=== PATIENT | male | born 1960 | race Caucasian/White ===

== ENCOUNTER 2021-07-25 11:19 | Inpatient (IN) ==
[2021-07-25] MEDS ORDERED: ONDANSETRON 4 MG OD TAB PO STA (11:32)
[2021-07-25] MEDS ORDERED: ONDANSETRON INJ 2 MG/ML 2 ML VIAL IV STA (11:36)
[2021-07-25] MEDS ORDERED: SODIUM CHLORIDE 0.9% 1000ML 1,000 ML IV ONE ×2 (11:36→12:32)
[2021-07-25] MEDS ORDERED: DEXAMETHASONE SOD INJ 4 MG/ML VIAL IV STA (11:49)
--- NOTE | 2021-07-25 12:41 | XRay Report ---
XR chest 1V portable CLINICAL HISTORY: SEPSIS COMPARISON STUDY: No previous studies for comparison. FINDINGS: Lung volumes are normal. No pneumothorax or pleural effusion is noted. There are multifocal bilateral airspace opacities, greater within the left lung. Interstitial thickening is noted. Cardia c silhouette appears mildly enlarged. IMPRESSION: Multifocal bilateral airspace opacities, greater within the left lung. The findings favo r multifocal pneumonia. Radiographic follow-up to ensure resolution is recommended. ACT 112: Negative or not required by law. Electronically signed by: Benjamin Gamez M.D. 07/25/2021 12:40 PM
[2021-07-25 12:47] LABS: Hematocrit (blood only) 33.7 % (42-52); Hemoglobin 11.6 g/dL (14.0-18.0); Mean Corpuscular Hemoglobin 30.7 pg (25-34); Mean Corpuscular Hgb Conc 34.4 g/dL (32-36); Mean Corpuscular Volume 89.2 fL (80-100); Mean Platelet Volume 9.7 fL (7.4-10.4); Platelet Count 158 K/uL (130-400); RDW Coefficient of Variation 14.6 % (11.5-14.5); RDW Standard Deviation 47.7 fL (36.4-46.3); Red Blood Count 3.78 M/uL (4.7-6.1); White Blood Count 3.72 K/uL (4.8-10.8)
--- NOTE | 2021-07-25 12:49 | Emergency Department Note ---
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 Patient states his symptoms have been present for last week. Patient states he tested positive for COVID-19 yesterday. He states he was referred here by his PCP for IV fluids. Patient was unvaccinated. Home Medications Medication Instructions Recorded Confirmed Type allopurinol 300 mg tablet 300 mg PO DAILY 07/25/21 07/25/21 History glyburide 5 mg tablet 5 mg PO BID 07/25/21 07/25/21 History lisinopril 40 mg tablet 40 mg PO DAILY 07/25/21 07/25/21 History metformin 1,000 mg tablet 1,000 mg PO BID 07/25/21 07/25/21 History metoprolol succinate 25 mg 25 mg PO DAILY 07/25/21 07/25/21 History tablet,extended release 24 hr ondansetron 4 mg disintegrating 4 mg TRANSLINGUAL UD PRN 07/25/21 07/25/21 History tablet pioglitazone 45 mg tablet 45 mg PO DAILY 07/25/21 07/25/21 History Allergies Allergy/AdvReac Type Severity Reaction Status Date / Time No Known Allergies Allergy Unverified 07/25/21 14:34 Past Med/Surg History Medical History (Updated 07/25/21 @ 14:41 by Louis [facility]) Diabetes mellitus Gout HTN (hypertension) No pertinent family history Surgical History (Updated 07/25/21 @ 12:46 by Louis [facility]) No pertinent past surgical history Social History Smoking Status: Never smoker Feels Safe at Home: Yes Review of Systems A total of 10 systems reviewed and were otherwise negative Physical Exam Vital Signs Vital Signs - 24 hr 07/25/21 11:32 07/25/21 12:23 07/25/21 12:24 Temperature 36.7 C Temperature Source Temporal Artery Scan Pulse Rate 115 H Pulse Rate [Apical] 106 H Pulse Rhythm [Apical] Regular Respiratory Rate 18 20 20 Respiratory Effort / Characteristics Non-Labored Respiratory Depth Normal Blood Pressure 87/53 L Blood Pressure Mean 64 Pulse Oximetry 90 97 97 Oxygen Delivery Method Room Air Nasal Cannula Nasal Cannula Oxygen Flow Rate 4 4 Sepsis Recent Fever Within 48 Hours No Sepsis New/Unexplained Change in Mental Status No Sepsis Action Taken by Nursing No Action Required 07/25/21 12:28 07/25/21 13:14 Temperature Temperature Source Pulse Rate Pulse Rate [Apical] Pulse Rhythm [Apical] Respiratory Rate 15 Respiratory Effort / Characteristics Short of Breath Respiratory Depth Blood Pressure Blood Pressure Mean Pulse Oximetry 87 L 97 Oxygen Delivery Method Nasal Cannula Nasal Cannula Oxygen Flow Rate 2 4 Sepsis Recent Fever Within 48 Hours Sepsis New/Unexplained Change in Mental Status Sepsis Action Taken by Nursing Physical Exam HENT: Exam performed. - Head: Normocephalic and atraumatic. - Right Ear: External ear normal. No mastoid tenderness. - Left Ear: External ear normal. No mastoid tenderness. - Mouth/Throat: The oropharynx is clear and moist. No trismus in the jaw. No dental abscesses or uvula swelling. No oropharyngeal exudate or tonsillar abscesses. EYES: Conjunctivae and EOM are normal. Pupils are equal, round, and reactive to light. Right eye exhibits no discharge. Left eye exhibits no discharge. No scleral icterus. NECK: Normal range of motion. Neck supple. No JVD present. No spinous process tenderness present. No carotid bruit present. No rigidity. No tracheal deviation and normal range of motion present. No Brudzinski's sign and no Kernig's sign noted. CV: Tachycardic rate, regular rhythm, normal heart sounds and intact distal pulses. There is no peripheral edema. Palpable radial pulses bue. PULM/CHEST: Rhonchi bilaterally. - Chest Wall: He exhibits no tenderness. ABD: The abdomen is soft. Bowel sounds are normal. He has no distension. No mass is present. There is no tenderness. There is no rebound, no guarding, no Reina's sign and no tenderness at McBurney's point. Rovsig negative. MUSC/SKEL: Normal range of motion. There is no peripheral edema, tenderness or deformity. LYMPH: No cervical adenopathy. NEURO: He is alert and oriented to person, place, and time. He has normal strength. No cranial nerve deficit or sensory deficit. Coordination and gait normal. GCS eye subscore is 4. GCS verbal subscore is 5. GCS motor subscore is 6. Cerebellar tests wnl. SKIN: Skin is warm and dry. He is not diaphoretic. PSYCH: He has a normal mood and affect. Behavior is normal. Judgment and thought content normal. Course Course 1136: The patient was evaluated in room B9. A complete history and physical exam was performed Cardiac monitoring: An order was placed for continuous cardiac monitoring. The monitor shows a rate of 110 with sinus tachycardia rhythm On arrival in the emergency department the patient is tachycardic hypotensive and hypoxic. Supplemental oxygen was applied to the patient which improved his oxygen saturation. 2 L IV fluid ordered for the patient. Decadron 6 mg ordered for the patient. 1438: Vital signs improved with supplemental oxygen via nasal cannula and 2 L normal saline bolus. Labs show an elevated creatinine of 2.38. Potassium 5. Calcium gluconate 1 g ordered for the patient. It is thought that the patient's elevated creatinine is most likely due to his dehydration from his Covid infection. Patient reports he does not have any kidney problems at baseline. Magnesium 1.2. Magnesium replacement started in the emergency department. Imaging shows bilateral Covid pneumonia. Patient will be admitted to the [facility] hospitalist team Dr. Costa notified. Administered Medications Magnesium Sulfate/Dextrose (Magnesium Sulfate / D5w) 1 gm in 100 mls @ 100 mls /hr IV Q1H ANSELMO Stop: 07/25/21 15:30 Last Admin: 07/25/21 14:16 Dose: 100 mls/hr Documented by: [id number] Discontinued Medications Calcium Gluconate (Calcium Gluconate 1000 Mg/60 Ml Nss) Confirm Administered Dose 1,000 mg IV .STK-MED ONE Stop: 07/25/21 13:02 Last Admin: 07/25/21 13:12 Dose: Not Given Documented by: [id number] Dexamethasone (Dexamethasone Sod Inj 4 Mg/Ml Vial) 6 mg IV NOW STA Stop: 07/25/21 11:50 Last Admin: 07/25/21 12:20 Dose: 6 mg Documented by: [id number] Sodium Chloride (Nss 1000ml) 1,000 mls @ 999 mls/hr IV .Q1H1M ONE Stop: 07/25/21 12:36 Last Infusion: 07/25/21 12:47 Dose: 0 mls/hr Documented by: [id number] Admin: 07/25/21 12:20 Dose: 999 mls/hr Documented by: [id number] Sodium Chloride (Nss 1000ml) 1,000 mls @ 999 mls/hr IV .Q1H1M ONE Stop: 07/25/21 13:32 Last Infusion: 07/25/21 13:11 Dose: 0 mls/hr Documented by: [id number] Admin: 07/25/21 12:47 Dose: 999 mls/hr Documented by: [id number] Calcium Gluconate 1,000 mg/ (Dextrose) 60 mls @ 240 mls/hr IV ONCE STA Stop: 07/25/21 13:07 Last Infusion: 07/25/21 13:41 Dose: 0 mls/hr Documented by: [id number] Admin: 07/25/21 13:11 Dose: 240 mls/hr Documented by: [id number] Miscellaneous (Stat Iv) 1 ea N/A NOW STA Stop: 07/25/21 12:54 Last Admin: 07/25/21 13:12 Dose: Not Given Documented by: [id number] Ondansetron HCl (Ondansetron 4 Mg Od Tab) 4 mg PO NOW STA Stop: 07/25/21 11:33 Last Admin: 07/25/21 12:20 Dose: Not Given Documented by: [id number] Ondansetron HCl (Ondansetron Inj 2 Mg/Ml 2 Ml Vial) 4 mg IV NOW STA Stop: 07/25/21 11:37 Last Admin: 07/25/21 12:21 Dose: 4 mg Documented by: [id number] Critical Care Time Critical Care Time: Yes Total Critical Care Time: 58 I have personally spent greater than 58 minutes of critical care time in the direct management of this patient. This includes bedside care, interpretation of diagnostic studies, and testing, discussion with consultants, patient, and f amily members, and other required patient management activities. This 58 minutes is in excess of all separately billable procedures. Medical Decision Making Laboratory Data Result diagrams: 07/25/21 12:18 07/25/21 12:18 Lab Results 07/25/21 07/25/21 07/25/21 Range/Units 12:15 12:18 12:18 WBC 3.72 L (4.8-10.8) K/uL RBC 3.78 L (4.7-6.1) M/uL Hgb 11.6 L (14.0-18.0) g/dL POC Hgb (14.0-18.0) g/dl Hct 33.7 L (42-52) % POC Hct (42-52) % MCV 89.2 (80-100) fL MCH 30.7 (25-34) pg MCHC 34.4 (32-36) g/dL RDW Std Deviation 47.7 H (36.4-46.3) fL RDW Coeff of Huan 14.6 H (11.5-14.5) % Plt Count 158 (130-400) K/uL MPV 9.7 (7.4-10.4) fL Immature Gran % (Auto) 0.3 % Neut % (Auto) 85.4 % Lymph % (Auto) 10.8 % Jones % (Auto) 3.5 % Eos % (Auto) 0.0 % Baso % (Auto) 0.0 % Neut # (Auto) 3.18 (1.4-6.5) K/uL Lymph # (Auto) 0.40 L (1.2-3.4) K/uL Jones # (Auto) 0.13 (0.11-0.59) K/uL Eos # (Auto) 0.00 (0-0.5) K/uL Baso # (Auto) 0.00 (0-0.2) K/uL Immature Gran # (Auto) 0.01 (0.00-0.02) K/uL PT (9.0-12.0) Seconds INR (0.9-1.1) APTT (21.0-31.0) Seconds PTT Ratio POC Sodium (135-144) mmol/L Sodium 130 L (136-145) mmol/L POC Potassium (3.3-5.0) mmol/L Potassium 5.0 (3.5-5.1) mmol/L POC Chloride (101-112) mmol/L Chloride 103 (98-107) mmol/L Carbon Dioxide 15 L (21-32) mmol/L POC Total CO2 (24-31) mmol/L Anion Gap 12 H (3-11) POC Anion Gap (16-25) mmol/L POC BUN (7-18) mg/dl BUN 57 H (6-23) mg/dl Creatinine 2.68 H (0.6-1.4) mg/dl POC Creatinine (0.6-1.3) mg/dl Est Cr Clr Drug Dosing 33.8 ml/min Est GFR ( Amer) 29.1 ml/min Est GFR (Non-Af Amer) 25.1 ml/min BUN/Creatinine Ratio 21.3 H (10-20) Glucose 142 H (70-99(Fasting)) mg/dl POC Glucose (other) (70-99) mg/dl Lactate 0.8 (0.4-2.0) mmol/L Calcium 8.0 L (8.5-10.1) mg/dl POC Ioniz Calcium January (1.12-1.32) mmol/l Magnesium 1.2 L (1.7-2.4) mg/dl Total Bilirubin 0.5 (0.2-1.0) mg/dl AST 30 (13-39) U/L ALT 18 (7-52) U/L Alkaline Phosphatase 41 (34-104) U/L Troponin I 0.03 (0-0.04) ng/ml Total Protein 6.6 (6.0-8.3) gm/dl Albumin 3.6 (3.4-5.0) gm/dl Globulin 3.0 (2.5-4.0) gm/dl Albumin/Globulin Ratio 1.2 (0.9-2) Lipase 570 H (11-82) U/L Procalcitonin (0-0.5) ng/ml SARS-CoV-2 (PCR) (Negative) Influenza Type A (PCR) (Neg) Influenza Type B (PCR) (Neg) RSV (RT-PCR) (Neg) 07/25/21 07/25/21 07/25/21 Range/Units 12:18 12:18 12:51 WBC (4.8-10.8) K/uL RBC (4.7-6.1) M/uL Hgb (14.0-18.0) g/dL POC Hgb 10.2 L (14.0-18.0) g/dl Hct (42-52) % POC Hct 30 L (42-52) % MCV (80-100) fL MCH (25-34) pg MCHC (32-36) g/dL RDW Std Deviation (36.4-46.3) fL RDW Coeff of Huan (11.5-14.5) % Plt Count (130-400) K/uL MPV (7.4-10.4) fL Immature Gran % (Auto) % Neut % (Auto) % Lymph % (Auto) % Jones % (Auto) % Eos % (Auto) % Baso % (Auto) % Neut # (Auto) (1.4-6.5) K/uL Lymph # (Auto) (1.2-3.4) K/uL Jones # (Auto) (0.11-0.59) K/uL Eos # (Auto) (0-0.5) K/uL Baso # (Auto) (0-0.2) K/uL Immature Gran # (Auto) (0.00-0.02) K/uL PT 10.7 (9.0-12.0) Seconds INR 1.1 (0.9-1.1) APTT 30.5 (21.0-31.0) Seconds PTT Ratio 1.2 POC Sodium 133 L (135-144) mmol/L Sodium (136-145) mmol/L POC Potassium 5.6 H (3.3-5.0) mmol/L Potassium (3.5-5.1) mmol/L POC Chloride 105 (101-112) mmol/L Chloride (98-107) mmol/L Carbon Dioxide (21-32) mmol/L POC Total CO2 16 L (24-31) mmol/L Anion Gap (3-11) POC Anion Gap 18.0 (16-25) mmol/L POC BUN 74 H (7-18) mg/dl BUN (6-23) mg/dl Creatinine (0.6-1.4) mg/dl POC Creatinine 2.8 H (0.6-1.3) mg/dl Est Cr Clr Drug Dosing ml/min Est GFR ( Amer) ml/min Est GFR (Non-Af Amer) ml/min BUN/Creatinine Ratio (10-20) Glucose (70-99(Fasting)) mg/dl POC Glucose (other) 140 H (70-99) mg/dl Lactate (0.4-2.0) mmol/L Calcium (8.5-10.1) mg/dl POC Ioniz Calcium January 1.07 L (1.12-1.32) mmol/l Magnesium (1.7-2.4) mg/dl Total Bilirubin (0.2-1.0) mg/dl AST (13-39) U/L ALT (7-52) U/L Alkaline Phosphatase (34-104) U/L Troponin I (0-0.04) ng/ml Total Protein (6.0-8.3) gm/dl Albumin (3.4-5.0) gm/dl Globulin (2.5-4.0) gm/dl Albumin/Globulin Ratio (0.9-2) Lipase (11-82) U/L Procalcitonin 0.31 (0-0.5) ng/ml SARS-CoV-2 (PCR) (Negative) Influenza Type A (PCR) (Neg) Influenza Type B (PCR) (Neg) RSV (RT-PCR) (Neg) 07/25/21 Range/Units Unknown WBC (4.8-10.8) K/uL RBC (4.7-6.1) M/uL Hgb (14.0-18.0) g/dL POC Hgb (14.0-18.0) g/dl Hct (42-52) % POC Hct (42-52) % MCV (80-100) fL MCH (25-34) pg MCHC (32-36) g/dL RDW Std Deviation (36.4-46.3) fL RDW Coeff of Huan (11.5-14.5) % Plt Count (130-400) K/uL MPV (7.4-10.4) fL Immature Gran % (Auto) % Neut % (Auto) % Lymph % (Auto) % Jones % (Auto) % Eos % (Auto) % Baso % (Auto) % Neut # (Auto) (1.4-6.5) K/uL Lymph # (Auto) (1.2-3.4) K/uL Jones # (Auto) (0.11-0.59) K/uL Eos # (Auto) (0-0.5) K/uL Baso # (Auto) (0-0.2) K/uL Immature Gran # (Auto) (0.00-0.02) K/uL PT (9.0-12.0) Seconds INR (0.9-1.1) APTT (21.0-31.0) Seconds PTT Ratio POC Sodium (135-144) mmol/L Sodium (136-145) mmol/L POC Potassium (3.3-5.0) mmol/L Potassium (3.5-5.1) mmol/L POC Chloride (101-112) mmol/L Chloride (98-107) mmol/L Carbon Dioxide (21-32) mmol/L POC Total CO2 (24-31) mmol/L Anion Gap (3-11) POC Anion Gap (16-25) mmol/L POC BUN (7-18) mg/dl BUN (6-23) mg/dl Creatinine (0.6-1.4) mg/dl POC Creatinine (0.6-1.3) mg/dl Est Cr Clr Drug Dosing ml/min Est GFR ( Amer) ml/min Est GFR (Non-Af Amer) ml/min BUN/Creatinine Ratio (10-20) Glucose (70-99(Fasting)) mg/dl POC Glucose (other) (70-99) mg/dl Lactate (0.4-2.0) mmol/L Calcium (8.5-10.1) mg/dl POC Ioniz Calcium January (1.12-1.32) mmol/l Magnesium (1.7-2.4) mg/dl Total Bilirubin (0.2-1.0) mg/dl AST (13-39) U/L ALT (7-52) U/L Alkaline Phosphatase (34-104) U/L Troponin I (0-0.04) ng/ml Total Protein (6.0-8.3) gm/dl Albumin (3.4-5.0) gm/dl Globulin (2.5-4.0) gm/dl Albumin/Globulin Ratio (0.9-2) Lipase (11-82) U/L Procalcitonin (0-0.5) ng/ml SARS-CoV-2 (PCR) POSITIVE A* (Negative) Influenza Type A (PCR) Negative (Neg) Influenza Type B (PCR) Negative (Neg) RSV (RT-PCR) Negative (Neg) Imaging Data Radiologist's Impression: Chest X-Ray 07/25/21 11:49 XR chest 1V portable CLINICAL HISTORY: SEPSIS COMPARISON STUDY: No previous studies for comparison. FINDINGS: Lung volumes are normal. No pneumothorax or pleural effusion is noted. There are multifocal bilateral airspace opacities, greater within the left lung. Interstitial thickening is noted. Cardiac silhouette appears mildly enlarged. IMPRESSION: Multifocal bilateral airspace opacities, greater within the left lung. The findings favor multifocal pneumonia. Radiographic follow-up to ensure resolution is recommended. ACT 112: Negative or not required by law. Electronically signed by: Benjamin Gamez M.D. 07/25/2021 12:40 PM Abdomen/Pelvis CT 07/25/21 13:28 CT CHEST WITHOUT CONTRAST; ABDOMEN AND PELVIS CT WITHOUT CONTRAST HISTORY: Acute shortness of breath. COVID Positive. Acute nausea and vomiting with diarrhea covid pna hypoxic hypostensive TECHNIQUE: Multiaxial CT images of the chest, abdomen and pelvis were performed without contrast. A dose lowering technique was utilized adhering to the p rinciples of ALARA. COMPARISON STUDY: Chest CT of same day FINDINGS: CT CHEST: Unremarkable thyroid. Prominent mediastinal and hilar lymph nodes measuring up to 9 mm are likely reactive. Mild cardiomegaly with moderate coronary artery calcifications. Atherosclerosis of the thoracic aorta without aneurysm. There is no pneumothorax, pneumomediastinum or pleural effusion. Mild emphysema. Moderate multifocal and multi segmental bilateral patchy groundglass with mild intermixed airspace opacities. 4 mm nodule of the right lung apex. Additional 4 mm scattered pulmonary nodules are noted throughout the right lung. A few tiny nodules measuring up to 2 mm are noted within the left lung. Central airways are patent. Unremarkable soft tissues. There is no acute fracture identified. Degenerative changes of the shoulders and spine. CT ABDOMEN/PELVIS: No pneumatosis or pneumoperitoneum. Splenomegaly with hepatic steatosis. The spleen measures up to 14 cm in length. There are a few scattered parenchymal calcifications noted within the pancreas. Unremarkable adrenal glands and gallbladder. Mild nonspecific bilateral perinephric stranding. There are a few renal vascular calcifications. No urolith or hydronephrosis. Mild urinary bladder wall thickening with partial distention. Atherosclerosis of the aorta and branch vessels. No aneurysm. No adenopathy. Mild nonspecific distal esophageal wall thickening. There is no bowel obstruct ion or bowel wall thickening. No ascites or mesenteric inflammation. Mild colonic diverticulosis. Normal appendix. Unremarkable soft tissues. There is no acute fracture identified. Grade 1 anterolisthesis L5 on S1 with chronic bilateral L5 pars defects. IMPRESSION: 1. Moderate multifocal patchy bilateral groundglass and consolidative opacities are suggestive of viral pneumonia. 2. Scattered low suspicion bilateral solid pulmonary nodules measure up to 4 mm. 3. Mild emphysema. 4. No bowel obstruction or bowel wall thickening. Normal appendix. 5. Colonic diverticulosis. 6. Hepatosplenomegaly with hepatic steatosis. 7. Mild distal esophageal wall thickening. Correlate clinically to exclude esophagitis. Please refer to below summary of Fleischner criteria recommendations for follow- up of incidental CT nodules (Natalie Garibay, Guidelines for management of small pulmonary nodules detected on CT scans: A statement from the Fleischner Society, Radiology 237: [id number].) SOLID NODULES Multiple nodules size: <6 mm * Low risk patients: no routine follow-up * high risk patients: optional CT at 12 months Note: newly detected indeterminate nodule in persons 35 years of age or older. * Low risk patients: minimal or absent history of smoking and/or other known risk factors * high risk patients: history of smoking or of other known risk factors (e.g. first degree relative with lung cancer, or exposure to asbestos, radon, uranium) * if a nodule up to 8 mm is partly solid or is ground glass further follow-up is required after 24 months to exclude possible slow growing adenocarcinoma (DAILY) ACT 112: Negative or not required by law. The above report was generated using voice recognition software. It may contain grammatical, syntax or spelling errors. Electronically signed by: Jewel Rbiera M.D. 07/25/2021 2:[address] 07/25/21 13:28 CT CHEST WITHOUT CONTRAST; ABDOMEN AND PELVIS CT WITHOUT CONTRAST HISTORY: Acute shortness of breath. COVID Positive. Acute nausea and vomiting with diarrhea covid pna hypoxic hypostensive TECHNIQUE: Multiaxial CT images of the chest, abdomen and pelvis were performed without contrast. A dose lowering technique was utilized adhering to the principles of ALARA. COMPARISON STUDY: Chest CT of same day FINDINGS: CT CHEST: Unremarkable thyroid. Prominent mediastinal and hilar lymph nodes measuring up to 9 mm are likely reactive. Mild cardiomegaly with moderate coronary artery calcifications. Atherosclerosis of the thoracic aorta without aneurysm. There is no pneumothorax, pneumomediastinum or pleural effusion. Mild emphysema. Moderate multifocal and multi segmental bilateral patchy groundglass with mild intermixed airspace opacities. 4 mm nodule of the right lung apex. Additional 4 mm scattered pulmonary nodules are noted throughout the right lung. A few tiny nodules measuring up to 2 mm are noted within the left lung. Central airways are patent. Unremarkable soft tissues. There is no acute fracture identified. Degenerative changes of the shoulders and spine. CT ABDOMEN/PELVIS: No pneumatosis or pneumoperitoneum. Splenomegaly with hepatic steatosis. The spleen measures up to 14 cm in length. There are a few scattered parenchymal calcifications noted within the pancreas. Unremarkable adrenal glands and gallbladder. Mild nonspecific bilateral perinephric stranding. There are a few renal vascular calcifications. No urolith or hydronephrosis. Mild urinary bladder wall thickening with partial distention. Atherosclerosis of the aorta and branch vessels. No aneurysm. No adenopathy. Mild nonspecific distal esophageal wall thickening. There is no bowel obst ruction or bowel wall thickening. No ascites or mesenteric inflammation. Mild colonic diverticulosis. Normal appendix. Unremarkable soft tissues. There is no acute fracture identified. Grade 1 anterolisthesis L5 on S1 with chronic bilateral L5 pars defects. IMPRESSION: 1. Moderate multifocal patchy bilateral groundglass and consolidative opacities are suggestive of viral pneumonia. 2. Scattered low suspicion bilateral solid pulmonary nodules measure up to 4 mm. 3. Mild emphysema. 4. No bowel obstruction or bowel wall thickening. Normal appendix. 5. Colonic diverticulosis. 6. Hepatosplenomegaly with hepatic steatosis. 7. Mild distal esophageal wall thickening. Correlate clinically to exclude esoph agitis. Please refer to below summary of Fleischner criteria recommendations for follow- up of incidental CT nodules (Natalie Garibay, Guidelines for management of small pulmonary nodules detected on CT scans: A statement from the Fleischner Society, Radiology 237: [id number].) SOLID NODULES Multiple nodules size: <6 mm * Low risk patients: no routine follow-up * high risk patients: optional CT at 12 months Note: newly detected indeterminate nodule in persons 35 years of age or older. * Low risk patients: minimal or absent history of smoking and/or other known risk factors * high risk patients: history of smoking or of other known risk factors (e.g. first degree relative with lung cancer, or exposure to asbestos, radon, uranium) * if a nodule up to 8 mm is partly solid or is ground glass further follow-up is required after 24 months to exclude possible slow growing adenocarcinoma (DAILY) ACT 112: Negative or not required by law. The above report was generated using voice recognition software. It may contain grammatical, syntax or spelling errors. Electronically signed by: Jewel Ribera M.D. 07/25/2021 2:21 PM ECG Data Indication: + SOB/dyspnea Rate (beats per minute): 105 Rhythm: + sinus tachycardia ECG Intervals/blocks: + Normal OR and + Normal QT-c ECG ST segments: + Normal ST segments Additional Comments: QRS 74 MDM Narrative 1136: The patient was evaluated in room B9. A complete history and physical exam was performed Cardiac monitoring: An order was placed for continuous cardiac monitoring. The monitor shows a rate of 110 with sinus tachycardia rhythm On arrival in the emergency department the patient is tachycardic hypotensive and hypoxic. Supplemental oxygen was applied to the patient which improved his oxygen saturation. 2 L IV fluid ordered for the patient. Decadron 6 mg ordered for the patient. 1438: Vital signs improved with supplemental oxygen via nasal cannula and 2 L normal saline bolus. Labs show an elevated creatinine of 2.38. Potassium 5. Calcium gluconate 1 g ordered for the patient. It is thought that the patient's elevated creatinine is most likely due to his dehydration from his Covid infection. Patient reports he does not have any kidney problems at baseline. Magnesium 1.2. Magnesium replacement started in the emergency department. Imaging shows bilateral Covid pneumonia. Patient will be admitted to the [facility] hospitalist team Dr. Costa notified. Impression & Plan 2019 novel coronavirus-infected pneumonia (NCIP), Hypoxia, NATHANIEL (acute kidney injury), Hyperkalemia, Hypomagnesemia Discharge Plan Visit Data Chief Complaint: Dehydration Stated Complaint: COVID+ 07/25, DEHYDRATION, DIARRHEA ED Provider: Louis Humphrey Discharge Problem: 2019 novel coronavirus-infected pneumonia (NCIP), Hypoxia, NATHANIEL (acute kidney injury), Hyperkalemia, Hypomagnesemia Patient Disposition: Admitted As Inpatient Forms Stand Alone Forms: [facility] Prescriptions Prescriptions: No Action glyburide 5 mg tablet 5 mg PO BID RF: 0 pioglitazone 45 mg tablet 45 mg PO DAILY RF: 0 metformin 1,000 mg tablet 1,000 mg PO BID RF: 0 allopurinol 300 mg tablet 300 mg PO DAILY RF: 0 metoprolol succinate 25 mg tablet extended release 24 hr 25 mg PO DAILY RF: 0 lisinopril 40 mg tablet 40 mg PO DAILY RF: 0 ondansetron 4 mg tablet,disintegrating 4 mg translingual UD PRN (Reason: Nausea) RF: 0 Referrals Referrals: PCP,NO [Primary Care Provider] -
[2021-07-25] MEDS ORDERED: CALCIUM GLUCONATE 10% 1,000 MG in DEXTROSE 5% 50 ML IV STA (12:53)
[2021-07-25] MEDS ORDERED: STAT IV STA (12:53)
[2021-07-25 12:56] LABS: INR 1.1 (0.9-1.1); Partial Thromboplastin Ratio 1.2; Partial Thromboplastin Time 30.5 Seconds (21.0-31.0); Prothrombin Time 10.7 Seconds (9.0-12.0)
--- NOTE | 2021-07-25 12:58 | Electrocardiogram Report ---
Test Reason : Blood Pressure : / mmHG Vent. Rate : 105 BPM Atrial Rate : 105 BPM P-R Int : 126 ms QRS Dur : 074 ms QT Int : 302 ms P-R-T Axes : 037 039 038 degrees QTc Int : 399 ms Sinus tachycardia Otherwise normal ECG No previous ECGs available Confirmed by Earl Alvarado ([id number]) on 07/25/2021 12:58:00 PM Referred By: Confirmed By:Luigi Alvarado
[2021-07-25] MEDS ORDERED: CALCIUM GLUCONATE 1000 MG/60 ML NSS IV ONE (13:01)
[2021-07-25 13:04] LABS: iSTAT Creatinine 2.8 mg/dl (0.6-1.3); iSTAT Hemoglobin 10.2 g/dl (14.0-18.0); iSTAT Ionized Calcium 1.07 mmol/l (1.12-1.32); iSTAT Potassium 5.6 mmol/L (3.3-5.0)
[2021-07-25 13:05] LABS: Immature Granulocytes # (auto) 0.01 K/uL (0.00-0.02); Immature Granulocytes % (auto) 0.3 %; Lymphocytes % (auto) 10.8 %; Monocytes # (auto) 0.13 K/uL (0.11-0.59); Monocytes % (auto) 3.5 %; Neutrophils # (auto) 3.18 K/uL (1.4-6.5); Neutrophils % (auto) 85.4 %
[2021-07-25 13:12] LABS: Troponin I 0.03 ng/ml (0-0.04)
[2021-07-25 13:22] LABS: Albumin Globulin Ratio 1.2 (0.9-2); Albumin Level 3.6 gm/dl (3.4-5.0); BUN Creatinine Ratio 21.3 (10-20); Bilirubin,Total 0.5 mg/dl (0.2-1.0); Creatinine Clr Calc Pharmacy 33.8 ml/min; Est GFR (African American) 29.1 ml/min; Est GFR (Non-African American) 25.1 ml/min; Magnesium 1.2 mg/dl (1.7-2.4); Total Protein 6.6 gm/dl (6.0-8.3)
[2021-07-25 14:02] LABS: Influenza A virus by PCR Negative (Neg); Influenza B virus by PCR Negative (Neg); RSV by PCR Negative (Neg)
[2021-07-25 14:06] LABS: SARS CoV2 RNA(COVID-19) InHosp POSITIVE (Negative)
[2021-07-25] MEDS: MAGNESIUM SULFATE / D5W 1 GM/100 ML BAG IV SCH ×4 (14:16→18:03)
--- NOTE | 2021-07-25 14:23 | CT Scan Report ---
CT CHEST WITHOUT CONTRAST; ABDOMEN AND PELVIS CT WITHOUT CONTRAST HISTORY: Acute shortness of breath. COVID Positive. Acute nausea and vomiting with diarrhea covid pn a hypoxic hypostensive TECHNIQUE: Multiaxial CT images of the chest, abdomen and pelvis were performed without contrast. A dose lowering technique was utilized adhering to the principles of ALARA. COMPARISON STUDY: Chest CT of same day FINDINGS: CT CHEST: Unremarkable thyroid. Prominent mediastinal and hilar lymph nodes measuring up to 9 mm are likely anastasia ctive. Mild cardiomegaly with moderate coronary artery calcifications. Atherosclerosis of the thoraci c aorta without aneurysm. There is no pneumothorax, pneumomediastinum or pleural effusion. Mild emphy sema. Moderate multifocal and multi segmental bilateral patchy groundglass with mild intermixed airsp harvey opacities. 4 mm nodule of the right lung apex. Additional 4 mm scattered pulmonary nodules are no janet throughout the right lung. A few tiny nodules measuring up to 2 mm are noted within the left lung . Central airways are patent. Unremarkable soft tissues. There is no acute fracture identified. Degenerative changes of the shoulde rs and spine. CT ABDOMEN/PELVIS: No pneumatosis or pneumoperitoneum. Splenomegaly with hepatic steatosis. The spleen measures up to 14 cm in length. There are a few scattered parenchymal calcifications noted within the pancreas. Unrema rkable adrenal glands and gallbladder. Mild nonspecific bilateral perinephric stranding. There are a few renal vascular calcifications. No urolith or hydronephrosis. Mild urinary bladder wall thickening with partial distention. Atherosclerosis of the aorta and branch vessels. No aneurysm. No adenopathy . Mild nonspecific distal esophageal wall thickening. There is no bowel obstruction or bowel wall thick ening. No ascites or mesenteric inflammation. Mild colonic diverticulosis. Normal appendix. Unremarka ble soft tissues. There is no acute fracture identified. Grade 1 anterolisthesis L5 on S1 with chroni c bilateral L5 pars defects. IMPRESSION: 1. Moderate multifocal patchy bilateral groundglass and consolidative opacities are suggestive of vir al pneumonia. 2. Scattered low suspicion bilateral solid pulmonary nodules measure up to 4 mm. 3. Mild emphysema. 4. No bowel obstruction or bowel wall thickening. Normal appendix. 5. Colonic diverticulosis. 6. Hepatosplenomegaly with hepatic steatosis. 7. Mild distal esophageal wall thickening. Correlate clinically to exclude esophagitis. Please refer to below summary of Fleischner criteria recommendations for follow-up of incidental CT n odules (H MacMahon, Guidelines for management of small pulmonary nodules detected on CT scans: A sta tement from the Fleischner Society, Radiology 237: [phone].) SOLID NODULES Multiple nodules size: <6 mm * Low risk patients: no routine follow-up * high risk patients: optional CT at 12 months Note: newly detected indeterminate nodule in persons 35 years of age or older. * Low risk patients: minimal or absent history of smoking and/or other known risk factors * high risk patients: history of smoking or of other known risk factors (e.g. first degree relative with lung cancer, or exposure to asbestos, radon, uranium) * if a nodule up to 8 mm is partly solid or is ground glass further follow-up is required after 24 m onths to exclude possible slow growing adenocarcinoma (DAILY) ACT 112: Negative or not required by law. The above report was generated using voice recognition software. It may contain grammatical, syntax o r spelling errors. Electronically signed by: Jewel Ribera M.D. 07/25/2021 2:21 PM
[2021-07-25] MEDS ORDERED: SODIUM CHLORIDE 0.9% 1000ML 1,000 ML IV SCH (14:45)
[2021-07-25 15:45] LABS: Appearance Urine Clear (Clear); Bacteria Urine Automated Negative (Negative); Bilirubin Urine Negative (Negative); Blood Urine Negative (Negative); Color Urine Yellow; Glucose Urine UA Negative (Negative); Ketones Urine Trace (Negative); Leukocyte Esterase Urine Negative (Negative); Nitrite Urine Negative (Negative); Protein Urine Trace (Negative); RBC Urine Automated 0-4 /hpf (0-4); Urobilinogen Urine Negative (Negative)
--- NOTE | 2021-07-25 16:07 | History & Physical Report ---
Date of Service July 25, 2021 Assessment & Plan (1) Acute respiratory failure with hypoxia: (2) 2019 novel coronavirus-infected pneumonia (NCIP): (3) Hypomagnesemia: (4) Acute worsening of stage 3 chronic kidney disease: (5) Diabetes mellitus: (6) CAD (coronary artery disease): (7) HTN (hypertension): (8) DVT prophylaxis: Plan: This is a 60-year-old male who has significant past medical history of CAD with hx of stents, HTN, HLD, T2DM, gout presents to ED secondary to n/v/d x 3 days. Acute hypoxic respiratory failure COVID-19 pneumonia Emphysema documented on CAT scan Admit to PCU IV dexamethasone 6 mg daily Does not meet criteria for remdesivir secondary to renal function Supportive care with as needed nebs, antitussives, antiemetics Received 2 L IV fluid while in ED, blood pressure has normalized -hold further IV resuscitation and monitor Incentive spirometry CRP, echocardiogram Patient is not vaccinated A/C CKD -3 baseline cr 1.5-2.0 likely in setting of hypovolemia due to n/v/d received IVF In ED hold nephrotoxic agents Hypomagnesemia replete with 1g mag sulfate x 4 repeat mag roberta 2100 CAD On aspirin, lisinopril, metoprolol as outpatient Lisinopril setting of NATHANIEL T2DM Last A1c 6.2 on 05/29/2021 Hold Metformin, Actos and glyburide Consider discontinuing Actos at d/c HTN bp now normotensive hold lisinopril due to NATHANIEL continue metoprolol Gout continue allopurinol, renally dose Decrease from 300mg to 100mg Pulmonary nodules Scattered low suspicion bilateral solid pulmonary nodules measure up to [address] Recommend repeat CT in 12 months with PCP DVT ppx: SQ Heparin 7,500units q8h Dispo: PCU FULL CODE PCP: Amina Pt was seen by Dr. Bermeo and collaborated with myself. Please see his addendum. History of Present Illness Chief Complaint: N/V/D x 3 days. Primary Care Provider: Daniel Huynh MD This is a 60-year-old male who has significant past medical history of CAD, HTN, HLD, T2DM, gout presents to ED secondary to n/v/d x 3 days. He further complains of nausea, vomiting, diarrhea, x 1 week. He did test positive for CO VID-19 yesterday. Patient is unvaccinated. He states he feels unwell and has had n/v/d x 3 days. Denies melena, hematochezia or hemoptysis. Further denies cough, sob, wheezing, f/c/s, dizzines, lightheaded, abd pain. In ED patient was found to be hypoxic requiring 4 L of O2 via NC. Initially he was hypotensive requiring IV fluid resuscitation x2 L. Further he was found to have lab abnormalities including hypomagnesemia at 1.2, acute on chronic CKD stage III with BUN/creatinine of 57 and 2.6, lipase 570, procalcitonin 0.31, sodium 130. He underwent a CT of chest abdomen pelvis which revealed moderate multifocal patchy bilateral groundglass opacities consistent with viral pneumonia. Also scattered low suspicion pulmonary nodules noted bilaterally measuring up to 4 mm. Mild emphysema was noted. Further incidental findings was hepatomegaly, splenomegaly and hepatosteatosis and mild distal esophageal wall thickening. In ED he received IV dexamethasone 6 mg, IV magnesium sulfate x2, 2 L of IV fluid, 1000 mg of calcium gluconate and Zofran. Allergies Allergy/AdvReac Type Severity Reaction Status Date / Time No Known Allergies Allergy Unverified 07/25/21 14:34 Home Medications Medication Instructions Recorded Confirmed Type allopurinol 300 mg tablet 300 mg PO DAILY 07/25/21 07/25/21 History aspirin 81 mg tablet,delayed 81 mg PO DAILY 07/25/21 07/25/21 History release glyburide 5 mg tablet 5 mg PO BID 07/25/21 07/25/21 History lisinopril 40 mg tablet 40 mg PO DAILY 07/25/21 07/25/21 History metformin 1,000 mg tablet 1,000 mg PO BID 07/25/21 07/25/21 History metoprolol succinate 25 mg 25 mg PO DAILY 07/25/21 07/25/21 History tablet,extended release 24 hr ondansetron 4 mg disintegrating 4 mg TRANSLINGUAL UD PRN 07/25/21 07/25/21 History tablet pioglitazone 45 mg tablet 45 mg PO DAILY 07/25/21 07/25/21 History Past Med/Surg History Medical History (Updated 07/25/21 @ 16:05 by Linda L. Zapsky, PA-C) CAD (coronary artery disease) CKD (chronic kidney disease) stage 3, GFR 30-59 ml/min Diabetes mellitus Gout HLD (hyperlipidemia) HTN (hypertension) Surgical History (Updated 07/25/21 @ 15:57 by Linda Block PA-C) History of arthroscopy of left knee History of heart artery stent x3 Family History (Updated 07/25/21 @ 15:58 by Linda Block PA-C) Mother Cancer pancreatitc Other Coronary heart disease Diabetes Social History (Updated 07/25/21 @ 15:58 by Linda Block PA-C) Smoking Status: Former smoker packs per day: 1; Years Smoked: 27; Smoking End Date: 2001; Second Hand Exposure: No; Hx Alcohol Use: No Hx Substance Use: No Preferred Language: Occitan Communication Ability: Effective marital status: Feels Safe at Home: Yes Review of Systems Review of Systems: All systems reviewed & are unremarkable except as noted in HPI & below Physical Exam Physical Exam: Please refer to attending addendum for physical exam findings. Results & Data Results & Data ([facility]) Vital Signs (Past 12 Hours) Vital Signs Temp Pulse Pulse Resp BP BP Pulse Ox 07/25/21 15:26 79 20 110/64 95 07/25/21 15:11 99 H 22 96 07/25/21 15:10 22 07/25/21 15:09 98 H 23 101/64 96 07/25/21 13:14 15 97 07/25/21 12:28 87 L 07/25/21 12:24 106 H 20 97 07/25/21 12:23 20 97 07/25/21 11:32 36.7 C 115 H 18 87/53 L 90 Diagnostic Findings Chest X-Ray 07/25/21 11:49 XR chest 1V portable CLINICAL HISTORY: SEPSIS COMPARISON STUDY: No previous studies for comparison. FINDINGS: Lung volumes are normal. No pneumothorax or pleural effusion is noted. There are multifocal bilateral airspace opacities, greater within the left lung. Interstitial thickening is noted. Cardiac silhouette appears mildly enlarged. IMPRESSION: Multifocal bilateral airspace opacities, greater within the left lung. The findings favor multifocal pneumonia. Radiographic follow-up to ensure resolution is recommended. ACT 112: Negative or not required by law. Electronically signed by: Benjamin Gamez M.D. 07/25/2021 12:40 PM Abdomen/Pelvis CT 07/25/21 13:28 CT CHEST WITHOUT CONTRAST; ABDOMEN AND PELVIS CT WITHOUT CONTRAST HISTORY: Acute shortness of breath. COVID Positive. Acute nausea and vomiting with diarrhea covid pna hypoxic hypostensive TECHNIQUE: Multiaxial CT images of the chest, abdomen and pelvis were performed without contrast. A dose lowering technique was utilized adhering to the principles of ALARA. COMPARISON STUDY: Chest CT of same day FINDINGS: CT CHEST: Unremarkable thyroid. Prominent mediastinal and hilar lymph nodes measuring up to 9 mm are likely reactive. Mild cardiomegaly with moderate coronary artery calcifications. Atherosclerosis of the thoracic aorta without aneurysm. There is no pneumothorax, pneumomediastinum or pleural effusion. Mild emphysema. Moderate multifocal and multi segmental bilateral patchy groundglass with mild intermixed airspace opacities. 4 mm nodule of the right lung apex. Additional 4 mm scattered pulmonary nodules are noted throughout the right lung. A few tiny nodules measuring up to 2 mm are noted within the left lung. Central airways are patent. Unremarkable soft tissues. There is no acute fracture identified. Degenerative changes of the shoulders and spine. CT ABDOMEN/PELVIS: No pneumatosis or pneumoperitoneum. Splenomegaly with hepatic steatosis. The spleen measures up to 14 cm in length. There are a few scattered parenchymal calcifications noted within the pancreas. Unremarkable adrenal glands and gallbladder. Mild nonspecific bilateral perinephric stranding. There are a few renal vascular calcifications. No urolith or hydronephrosis. Mild urinary bladder wall thickening with partial distention. Atherosclerosis of the aorta and branch vessels. No aneurysm. No adenopathy. Mild nonspecific distal esophageal wall thickening. There is no bowel obstruction or bowel wall thickening. No ascites or mesenteric inflammation. Mild colonic diverticulosis. Normal appendix. Unremarkable soft tissues. There is no acute fracture identified. Grade 1 anterolisthesis L5 on S1 with chronic bilateral L5 pars defects. IMPRESSION: 1. Moderate multifocal patchy bilateral groundglass and consolidative opacities are suggestive of viral pneumonia. 2. Scattered low suspicion bilateral solid pulmonary nodules measure up to 4 mm. 3. Mild emphysema. 4. No bowel obstruction or bowel wall thickening. Normal appendix. 5. Colonic diverticulosis. 6. Hepatosplenomegaly with hepatic steatosis. 7. Mild distal esophageal wall thickening. Correlate clinically to exclude esophagitis. Please refer to below summary of Fleischner criteria recommendations for follow- up of incidental CT nodules (H MacMahon, Guidelines for management of small pulmonary nodules detected on CT scans: A statement from the Fleischner Society, Radiology 237: [phone].) SOLID NODULES Multiple nodules size: <6 mm * Low risk patients: no routine follow-up * high risk patients: optional CT at 12 months Note: newly detected indeterminate nodule in persons 35 years of age or older. * Low risk patients: minimal or absent history of smoking and/or other known risk factors * high risk patients: history of smoking or of other known risk factors (e.g. first degree relative with lung cancer, or exposure to asbestos, radon, uranium) * if a nodule up to 8 mm is partly solid or is ground glass further follow-up is required after 24 months to exclude possible slow growing adenocarcinoma (DAILY) ACT 112: Negative or not required by law. The above report was generated using voice recognition software. It may contain grammatical, syntax or spelling errors. Electronically signed by: Jewel Ribera M.D. 07/25/2021 2:[address] 07/25/21 13:28 CT CHEST WITHOUT CONTRAST; ABDOMEN AND PELVIS CT WITHOUT CONTRAST HISTORY: Acute shortness of breath. COVID Positive. Acute nausea and vomiting with diarrhea covid pna hypoxic hypostensive TECHNIQUE: Multiaxial CT images of the chest, abdomen and pelvis were performed without contrast. A dose lowering technique was utilized adhering to the principles of ALARA. COMPARISON STUDY: Chest CT of same day FINDINGS: CT CHEST: Unremarkable thyroid. Prominent mediastinal and hilar lymph nodes measuring up to 9 mm are likely reactive. Mild cardiomegaly with moderate coronary artery calcifications. Atherosclerosis of the thoracic aorta without aneurysm. There is no pneumothorax, pneumomediastinum or pleural effusion. Mild emphysema. Moderate multifocal and multi segmental bilateral patchy groundglass with mild intermixed airspace opacities. 4 mm nodule of the right lung apex. Additional 4 mm scattered pulmonary nodules are noted throughout the right lung. A few tiny nodules measuring up to 2 mm are noted within the left lung. Central airways are patent. Unremarkable soft tissues. There is no acute fracture identified. Degenerative changes of the shoulders and spine. CT ABDOMEN/PELVIS: No pneumatosis or pneumoperitoneum. Splenomegaly with hepatic steatosis. The spleen measures up to 14 cm in length. There are a few scattered parenchymal calcifications noted within the pancreas. Unremarkable adrenal glands and gallbladder. Mild nonspecific bilateral perinephric stranding. There are a few renal vascular calcifications. No urolith or hydronephrosis. Mild urinary bladder wall thickening with partial distention. Atherosclerosis of the aorta and branch vessels. No aneurysm. No adenopathy. Mild nonspecific distal esophageal wall thickening. There is no bowel obstruction or bowel wall thickening. No ascites or mesenteric inflammation. Mild colonic diverticulosis. Normal appendix. Unremarkable soft tissues. There is no acute fracture identified. Grade 1 anterolisthesis L5 on S1 with chronic bilateral L5 pars defects. IMPRESSION: 1. Moderate multifocal patchy bilateral groundglass and consolidative opacities are suggestive of viral pneumonia. 2. Scattered low suspicion bilateral solid pulmonary nodules measure up to 4 mm. 3. Mild emphysema. 4. No bowel obstruction or bowel wall thickening. Normal appendix. 5. Colonic diverticulosis. 6. Hepatosplenomegaly with hepatic steatosis. 7. Mild distal esophageal wall thickening. Correlate clinically to exclude esophagitis. Please refer to below summary of Fleischner criteria recommendations for follow- up of incidental CT nodules (Natalie Garibay, Guidelines for management of small pulmonary nodules detected on CT scans: A statement from the Fleischner Society, Radiology 237: [phone].) SOLID NODULES Multiple nodules size: <6 mm * Low risk patients: no routine follow-up * high risk patients: optional CT at 12 months Note: newly detected indeterminate nodule in persons 35 years of age or older. * Low risk patients: minimal or absent history of smoking and/or other known risk factors * high risk patients: history of smoking or of other known risk factors (e.g. first degree relative with lung cancer, or exposure to asbestos, radon, uranium) * if a nodule up to 8 mm is partly solid or is ground glass further follow-up is required after 24 months to exclude possible slow growing adenocarcinoma (DAILY) ACT 112: Negative or not required by law. The above report was generated using voice recognition software. It may contain grammatical, syntax or spelling errors. Electronically signed by: Jewel Ribera M.D. 07/25/2021 2:21 PM Medications Administered Medication List Sodium Chloride (Nss 1000ml) 1,000 mls @ 80 mls/hr IV .[id number] ANSELMO Stop: 08/24/21 14:44 Last Admin: 07/25/21 15:09 Dose: 80 mls/hr Documented by: [id number] Discontinued Medications Calcium Gluconate (Calcium Gluconate 1000 Mg/60 Ml Nss) Confirm Administered Dose 1,000 mg IV .STK-MED ONE Stop: 07/25/21 13:02 Last Admin: 07/25/21 13:12 Dose: Not Given Documented by: [id number] Dexamethasone (Dexamethasone Sod Inj 4 Mg/Ml Vial) 6 mg IV NOW STA Stop: 07/25/21 11:50 Last Admin: 07/25/21 12:20 Dose: 6 mg Documented by: [id number] Sodium Chloride (Nss 1000ml) 1,000 mls @ 999 mls/hr IV .Q1H1M ONE Stop: 07/25/21 12:36 Last Infusion: 07/25/21 12:47 Dose: 0 mls/hr Documented by: [id number] Admin: 07/25/21 12:20 Dose: 999 mls/hr Documented by: [id number] Sodium Chloride (Nss 1000ml) 1,000 mls @ 999 mls/hr IV .Q1H1M ONE Stop: 07/25/21 13:32 Last Infusion: 07/25/21 13:11 Dose: 0 mls/hr Documented by: [id number] Admin: 07/25/21 12:47 Dose: 999 mls/hr Documented by: [id number] Calcium Gluconate 1,000 mg/ (Dextrose) 60 mls @ 240 mls/hr IV ONCE STA Stop: 07/25/21 13:07 Last Infusion: 07/25/21 13:41 Dose: 0 mls/hr Documented by: [id number] Admin: 07/25/21 13:11 Dose: 240 mls/hr Documented by: [id number] Magnesium Sulfate/Dextrose (Magnesium Sulfate / D5w) 1 gm in 100 mls @ 100 mls/hr IV Q1H ANSELMO Stop: 07/25/21 15:30 Last Admin: 07/25/21 15:25 Dose: 100 mls/hr Documented by: [id number] Infusion: 07/25/21 15:09 Dose: 0 mls/hr Documented by: [id number] Admin: 07/25/21 14:16 Dose: 100 mls/hr Documented by: [id number] Miscellaneous (Stat Iv) 1 ea N/A NOW STA Stop: 07/25/21 12:54 Last Admin: 07/25/21 13:12 Dose: Not Given Documented by: [id number] Ondansetron HCl (Ondansetron 4 Mg Od Tab) 4 mg PO NOW STA Stop: 07/25/21 11:33 Last Admin: 07/25/21 12:20 Dose: Not Given Documented by: [id number] Ondansetron HCl (Ondansetron Inj 2 Mg/Ml 2 Ml Vial) 4 mg IV NOW STA Stop: 07/25/21 11:37 Last Admin: 07/25/21 12:21 Dose: 4 mg Documented by: [id number] ECG Rate (beats per minute): 105 Rhythm: sinus tachycardia COVID-19 Results Results COVID-19 Adm Lab Results: RBC 3.78 M/uL (4.7-6.1) L 07/25/21 WBC 3.72 K/uL (4.8-10.8) L 07/25/21 Hgb 11.6 g/dL (14.0-18.0) L 07/25/21 Hct 33.7 % (42-52) L 07/25/21 Plt Count 158 K/uL (130-400) 07/25/21 Neutrophils (%) (Auto) 85.4 % 07/25/21 Lymphocytes (%) (Auto) 10.8 % 07/25/21 Monocytes # (Auto) 0.13 K/uL (0.11-0.59) 07/25/21 Eosinophils # (Auto) 0.00 K/uL (0-0.5) 07/25/21 Immature Granulocyte % (Auto) 0.3 % 07/25/21 Neutrophils # (Auto) 3.18 K/uL (1.4-6.5) 07/25/21 Lymphocytes # (Auto) 0.40 K/uL (1.2-3.4) L 07/25/21 Monocytes # (Auto) 0.13 K/uL (0.11-0.59) 07/25/21 Eosinophils # (Auto) 0.00 K/uL (0-0.5) 07/25/21 Basophils # (Auto) 0.00 K/uL (0-0.2) 07/25/21 Immature Granulocyte # (Auto) 0.01 K/uL (0.00-0.02) 07/25/21 Na 130 mmol/L (136-145) L 07/25/21 K 5.0 mmol/L (3.5-5.1) 07/25/21 Cl 103 mmol/L (98-107) 07/25/21 CO2 15 mmol/L (21-32) L 07/25/21 Anion Gap 12 (3-11) H 07/25/21 BUN 57 mg/dl (6-23) H 07/25/21 Creatinine 2.68 mg/dl (0.6-1.4) H 07/25/21 BUN/Creatinine Ratio 21.3 (10-20) H 07/25/21 Glucose Level 142 mg/dl (70-99(Fasting)) H 07/25/21 Ca 8.0 mg/dl (8.5-10.1) L 07/25/21 Total Bilirubin 0.5 mg/dl (0.2-1.0) 07/25/21 AST/SGOT 30 U/L (13-39) 07/25/21 ALT/SGPT 18 U/L (7-52) 07/25/21 Alkaline Phosphatase 41 U/L (34-104) 07/25/21 Total Protein 6.6 gm/dl (6.0-8.3) 07/25/21 Albumin 3.6 gm/dl (3.4-5.0) 07/25/21 Globulin 3.0 gm/dl (2.5-4.0) 07/25/21 Albumin/Globulin Ratio 1.2 (0.9-2) 07/25/21 Troponin I 0.03 ng/ml (0-0.04) 07/25/21 CRP Pending 07/25/21 Procalcitonin 0.31 ng/ml (0-0.5) 07/25/21 PTT 30.5 Seconds (21.0-31.0) 07/25/21 INR 1.1 (0.9-1.1) 07/25/21 COVID-19 PCR POSITIVE (Negative) A* 07/25/21 Influenza Virus Type A (PCR) Negative (Neg) 07/25/21 Influenza Virus Type B (PCR) Negative (Neg) 07/25/[address] 07/25/21 Chest X-Ray 07/25/21 Code Status & VTE Plan Code Status FULL CODE VTE Prophylaxis Plan VTE Prophylaxis will be ordered: Yes Supervising Physician Co-Signing Physician Notes pt is a 60 y/o M with hx of CAD s/p stents, DMII, CKD III, HLD, HTN, Gout ad mitted for NATHANIEL and COVID pneumonia. Pt stated that he has been having Nausea, Vomiting (NBNB), and Diarrhea (NB) for 3 days. Denied any abd pain, Fever, cough, SOB or CP. He was seen in the clinic yesterday and his COVID test was positive. PE: NAD, NC in place (4L) Lungs: fair air entry b/l with b/l rales Cardiac: normal S1/S2, no murmur Abd: obese abd, soft, NT MSK: no LE edema Psych: AAOx3, normal affect A/P: COVID pneumonia with hypoxia: -Tested positive for COVID on: 07/24/21 - symptoms onset on: 3 days ago -Procal ordered: neg -LFTs are normal but GFR < 30 -will start the pt on Dexamethasone - will get echo to evaluate his cardiac function -continue on oxygen supplement right now -encourage frequent change of position (including proning) -daily CMP and CRP -DVT ppx ordered: Heparin NATHANIEL: -pt is s/p 2L NS bolus -will encourage PO intake and trend BMP N/V and diarrhea: -CT abd/pelvis: no acute infection -zofran prn -encourage PO intake - VSS Agree with A/P by Linda Block PA-C
[2021-07-25] MEDS ORDERED: MAGNESIUM HYDROXIDE SUSP 30 ML UDC PO PRN (18:02)
[2021-07-25] MEDS ORDERED: POLYETHYLENE (MIRALAX) 17 GM PACK PO PRN (18:02)
[2021-07-25] MEDS ORDERED: GLUCOSE 10 TABS/TUBE PO PRN (18:02)
[2021-07-25] MEDS ORDERED: CARBOHYDRATES FOR HYPOGLYCEMIA PO PRN (18:02)
[2021-07-25] MEDS ORDERED: ONDANSETRON INJ 2 MG/ML 2 ML VIAL IV PRN (18:02)
[2021-07-25] MEDS ORDERED: PHARMACY GLYCEMIC MGMT CONSULT PRN (18:02)
[2021-07-25] MEDS ORDERED: ALUMINUM/MAGNESIUM SUSP 30 ML UDC PO PRN (18:02)
[2021-07-25] MEDS ORDERED: ALBUTEROL HFA 8 GM INHALER INH PRN (18:02)
[2021-07-25] MEDS ORDERED: GLUCAGON FOR INJ 1 MG VIAL SQ PRN (18:02)
[2021-07-25] MEDS ORDERED: ALBUT/IPRATROP 3MG/0.5MG NEB 3 ML VIAL NEB PRN (18:02)
[2021-07-25] MEDS ORDERED: GLUCOSE 40% GEL 15 GM TUBE PO PRN (18:02)
[2021-07-25] MEDS ORDERED: BENZONATATE 100 MG CAPSULE PO PRN (18:02)
[2021-07-25] MEDS: INSULIN ASPART PER UNIT SC SCH ×2 (21:00→21:37)
[2021-07-25] MEDS: HEPARIN SOD 5,000 UNIT/0.5 ML VIAL SQ SCH (21:26)
[2021-07-25] MEDS: INSULIN GLARGINE SOLOSTAR 100 UNITS/ML 3 ML PEN SC SCH (21:36)
[2021-07-25] MEDS ORDERED: INSULIN HUMAN REGULAR PER UNIT 10 UNITS in SYRINGE 9.9 ML IV ONE (22:00)
[2021-07-26] MEDS: INSULIN ASPART PER UNIT SC SCH ×6 (02:05→20:33)
[2021-07-26] MEDS: HEPARIN SOD 5,000 UNIT/0.5 ML VIAL SQ SCH (05:09)
[2021-07-26 05:49] LABS: Hemoglobin 10.9 g/dL (14.0-18.0); Mean Corpuscular Hemoglobin 30.4 pg (25-34); Mean Corpuscular Hgb Conc 34.1 g/dL (32-36); Mean Corpuscular Volume 89.1 fL (80-100); Mean Platelet Volume 9.5 fL (7.4-10.4); Platelet Count 149 K/uL (130-400); RDW Coefficient of Variation 14.4 % (11.5-14.5); RDW Standard Deviation 47.2 fL (36.4-46.3); Red Blood Count 3.59 M/uL (4.7-6.1); White Blood Count 2.49 K/uL (4.8-10.8)
[2021-07-26 06:13] LABS: Albumin Globulin Ratio 1.3 (0.9-2); Albumin Level 3.3 gm/dl (3.4-5.0); BUN Creatinine Ratio 30.6 (10-20); Bilirubin,Total 0.3 mg/dl (0.2-1.0); Calcium 7.9 mg/dl (8.5-10.1); Creatinine Clr Calc Pharmacy 57.4 ml/min; Est GFR (African American) 55.5 ml/min; Est GFR (Non-African American) 47.9 ml/min; Globulin 2.5 gm/dl (2.5-4.0); Potassium 5.3 mmol/L (3.5-5.1); Total Protein 5.8 gm/dl (6.0-8.3)
[2021-07-26 06:24] LABS: Immature Granulocytes # (auto) 0.01 K/uL (0.00-0.02); Immature Granulocytes % (auto) 0.4 %; Lymphocytes # (auto) 0.36 K/uL (1.2-3.4); Lymphocytes % (auto) 14.5 %; Monocytes # (auto) 0.13 K/uL (0.11-0.59); Monocytes % (auto) 5.2 %; Neutrophils # (auto) 1.99 K/uL (1.4-6.5); Neutrophils % (auto) 79.9 %
[2021-07-26 07:47] LABS: Estimated Average Glucose 134 mg/dl; Hemoglobin A1C 6.3 % (4.5-5.6)
[2021-07-26] MEDS: METOPROLOL SUCC 25MG EXT REL TAB PO SCH (08:32)
[2021-07-26] MEDS: ASPIRIN 81 MG ECTAB PO SCH (08:32)
[2021-07-26] MEDS: allopurinoL 100 MG TAB PO SCH (08:32)
[2021-07-26] MEDS: dexAMETHasone 6 MG in SYRINGE 0 ML IV SCH (08:33)
[2021-07-26] MEDS ORDERED: INSULIN HUMAN NPH SC SCH (09:00)
[2021-07-26] MEDS ORDERED: REMDESIVIR 200 MG in SODIUM CHLORIDE 0.9% 210 ML IV ONE (10:00)
--- NOTE | 2021-07-26 13:02 | Hospitalist Progress Note ---
Date of Service July 26, 2021 Assessment & Plan (1) Acute respiratory failure with hypoxia: Plan: Acute hypoxic respiratory failure COVID-19 pneumonia Emphysema documented on CAT scan Cont daily IV dexamethasone 6 mg daily, added remdesivir daily with improvement in kidney function after hydration efforts. Supportive care with as needed nebs, antitussives, antiemetics Incentive spirometry Trend CRP which is elevated. Currently 94% on 2LPM via [place] (2) 2019 novel coronavirus-infected pneumonia (NCIP): Plan: Plan as above. (3) Hypomagnesemia: Plan: 1.2 on admission and was repleted. Likely related to GI losses. Trend in am. (4) Acute worsening of stage 3 chronic kidney disease: Plan: 2/2 prerenal azotemia in setting of recent GI symptoms. Creatinine back to his baseline after IVF resuscitation. (5) Diabetes mellitus: Plan: Glyburide and Actos held and he continues at goal now on insulin therapy. A1C is at goal. Cont current therapy in setting of steroids. (6) CAD (coronary artery disease): Plan: h/o stents per records, stable. Denies chest pain. Cont medical management with ASA, Toprol. Not on statin. Will review records to see if there is a reason or otherwise contraindication to this. (7) HTN (hypertension): Plan: chronic, stable. Cont current medical therapy. (8) DVT prophylaxis: Plan: Change UFH to Lovenox to reduce shot burden Full Code Dispo-to med/surg. Would continue continuous pulse oximetry while he is still requiring oxygen. Yola Mcdonough DO [facility] Hospitalist Plan: This is a 60-year-old male who has significant past medical history of CAD with hx of stents, HTN, HLD, T2DM, gout presents to ED secondary to n/v/d x 3 days. A/C CKD -3 baseline cr 1.5-2.0 likely in setting of hypovolemia due to n/v/d received IVF In ED hold nephrotoxic agents Hypomagnesemia replete with 1g mag sulfate x 4 repeat mag roberta 2100 CAD On aspirin, lisinopril, metoprolol as outpatient Lisinopril setting of NATHANIEL T2DM Last A1c 6.2 on 05/29/2021 Hold Metformin, Actos and glyburide Consider discontinuing Actos at d/c HTN bp now normotensive hold lisinopril due to NATHANIEL continue metoprolol Gout continue allopurinol, renally dose Decrease from 300mg to 100mg Pulmonary nodules Scattered low suspicion bilateral solid pulmonary nodules measure up to [address] Recommend repeat CT in 12 months with PCP DVT ppx: SQ Heparin 7,500units q8h Dispo: PCU FULL CODE PCP: Amina Pt was seen by Dr. Bermeo and collaborated with myself. Please see his addendum. Admission and Anticipated Discharge Date Admission Date: July 25, 2021 Subjective 60 yo M with covid symptomat including nausea, vomiting and diarrhea for the past few days, total symptoms starting one week ago. He is improved and reports that his diarrhea has resolved and he is feeling much better today He denies any abdominal pain and is tolerating PO and staying hydrating orally He denies fevers or chills Reports a mild productive cough We discussed how proning may help him denies chest pain Reports gross hematuria this morning with some lower back pain--reports this happens when he has kidney stones UA reviewed from yesterday with no evidence of hematuria or infection Review of Systems Review of Systems: All systems were reviewed and negative except as indicated in subjective above. Physical Exam Physical Exam: CONSTITUTIONAL: WNWD, vitals as above, generally well- appearing, NAD EYES: normal conjunctivae, no scleral icterus, ENT: external ear and nose normal, NECK: trachea midline, RESPIRATORY: clear to auscultation bilaterally, diminished breath sounds throughout, no crackles, rales or wheezes, normal respiratory effort CARDIOVASCULAR: regular rate and rhythm, S1 and 2 heard without murmurs, gallops or rubs, no JVD, no peripheral edema CHEST: inspection of chest was normal GASTROINTESTINAL: soft, nontender, ND, no guarding MUSCULOSKELETAL: strength 5/5 throughout, head is normocephalic and atraumatic, SKIN: warm and dry, no rashes NEUROLOGIC: patellar DTRs 2+ bilat. PERRL, EOMI, no facial palsy, no dysarthria. Touch, pain and proprioception normal. CN 2-12 grossly intact, no sensory deficit, normal cognition, normal speech, no tremor PSYCHIATRIC: alert cooperative and oriented to person, place and time. Euthymic mood, makes good eye contact, language grossly intact, recent and remote memory grossly intact. Results & Data Results & Data ([facility]) Vital Signs (Past 12 Hours) Vital Signs Temp Pulse Pulse Resp BP BP Pulse Ox 07/26/21 11:49 36.9 C 90 20 132/70 94 07/26/21 08:42 36.7 C 101 H 16 108/65 89 L 07/26/21 08:00 36.8 C 77 89 18 116/71 95 07/26/21 04:33 36.3 C L 84 18 98/54 L 94 Laboratory Results Short CBC 07/26/21 Range/Units 05:30 WBC 2.49 L (4.8-10.8) K/uL Hgb 10.9 L (14.0-18.0) g/dL Hct 32.0 L (42-52) % Plt Count 149 (130-400) K/uL BMP 07/25/21 07/26/21 12:18 05:30 Sodium 130 L 135 L Potassium 5.0 5.3 H Chloride 103 111 H Carbon Dioxide 15 L 18 L BUN 57 H 48 H Creatinine 2.68 H 1.57 H D Glucose 142 H 190 H Calcium 8.0 L 7.9 L Cardiac Enzymes 07/25/21 Range/Units 12:18 Troponin I 0.03 (0-0.04) ng/ml Liver Function 07/25/21 07/26/21 Range/Units 12:18 05:30 Total Bilirubin 0.5 0.3 (0.2-1.0) mg/dl AST 30 22 (13-39) U/L ALT 18 14 (7-52) U/L Alkaline Phosphatase 41 38 (34-104) U/L Albumin 3.6 3.3 L (3.4-5.0) gm/dl Urine 07/25/21 Range/Units Unknown Urine Color Yellow Urine Appearance Clear (Clear) Urine pH 5.0 (4.5-7.5) Ur Specific [place] 1.010 (1.000-1.030) Urine Protein Trace H (Negative) Urine Glucose (UA) Negative (Negative) Medications Administered Current Inpatient Medications Acetaminophen (Acetaminophen 325 Mg Tab) 650 mg PO Q4H PRN PRN Reason: Pain or Fever Stop: 08/24/21 18:01 Al Hydrox/Mg Hydrox/Simethicone (Aluminum/Magnesium Susp 30 Ml Udc) 15 ml PO Q4H PRN PRN Reason: Dyspepsia Stop: 08/24/21 18:01 Albuterol (Albut/Ipratrop 3mg/0.5mg Neb 3 Ml Vial) 3 ml NEB QIDR PRN; Protocol PRN Reason: sob/wheezing Stop: 08/24/21 18:01 Albuterol (Albuterol Hfa 8 Gm Inhaler) 2 puffs INH Q4H PRN PRN Reason: sob/wheezing Stop: 08/24/21 18:01 Allopurinol (Allopurinol 100 Mg Tab) 100 mg PO DAILY ANSELMO Stop: 08/25/21 08:59 Last Admin: 07/26/21 08:32 Dose: 100 mg Documented by: Aspirin (Aspirin 81 Mg Ectab) 81 mg PO DAILY ANSELMO Stop: 08/25/21 08:59 Last Admin: 07/26/21 08:32 Dose: 81 mg Documented by: Benzonatate (Benzonatate 100 Mg Capsule) 100 mg PO TID PRN PRN Reason: cough Stop: 08/24/21 18:01 Dextrose (Dextrose 50% 50 Ml Syringe) 25 - 50 ml IV UD PRN; Protocol PRN Reason: Hypoglycemia Protocol Stop: 08/24/21 18:01 Glucagon (Glucagon For Inj 1 Mg Vial) 1 mg SQ UD PRN; Protocol PRN Reason: Hypoglycemia Protocol Stop: 08/24/21 18:01 Glucose (Glucose 10 Tabs/Tube) 4 - 8 tabs PO UD PRN; Protocol PRN Reason: Hypoglycemia Protocol Stop: 08/24/21 18:01 Glucose (Glucose 40% Gel 15 Gm Tube) 15 - 30 gm PO UD PRN; Protocol PRN Reason: Hypoglycemia Protocol Stop: 08/24/21 18:01 Heparin Sodium (Porcine) (Heparin Sod 5,000 Unit/0.5 Ml Vial) 7,500 units SQ Q8 ANSELMO Stop: 08/24/21 21:59 Last Admin: 07/26/21 05:09 Dose: 7,500 units Documented by: Dexamethasone 6 mg/ Syringe 1.5 mls @ 1 mls/min IV DAILY ANSELMO Stop: 08/05/21 08:59 Last Admin: 07/26/21 08:33 Dose: 1 mls/min Documented by: Remdesivir 100 mg/ Sodium (Chloride) 250 mls @ 250 mls/hr IV Q24H [facility] Stop: 07/30/21 12:59 Insulin Aspart (Insulin Aspart Per Unit) 0 units SC ACHS [facility] Stop: 08/24/21 18:01 Last Admin: 07/26/21 12:52 Dose: 23 units Documented by: Insulin Glargine (Insulin Glargine Solostar 100 Units/Ml 3 Ml Pen) 0 units SC HS [facility]; Protocol Stop: 08/24/21 20:59 Last Admin: 07/25/21 21:36 Dose: 16 units Documented by: Insulin Human NPH (Insulin Human Nph) 35 units SC DAILY [facility] Stop: 08/25/21 08:59 Last Admin: 07/26/21 08:55 Dose: 35 units Documented by: Magnesium Hydroxide (Magnesium Hydroxide Susp 30 Ml Udc) 30 ml PO Q12H PRN PRN Reason: Constipation Stop: 08/24/21 18:01 Metoprolol Succinate (Metoprolol Succ 25mg Ext Rel Tab) 25 mg PO DAILY [facility] Stop: 08/25/21 08:59 Last Admin: 07/26/21 08:32 Dose: 25 mg Documented by: Miscellaneous (Carbohydrates For Hypoglycemia ) 15 - 30 gm PO UD PRN PRN Reason: Hypoglycemia Protocol Stop: 08/24/21 18:01 Miscellaneous Information (Pharmacy Glycemic Mgmt Consult) 1 ea N/A UD PRN; Protocol PRN Reason: Consult Stop: 08/24/21 18:01 Ondansetron HCl (Ondansetron Inj 2 Mg/Ml 2 Ml Vial) 4 mg IV Q6H PRN PRN Reason: Nausea Stop: 08/24/21 18:01 Polyethylene Glycol (Polyethylene (Miralax) 17 Gm Pack) 17 gm PO DAILY PRN PRN Reason: Constipation Stop: 08/24/21 18:01
[2021-07-26] MEDS: ENOXAPARIN INJ 40 MG/0.4 ML SYR SQ SCH (13:30)
--- NOTE | 2021-07-26 13:43 | Pharmacy Report ---
Pharmacy Glycemic Short Note 2 - Date of Service July 26, 2021 - Glycemic Short BSG Results (Last 24 hours): 07/25/21 07/25/21 07/25/21 20:48 20:49 20:52 Glucose POC Glucose 392 H* 408 H* 414 H* 07/25/21 07/26/21 07/26/21 22:44 02:02 04:23 Glucose POC Glucose 374 H* 263 H 234 H 07/26/21 07/26/21 07/26/21 05:30 07:25 10:57 Glucose 190 H POC Glucose 175 H 259 H OUTPATIENT ANTIDIABETIC REGIMEN: * Glyburide 5mg PO BID * Metformin 1000mg BID * Actos 45mg PO Daily * A1c 6.3% 07/26/21 ASSESSMENT: * 60 yo male, PMH CAD, HTN, HLD, T2DM, gout, presenting w/ N/V/D x 3 days, positive for COVID19, on IV steroids, causing steroid induced hyperglycemia. * Pt received Lantus last night, changed to NPH today to give w/ IV steroids * Tightened CF/CR, continue BSG checks overnight tonight while blood sugars still not to goal * Continue to adjust insulin parameters to goal blood sugar PLAN FOR INPATIENT GLYCEMIC CONTROL: * Hold outpatient oral diabetes medications * Basal insulin * Lantus 16 units last night x1 * NPH 35 units SQ daily, increase to 40 units tomorrow * Bolus insulin * NovoLog per scale ACHS or Q6hrs while NPO and overnight tonight at 0000 and 0400 * Goal Range: Low 110 mg/dL - High 140 mg/dL * Correction Factor: 12 mg/dL/unit * Nutritional / Prandial insulin per carb ratio of 1 unit per 3 grams CHO consumed PLAN FOR DISCHARGE: * A1c 6.3%, no change in outpatient medications unless patient experiencing hypoglycemia, and no contraindications exist (SCr elevated on admission, likely d/t dehydration).
[2021-07-26 13:58] LABS: Appearance Urine Clear (Clear); Bacteria Urine Automated Negative (Negative); Bilirubin Urine Negative (Negative); Blood Urine 2+ (Negative); Color Urine Yellow; Glucose Urine UA 2+ (Negative); Ketones Urine Negative (Negative); Leukocyte Esterase Urine Negative (Negative); Nitrite Urine Negative (Negative); Protein Urine 1+ (Negative); RBC Urine Automated >30 /hpf (0-4); Specific Gravity Urine 1.022 (1.000-1.030); Urobilinogen Urine Negative (Negative)
[2021-07-26] MEDS: ACETAMINOPHEN 325 MG TAB PO PRN (20:14)
[2021-07-26] MEDS: INSULIN GLARGINE SOLOSTAR 100 UNITS/ML 3 ML PEN SC SCH (20:33)
[2021-07-27] MEDS: INSULIN ASPART PER UNIT SC SCH ×6 (00:20→20:34)
[2021-07-27 07:18] LABS: Hematocrit (blood only) 33.4 % (42-52); Hemoglobin 11.5 g/dL (14.0-18.0); Mean Corpuscular Hemoglobin 30.9 pg (25-34); Mean Corpuscular Hgb Conc 34.4 g/dL (32-36); Mean Corpuscular Volume 89.8 fL (80-100); Mean Platelet Volume 9.6 fL (7.4-10.4); Platelet Count 180 K/uL (130-400); RDW Coefficient of Variation 14.4 % (11.5-14.5); RDW Standard Deviation 47.6 fL (36.4-46.3); Red Blood Count 3.72 M/uL (4.7-6.1); White Blood Count 5.85 K/uL (4.8-10.8)
[2021-07-27 07:44] LABS: BUN Creatinine Ratio 35.9 (10-20); C Reactive Protein 6.33 mg/dl (0-0.5); Calcium 8.4 mg/dl (8.5-10.1); Creatinine Clr Calc Pharmacy 69.5 ml/min; Est GFR (African American) 69.1 ml/min; Est GFR (Non-African American) 59.6 ml/min; Magnesium 1.6 mg/dl (1.7-2.4); Potassium 5.3 mmol/L (3.5-5.1)
[2021-07-27] MEDS ORDERED: lisinopril 40 MG TAB PO SCH (09:00)
--- NOTE | 2021-07-27 09:51 | Pharmacy Report ---
Pharmacy Glycemic Short Note 2 - Date of Service July 27, 2021 - Glycemic Short BSG Results (Last 24 hours): 07/26/21 07/26/21 07/26/21 10:57 16:33 19:59 Glucose POC Glucose 259 H 194 H 201 H 07/26/21 07/27/21 07/27/21 23:59 04:04 06:42 Glucose 121 H POC Glucose 116 H 125 H 07/27/21 07:30 Glucose POC Glucose 118 H OUTPATIENT ANTIDIABETIC REGIMEN: * Glyburide 5mg PO BID * Metformin 1000mg BID * Actos 45mg PO Daily * A1c 6.3% 07/26/21 ASSESSMENT: 07/27 * Blood sugars above goal all day, fasting blood sugar at goal, will move all basal to NPH in the AM * Patient continues on Dexamethasone 6mg IV daily * Continue CF/CR at this time 07/26 * 60 yo male, PMH CAD, HTN, HLD, T2DM, gout, presenting w/ N/V/D x 3 days, positive for COVID19, on IV steroids, causing steroid induced hyperglycemia. * Pt received Lantus last night, changed to NPH today to give w/ IV steroids * Tightened CF/CR, continue BSG checks overnight tonight while blood sugars still not to goal * Continue to adjust insulin parameters to goal blood sugar PLAN FOR INPATIENT GLYCEMIC CONTROL: * Hold outpatient oral diabetes medications * Basal insulin * DC Lantus 16 units HS * NPH 50 units SQ daily * Bolus insulin * NovoLog per scale ACHS or Q6hrs while NPO * Goal Range: Low 110 mg/dL - High 140 mg/dL * Correction Factor: 12 mg/dL/unit * Nutritional / Prandial insulin per carb ratio of 1 unit per 3 grams CHO consumed PLAN FOR DISCHARGE: * A1c 6.3%, no change in outpatient medications unless patient experiencing hy poglycemia, and no contraindications exist (SCr elevated on admission, likely d/t dehydration).
[2021-07-27] MEDS: ASPIRIN 81 MG ECTAB PO SCH (09:53)
[2021-07-27] MEDS: allopurinoL 100 MG TAB PO SCH (09:53)
[2021-07-27] MEDS: METOPROLOL SUCC 25MG EXT REL TAB PO SCH (09:54)
[2021-07-27] MEDS: dexAMETHasone 6 MG in SYRINGE 0 ML IV SCH (09:54)
[2021-07-27] MEDS: MAGNESIUM SULFATE / D5W 1 GM/100 ML BAG IV SCH ×2 (09:54→12:18)
[2021-07-27] MEDS: INSULIN HUMAN NPH SC SCH (10:09)
[2021-07-27] MEDS: REMDESIVIR 100 MG in SODIUM CHLORIDE 0.9% 230 ML IV SCH (13:14)
[2021-07-27] MEDS: ENOXAPARIN INJ 40 MG/0.4 ML SYR SQ SCH (13:14)
--- NOTE | 2021-07-27 18:07 | Hospitalist Progress Note ---
Date of Service July 27, 2021 Assessment & Plan (1) Acute respiratory failure with hypoxia: Plan: Acute hypoxic respiratory failure COVID-19 pneumonia Emphysema documented on CAT scan Cont daily IV dexamethasone 6 mg daily, added remdesivir daily with improvement in kidney function after hydration efforts. Supportive care with as needed nebs, antitussives, antiemetics Incentive spirometry CRP coming down Currently 92% on 3LPM (2) 2019 novel coronavirus-infected pneumonia (NCIP): Plan: Plan as above. (3) Hypomagnesemia: Plan: Low at 1.6 today, replacement given. (4) Acute worsening of stage 3 chronic kidney disease: Plan: 2/2 prerenal azotemia in setting of recent GI symptoms. Creatinine back to his baseline after IVF resuscitation. resolved (5) Diabetes mellitus: Plan: Glyburide and Actos held and he continues at goal now on insulin therapy. A1C is at goal. Cont current therapy in setting of steroids. (6) CAD (coronary artery disease): Plan: h/o stents per records, stable. Denies chest pain. Cont medical management with ASA, Toprol. Not on statin. Will review records to see if there is a reason or otherwise contraindication to this. (7) HTN (hypertension): Plan: chronic, stable. Cont current medical therapy. (8) DVT prophylaxis: Plan: Lovenox Full Code Dispo-to med/surg. Would continue continuous pulse oximetry while he is still requiring oxygen. Yola Mcdonough DO [facility] Hospitalist Admission and Anticipated Discharge Date Admission Date: July 25, 2021 Subjective 60 yo M with covid symptoms including nausea, vomiting and diarrhea for the past few days, total symptoms starting one week ago. no BM, no diarrhea no abdominal pain, tolerating PO He denies fevers or chills Reports a mild productive cough denies chest pain Review of Systems Review of Systems: All systems were reviewed and negative except as indicated in subjective above. Physical Exam Physical Exam: CONSTITUTIONAL: WNWD, vitals as above, generally well- appearing, NAD EYES: normal conjunctivae, no scleral icterus, ENT: external ear and nose normal, NECK: trachea midline, RESPIRATORY: clear to auscultation bilaterally, diminished breath sounds throughout, no crackles, rales or wheezes, normal respiratory effort CARDIOVASCULAR: regular rate and rhythm, S1 and 2 heard without murmurs, gallops or rubs, no JVD, no peripheral edema CHEST: inspection of chest was normal GASTROINTESTINAL: soft, nontender, ND, no guarding MUSCULOSKELETAL: strength 5/5 throughout, head is normocephalic and atraumatic, SKIN: warm and dry, no rashes NEUROLOGIC: CN 2-12 grossly intact, no sensory deficit, normal cognition, normal speech, no tremor PSYCHIATRIC: alert cooperative and oriented to person, place and time. Results & Data Results & Data ([facility]) Vital Signs (Past 12 Hours) Vital Signs Temp Pulse Resp BP Pulse Ox 07/27/21 17:07 36.9 C 92 H 16 123/61 92 07/27/21 07:44 36.9 C 97 H 20 128/74 90 Laboratory Results Short CBC 07/27/21 Range/Units 06:42 WBC 5.85 (4.8-10.8) K/uL Hgb 11.5 L (14.0-18.0) g/dL Hct 33.4 L (42-52) % Plt Count 180 (130-400) K/uL BMP 07/27/21 06:42 Sodium 137 Potassium 5.3 H Chloride 109 H Carbon Dioxide 20 L BUN 47 H Creatinine 1.31 Glucose 121 H Calcium 8.4 L Medications Administered Current Inpatient Medications Acetaminophen (Acetaminophen 325 Mg Tab) 650 mg PO Q4H PRN PRN Reason: Pain or Fever Stop: 08/24/21 18:01 Last Admin: 07/26/21 20:14 Dose: 650 mg Documented by: Al Hydrox/Mg Hydrox/Simethicone (Aluminum/Magnesium Susp 30 Ml Udc) 15 ml PO Q4H PRN PRN Reason: Dyspepsia Stop: 08/24/21 18:01 Albuterol (Albut/Ipratrop 3mg/0.5mg Neb 3 Ml Vial) 3 ml NEB QIDR PRN; Protocol PRN Reason: sob/wheezing Stop: 08/24/21 18:01 Albuterol (Albuterol Hfa 8 Gm Inhaler) 2 puffs INH Q4H PRN PRN Reason: sob/wheezing Stop: 08/24/21 18:01 Allopurinol (Allopurinol 100 Mg Tab) 100 mg PO DAILY ANSELMO Stop: 08/25/21 08:59 Last Admin: 07/27/21 09:53 Dose: 100 mg Documented by: Aspirin (Aspirin 81 Mg Ectab) 81 mg PO DAILY ANSELMO Stop: 08/25/21 08:59 Last Admin: 07/27/21 09:53 Dose: 81 mg Documented by: Benzonatate (Benzonatate 100 Mg Capsule) 100 mg PO TID PRN PRN Reason: cough Stop: 08/24/21 18:01 Dextrose (Dextrose 50% 50 Ml Syringe) 25 - 50 ml IV UD PRN; Protocol PRN Reason: Hypoglycemia Protocol Stop: 08/24/21 18:01 Enoxaparin Sodium (Enoxaparin Inj 40 Mg/0.4 Ml Syr) 40 mg SQ Q24H AN[facility] Stop: 08/25/21 13:14 Last Admin: 07/27/21 13:14 Dose: 40 mg Documented by: Glucagon (Glucagon For Inj 1 Mg Vial) 1 mg SQ UD PRN; Protocol PRN Reason: Hypoglycemia Protocol Stop: 08/24/21 18:01 Glucose (Glucose 10 Tabs/Tube) 4 - 8 tabs PO UD PRN; Protocol PRN Reason: Hypoglycemia Protocol Stop: 08/24/21 18:01 Glucose (Glucose 40% Gel 15 Gm Tube) 15 - 30 gm PO UD PRN; Protocol PRN Reason: Hypoglycemia Protocol Stop: 08/24/21 18:01 Dexamethasone 6 mg/ Syringe 1.5 mls @ 1 mls/min IV DAILY ANSELMO Stop: 08/05/21 08:59 Last Admin: 07/27/21 09:54 Dose: 1 mls/min Documented by: Remdesivir 100 mg/ Sodium (Chloride) 250 mls @ 250 mls/hr IV Q24H AN[facility] Stop: 07/30/21 12:59 Last Infusion: 07/27/21 14:45 Dose: Infused Documented by: Insulin Aspart (Insulin Aspart Per Unit) 0 units SC ACHS ANSELMO Stop: 08/24/21 18:01 Last Admin: 07/27/21 17:48 Dose: 16 units Documented by: Insulin Human NPH (Insulin Human Nph) 50 units SC DAILY ANSELMO Stop: 08/26/21 08:59 Last Admin: 07/27/21 10:09 Dose: 50 units Documented by: Magnesium Hydroxide (Magnesium Hydroxide Susp 30 Ml Udc) 30 ml PO Q12H PRN PRN Reason: Constipation Stop: 08/24/21 18:01 Metoprolol Succinate (Metoprolol Succ 25mg Ext Rel Tab) 25 mg PO DAILY ANSELMO Stop: 08/25/21 08:59 Last Admin: 07/27/21 09:54 Dose: 25 mg Documented by: Miscellaneous (Carbohydrates For Hypoglycemia ) 15 - 30 gm PO UD PRN PRN Reason: Hypoglycemia Protocol Stop: 08/24/21 18:01 Miscellaneous Information (Pharmacy Glycemic Mgmt Consult) 1 ea N/A UD PRN; Protocol PRN Reason: Consult Stop: 08/24/21 18:01 Ondansetron HCl (Ondansetron Inj 2 Mg/Ml 2 Ml Vial) 4 mg IV Q6H PRN PRN Reason: Nausea Stop: 08/24/21 18:01 Polyethylene Glycol (Polyethylene (Miralax) 17 Gm Pack) 17 gm PO DAILY PRN PRN Reason: Constipation Stop: 08/24/21 18:01
[2021-07-28] MEDS ORDERED: XOPENEX/ATROVENT 1.25mg/0.5MG NEB COMBO NEB STA ×2 (03:56→20:14)
[2021-07-28] MEDS ORDERED: dexAMETHasone 6 MG in SYRINGE 0 ML IV ONE (03:56)
[2021-07-28] MEDS ORDERED: MAGNESIUM SULFATE / D5W 1 GM/100 ML BAG IV ONE ×2 (03:59→06:15)
[2021-07-28] MEDS ORDERED: LEVALBUTEROL 1.25MG/0.5ML NEB INH STA (04:06)
[2021-07-28] MEDS ORDERED: IPRATROPIUM BROMIDE NEB SOLN 0.02% 2.5 ML VIAL INH STA (04:06)
[2021-07-28 04:27] LABS: Hematocrit (blood only) 32.7 % (42-52); Hemoglobin 11.2 g/dL (14.0-18.0); Mean Corpuscular Hemoglobin 30.8 pg (25-34); Mean Corpuscular Hgb Conc 34.3 g/dL (32-36); Mean Corpuscular Volume 89.8 fL (80-100); Mean Platelet Volume 9.5 fL (7.4-10.4); Platelet Count 174 K/uL (130-400); RDW Coefficient of Variation 14.1 % (11.5-14.5); RDW Standard Deviation 46.5 fL (36.4-46.3); Red Blood Count 3.64 M/uL (4.7-6.1); White Blood Count 5.22 K/uL (4.8-10.8)
[2021-07-28 04:29] LABS: Base Excess ABG -1.6 mEq/L (-9-1.8); HCO3 ABG 21 mmol/L (19-24); Oxygen Saturation ABG 90.3 % (90-95); PCO2 ABG 28 mmHg (35-46); PO2 ABG 58 mmHg (80-95); pH ABG 7.48 (7.35-7.45)
[2021-07-28 04:30] LABS: Allen Test Pos (Pos)
[2021-07-28 04:37] LABS: Partial Thromboplastin Ratio 1.1; Partial Thromboplastin Time 29.5 Seconds (21.0-31.0)
[2021-07-28 04:45] LABS: Albumin Globulin Ratio 1.1 (0.9-2); Albumin Level 3.2 gm/dl (3.4-5.0); BUN Creatinine Ratio 36.9 (10-20); Bilirubin,Total 0.4 mg/dl (0.2-1.0); C Reactive Protein 6.71 mg/dl (0-0.5); Calcium 8.3 mg/dl (8.5-10.1); Est GFR (African American) 84.4 ml/min; Est GFR (Non-African American) 72.8 ml/min; Magnesium 1.6 mg/dl (1.7-2.4); Potassium 4.6 mmol/L (3.5-5.1); Total Protein 6.2 gm/dl (6.0-8.3)
[2021-07-28 04:57] LABS: Basophils # (auto) 0.01 K/uL (0-0.2); Basophils % (auto) 0.2 %; Immature Granulocytes # (auto) 0.04 K/uL (0.00-0.02); Immature Granulocytes % (auto) 0.8 %; Lymphocytes # (auto) 0.45 K/uL (1.2-3.4); Lymphocytes % (auto) 8.6 %; Monocytes # (auto) 0.32 K/uL (0.11-0.59); Monocytes % (auto) 6.1 %; Neutrophils % (auto) 84.3 %; RBC Morphology Unremarkable
[2021-07-28] MEDS ORDERED: FUROSEMIDE INJ 20 MG/2 ML VIAL IV ONE (05:03)
[2021-07-28] MEDS: INSULIN HUMAN NPH SC SCH (05:07)
--- NOTE | 2021-07-28 05:23 | Communication Note ---
Date of Service: July 28, 2021 Patient noted to have worsening hypoxemia in a.m. as per RN. Med telemetry transfer for closer monitoring.
--- NOTE | 2021-07-28 07:32 | XRay Report ---
XR chest 1V portable HISTORY: 60 years-old Male low o2 acute hypoxia COMPARISON: Chest radiograph and chest CT 07/25/2021 TECHNIQUE: Portable AP view of the chest FINDINGS: Cardiac silhouette is enlarged. Progressively worsened multifocal extensive bilateral airspace opacit ies. No pneumothorax or large pleural effusion. Bones appear grossly intact. IMPRESSION: Extensive multifocal airspace opacities have progressed from prior compatible with worsen ing pneumonia. ACT 112: Negative or not required by law. The above report was generated using voice recognition software. It may contain grammatical, syntax o r spelling errors. Electronically signed by: Jewel Ribera M.D. 07/28/2021 7:31 AM
[2021-07-28] MEDS: ASPIRIN 81 MG ECTAB PO SCH (07:52)
[2021-07-28] MEDS: allopurinoL 100 MG TAB PO SCH (07:52)
[2021-07-28] MEDS: METOPROLOL SUCC 25MG EXT REL TAB PO SCH (07:53)
[2021-07-28] MEDS: INSULIN ASPART PER UNIT SC SCH ×4 (08:51→20:23)
--- NOTE | 2021-07-28 09:46 | Hospitalist Progress Note ---
Date of Service July 28, 2021 Assessment & Plan (1) Acute respiratory failure with hypoxia: Plan: Acute hypoxic respiratory failure COVID-19 pneumonia Emphysema documented on CAT scan Cont daily IV dexamethasone 6 mg daily, added remdesivir daily with improvement in kidney function after hydration efforts. Supportive care with as needed nebs, antitussives, antiemetics Incentive spirometry OVernight required increased oxygen supplementation with worsening pneumonia on the CXR Transferred to PCU Instructed to prone Add BNP to labs and if >100, will give Lasix Updated daughter with status change, who was in hospital. (2) 2019 novel coronavirus-infected pneumonia (NCIP): Plan: Plan as above. (3) Hypomagnesemia: Plan: more replacement given overnight. Will put him on continuous oral replacement. (4) Acute worsening of stage 3 chronic kidney disease: Plan: 2/2 prerenal azotemia in setting of recent GI symptoms. Creatinine back to his baseline after IVF resuscitation. resolved (5) Diabetes mellitus: Plan: Glyburide and Actos held and he continues at goal now on insulin therapy. A1C is at goal. Cont current therapy in setting of steroids. (6) CAD (coronary artery disease): Plan: h/o stents per records, stable. Denies chest pain. Cont medical management with ASA, Toprol. Not on statin. Will review records to see if there is a reason or otherwise contraindication to this. (7) HTN (hypertension): Plan: chronic, stable. Cont current medical therapy. (8) DVT prophylaxis: Plan: Lovenox Full Code Dispo-to PCU. Family updated as above. DO [facility] Hospitalist Admission and Anticipated Discharge Date Admission Date: July 25, 2021 Subjective 60 yo M with covid symptoms including nausea, vomiting and diarrhea for the past few days, total symptoms starting one week ago. 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 Now requiring 15L via [place] to maintain an oxygen saturation of 92% will transfer to PCU for closer monitoring. Denies SOB, not having any worsening of cough, no pain low appetite Review of Systems Review of Systems: All systems were reviewed and negative except as indicated in subjective above. Physical Exam Physical Exam: CONSTITUTIONAL: WNWD, vitals as above, generally well- appearing, NAD EYES: normal conjunctivae, no scleral icterus, ENT: external ear and nose normal, NECK: trachea midline, RESPIRATORY: mild crackles at bases, rales or wheezes, normal respiratory effort CARDIOVASCULAR: regular rate and rhythm, S1 and 2 heard without murmurs, gallops or rubs, no JVD, no peripheral edema CHEST: inspection of chest was normal GASTROINTESTINAL: soft, nontender, ND, no guarding MUSCULOSKELETAL: strength 5/5 throughout, head is normocephalic and atraumatic, SKIN: warm and dry, no rashes NEUROLOGIC: CN 2-12 grossly intact, no sensory deficit, normal cognition, normal speech, no tremor PSYCHIATRIC: alert cooperative and oriented to person, place and time. Results & Data Results & Data ([facility]) Vital Signs (Past 12 Hours) Vital Signs Temp Pulse Pulse Resp BP Pulse Ox 07/28/21 07:46 126/80 92 07/28/21 07:03 88 L 07/28/21 04:35 82 16 90 07/28/21 03:49 87 L 07/28/21 03:37 88 L 07/28/21 03:35 36.7 C 80 20 125/71 88 L 07/28/21 03:00 82 07/28/21 00:47 37.7 C H 82 20 136/67 90 Laboratory Results Short CBC 07/28/21 Range/Units 04:15 WBC 5.22 (4.8-10.8) K/uL Hgb 11.2 L (14.0-18.0) g/dL Hct 32.7 L (42-52) % Plt Count 174 (130-400) K/uL BMP 07/28/21 04:15 Sodium 135 L Potassium 4.6 Chloride 108 H Carbon Dioxide 19 L BUN 41 H Creatinine 1.11 Glucose 95 Calcium 8.3 L Liver Function 07/28/21 Range/Units 04:15 Total Bilirubin 0.4 (0.2-1.0) mg/dl AST 30 (13-39) U/L ALT 20 (7-52) U/L Alkaline Phosphatase 40 (34-104) U/L Albumin 3.2 L (3.4-5.0) gm/dl Diagnostic Findings Chest X-Ray 07/28/21 03:59 XR chest 1V portable HISTORY: 60 years-old Male low o2 acute hypoxia COMPARISON: Chest radiograph and chest CT 07/25/2021 TECHNIQUE: Portable AP view of the chest FINDINGS: Cardiac silhouette is enlarged. Progressively worsened multifocal extensive bilateral airspace opacities. No pneumothorax or large pleural effusion. Bones appear grossly intact. IMPRESSION: Extensive multifocal airspace opacities have progressed from prior compatible with worsening pneumonia. ACT 112: Negative or not required by law. The above report was generated using voice recognition software. It may contain grammatical, syntax or spelling errors. Electronically signed by: Jewel Ribera M.D. 07/28/2021 7:31 AM Medications Administered Current Inpatient Medications Acetaminophen (Acetaminophen 325 Mg Tab) 650 mg PO Q4H PRN PRN Reason: Pain or Fever Stop: 08/24/21 18:01 Last Admin: 07/26/21 20:14 Dose: 650 mg Documented by: Al Hydrox/Mg Hydrox/Simethicone (Aluminum/Magnesium Susp 30 Ml Udc) 15 ml PO Q4H PRN PRN Reason: Dyspepsia Stop: 08/24/21 18:01 Albuterol (Albut/Ipratrop 3mg/0.5mg Neb 3 Ml Vial) 3 ml NEB QIDR PRN; Protocol PRN Reason: sob/wheezing Stop: 08/24/21 18:01 Albuterol (Albuterol Hfa 8 Gm Inhaler) 2 puffs INH Q4H PRN PRN Reason: sob/wheezing Stop: 08/24/21 18:01 Allopurinol (Allopurinol 100 Mg Tab) 100 mg PO DAILY ANSELMO Stop: 08/25/21 08:59 Last Admin: 07/28/21 07:52 Dose: 100 mg Documented by: Aspirin (Aspirin 81 Mg Ectab) 81 mg PO DAILY ANSELMO Stop: 08/25/21 08:59 Last Admin: 07/28/21 07:52 Dose: 81 mg Documented by: Benzonatate (Benzonatate 100 Mg Capsule) 100 mg PO TID PRN PRN Reason: cough Stop: 08/24/21 18:01 Dextrose (Dextrose 50% 50 Ml Syringe) 25 - 50 ml IV UD PRN; Protocol PRN Reason: Hypoglycemia Protocol Stop: 08/24/21 18:01 Enoxaparin Sodium (Enoxaparin Inj 40 Mg/0.4 Ml Syr) 40 mg SQ Q24H ANSELMO Stop: 08/25/21 13:14 Last Admin: 07/27/21 13:14 Dose: 40 mg Documented by: Glucagon (Glucagon For Inj 1 Mg Vial) 1 mg SQ UD PRN; Protocol PRN Reason: Hypoglycemia Protocol Stop: 08/24/21 18:01 Glucose (Glucose 10 Tabs/Tube) 4 - 8 tabs PO UD PRN; Protocol PRN Reason: Hypoglycemia Protocol Stop: 08/24/21 18:01 Glucose (Glucose 40% Gel 15 Gm Tube) 15 - 30 gm PO UD PRN; Protocol PRN Reason: Hypoglycemia Protocol Stop: 08/24/21 18:01 Remdesivir 100 mg/ Sodium (Chloride) 250 mls @ 250 mls/hr IV Q24H AN[facility] Stop: 07/30/21 12:59 Last Infusion: 07/27/21 14:45 Dose: Infused Documented by: Dexamethasone 6 mg/ Syringe 1.5 mls @ 1 mls/min IV DAILY ANSELMO Stop: 08/05/21 09:02 Insulin Aspart (Insulin Aspart Per Unit) 0 units SC AC ANSELMO Stop: 08/27/21 07:29 Last Admin: 07/28/21 08:51 Dose: 19 units Documented by: Insulin Aspart (Insulin Aspart Per Unit) 0 units SC HS ANSELMO Stop: 08/27/21 20:59 Insulin Human NPH (Insulin Human Nph) 50 units SC DAILY ANSELMO Stop: 08/26/21 08:59 Last Admin: 07/28/21 05:07 Dose: 50 units Documented by: Magnesium Hydroxide (Magnesium Hydroxide Susp 30 Ml Udc) 30 ml PO Q12H PRN PRN Reason: Constipation Stop: 08/24/21 18:01 Metoprolol Succinate (Metoprolol Succ 25mg Ext Rel Tab) 25 mg PO DAILY ANSELMO Stop: 08/25/21 08:59 Last Admin: 07/28/21 07:53 Dose: 25 mg Documented by: Miscellaneous (Carbohydrates For Hypoglycemia ) 15 - 30 gm PO UD PRN PRN Reason: Hypoglycemia Protocol Stop: 08/24/21 18:01 Miscellaneous Information (Pharmacy Glycemic Mgmt Consult) 1 ea N/A UD PRN; Protocol PRN Reason: Consult Stop: 08/24/21 18:01 Ondansetron HCl (Ondansetron Inj 2 Mg/Ml 2 Ml Vial) 4 mg IV Q6H PRN PRN Reason: Nausea Stop: 08/24/21 18:01 Polyethylene Glycol (Polyethylene (Miralax) 17 Gm Pack) 17 gm PO DAILY PRN PRN Reason: Constipation Stop: 08/24/21 18:01
[2021-07-28] MEDS: REMDESIVIR 100 MG in SODIUM CHLORIDE 0.9% 230 ML IV SCH (11:32)
--- NOTE | 2021-07-28 13:20 | Pharmacy Report ---
Pharmacy Glycemic Short Note 2 - Date of Service July 28, 2021 - Glycemic Short BSG Results (Last 24 hours): 07/27/21 07/27/21 07/28/21 17:06 19:54 04:15 Glucose 95 POC Glucose 211 H 245 H 07/28/21 07/28/21 07:42 11:51 Glucose POC Glucose 182 H 260 H OUTPATIENT ANTIDIABETIC REGIMEN: * Glyburide 5mg PO BID * Metformin 1000mg BID * Actos 45mg PO Daily * A1c 6.3% 07/26/21 ASSESSMENT: 07/28 * Patient's BSGs yesterday were [phone] mg/dL. * Patient received 87 units of insulin yesterday (50 units of NPH plus 37 units of bolus). * Patient received dexamethasone 6 mg @ 0400 today. * Fasting BSG is a mixed picture. On PRP fasting was 95 mg/dL but at 0700 on POC BSG was 182 mg/dL. * Will continue to hold Lantus as believe PRP more accurately reflects fasting. POC influenced by earlier dexamethasone administration. * Continue NPH as increased significantly yesterday. * Tighten CR as BSGs trending upwards. 07/27 * Blood sugars above goal all day, fasting blood sugar at goal, will move all basal to NPH in the AM * Patient continues on Dexamethasone 6mg IV daily * Continue CF/CR at this time 07/26 * 60 yo male, PMH CAD, HTN, HLD, T2DM, gout, presenting w/ N/V/D x 3 days, positive for COVID19, on IV steroids, causing steroid induced hyperglycemia. * Pt received Lantus last night, changed to NPH today to give w/ IV steroids * Tightened CF/CR, continue BSG checks overnight tonight while blood sugars still not to goal * Continue to adjust insulin parameters to goal blood sugar PLAN FOR INPATIENT GLYCEMIC CONTROL: * Hold outpatient oral diabetes medications * Basal insulin * NPH 50 units SQ daily * Bolus insulin * NovoLog per scale ACHS or Q6hrs while NPO * Goal Range: Low 110 mg/dL - High 140 mg/dL * Correction Factor: 12 mg/dL/unit * Nutritional / Prandial insulin per carb ratio of 1 unit per 2.5 grams CHO consumed PLAN FOR DISCHARGE: * A1c 6.3%, no change in outpatient medications unless patient experiencing hypoglycemia, and no contraindications exist (SCr elevated on admission, likely d/t dehydration).
[2021-07-28] MEDS: ENOXAPARIN INJ 40 MG/0.4 ML SYR SQ SCH (13:25)
[2021-07-28] MEDS ORDERED: LEVALBUTEROL 1.25MG/0.5ML NEB INH ONE (20:15)
[2021-07-28] MEDS ORDERED: IPRATROPIUM BROMIDE NEB SOLN 0.02% 2.5 ML VIAL INH ONE (20:15)
[2021-07-28] MEDS ORDERED: methylPREDNISolone 40 MG in SYRINGE 0 ML IV ONE (20:30)
[2021-07-28] MEDS: MAGNESIUM OXIDE 400 MG TAB PO SCH (20:50)
[2021-07-28 23:14] LABS: iSTAT Allen Test Pass; iSTAT Art Bld Gas pCO2 Correct 28 mmHg (35-46); iSTAT Art Bld Gas pH Corrected 7.473 (7.35-7.45); iSTAT Arterial Blood Gas HCO3 21 meg/L (19-24); iSTAT Arterial Blood Gas pCO2 28 mmHg (35-46); iSTAT Arterial Blood Gas pH 7.48 (7.35-7.45); iSTAT Arterial Blood Gas pO2 72 mmHg (80-95); iSTAT Arterial Blood Gas pO2 C 74; iSTAT Carbon Dioxide 21 mmol/L (24-31); iSTAT Hematocrit 30 % (42-52); iSTAT Hemoglobin 10.2 g/dl (14.0-18.0); iSTAT Potassium 4.5 mmol/L (3.3-5.0); iSTAT Site R Radial; iSTAT Sodium 135 mmol/L (135-144)
[2021-07-29] MEDS: INSULIN ASPART PER UNIT SC SCH ×4 (08:01→20:39)
[2021-07-29] MEDS: INSULIN HUMAN NPH SC SCH (08:02)
[2021-07-29] MEDS: ENOXAPARIN INJ 40 MG/0.4 ML SYR SQ SCH (08:09)
[2021-07-29] MEDS: allopurinoL 300 MG TAB PO SCH (08:10)
[2021-07-29] MEDS: MAGNESIUM OXIDE 400 MG TAB PO SCH ×2 (08:10→20:49)
[2021-07-29] MEDS: ASPIRIN 81 MG ECTAB PO SCH (08:10)
[2021-07-29 09:14] LABS: Mean Corpuscular Hemoglobin 30.9 pg (25-34); Mean Corpuscular Hgb Conc 35.3 g/dL (32-36); Mean Corpuscular Volume 87.6 fL (80-100); Mean Platelet Volume 9.9 fL (7.4-10.4); Platelet Count 202 K/uL (130-400); RDW Coefficient of Variation 13.8 % (11.5-14.5); RDW Standard Deviation 44.7 fL (36.4-46.3); Red Blood Count 3.88 M/uL (4.7-6.1); White Blood Count 6.69 K/uL (4.8-10.8)
[2021-07-29] MEDS: dexAMETHasone 6 MG in SYRINGE 0 ML IV SCH (09:17)
[2021-07-29] MEDS: METOPROLOL SUCC 25MG EXT REL TAB PO SCH (09:18)
[2021-07-29 09:35] LABS: C Reactive Protein 6.14 mg/dl (0-0.5); Calcium 8.2 mg/dl (8.5-10.1); Creatinine Clr Calc Pharmacy 90.2 ml/min; Est GFR (African American) 95.7 ml/min; Est GFR (Non-African American) 82.6 ml/min; Magnesium 1.5 mg/dl (1.7-2.4); Potassium 4.7 mmol/L (3.5-5.1)
[2021-07-29] MEDS ORDERED: FUROSEMIDE INJ 20 MG/2 ML VIAL IV ONE (10:06)
[2021-07-29] MEDS: REMDESIVIR 100 MG in SODIUM CHLORIDE 0.9% 230 ML IV SCH (11:39)
--- NOTE | 2021-07-29 13:38 | Hospitalist Progress Note ---
Date of Service July 29, 2021 Assessment & Plan (1) Acute respiratory failure with hypoxia: Plan: Acute hypoxic respiratory failure COVID-19 pneumonia Emphysema documented on CAT scan Cont daily IV dexamethasone 6 mg daily, added remdesivir daily with improvement in kidney function after hydration efforts. Supportive care with as needed nebs, antitussives, antiemetics Incentive spirometry Overnight required increased oxygen supplementation with worsening pneumonia on the CXR Transferred to PCU Instructed to prone BNP <75 and Na 133, however, escalating oxygen needs so will try one additional small dose of lasix now will not give further lasix consistently unless he becomes fluid overload which is not the case. (2) 2019 novel coronavirus-infected pneumonia (NCIP): Plan: Plan as above. (3) Hypomagnesemia: Plan: more replacement given overnight. Will put him on continuous oral replacement. (4) Acute worsening of stage 3 chronic kidney disease: Plan: 2/2 prerenal azotemia in setting of recent GI symptoms. Creatinine back to his baseline after IVF resuscitation. resolved (5) Diabetes mellitus: Plan: Glyburide and Actos held and he continues at goal now on insulin therapy. A1C is at goal. Cont current therapy in setting of steroids. (6) CAD (coronary artery disease): Plan: h/o stents per records, stable. Denies chest pain. Cont medical management with ASA, Toprol. Not on statin. Will review records to see if there is a reason or otherwise contraindication to this. (7) HTN (hypertension): Plan: chronic, stable. Cont current medical therapy. (8) DVT prophylaxis: Plan: Lovenox Full Code Dispo-cont PCU care. I was able to reach his by phone and updated her on the care plan. She was very kind and thanked me for explaining the plan. All questions were answered to her satisfaction. Yola Mcdonough DO [facility] Hospitalist Admission and Anticipated Discharge Date Admission Date: July 25, 2021 Subjective 60 yo M with acute respiratory failure secondary to Covid pneumonia Overnight patient escalated to high flow oxygen Declined prone as it made him anxious when he tried yesterday Overall feels well and not short of breath although requiring 40 L/min of high flow nasal cannula. I attempted to contact his to update her however she did not answer and her mailbox was full I was unable to leave a voicemail. I indicated this to the nurse will page me when she calls back. Appetite is improved and he is eating lunch at this time. No diarrhea or other symptoms at this time. Review of Systems Review of Systems: All systems were reviewed and negative except as indicated in subjective above. Physical Exam Physical Exam: CONSTITUTIONAL: WNWD, vitals as above, generally well- appearing, NAD EYES: normal conjunctivae, no scleral icterus, ENT: external ear and nose normal, NECK: trachea midline, RESPIRATORY: Clear to auscultation throughout, no crackles wheezes or rales, normal respiratory effort CARDIOVASCULAR: regular rate and rhythm, S1 and 2 heard without murmurs, gallops or rubs, no JVD, no peripheral edema CHEST: inspection of chest was normal GASTROINTESTINAL: soft, nontender, ND, no guarding MUSCULOSKELETAL: strength 5/5 throughout, head is normocephalic and atraumatic, SKIN: warm and dry, no rashes NEUROLOGIC: CN 2-12 grossly intact, no sensory deficit, normal cognition, normal speech, no tremor PSYCHIATRIC: alert cooperative and oriented to person, place and time. Results & Data Results & Data ([facility]) Vital Signs (Past 12 Hours) Vital Signs Temp Pulse Pulse Resp BP Pulse Ox Pulse Ox 07/29/21 12:00 37.2 C 88 22 135/79 96 07/29/21 11:30 59 L 22 93 07/29/21 08:00 90 94 07/29/21 07:53 36.8 C 68 133/79 94 07/29/21 07:07 57 L 22 91 07/29/21 04:06 37.1 C 66 22 126/71 93 07/29/21 02:17 76 20 97 Laboratory Results Short CBC 07/29/21 Range/Units 08:44 WBC 6.69 (4.8-10.8) K/uL Hgb 12.0 L (14.0-18.0) g/dL Hct 34.0 L (42-52) % Plt Count 202 (130-400) K/uL BMP 07/29/21 08:44 Sodium 133 L Potassium 4.7 Chloride 104 Carbon Dioxide 19 L BUN 44 H Creatinine 1.00 Glucose 266 H Calcium 8.2 L Medications Administered Current Inpatient Medications Acetaminophen (Acetaminophen 325 Mg Tab) 650 mg PO Q4H PRN PRN Reason: Pain or Fever Stop: 08/24/21 18:01 Last Admin: 07/26/21 20:14 Dose: 650 mg Documented by: Al Hydrox/Mg Hydrox/Simethicone (Aluminum/Magnesium Susp 30 Ml Udc) 15 ml PO Q4H PRN PRN Reason: Dyspepsia Stop: 08/24/21 18:01 Albuterol (Albut/Ipratrop 3mg/0.5mg Neb 3 Ml Vial) 3 ml NEB QIDR PRN; Protocol PRN Reason: sob/wheezing Stop: 08/24/21 18:01 Last Admin: 07/28/21 20:29 Dose: 3 ml Documented by: Albuterol (Albuterol Hfa 8 Gm Inhaler) 2 puffs INH Q4H PRN PRN Reason: sob/wheezing Stop: 08/24/21 18:01 Allopurinol (Allopurinol 300 Mg Tab) 300 mg PO QAM ANSELMO Stop: 08/28/21 08:59 Last Admin: 07/29/21 08:10 Dose: 300 mg Documented by: Aspirin (Aspirin 81 Mg Ectab) 81 mg PO DAILY ANSELMO Stop: 08/25/21 08:59 Last Admin: 07/29/21 08:10 Dose: 81 mg Documented by: Benzonatate (Benzonatate 100 Mg Capsule) 100 mg PO TID PRN PRN Reason: cough Stop: 08/24/21 18:01 Dextrose (Dextrose 50% 50 Ml Syringe) 25 - 50 ml IV UD PRN; Protocol PRN Reason: Hypoglycemia Protocol Stop: 08/24/21 18:01 Enoxaparin Sodium (Enoxaparin Inj 40 Mg/0.4 Ml Syr) 40 mg SQ Q24H [facility] Stop: 08/25/21 13:14 Last Admin: 07/29/21 08:09 Dose: 40 mg Documented by: Glucagon (Glucagon For Inj 1 Mg Vial) 1 mg SQ UD PRN; Protocol PRN Reason: Hypoglycemia Protocol Stop: 08/24/21 18:01 Glucose (Glucose 10 Tabs/Tube) 4 - 8 tabs PO UD PRN; Protocol PRN Reason: Hypoglycemia Protocol Stop: 08/24/21 18:01 Glucose (Glucose 40% Gel 15 Gm Tube) 15 - 30 gm PO UD PRN; Protocol PRN Reason: Hypoglycemia Protocol Stop: 08/24/21 18:01 Remdesivir 100 mg/ Sodium (Chloride) 250 mls @ 250 mls/hr IV Q24H ANSELMO Stop: 07/30/21 12:59 Last Infusion: 07/29/21 12:36 Dose: Infused Documented by: Dexamethasone 6 mg/ Syringe 1.5 mls @ 1 mls/min IV DAILY ANSELMO Stop: 08/05/21 09:02 Last Admin: 07/29/21 09:17 Dose: 1 mls/min Documented by: Insulin Aspart (Insulin Aspart Per Unit) 0 units SC AC [facility] Stop: 08/27/21 07:29 Last Admin: 07/29/21 12:35 Dose: 26 units Documented by: Insulin Aspart (Insulin Aspart Per Unit) 0 units SC HS [facility] Stop: 08/27/21 20:59 Last Admin: 07/28/21 20:23 Dose: Not Given Documented by: Insulin Human NPH (Insulin Human Nph) 50 units SC DAILY [facility] Stop: 08/26/21 08:59 Last Admin: 07/29/21 08:02 Dose: 50 units Documented by: Magnesium Hydroxide (Magnesium Hydroxide Susp 30 Ml Udc) 30 ml PO Q12H PRN PRN Reason: Constipation Stop: 08/24/21 18:01 Magnesium Oxide (Magnesium Oxide 400 Mg Tab) 400 mg PO BID [facility] Stop: 08/27/21 20:59 Last Admin: 07/29/21 08:10 Dose: 400 mg Documented by: Metoprolol Succinate (Metoprolol Succ 25mg Ext Rel Tab) 25 mg PO DAILY [facility] Stop: 08/25/21 08:59 Last Admin: 07/29/21 09:18 Dose: 25 mg Documented by: Miscellaneous (Carbohydrates For Hypoglycemia ) 15 - 30 gm PO UD PRN PRN Reason: Hypoglycemia Protocol Stop: 08/24/21 18:01 Miscellaneous Information (Pharmacy Glycemic Mgmt Consult) 1 ea N/A UD PRN; Protocol PRN Reason: Consult Stop: 08/24/21 18:01 Ondansetron HCl (Ondansetron Inj 2 Mg/Ml 2 Ml Vial) 4 mg IV Q6H PRN PRN Reason: Nausea Stop: 08/24/21 18:01 Polyethylene Glycol (Polyethylene (Miralax) 17 Gm Pack) 17 gm PO DAILY PRN PRN Reason: Constipation Stop: 08/24/21 18:01
--- NOTE | 2021-07-29 14:49 | Pharmacy Report ---
Pharmacy Glycemic Short Note 2 - Date of Service July 29, 2021 - Glycemic Short BSG Results (Last 24 hours): 07/28/21 07/28/21 07/28/21 16:26 20:10 23:02 Glucose POC Glucose 137 H 84 87 07/29/21 07/29/21 07/29/21 07:49 08:44 11:44 Glucose 266 H POC Glucose 195 H 254 H OUTPATIENT ANTIDIABETIC REGIMEN: * Glyburide 5mg PO BID * Metformin 1000mg BID * Actos 45mg PO Daily * A1c 6.3% 07/26/21 ASSESSMENT: 07/29: * Patient's BSGs yesterday were [phone]. He received total 125 units of insulin yesterday; 50 units basal + 75 units bolus. * Fasting BSG today = 195 mg/dl. Pre-lunch BSG was elevated yesterday and again today but HS BSG trended down last night. To prevent hypoglycemia at HS, Novolog CR is loosened. 07/28 * Patient's BSGs yesterday were [phone] mg/dL. * Patient received 87 units of insulin yesterday (50 units of NPH plus 37 units of bolus). * Patient received dexamethasone 6 mg @ 0400 today. * Fasting BSG is a mixed picture. On PRP fasting was 95 mg/dL but at 0700 on POC BSG was 182 mg/dL. * Will continue to hold Lantus as believe PRP more accurately reflects fasting. POC influenced by earlier dexamethasone administration. * Continue NPH as increased significantly yesterday. * Tighten CR as BSGs trending upwards. 07/27 * Blood sugars above goal all day, fasting blood sugar at goal, will move all basal to NPH in the AM * Patient continues on Dexamethasone 6mg IV daily * Continue CF/CR at this time 07/26 * 60 yo male, PMH CAD, HTN, HLD, T2DM, gout, presenting w/ N/V/D x 3 days, positive for COVID19, on IV steroids, causing steroid induced hyperglycemia. * Pt received Lantus last night, changed to NPH today to give w/ IV steroids * Tightened CF/CR, continue BSG checks overnight tonight while blood sugars still not to goal * Continue to adjust insulin parameters to goal blood sugar PLAN FOR INPATIENT GLYCEMIC CONTROL: * Hold outpatient oral diabetes medications * Basal insulin * NPH 50 units SQ daily * Bolus insulin * NovoLog per scale ACHS or Q6hrs while NPO * Goal Range: Low 110 mg/dL - High 140 mg/dL * Correction Factor: 12 mg/dL/unit * Nutritional / Prandial insulin per carb ratio of 1 unit per 2.5 grams CHO consumed today AM then loosened to 4 gm CHO consumed with lunch. PLAN FOR DISCHARGE: * A1c 6.3%, no change in outpatient medications unless patient experiencing hypoglycemia, and no contraindications exist (SCr elevated on admission, likely d/t dehydration).
[2021-07-30] MEDS: allopurinoL 300 MG TAB PO SCH (08:05)
[2021-07-30] MEDS: MAGNESIUM OXIDE 400 MG TAB PO SCH ×2 (08:05→21:37)
[2021-07-30] MEDS: dexAMETHasone 6 MG in SYRINGE 0 ML IV SCH (08:05)
[2021-07-30] MEDS: ASPIRIN 81 MG ECTAB PO SCH (08:05)
[2021-07-30] MEDS: METOPROLOL SUCC 25MG EXT REL TAB PO SCH (08:06)
[2021-07-30] MEDS: INSULIN ASPART PER UNIT SC SCH ×4 (08:34→21:26)
[2021-07-30] MEDS: INSULIN HUMAN NPH SC SCH (08:34)
--- NOTE | 2021-07-30 10:30 | Hospitalist Progress Note ---
Date of Service July 30, 2021 Assessment & Plan (1) Acute respiratory failure with hypoxia: Plan: Acute hypoxic respiratory failure COVID-19 pneumonia Emphysema documented on CAT scan Cont daily IV dexamethasone 6 mg daily, remdesivir daily with improvement in kidney function after hydration efforts. Supportive care with as needed nebs, antitussives, antiemetics Incentive spirometry continues on hi flow oxygen supplementation. Declines to prone. (2) 2019 novel coronavirus-infected pneumonia (NCIP): Plan: Plan as above. (3) Hypomagnesemia: Plan: cont oral replacement. (4) Acute worsening of stage 3 chronic kidney disease: Plan: 2/2 prerenal azotemia in setting of recent GI symptoms. Creatinine back to his baseline after IVF resuscitation. resolved (5) Diabetes mellitus: Plan: Glyburide and Actos held and he continues at goal now on insulin therapy. A1C is at goal. Cont current therapy in setting of steroids. BSG at goal--management per glycemic pharmacist. (6) CAD (coronary artery disease): Plan: h/o stents per records, stable. Denies chest pain. Cont medical management with ASA, Toprol. Not on statin. Will request Cardiology records from [place] after the weekend. (7) HTN (hypertension): Plan: chronic, stable. Cont current medical therapy. (8) DVT prophylaxis: Plan: Lovenox Full Code Dispo-cont PCU care. I did speak with his by phone and updated her on the care plan. I updated her on his concerns over intubation and explained the same options for care to her that I had done with him earlier. She verbalized understanding. Yola Mcdonough DO [facility] Hospitalist Admission and Anticipated Discharge Date Admission Date: July 25, 2021 Subjective 60 yo M with acute respiratory failure secondary to Covid pneumonia Continues on the hi flow oxygen supplementation Some nausea reported after cereal with milk and Ensure Advised to avoid cream or milk Otherwise doing well. Review of Systems Review of Systems: All systems were reviewed and negative except as indicated in subjective above. Physical Exam Physical Exam: CONSTITUTIONAL: WNWD, vitals as above, generally well- appearing, NAD EYES: normal conjunctivae, no scleral icterus, ENT: external ear and nose normal, NECK: trachea midline, RESPIRATORY: Clear to auscultation throughout, no crackles wheezes or rales, normal respiratory effort CARDIOVASCULAR: regular rate and rhythm, S1 and 2 heard without murmurs, gallops or rubs, no JVD, no peripheral edema CHEST: inspection of chest was normal GASTROINTESTINAL: soft, nontender, ND, no guarding MUSCULOSKELETAL: strength 5/5 throughout, head is normocephalic and atraumatic, SKIN: warm and dry, no rashes NEUROLOGIC: CN 2-12 grossly intact, no sensory deficit, normal cognition, normal speech, no tremor PSYCHIATRIC: alert cooperative and oriented to person, place and time. Results & Data Results & Data ([facility]) Vital Signs (Past 12 Hours) Vital Signs Temp Pulse Pulse Resp BP Pulse Ox Pulse Ox 07/30/21 08:00 99 07/30/21 07:46 36.9 C 109 H 20 169/90 H 83 L 07/30/21 07:40 77 07/30/21 04:44 83 20 93 07/30/21 04:40 36.6 C 88 24 124/72 07/29/21 23:20 77 20 97 07/29/21 22:54 86 07/29/21 22:41 36.5 C 81 22 143/71 H 92 Medications Administered Current Inpatient Medications Acetaminophen (Acetaminophen 325 Mg Tab) 650 mg PO Q4H PRN PRN Reason: Pain or Fever Stop: 08/24/21 18:01 Last Admin: 07/26/21 20:14 Dose: 650 mg Documented by: Al Hydrox/Mg Hydrox/Simethicone (Aluminum/Magnesium Susp 30 Ml Udc) 15 ml PO Q4H PRN PRN Reason: Dyspepsia Stop: 08/24/21 18:01 Albuterol (Albut/Ipratrop 3mg/0.5mg Neb 3 Ml Vial) 3 ml NEB QIDR PRN; Protocol PRN Reason: sob/wheezing Stop: 08/24/21 18:01 Last Admin: 07/28/21 20:29 Dose: 3 ml Documented by: Albuterol (Albuterol Hfa 8 Gm Inhaler) 2 puffs INH Q4H PRN PRN Reason: sob/wheezing Stop: 08/24/21 18:01 Allopurinol (Allopurinol 300 Mg Tab) 300 mg PO QAM [facility] Stop: 08/28/21 08:59 Last Admin: 07/30/21 08:05 Dose: 300 mg Documented by: Aspirin (Aspirin 81 Mg Ectab) 81 mg PO DAILY [facility] Stop: 08/25/21 08:59 Last Admin: 07/30/21 08:05 Dose: 81 mg Documented by: Benzonatate (Benzonatate 100 Mg Capsule) 100 mg PO TID PRN PRN Reason: cough Stop: 08/24/21 18:01 Dextrose (Dextrose 50% 50 Ml Syringe) 25 - 50 ml IV UD PRN; Protocol PRN Reason: Hypoglycemia Protocol Stop: 08/24/21 18:01 Enoxaparin Sodium (Enoxaparin Inj 40 Mg/0.4 Ml Syr) 40 mg SQ Q24H [facility] Stop: 08/25/21 13:14 Last Admin: 07/29/21 08:09 Dose: 40 mg Documented by: Glucagon (Glucagon For Inj 1 Mg Vial) 1 mg SQ UD PRN; Protocol PRN Reason: Hypoglycemia Protocol Stop: 08/24/21 18:01 Glucose (Glucose 10 Tabs/Tube) 4 - 8 tabs PO UD PRN; Protocol PRN Reason: Hypoglycemia Protocol Stop: 08/24/21 18:01 Glucose (Glucose 40% Gel 15 Gm Tube) 15 - 30 gm PO UD PRN; Protocol PRN Reason: Hypoglycemia Protocol Stop: 08/24/21 18:01 Remdesivir 100 mg/ Sodium (Chloride) 250 mls @ 250 mls/hr IV Q24H [facility] Stop: 07/30/21 12:59 Last Infusion: 07/29/21 12:36 Dose: Infused Documented by: Dexamethasone 6 mg/ Syringe 1.5 mls @ 1 mls/min IV DAILY [facility] Stop: 08/05/21 09:02 Last Admin: 07/30/21 08:05 Dose: 1 mls/min Documented by: Insulin Aspart (Insulin Aspart Per Unit) 0 units SC AC [facility] Stop: 08/27/21 07:29 Last Admin: 07/30/21 08:34 Dose: 24 units Documented by: Insulin Aspart (Insulin Aspart Per Unit) 0 units SC HS [facility] Stop: 08/27/21 20:59 Last Admin: 07/29/21 20:39 Dose: 5 units Documented by: Insulin Human NPH (Insulin Human Nph) 50 units SC DAILY [facility] Stop: 08/26/21 08:59 Last Admin: 07/30/21 08:34 Dose: 50 units Documented by: Magnesium Hydroxide (Magnesium Hydroxide Susp 30 Ml Udc) 30 ml PO Q12H PRN PRN Reason: Constipation Stop: 08/24/21 18:01 Magnesium Oxide (Magnesium Oxide 400 Mg Tab) 400 mg PO BID [facility] Stop: 08/27/21 20:59 Last Admin: 07/30/21 08:05 Dose: 400 mg Documented by: Metoprolol Succinate (Metoprolol Succ 25mg Ext Rel Tab) 25 mg PO DAILY [facility] Stop: 08/25/21 08:59 Last Admin: 07/30/21 08:06 Dose: 25 mg Documented by: Miscellaneous (Carbohydrates For Hypoglycemia ) 15 - 30 gm PO UD PRN PRN Reason: Hypoglycemia Protocol Stop: 08/24/21 18:01 Miscellaneous Information (Pharmacy Glycemic Mgmt Consult) 1 ea N/A UD PRN; Protocol PRN Reason: Consult Stop: 08/24/21 18:01 Ondansetron HCl (Ondansetron Inj 2 Mg/Ml 2 Ml Vial) 4 mg IV Q6H PRN PRN Reason: Nausea Stop: 08/24/21 18:01 Polyethylene Glycol (Polyethylene (Miralax) 17 Gm Pack) 17 gm PO DAILY PRN PRN Reason: Constipation Stop: 08/24/21 18:01
[2021-07-30] MEDS: REMDESIVIR 100 MG in SODIUM CHLORIDE 0.9% 230 ML IV SCH (12:00)
[2021-07-30] MEDS: ENOXAPARIN INJ 40 MG/0.4 ML SYR SQ SCH (13:00)
--- NOTE | 2021-07-30 14:37 | Pharmacy Report ---
Pharmacy Glycemic Short Note 2 - Date of Service July 30, 2021 - Glycemic Short BSG Results (Last 24 hours): 07/29/21 07/29/21 07/30/21 16:33 20:34 07:38 POC Glucose 138 H 237 H 96 07/30/21 11:24 POC Glucose 220 H OUTPATIENT ANTIDIABETIC REGIMEN: * Glyburide 5mg PO BID * Metformin 1000mg BID * Actos 45mg PO Daily * A1c 6.3% 07/26/21 ASSESSMENT: 07/30: * Pt received total 133 units of insulin yesterday; 50 units basal + 83 units bolus. * BSGs trended down to 138 mg/dl at dinner then went above 200 mg/dl at HS since CR was loosened at dinner yesterday. * Fasting BSG today = 96 mg/dl. Basal NPH dose continued at 50 units this AM. Patient is still on IV Dex 6 mg. * Novolog CR tightened back to 2.5 with breakfast. 07/29: * Patient's BSGs yesterday were [phone]. He received total 125 units of insulin yesterday; 50 units basal + 75 units bolus. * Fasting BSG today = 195 mg/dl. Pre-lunch BSG was elevated yesterday and again today but HS BSG trended down last night. To prevent hypoglycemia at HS, Novolog CR is loosened. 07/28 * Patient's BSGs yesterday were [phone] mg/dL. * Patient received 87 units of insulin yesterday (50 units of NPH plus 37 units of bolus). * Patient received dexamethasone 6 mg @ 0400 today. * Fasting BSG is a mixed picture. On PRP fasting was 95 mg/dL but at 0700 on POC BSG was 182 mg/dL. * Will continue to hold Lantus as believe PRP more accurately reflects fasting. POC influenced by earlier dexamethasone administration. * Continue NPH as increased significantly yesterday. * Tighten CR as BSGs trending upwards. 07/27 * Blood sugars above goal all day, fasting blood sugar at goal, will move all basal to NPH in the AM * Patient continues on Dexamethasone 6mg IV daily * Continue CF/CR at this time 07/26 * 60 yo male, PMH CAD, HTN, HLD, T2DM, gout, presenting w/ N/V/D x 3 days, positive for COVID19, on IV steroids, causing steroid induced hyperglycemia. * Pt received Lantus last night, changed to NPH today to give w/ IV steroids * Tightened CF/CR, continue BSG checks overnight tonight while blood sugars still not to goal * Continue to adjust insulin parameters to goal blood sugar PLAN FOR INPATIENT GLYCEMIC CONTROL: * Hold outpatient oral diabetes medications * Basal insulin * NPH 50 units SQ daily * Bolus insulin * NovoLog per scale ACHS or Q6hrs while NPO * Goal Range: Low 110 mg/dL - High 140 mg/dL * Correction Factor: 12 mg/dL/unit * Nutritional / Prandial insulin per carb ratio of 1 unit per 2.5 grams CHO consumed PLAN FOR DISCHARGE: * A1c 6.3%, no change in outpatient medications unless patient experiencing hypoglycemia, and no contraindications exist (SCr elevated on admission, likely d/t dehydration).
[2021-07-31 06:20] LABS: Hematocrit (blood only) 35.3 % (42-52); Hemoglobin 13.2 g/dL (14.0-18.0); Mean Corpuscular Hgb Conc 37.4 g/dL (32-36); Mean Corpuscular Volume 85.7 fL (80-100); Mean Platelet Volume 9.9 fL (7.4-10.4); Platelet Count 299 K/uL (130-400); RDW Coefficient of Variation 13.7 % (11.5-14.5); RDW Standard Deviation 43.2 fL (36.4-46.3); Red Blood Count 4.12 M/uL (4.7-6.1)
[2021-07-31 06:39] LABS: BUN Creatinine Ratio 40.4 (10-20); C Reactive Protein 12.16 mg/dl (0-0.5); Calcium 8.8 mg/dl (8.5-10.1); Creatinine Clr Calc Pharmacy 96.1 ml/min; Est GFR (African American) 103.2 ml/min; Magnesium 1.4 mg/dl (1.7-2.4); Potassium 4.4 mmol/L (3.5-5.1)
[2021-07-31] MEDS: INSULIN ASPART PER UNIT SC SCH ×4 (08:23→20:33)
[2021-07-31] MEDS: INSULIN HUMAN NPH SC SCH (08:24)
[2021-07-31] MEDS: MAGNESIUM OXIDE 400 MG TAB PO SCH ×2 (08:31→23:15)
[2021-07-31] MEDS: dexAMETHasone 6 MG in SYRINGE 0 ML IV SCH (08:32)
[2021-07-31] MEDS: METOPROLOL SUCC 25MG EXT REL TAB PO SCH (09:14)
[2021-07-31] MEDS: allopurinoL 300 MG TAB PO SCH (09:14)
[2021-07-31] MEDS: ASPIRIN 81 MG ECTAB PO SCH (09:14)
[2021-07-31] MEDS: ENOXAPARIN INJ 40 MG/0.4 ML SYR SQ SCH (12:18)
--- NOTE | 2021-07-31 12:26 | Hospitalist Progress Note ---
Date of Service July 31, 2021 Assessment & Plan (1) Acute respiratory failure with hypoxia: Plan: Acute hypoxic respiratory failure COVID-19 pneumonia Emphysema documented on CAT scan Cont daily IV dexamethasone 6 mg daily, remdesivir daily with improvement in kidney function after hydration efforts. Supportive care with as needed nebs, antitussives, antiemetics Incentive spirometry continues on hi flow oxygen supplementation. Declines to prone. (2) Sinus tachycardia: Plan: Concerned for volume depletion in setting of recent diarrheal illness and a couple of days of Lasix therapy. Will give him 1 L NSS now to see if heart rate improves as he appears dry. Another consideration is a new PE, however, for now we have evidence of worsening pneumonia with an elevated CRP indicating a possible new wave of inflammation to explain the hypoxia. He also does not have chest pain. Would start with IVF and cont to monitor for now. (3) 2019 novel coronavirus-infected pneumonia (NCIP): Plan: Plan as above. (4) Hypomagnesemia: Plan: cont oral replacement. (5) Acute worsening of stage 3 chronic kidney disease: Plan: 2/2 prerenal azotemia in setting of recent GI symptoms. Creatinine back to his baseline after IVF resuscitation. resolved (6) Diabetes mellitus: Plan: Glyburide and Actos held and he continues at goal now on insulin therapy. A1C is at goal. Cont current therapy in setting of steroids. BSG at goal--management per glycemic pharmacist. (7) CAD (coronary artery disease): Plan: h/o stents per records, stable. Denies chest pain. Cont medical management with ASA, Toprol. Not on statin. Will request Cardiology records from [place] after the weekend. (8) HTN (hypertension): Plan: chronic, stable. Cont current medical therapy. (9) DVT prophylaxis: Plan: Lovenox Full Code Dispo-cont PCU care. I contacted his by phone today and let her know how things were going. I discussed the care plan above with her. She verbalized understanding, and thanked me for the call. DO [facility] Hospitalist Admission and Anticipated Discharge Date Admission Date: July 25, 2021 Subjective 60 yo M with acute respiratory failure secondary to Covid pneumonia Continues on the hi flow oxygen supplementation decreased appetite, but no nausea today didn't get much sleep last night telemetry review revealed HR in low 100s with peak of 130 overnight denies any other issues at this time some cough denies diarrhea Review of Systems Review of Systems: All systems were reviewed and negative except as indicated in subjective above. Physical Exam Physical Exam: CONSTITUTIONAL: WNWD, vitals as above, generally well- appearing, NAD EYES: normal conjunctivae, no scleral icterus, ENT: external ear and nose normal, NECK: trachea midline, RESPIRATORY: Clear to auscultation throughout, no crackles wheezes or rales, normal respiratory effort CARDIOVASCULAR: regular rate and rhythm, S1 and 2 heard without murmurs, gallops or rubs, no JVD, no peripheral edema CHEST: inspection of chest was normal GASTROINTESTINAL: soft, nontender, ND, no guarding MUSCULOSKELETAL: strength 5/5 throughout, head is normocephalic and atraumatic, SKIN: warm and dry, no rashes NEUROLOGIC: CN 2-12 grossly intact, no sensory deficit, normal cognition, normal speech, no tremor PSYCHIATRIC: alert cooperative and oriented to person, place and time. Results & Data Results & Data ([facility]) Vital Signs (Past 12 Hours) Vital Signs Temp Pulse Pulse Pulse Resp BP BP 07/31/21 11:24 37.5 C 107 H 20 117/75 07/31/21 08:00 07/31/21 07:36 37.5 C 109 H 20 152/82 H 07/31/21 07:29 103 H 22 07/31/21 07:22 100 H 07/31/21 03:15 25 H 07/31/21 02:55 99 H 24 07/31/21 00:43 20 Pulse Ox Pulse Ox 07/31/21 11:24 96 07/31/21 08:00 90 07/31/21 07:36 90 07/31/21 07:29 91 07/31/21 07:22 07/31/21 03:15 92 07/31/21 02:55 92 07/31/21 00:43 90 Laboratory Results Short CBC 07/31/21 Range/Units 05:41 WBC 10.80 (4.8-10.8) K/uL Hgb 13.2 L (14.0-18.0) g/dL Hct 35.3 L (42-52) % Plt Count 299 (130-400) K/uL BMP 07/31/21 05:41 Sodium 135 L Potassium 4.4 Chloride 103 Carbon Dioxide 22 BUN 38 H Creatinine 0.94 Glucose 86 Calcium 8.8 Medications Administered Current Inpatient Medications Acetaminophen (Acetaminophen 325 Mg Tab) 650 mg PO Q4H PRN PRN Reason: Pain or Fever Stop: 08/24/21 18:01 Last Admin: 07/26/21 20:14 Dose: 650 mg Documented by: Al Hydrox/Mg Hydrox/Simethicone (Aluminum/Magnesium Susp 30 Ml Udc) 15 ml PO Q4H PRN PRN Reason: Dyspepsia Stop: 08/24/21 18:01 Albuterol (Albut/Ipratrop 3mg/0.5mg Neb 3 Ml Vial) 3 ml NEB QIDR PRN; Protocol PRN Reason: sob/wheezing Stop: 08/24/21 18:01 Last Admin: 07/28/21 20:29 Dose: 3 ml Documented by: Albuterol (Albuterol Hfa 8 Gm Inhaler) 2 puffs INH Q4H PRN PRN Reason: sob/wheezing Stop: 08/24/21 18:01 Allopurinol (Allopurinol 300 Mg Tab) 300 mg PO QAM [facility] Stop: 08/28/21 08:59 Last Admin: 07/31/21 09:14 Dose: 300 mg Documented by: Aspirin (Aspirin 81 Mg Ectab) 81 mg PO DAILY [facility] Stop: 08/25/21 08:59 Last Admin: 07/31/21 09:14 Dose: 81 mg Documented by: Benzonatate (Benzonatate 100 Mg Capsule) 100 mg PO TID PRN PRN Reason: cough Stop: 08/24/21 18:01 Dextrose (Dextrose 50% 50 Ml Syringe) 25 - 50 ml IV UD PRN; Protocol PRN Reason: Hypoglycemia Protocol Stop: 08/24/21 18:01 Enoxaparin Sodium (Enoxaparin Inj 40 Mg/0.4 Ml Syr) 40 mg SQ Q24H [facility] Stop: 08/25/21 13:14 Last Admin: 07/31/21 12:18 Dose: 40 mg Documented by: Glucagon (Glucagon For Inj 1 Mg Vial) 1 mg SQ UD PRN; Protocol PRN Reason: Hypoglycemia Protocol Stop: 08/24/21 18:01 Glucose (Glucose 10 Tabs/Tube) 4 - 8 tabs PO UD PRN; Protocol PRN Reason: Hypoglycemia Protocol Stop: 08/24/21 18:01 Glucose (Glucose 40% Gel 15 Gm Tube) 15 - 30 gm PO UD PRN; Protocol PRN Reason: Hypoglycemia Protocol Stop: 08/24/21 18:01 Dexamethasone 6 mg/ Syringe 1.5 mls @ 1 mls/min IV DAILY [facility] Stop: 08/05/21 09:02 Last Admin: 07/31/21 08:32 Dose: 1 mls/min Documented by: Sodium Chloride (Nss 1000ml) 1,000 mls @ 200 mls/hr IV .Q5H [facility] Stop: 07/31/21 17:29 Insulin Aspart (Insulin Aspart Per Unit) 0 units SC AC [facility] Stop: 08/27/21 07:29 Last Admin: 07/31/21 12:13 Dose: 33 units Documented by: Insulin Aspart (Insulin Aspart Per Unit) 0 units SC HS [facility] Stop: 08/27/21 20:59 Last Admin: 07/30/21 21:26 Dose: 5 units Documented by: Insulin Human NPH (Insulin Human Nph) 50 units SC DAILY [facility] Stop: 08/26/21 08:59 Last Admin: 07/31/21 08:24 Dose: 50 units Documented by: Magnesium Hydroxide (Magnesium Hydroxide Susp 30 Ml Udc) 30 ml PO Q12H PRN PRN Reason: Constipation Stop: 08/24/21 18:01 Magnesium Oxide (Magnesium Oxide 400 Mg Tab) 400 mg PO BID [facility] Stop: 08/27/21 20:59 Last Admin: 07/31/21 08:31 Dose: 400 mg Documented by: Metoprolol Succinate (Metoprolol Succ 25mg Ext Rel Tab) 25 mg PO DAILY [facility] Stop: 08/25/21 08:59 Last Admin: 07/31/21 09:14 Dose: 25 mg Documented by: Miscellaneous (Carbohydrates For Hypoglycemia ) 15 - 30 gm PO UD PRN PRN Reason: Hypoglycemia Protocol Stop: 08/24/21 18:01 Miscellaneous Information (Pharmacy Glycemic Mgmt Consult) 1 ea N/A UD PRN; Protocol PRN Reason: Consult Stop: 08/24/21 18:01 Ondansetron HCl (Ondansetron Inj 2 Mg/Ml 2 Ml Vial) 4 mg IV Q6H PRN PRN Reason: Nausea Stop: 08/24/21 18:01 Polyethylene Glycol (Polyethylene (Miralax) 17 Gm Pack) 17 gm PO DAILY PRN PRN Reason: Constipation Stop: 08/24/21 18:01
[2021-07-31] MEDS ORDERED: SODIUM CHLORIDE 0.9% 1000ML 1,000 ML IV SCH (12:30)
[2021-08-01] MEDS ORDERED: ALBUT/IPRATROP 3MG/0.5MG NEB 3 ML VIAL NEB STA (02:58)
[2021-08-01] MEDS ORDERED: dexAMETHasone 6 MG in SYRINGE 0 ML IV ONE (03:00)
[2021-08-01] MEDS: MAGNESIUM SULFATE / D5W 1 GM/100 ML BAG IV SCH ×4 (03:27→13:47)
[2021-08-01 04:00] LABS: Basophils # (auto) 0.01 K/uL (0-0.2); Basophils % (auto) 0.1 %; Hematocrit (blood only) 35.9 % (42-52); Hemoglobin 12.9 g/dL (14.0-18.0); Immature Granulocytes # (auto) 0.25 K/uL (0.00-0.02); Immature Granulocytes % (auto) 1.9 %; Lymphocytes # (auto) 0.27 K/uL (1.2-3.4); Mean Corpuscular Hemoglobin 30.8 pg (25-34); Mean Corpuscular Hgb Conc 35.9 g/dL (32-36); Mean Corpuscular Volume 85.7 fL (80-100); Mean Platelet Volume 9.4 fL (7.4-10.4); Monocytes # (auto) 0.55 K/uL (0.11-0.59); Monocytes % (auto) 4.1 %; Neutrophils # (auto) 12.35 K/uL (1.4-6.5); Neutrophils % (auto) 91.9 %; Platelet Count 315 K/uL (130-400); RDW Coefficient of Variation 13.6 % (11.5-14.5); RDW Standard Deviation 42.7 fL (36.4-46.3); Red Blood Count 4.19 M/uL (4.7-6.1); White Blood Count 13.43 K/uL (4.8-10.8)
[2021-08-01 04:11] LABS: Partial Thromboplastin Time 26.5 Seconds (21.0-31.0)
[2021-08-01 04:47] LABS: Albumin Level 3.1 gm/dl (3.4-5.0); BUN Creatinine Ratio 31.9 (10-20); Bilirubin,Total 0.5 mg/dl (0.2-1.0); C Reactive Protein 17.7 mg/dl (0-0.5); Calcium 9.2 mg/dl (8.5-10.1); Creatinine Clr Calc Pharmacy 96.1 ml/min; Est GFR (African American) 103.2 ml/min; Magnesium 1.5 mg/dl (1.7-2.4); Potassium 3.8 mmol/L (3.5-5.1); Total Protein 6.1 gm/dl (6.0-8.3)
[2021-08-01] MEDS: DEXTROSE 50% 50 ML SYRINGE IV PRN (04:51)
[2021-08-01] MEDS: POTASSIUM CHLORIDE / WTR 10 MEQ/100 ML PLCT IV SCH ×2 (05:07→06:10)
[2021-08-01] MEDS ORDERED: Nursing to Pharmacy Communication SCH ×2 (05:15→11:00)
[2021-08-01 05:30] LABS: iSTAT Allen Test Pass; iSTAT Art Bld Gas pCO2 Correct 31 mmHg (35-46); iSTAT Arterial Blood Gas HCO3 23 meg/L (19-24); iSTAT Arterial Blood Gas pCO2 31 mmHg (35-46); iSTAT Arterial Blood Gas pH 7.48 (7.35-7.45); iSTAT Arterial Blood Gas pO2 75 mmHg (80-95); iSTAT Arterial Blood Gas pO2 C 75; iSTAT Carbon Dioxide 24 mmol/L (24-31); iSTAT FiO2 90 %; iSTAT Hematocrit 31 % (42-52); iSTAT Hemoglobin 10.5 g/dl (14.0-18.0); iSTAT Potassium 3.8 mmol/L (3.3-5.0); iSTAT Site L Radial; iSTAT Sodium 133 mmol/L (135-144)
[2021-08-01] MEDS ORDERED: INSULIN ASPART PER UNIT SC SCH (06:00)
--- NOTE | 2021-08-01 07:45 | XRay Report ---
XR chest 1V portable HISTORY: Hypoxia. Covid pneumonia. COMPARISON: Chest 07/28/2021. FINDINGS: No pneumothorax. No pleural effusions. The cardiac silhouette remains normal in size. There are extensive bilateral airspace opacities which have slightly improved. IMPRESSION: Slight improvement in the bilateral airspace opacities consistent with a viral pneumonia. ACT 112: Negative or not required by law. Electronically signed by: David Vick M.D. 08/01/2021 7:44 AM
[2021-08-01] MEDS: MAGNESIUM OXIDE 400 MG TAB PO SCH ×2 (08:46→21:33)
[2021-08-01] MEDS: allopurinoL 300 MG TAB PO SCH (08:47)
[2021-08-01] MEDS: ASPIRIN 81 MG ECTAB PO SCH (08:47)
[2021-08-01] MEDS: METOPROLOL SUCC 25MG EXT REL TAB PO SCH (08:47)
[2021-08-01] MEDS: INSULIN ASPART PER UNIT SC SCH ×3 (12:08→21:18)
--- NOTE | 2021-08-01 13:46 | Pharmacy Report ---
Pharmacy Glycemic Short Note 2 - Date of Service August 01, 2021 - Glycemic Short BSG Results (Last 24 hours): 07/31/21 07/31/21 08/01/21 15:44 20:30 03:31 Glucose 52 L* POC Glucose 158 H 123 H 08/01/21 08/01/21 05:30 11:25 Glucose POC Glucose 107 H 141 H OUTPATIENT ANTIDIABETIC REGIMEN: * Glyburide 5mg PO BID * Metformin 1000mg BID * Actos 45mg PO Daily * A1c 6.3% 07/26/21 ASSESSMENT: 08/01/21 * Patient's BSGs yesterday were [phone] mg/dL. Fasting today was 52 mg/dL. * Patient received 140 units of insulin (50 units of basal and 90 units of bolus). * Hypoglycemic event most likely due to prolonged half-life of NPH. * Initially patient was NPO this morning; dexamethasone given at 0300. Held NPH due to this change. * Diet reordered at lunch. * Tightened Novolog since basal held. 07/30: * Pt received total 133 units of insulin yesterday; 50 units basal + 83 units bolus. * BSGs trended down to 138 mg/dl at dinner then went above 200 mg/dl at HS since CR was loosened at dinner yesterday. * Fasting BSG today = 96 mg/dl. Basal NPH dose continued at 50 units this AM. Patient is still on IV Dex 6 mg. * Novolog CR tightened back to 2.5 with breakfast. 07/29: * Patient's BSGs yesterday were [phone]. He received total 125 units of insulin yesterday; 50 units basal + 75 units bolus. * Fasting BSG today = 195 mg/dl. Pre-lunch BSG was elevated yesterday and again today but HS BSG trended down last night. To prevent hypoglycemia at HS, Novolog CR is loosened. 07/28 * Patient's BSGs yesterday were [phone] mg/dL. * Patient received 87 units of insulin yesterday (50 units of NPH plus 37 units of bolus). * Patient received dexamethasone 6 mg @ 0400 today. * Fasting BSG is a mixed picture. On PRP fasting was 95 mg/dL but at 0700 on POC BSG was 182 mg/dL. * Will continue to hold Lantus as believe PRP more accurately reflects fasting. POC influenced by earlier dexamethasone administration. * Continue NPH as increased significantly yesterday. * Tighten CR as BSGs trending upwards. 07/27 * Blood sugars above goal all day, fasting blood sugar at goal, will move all basal to NPH in the AM * Patient continues on Dexamethasone 6mg IV daily * Continue CF/CR at this time 07/26 * 60 yo male, PMH CAD, HTN, HLD, T2DM, gout, presenting w/ N/V/D x 3 days, positive for COVID19, on IV steroids, causing steroid induced hyperglycemia. * Pt received Lantus last night, changed to NPH today to give w/ IV steroids * Tightened CF/CR, continue BSG checks overnight tonight while blood sugars still not to goal * Continue to adjust insulin parameters to goal blood sugar PLAN FOR INPATIENT GLYCEMIC CONTROL: * Hold outpatient oral diabetes medications * Basal insulin * NPH 50 units SQ daily -HOLD * Bolus insulin * NovoLog per scale ACHS or Q6hrs while NPO * Goal Range: Low 110 mg/dL - High 140 mg/dL * Correction Factor: 10 mg/dL/unit * Nutritional / Prandial insulin per carb ratio of 1 unit per 2 grams CHO consumed PLAN FOR DISCHARGE: * A1c 6.3%, no change in outpatient medications unless patient experiencing hypoglycemia, and no contraindications exist (SCr elevated on admission, likely d/t dehydration).
[2021-08-01] MEDS: ENOXAPARIN INJ 40 MG/0.4 ML SYR SQ SCH (13:47)
--- NOTE | 2021-08-01 17:15 | Hospitalist Progress Note ---
Date of Service August 01, 2021 Assessment & Plan (1) Acute respiratory failure with hypoxia: Plan: Acute hypoxic respiratory failure COVID-19 pneumonia Emphysema documented on CAT scan Cont daily IV dexamethasone 6 mg daily, completed 5 days of remdesivir. Supportive care with as needed nebs, antitussives, antiemetics Incentive spirometry continues on hi flow oxygen supplementation. (2) Sinus tachycardia: Plan: resolved (3) 2019 novel coronavirus-infected pneumonia (NCIP): Plan: Plan as above. (4) Hypomagnesemia: Plan: cont oral replacement. IV also given this am. recent diarrhea prior to arrival. Repeat lab in am. (5) Acute worsening of stage 3 chronic kidney disease: Plan: 2/2 prerenal azotemia in setting of recent GI symptoms. Creatinine back to his baseline after IVF resuscitation. resolved (6) Diabetes mellitus: Plan: Glyburide and Actos held and he continues at goal now on insulin therapy. A1C is at goal. Cont current therapy in setting of steroids. BSG at goal--management per glycemic pharmacist. (7) CAD (coronary artery disease): Plan: h/o stents per records, stable. Denies chest pain. Cont medical management with ASA, Toprol. Not on statin. Will request Cardiology records from [place] after the weekend. (8) HTN (hypertension): Plan: chronic, stable. Cont current medical therapy. (9) DVT prophylaxis: Plan: Lovenox Full Code Dispo-cont PCU care. I contacted his his daughter by phone and discussed the case with her. She is a nurse and verbalized understanding of the situation. All questions answered to her satisfaction. Yola Mcdonough DO [facility] Hospitalist Admission and Anticipated Discharge Date Admission Date: July 25, 2021 Subjective 60 yo M with acute respiratory failure secondary to Covid pneumonia Continues on the hi flow oxygen supplementation required BIPAP overnight and feels much better with this. was more compliant with proning today denies nausea and he is eating. no diarrhea Review of Systems Review of Systems: All systems were reviewed and negative except as indicated in subjective above. Physical Exam Physical Exam: CONSTITUTIONAL: WNWD, vitals as above, generally well- appearing, NAD EYES: normal conjunctivae, no scleral icterus, ENT: external ear and nose normal, NECK: trachea midline, RESPIRATORY: Clear to auscultation throughout, no crackles wheezes or rales, normal respiratory effort CARDIOVASCULAR: regular rate and rhythm, S1 and 2 heard without murmurs, gallops or rubs, no JVD, no peripheral edema CHEST: inspection of chest was normal GASTROINTESTINAL: soft, nontender, ND, no guarding MUSCULOSKELETAL: strength 5/5 throughout, head is normocephalic and atraumatic, SKIN: warm and dry, no rashes NEUROLOGIC: CN 2-12 grossly intact, no sensory deficit, normal cognition, normal speech, no tremor PSYCHIATRIC: alert cooperative and oriented to person, place and time. Results & Data Results & Data ([facility]) Vital Signs (Past 12 Hours) Vital Signs Temp Pulse Pulse Pulse Resp BP Pulse Ox 08/01/21 15:48 36.9 C 88 20 144/83 H 95 08/01/21 15:23 20 94 08/01/21 14:17 78 08/01/21 11:27 37 C 78 78 16 149/84 H 97 08/01/21 08:00 08/01/21 07:53 85 20 93 08/01/21 07:10 78 08/01/21 06:17 96 Pulse Ox 08/01/21 15:48 08/01/21 15:23 08/01/21 14:17 08/01/21 11:27 08/01/21 08:00 99 08/01/21 07:53 08/01/21 07:10 08/01/21 06:17 Laboratory Results Short CBC 08/01/21 Range/Units 03:31 WBC 13.43 H (4.8-10.8) K/uL Hgb 12.9 L (14.0-18.0) g/dL Hct 35.9 L (42-52) % Plt Count 315 (130-400) K/uL BMP 08/01/21 03:31 Sodium 135 L Potassium 3.8 Chloride 102 Carbon Dioxide 23 BUN 30 H Creatinine 0.94 Glucose 52 L* Calcium 9.2 Liver Function 08/01/21 Range/Units 03:31 Total Bilirubin 0.5 (0.2-1.0) mg/dl AST 22 (13-39) U/L ALT 22 (7-52) U/L Alkaline Phosphatase 52 (34-104) U/L Albumin 3.1 L (3.4-5.0) gm/dl Diagnostic Findings Chest X-Ray 08/01/21 03:01 XR chest 1V portable HISTORY: Hypoxia. Covid pneumonia. COMPARISON: Chest 07/28/2021. FINDINGS: No pneumothorax. No pleural effusions. The cardiac silhouette remains normal in size. There are extensive bilateral airspace opacities which have slightly improved. IMPRESSION: Slight improvement in the bilateral airspace opacities consistent with a viral pneumonia. ACT 112: Negative or not required by law. Electronically signed by: David Vick M.D. 08/01/2021 7:44 AM Medications Administered Current Inpatient Medications Acetaminophen (Acetaminophen 325 Mg Tab) 650 mg PO Q4H PRN PRN Reason: Pain or Fever Stop: 08/24/21 18:01 Last Admin: 07/26/21 20:14 Dose: 650 mg Documented by: Al Hydrox/Mg Hydrox/Simethicone (Aluminum/Magnesium Susp 30 Ml Udc) 15 ml PO Q4H PRN PRN Reason: Dyspepsia Stop: 08/24/21 18:01 Albuterol (Albut/Ipratrop 3mg/0.5mg Neb 3 Ml Vial) 3 ml NEB QIDR PRN; Protocol PRN Reason: sob/wheezing Stop: 08/24/21 18:01 Last Admin: 07/28/21 20:29 Dose: 3 ml Documented by: Albuterol (Albuterol Hfa 8 Gm Inhaler) 2 puffs INH Q4H PRN PRN Reason: sob/wheezing Stop: 08/24/21 18:01 Allopurinol (Allopurinol 300 Mg Tab) 300 mg PO QAM ANSELMO Stop: 08/28/21 08:59 Last Admin: 08/01/21 08:47 Dose: 300 mg Documented by: Aspirin (Aspirin 81 Mg Ectab) 81 mg PO DAILY ANSELMO Stop: 08/25/21 08:59 Last Admin: 08/01/21 08:47 Dose: 81 mg Documented by: Benzonatate (Benzonatate 100 Mg Capsule) 100 mg PO TID PRN PRN Reason: cough Stop: 08/24/21 18:01 Dextrose (Dextrose 50% 50 Ml Syringe) 25 - 50 ml IV UD PRN; Protocol PRN Reason: Hypoglycemia Protocol Stop: 08/24/21 18:01 Last Admin: 08/01/21 04:51 Dose: 25 ml Documented by: Enoxaparin Sodium (Enoxaparin Inj 40 Mg/0.4 Ml Syr) 40 mg SQ Q24H ANSELMO Stop: 08/25/21 13:14 Last Admin: 08/01/21 13:47 Dose: 40 mg Documented by: Glucagon (Glucagon For Inj 1 Mg Vial) 1 mg SQ UD PRN; Protocol PRN Reason: Hypoglycemia Protocol Stop: 08/24/21 18:01 Glucose (Glucose 10 Tabs/Tube) 4 - 8 tabs PO UD PRN; Protocol PRN Reason: Hypoglycemia Protocol Stop: 08/24/21 18:01 Glucose (Glucose 40% Gel 15 Gm Tube) 15 - 30 gm PO UD PRN; Protocol PRN Reason: Hypoglycemia Protocol Stop: 08/24/21 18:01 Dexamethasone 6 mg/ Syringe 1.5 mls @ 1 mls/min IV DAILY ANSELMO Stop: 08/06/21 09:02 Insulin Aspart (Insulin Aspart Per Unit) 0 units SC ACHS ANSELMO Stop: 08/31/21 05:59 Last Admin: 08/01/21 17:07 Dose: 50 units Documented by: Insulin Human NPH (Insulin Human Nph) 50 units SC DAILY ANSELMO Stop: 08/26/21 08:59 Last Admin: 07/31/21 08:24 Dose: 50 units Documented by: Magnesium Hydroxide (Magnesium Hydroxide Susp 30 Ml Udc) 30 ml PO Q12H PRN PRN Reason: Constipation Stop: 08/24/21 18:01 Magnesium Oxide (Magnesium Oxide 400 Mg Tab) 400 mg PO BID ANSELMO Stop: 08/27/21 20:59 Last Admin: 08/01/21 08:46 Dose: 400 mg Documented by: Metoprolol Succinate (Metoprolol Succ 25mg Ext Rel Tab) 25 mg PO DAILY ANSELMO Stop: 08/25/21 08:59 Last Admin: 08/01/21 08:47 Dose: 25 mg Documented by: Miscellaneous (Carbohydrates For Hypoglycemia ) 15 - 30 gm PO UD PRN PRN Reason: Hypoglycemia Protocol Stop: 08/24/21 18:01 Miscellaneous Information (Pharmacy Glycemic Mgmt Consult) 1 ea N/A UD PRN; Protocol PRN Reason: Consult Stop: 08/24/21 18:01 Ondansetron HCl (Ondansetron Inj 2 Mg/Ml 2 Ml Vial) 4 mg IV Q6H PRN PRN Reason: Nausea Stop: 08/24/21 18:01 Polyethylene Glycol (Polyethylene (Miralax) 17 Gm Pack) 17 gm PO DAILY PRN PRN Reason: Constipation Stop: 08/24/21 18:01
[2021-08-01] MEDS ORDERED: XOPENEX/ATROVENT 1.25mg/0.5MG NEB COMBO NEB STA (20:30)
[2021-08-01] MEDS ORDERED: methylPREDNISolone 40 MG in SYRINGE 0 ML IV ONE (20:45)
[2021-08-01] MEDS ORDERED: LEVALBUTEROL 1.25MG/0.5ML NEB INH ONE (20:45)
[2021-08-01] MEDS ORDERED: IPRATROPIUM BROMIDE NEB SOLN 0.02% 2.5 ML VIAL INH ONE (20:45)
[2021-08-01] MEDS ORDERED: ACETAMINOPHEN 1,000 MG/100 ML VIAL IV STA (23:09)
[2021-08-01] MEDS ORDERED: MELATONIN 3 MG TAB PO PRN (23:10)
[2021-08-01] MEDS ORDERED: XOPENEX/ATROVENT 1.25mg/0.5MG NEB COMBO NEB PRN (23:11)
[2021-08-01] MEDS ORDERED: ALBUMIN 25% 12.5 GM/50 ML VIAL IV ONE (23:28)
[2021-08-02] MEDS: ACETAMINOPHEN 325 MG TAB PO PRN (00:07)
[2021-08-02 07:37] LABS: Hematocrit (blood only) 34.5 % (42-52); Hemoglobin 12.1 g/dL (14.0-18.0); Mean Corpuscular Hemoglobin 30.3 pg (25-34); Mean Corpuscular Hgb Conc 35.1 g/dL (32-36); Mean Corpuscular Volume 86.3 fL (80-100); Mean Platelet Volume 9.6 fL (7.4-10.4); Platelet Count 275 K/uL (130-400); RDW Coefficient of Variation 13.7 % (11.5-14.5); RDW Standard Deviation 43.4 fL (36.4-46.3); White Blood Count 11.74 K/uL (4.8-10.8)
[2021-08-02] MEDS: dexAMETHasone 6 MG in SYRINGE 0 ML IV SCH (07:39)
[2021-08-02] MEDS: MAGNESIUM OXIDE 400 MG TAB PO SCH ×2 (07:49→20:31)
[2021-08-02] MEDS: METOPROLOL SUCC 25MG EXT REL TAB PO SCH (07:50)
[2021-08-02] MEDS: allopurinoL 300 MG TAB PO SCH (07:51)
[2021-08-02] MEDS: ASPIRIN 81 MG ECTAB PO SCH (07:51)
[2021-08-02 08:24] LABS: BUN Creatinine Ratio 32.4 (10-20); Calcium 9.1 mg/dl (8.5-10.1); Creatinine Clr Calc Pharmacy 81.2 ml/min; Est GFR (African American) 84.4 ml/min; Est GFR (Non-African American) 72.8 ml/min; Potassium 4.6 mmol/L (3.5-5.1)
[2021-08-02] MEDS: INSULIN ASPART PER UNIT SC SCH ×4 (08:30→20:36)
--- NOTE | 2021-08-02 08:59 | Hospitalist Progress Note ---
Date of Service August 02, 2021 Assessment & Plan (1) Acute respiratory failure with hypoxia: Plan: Acute hypoxic respiratory failure COVID-19 pneumonia Emphysema documented on CAT scan Cont daily IV dexamethasone 6 mg daily, completed 5 days of remdesivir. Supportive care with as needed nebs, antitussives, antiemetics Incentive spirometry continues on hi flow oxygen supplementation, now alternating with BIPAP at night while sleeping (2) 2019 novel coronavirus-infected pneumonia (NCIP): Plan: Plan as above. (3) Hypomagnesemia: Plan: repleted, cont PO supplementation. (4) Acute worsening of stage 3 chronic kidney disease: Plan: 2/2 prerenal azotemia in setting of recent GI symptoms. Creatinine back to his baseline after IVF resuscitation. resolved (5) Diabetes mellitus: Plan: Glyburide and Actos held and he continues at goal now on insulin therapy. A1C is at goal. Cont current therapy in setting of steroids. BSG at goal--management per glycemic pharmacist. (6) CAD (coronary artery disease): Plan: h/o stents per records, stable. Denies chest pain. Cont medical management with ASA, Toprol. Not on statin. (7) HTN (hypertension): Plan: chronic, stable. Cont current medical therapy. (8) DVT prophylaxis: Plan: Lovenox Full Code Dispo-cont PCU care. Yola Mcdonough DO [facility] Hospitalist Admission and Anticipated Discharge Date Admission Date: July 25, 2021 Subjective 60 yo M with acute respiratory failure secondary to Covid pneumonia Continues on the hi flow oxygen supplementation required BIPAP overnight and feels comfortable on this Overnight Pt attempted to prone, dropped into 70s on HFNC 40L at 100%. BIPAP applied. Saturating well at 70% FIO2. Pt requested brewster which was placed. He is feeling well today, tolerating PO and no fevers or chills. Review of Systems Review of Systems: All systems were reviewed and negative except as indicated in subjective above. Physical Exam Physical Exam: CONSTITUTIONAL: WNWD, vitals as above, generally well- appearing, NAD EYES: normal conjunctivae, no scleral icterus, ENT: external ear and nose normal, NECK: trachea midline, RESPIRATORY: Clear to auscultation throughout, no crackles wheezes or rales, normal respiratory effort CARDIOVASCULAR: regular rate and rhythm, S1 and 2 heard without murmurs, gallops or rubs, no JVD, no peripheral edema CHEST: inspection of chest was normal GASTROINTESTINAL: soft, nontender, ND, no guarding MUSCULOSKELETAL: strength 5/5 throughout, head is normocephalic and atraumatic, SKIN: warm and dry, no rashes NEUROLOGIC: CN 2-12 grossly intact, no sensory deficit, normal cognition, normal speech, no tremor PSYCHIATRIC: alert cooperative and oriented to person, place and time. Results & Data Results & Data ([facility]) Vital Signs (Past 12 Hours) Vital Signs Temp Pulse Pulse Pulse Resp BP Pulse Ox 08/02/21 07:45 81 96 08/02/21 07:31 36.7 C 86 22 156/91 H 87 L 08/02/21 03:52 75 22 92 08/02/21 03:29 37.2 C 88 20 137/84 96 08/02/21 02:18 85 08/02/21 01:20 36.7 C 96 08/01/21 23:38 110 H 08/01/21 23:28 37.7 C H 08/01/21 23:07 38.1 C H 112 H 22 131/72 95 08/01/21 22:44 25 H 92 Pulse Ox 08/02/21 07:45 08/02/21 07:31 87 L 08/02/21 03:52 08/02/21 03:29 08/02/21 02:18 08/02/21 01:20 08/01/21 23:38 08/01/21 23:28 08/01/21 23:07 08/01/21 22:44 Laboratory Results Short CBC 08/02/21 Range/Units 06:48 WBC 11.74 H (4.8-10.8) K/uL Hgb 12.1 L (14.0-18.0) g/dL Hct 34.5 L (42-52) % Plt Count 275 (130-400) K/uL BMP 08/02/21 06:48 Sodium 132 L Potassium 4.6 D Chloride 100 Carbon Dioxide 23 BUN 36 H Creatinine 1.11 Glucose 91 Calcium 9.1 Medications Administered Current Inpatient Medications Acetaminophen (Acetaminophen 325 Mg Tab) 650 mg PO Q4H PRN PRN Reason: Pain or Fever Stop: 08/24/21 18:01 Last Admin: 08/02/21 00:07 Dose: 650 mg Documented by: Al Hydrox/Mg Hydrox/Simethicone (Aluminum/Magnesium Susp 30 Ml Udc) 15 ml PO Q4H PRN PRN Reason: Dyspepsia Stop: 08/24/21 18:01 Allopurinol (Allopurinol 300 Mg Tab) 300 mg PO QAM ANSELMO Stop: 08/28/21 08:59 Last Admin: 08/02/21 07:51 Dose: 300 mg Documented by: Aspirin (Aspirin 81 Mg Ectab) 81 mg PO DAILY ANSELMO Stop: 08/25/21 08:59 Last Admin: 08/02/21 07:51 Dose: 81 mg Documented by: Benzonatate (Benzonatate 100 Mg Capsule) 100 mg PO TID PRN PRN Reason: cough Stop: 08/24/21 18:01 Dextrose (Dextrose 50% 50 Ml Syringe) 25 - 50 ml IV UD PRN; Protocol PRN Reason: Hypoglycemia Protocol Stop: 08/24/21 18:01 Last Admin: 08/01/21 04:51 Dose: 25 ml Documented by: Enoxaparin Sodium (Enoxaparin Inj 40 Mg/0.4 Ml Syr) 40 mg SQ Q24H ANSELMO Stop: 08/25/21 13:14 Last Admin: 08/01/21 13:47 Dose: 40 mg Documented by: Glucagon (Glucagon For Inj 1 Mg Vial) 1 mg SQ UD PRN; Protocol PRN Reason: Hypoglycemia Protocol Stop: 08/24/21 18:01 Glucose (Glucose 10 Tabs/Tube) 4 - 8 tabs PO UD PRN; Protocol PRN Reason: Hypoglycemia Protocol Stop: 08/24/21 18:01 Glucose (Glucose 40% Gel 15 Gm Tube) 15 - 30 gm PO UD PRN; Protocol PRN Reason: Hypoglycemia Protocol Stop: 08/24/21 18:01 Dexamethasone 6 mg/ Syringe 1.5 mls @ 1 mls/min IV DAILY ANSELMO Stop: 08/06/21 09:02 Last Admin: 08/02/21 07:39 Dose: 1 mls/min Documented by: Insulin Aspart (Insulin Aspart Per Unit) 0 units SC ACHS ANSELMO Stop: 08/31/21 05:59 Last Admin: 08/01/21 21:18 Dose: 2 units Documented by: Insulin Human NPH (Insulin Human Nph) 25 units SC DAILY ANSELMO Stop: 09/01/21 08:59 Ipratropium [place] (Ipratropium [place] Neb Soln 0.02% 2.5 Ml Vial) 0.5 mg INH Q4H PRN PRN Reason: SOB, WHEEZE Stop: 08/31/21 23:14 Levalbuterol HCl (Levalbuterol 1.25mg/0.5ml Neb) 1.25 mg INH Q4H PRN PRN Reason: SOB, WHEEZE Stop: 08/31/21 23:14 Magnesium Hydroxide (Magnesium Hydroxide Susp 30 Ml Udc) 30 ml PO Q12H PRN PRN Reason: Constipation Stop: 08/24/21 18:01 Magnesium Oxide (Magnesium Oxide 400 Mg Tab) 400 mg PO BID ANSELMO Stop: 08/27/21 20:59 Last Admin: 08/02/21 07:49 Dose: 400 mg Documented by: Melatonin (Melatonin 3 Mg Tab) 3 mg PO HS PRN PRN Reason: Sleep Stop: 08/31/21 23:09 Last Admin: 08/02/21 00:07 Dose: 3 mg Documented by: Metoprolol Succinate (Metoprolol Succ 25mg Ext Rel Tab) 25 mg PO DAILY ANSELMO Stop: 08/25/21 08:59 Last Admin: 08/02/21 07:50 Dose: 25 mg Documented by: Miscellaneous (Carbohydrates For Hypoglycemia ) 15 - 30 gm PO UD PRN PRN Reason: Hypoglycemia Protocol Stop: 08/24/21 18:01 Miscellaneous Information (Pharmacy Glycemic Mgmt Consult) 1 ea N/A UD PRN; Protocol PRN Reason: Consult Stop: 08/24/21 18:01 Ondansetron HCl (Ondansetron Inj 2 Mg/Ml 2 Ml Vial) 4 mg IV Q6H PRN PRN Reason: Nausea Stop: 08/24/21 18:01 Polyethylene Glycol (Polyethylene (Miralax) 17 Gm Pack) 17 gm PO DAILY PRN PRN Reason: Constipation Stop: 08/24/21 18:01
[2021-08-02] MEDS: INSULIN HUMAN NPH SC SCH (09:39)
--- NOTE | 2021-08-02 13:48 | Pharmacy Report ---
Pharmacy Glycemic Short Note 2 - Date of Service August 02, 2021 - Glycemic Short BSG Results (Last 24 hours): 08/01/21 08/01/21 08/02/21 15:52 20:04 06:48 Glucose 91 POC Glucose 294 H 157 H 08/02/21 08/02/21 07:47 11:23 Glucose POC Glucose 99 166 H OUTPATIENT ANTIDIABETIC REGIMEN: * Glyburide 5mg PO BID * Metformin 1000mg BID * Actos 45mg PO Daily * A1c 6.3% 07/26/21 ASSESSMENT: 08/02/21 * Patient's BSGs yesterday were 57 (PRP) 107 (POC)- 141-294-157 mg/dL. Fasting today is 99 mg/dL. * Patient received 66 units of bolus insulin yesterday. * Restart NPH at 25 units. * Change Novolog at HS to loose CF and no CR to prevent overcorrection. 08/01/21 * Patient's BSGs yesterday were [phone] mg/dL. Fasting today was 52 mg/dL. * Patient received 140 units of insulin (50 units of basal and 90 units of bolus). * Hypoglycemic event most likely due to prolonged half-life of NPH. * Initially patient was NPO this morning; dexamethasone given at 0300. Held NPH due to this change. * Diet reordered at lunch. * Tightened Novolog since basal held. 07/30: * Pt received total 133 units of insulin yesterday; 50 units basal + 83 units bolus. * BSGs trended down to 138 mg/dl at dinner then went above 200 mg/dl at HS since CR was loosened at dinner yesterday. * Fasting BSG today = 96 mg/dl. Basal NPH dose continued at 50 units this AM. Patient is still on IV Dex 6 mg. * Novolog CR tightened back to 2.5 with breakfast. 07/29: * Patient's BSGs yesterday were [phone]. He received total 125 units of insulin yesterday; 50 units basal + 75 units bolus. * Fasting BSG today = 195 mg/dl. Pre-lunch BSG was elevated yesterday and again today but HS BSG trended down last night. To prevent hypoglycemia at HS, Novolog CR is loosened. 07/28 * Patient's BSGs yesterday were [phone] mg/dL. * Patient received 87 units of insulin yesterday (50 units of NPH plus 37 units of bolus). * Patient received dexamethasone 6 mg @ 0400 today. * Fasting BSG is a mixed picture. On PRP fasting was 95 mg/dL but at 0700 on POC BSG was 182 mg/dL. * Will continue to hold Lantus as believe PRP more accurately reflects fasting. POC influenced by earlier dexamethasone administration. * Continue NPH as increased significantly yesterday. * Tighten CR as BSGs trending upwards. 07/27 * Blood sugars above goal all day, fasting blood sugar at goal, will move all basal to NPH in the AM * Patient continues on Dexamethasone 6mg IV daily * Continue CF/CR at this time 07/26 * 60 yo male, PMH CAD, HTN, HLD, T2DM, gout, presenting w/ N/V/D x 3 days, positive for COVID19, on IV steroids, causing steroid induced hyperglycemia. * Pt received Lantus last night, changed to NPH today to give w/ IV steroids * Tightened CF/CR, continue BSG checks overnight tonight while blood sugars still not to goal * Continue to adjust insulin parameters to goal blood sugar PLAN FOR INPATIENT GLYCEMIC CONTROL: * Hold outpatient oral diabetes medications * Basal insulin * NPH 25 units SQ daily * Bolus insulin * NovoLog per scale ACHS or Q6hrs while NPO * Goal Range: Low 110 mg/dL - High 140 mg/dL * Correction Factor: 12 mg/dL/unit * Nutritional / Prandial insulin per carb ratio of 1 unit per 2 grams CHO consumed PLAN FOR DISCHARGE: * A1c 6.3%, no change in outpatient medications unless patient experiencing hypoglycemia, and no contraindications exist (SCr elevated on admission, likely d/t dehydration).
[2021-08-02] MEDS: ENOXAPARIN INJ 40 MG/0.4 ML SYR SQ SCH (14:17)
[2021-08-02] MEDS ORDERED: diphenhydrAMINE HCL 25 MG/10 ML UDC PO ONE (21:50)
[2021-08-03] MEDS: ACETAMINOPHEN 325 MG TAB PO PRN ×2 (07:19→11:58)
[2021-08-03] MEDS: ASPIRIN 81 MG ECTAB PO SCH (07:20)
[2021-08-03] MEDS: INSULIN HUMAN NPH SC SCH (07:20)
[2021-08-03] MEDS: allopurinoL 300 MG TAB PO SCH (07:20)
[2021-08-03] MEDS: METOPROLOL SUCC 25MG EXT REL TAB PO SCH (07:20)
[2021-08-03] MEDS: dexAMETHasone 6 MG in SYRINGE 0 ML IV SCH (07:21)
[2021-08-03] MEDS: MAGNESIUM OXIDE 400 MG TAB PO SCH ×2 (07:24→22:37)
[2021-08-03] MEDS: INSULIN ASPART PER UNIT SC SCH ×4 (07:40→20:53)
[2021-08-03] MEDS ORDERED: SODIUM CHLORIDE 0.9% 1000ML 1,000 ML IV SCH (08:15)
[2021-08-03] MEDS: ENOXAPARIN INJ 40 MG/0.4 ML SYR SQ SCH (12:49)
--- NOTE | 2021-08-03 16:50 | Hospitalist Progress Note ---
Date of Service August 03, 2021 Assessment & Plan (1) Acute respiratory failure with hypoxia: Plan: Acute hypoxic respiratory failure COVID-19 pneumonia Emphysema documented on CAT scan Cont daily IV dexamethasone 6 mg daily, completed 5 days of remdesivir. Supportive care with as needed nebs, antitussives, antiemetics Incentive spirometry continues on hi flow oxygen supplementation, now requiring BIPAP more consistently new fever this morning and demonstrating more exhaustion and increased work of breathing ICU requested to evaluate. (2) 2019 novel coronavirus-infected pneumonia (NCIP): Plan: Plan as above. (3) Hypomagnesemia: Plan: repleted, cont PO supplementation. (4) Acute worsening of stage 3 chronic kidney disease: Plan: 2/2 prerenal azotemia in setting of recent GI symptoms. Creatinine back to his baseline after IVF resuscitation. resolved (5) Diabetes mellitus: Plan: Glyburide and Actos held and he continues at goal now on insulin therapy. A1C is at goal. Cont current therapy in setting of steroids. BSG at goal--management per glycemic pharmacist. (6) CAD (coronary artery disease): Plan: h/o stents per records, stable. Denies chest pain. Cont medical management with ASA, Toprol. Not on statin. (7) HTN (hypertension): Plan: chronic, stable. Cont current medical therapy. (8) DVT prophylaxis: Plan: Lovenox Full Code Dispo-cont PCU care. Yola Mcdonough DO [facility] Hospitalist Admission and Anticipated Discharge Date Admission Date: July 25, 2021 Subjective 60 yo M with acute respiratory failure secondary to Covid pneumonia Continues on the hi flow oxygen supplementation continues to require BIPAP and more consistently more tired with breathing febrile this morning which is a new development. tolerating PO and otherwise reports feeling better. Review of Systems Review of Systems: All systems were reviewed and negative except as indicated in subjective above. Physical Exam Physical Exam: CONSTITUTIONAL: WNWD, vitals as above, NAD EYES: normal conjunctivae, no scleral icterus, ENT: external ear and nose normal, NECK: trachea midline, RESPIRATORY: Clear to auscultation throughout, no crackles wheezes or rales, normal respiratory effort CARDIOVASCULAR: regular rate and rhythm, S1 and 2 heard without murmurs, gallops or rubs, no JVD, no peripheral edema CHEST: inspection of chest was normal GASTROINTESTINAL: soft, nontender, ND, no guarding MUSCULOSKELETAL: strength 5/5 throughout, head is normocephalic and atraumatic, SKIN: warm and dry, no rashes NEUROLOGIC: CN 2-12 grossly intact, no sensory deficit, normal cognition, normal speech, no tremor PSYCHIATRIC: alert cooperative and oriented to person, place and time. Results & Data Results & Data ([facility]) Vital Signs (Past 12 Hours) Vital Signs Temp Pulse Pulse Pulse Resp BP BP 08/03/21 16:02 86 29 H 08/03/21 15:44 36.6 C 83 22 125/78 08/03/21 14:55 81 08/03/21 11:41 91 H 24 08/03/21 11:26 37.5 C 93 H 24 145/74 H 08/03/21 08:53 103 H 08/03/21 08:28 36.9 C 08/03/21 08:00 118 H 22 08/03/21 07:09 38.5 C H 114 H 29 H 154/100 H 08/03/21 07:00 Pulse Ox Pulse Ox 08/03/21 16:02 98 08/03/21 15:44 97 08/03/21 14:55 08/03/21 11:41 94 08/03/21 11:26 92 08/03/21 08:53 08/03/21 08:28 08/03/21 08:00 91 08/03/21 07:09 92 08/03/21 07:00 94 Medications Administered Current Inpatient Medications Acetaminophen (Acetaminophen 325 Mg Tab) 650 mg PO Q4H PRN PRN Reason: Pain or Fever Stop: 08/24/21 18:01 Last Admin: 08/03/21 11:58 Dose: 650 mg Documented by: Al Hydrox/Mg Hydrox/Simethicone (Aluminum/Magnesium Susp 30 Ml Udc) 15 ml PO Q4H PRN PRN Reason: Dyspepsia Stop: 08/24/21 18:01 Allopurinol (Allopurinol 300 Mg Tab) [facility] [place] Stop: 08/28/21 08:59 Last Admin: 08/03/21 07:20 Dose: 300 mg Documented by: Aspirin (Aspirin 81 Mg Ectab) 81 mg PO DAILY [facility] Stop: 08/25/21 08:59 Last Admin: 08/03/21 07:20 Dose: 81 mg Documented by: Benzonatate (Benzonatate 100 Mg Capsule) 100 mg PO TID PRN PRN Reason: cough Stop: 08/24/21 18:01 Dextrose (Dextrose 50% 50 Ml Syringe) 25 - 50 ml IV UD PRN; Protocol PRN Reason: Hypoglycemia Protocol Stop: 08/24/21 18:01 Last Admin: 08/01/21 04:51 Dose: 25 ml Documented by: Enoxaparin Sodium (Enoxaparin Inj 40 Mg/0.4 Ml Syr) 40 mg SQ Q24H ANSEL[facility] Stop: 08/25/21 13:14 Last Admin: 08/03/21 12:49 Dose: 40 mg Documented by: Glucagon (Glucagon For Inj 1 Mg Vial) 1 mg SQ UD PRN; Protocol PRN Reason: Hypoglycemia Protocol Stop: 08/24/21 18:01 Glucose (Glucose 10 Tabs/Tube) 4 - 8 tabs PO UD PRN; Protocol PRN Reason: Hypoglycemia Protocol Stop: 08/24/21 18:01 Glucose (Glucose 40% Gel 15 Gm Tube) 15 - 30 gm PO UD PRN; Protocol PRN Reason: Hypoglycemia Protocol Stop: 08/24/21 18:01 Dexamethasone 6 mg/ Syringe 1.5 mls @ 1 mls/min IV DAILY [facility] Stop: 08/06/21 09:02 Last Admin: 08/03/21 07:21 Dose: 1 mls/min Documented by: Insulin Aspart (Insulin Aspart Per Unit) 0 units SC AC [facility] Stop: 09/01/21 16:29 Last Admin: 08/03/21 12:36 Dose: 30 units Documented by: Insulin Aspart (Insulin Aspart Per Unit) 0 units SC HS [facility] Stop: 09/01/21 20:59 Last Admin: 08/02/21 20:36 Dose: 2 units Documented by: Insulin Human NPH (Insulin Human Nph) 25 units SC DAILY [facility] Stop: 09/01/21 08:59 Last Admin: 08/03/21 07:20 Dose: 25 units Documented by: Ipratropium Vista (Ipratropium Vista Neb Soln 0.02% 2.5 Ml Vial) 0.5 mg INH Q4H PRN PRN Reason: SOB, WHEEZE Stop: 08/31/21 23:14 Levalbuterol HCl (Levalbuterol 1.25mg/0.5ml Neb) 1.25 mg INH Q4H PRN PRN Reason: SOB, WHEEZE Stop: 08/31/21 23:14 Magnesium Hydroxide (Magnesium Hydroxide Susp 30 Ml Udc) 30 ml PO Q12H PRN PRN Reason: Constipation Stop: 08/24/21 18:01 Magnesium Oxide (Magnesium Oxide 400 Mg Tab) 400 mg PO BID [facility] Stop: 08/27/21 20:59 Last Admin: 08/03/21 07:24 Dose: 400 mg Documented by: Melatonin (Melatonin 3 Mg Tab) 3 mg PO HS PRN PRN Reason: Sleep Stop: 08/31/21 23:09 Last Admin: 08/02/21 00:07 Dose: 3 mg Documented by: Metoprolol Succinate (Metoprolol Succ 25mg Ext Rel Tab) 25 mg PO DAILY [facility] Stop: 08/25/21 08:59 Last Admin: 08/03/21 07:20 Dose: 25 mg Documented by: Miscellaneous (Carbohydrates For Hypoglycemia ) 15 - 30 gm PO UD PRN PRN Reason: Hypoglycemia Protocol Stop: 08/24/21 18:01 Miscellaneous Information (Pharmacy Glycemic Mgmt Consult) 1 ea N/A UD PRN; Protocol PRN Reason: Consult Stop: 08/24/21 18:01 Ondansetron HCl (Ondansetron Inj 2 Mg/Ml 2 Ml Vial) 4 mg IV Q6H PRN PRN Reason: Nausea Stop: 08/24/21 18:01 Polyethylene Glycol (Polyethylene (Miralax) 17 Gm Pack) 17 gm PO DAILY PRN PRN Reason: Constipation Stop: 08/24/21 18:01
[2021-08-03] MEDS ORDERED: dexAMETHasone 14 MG in SYRINGE 0 ML IV ONE (18:03)
--- NOTE | 2021-08-03 18:07 | Pulmonary Consultation ---
Date of Consultation August 03, 2021 Assessment & Plan (1) Acute hypoxemic respiratory failure due to COVID-19: (2) CAD (coronary artery disease): (3) HLD (hyperlipidemia): (4) Diabetes mellitus: 60-year-old male with a past medical history of CAD, hypertension, obesity and hyperlipidemia presenting with COVID-19 viral pneumonia. We will obtain chest x-ray, proBNP and D-dimer. Will give additional dose of 14 mg Decadron today for total of 20 mg. Will continue 20 mg Decadron for total of 5 days per the DEXA ARDS protocol given the potential for the fibroproliferative phase of ARDS and then decrease to 10 mg daily for 5 days. We will give a dose of 20 mg IV Lasix given his coronary artery disease history and possibility for diastolic heart failure. We will check a D-dimer and if significantly elevated, will consider the initiation of a heparin infusion and discontinuing Lovenox. Will defer the decision of transfer to the ICU to the primary team. We will need to keep a close eye on the patient's glucose given his diabetes with increased dose of Decadron. Pantoprazole initiated as well given the risk of gastric ulcer disease with the higher dose of steroids, age and aspirin use. The consult. Pulmonary continue to follow along with you. History of Present Illness Reason for Consultation: COVID-19 viral pneumonia and respiratory failure Attending Physician: Yola Mcdonough, History of Present Illness 60-year-old male with a past medical history of CAD, hypertension, hyperlipidemia and type 2 diabetes mellitus who presented to the hospital on 07/25 due to nausea, vomiting and diarrhea. He tested positive for COVID-19 at that time. He has had increasing shortness of breath with minimal exertion such as taking a few steps in his room. Nursing notes that he desaturates to the mid 50s on high flow nasal cannula. He is currently requiring 90 to 100% FiO2 at a flow rate of 40 L via Vapotherm. He uses BiPAP as needed and does note improvement in his symptoms with BiPAP. He denies any chest pain currently. No swelling in his legs. He does endorse subjective fever from earlier today. He notes that he was a smoker roughly 30 to 40 years ago. He smoked 1 pack/day for about 20 years. He completed 5 days of remdesivir. He is currently on 6 mg daily of Decadron. Latest chest x-ray from 08/01/2021 reviewed with slight improvement in bilateral airspace opacities noted by radiology. CT chest from 07/25 was personally reviewed. Moderate multifocal bilateral opacities seen. Mild emphysema was noted. Bilateral pulmonary nodules measuring up to 4 mm. Procalcitonin 08/01 was 0.41. No D-dimer available for review. CRP from 08/01 17.7. Patient is currently on Lovenox 40 mg every 24 hours. Allergies Allergy/AdvReac Type Severity Reaction Status Date / Time No Known Allergies Allergy Unverified 07/25/21 14:34 Home Medications Medication Instructions Recorded Confirmed Type allopurinol 300 mg tablet 300 mg PO DAILY 07/25/21 07/25/21 History aspirin 81 mg tablet,delayed 81 mg PO DAILY 07/25/21 07/25/21 History release glyburide 5 mg tablet 5 mg PO BID 07/25/21 07/25/21 History lisinopril 40 mg tablet 40 mg PO DAILY 07/25/21 07/25/21 History metformin 1,000 mg tablet 1,000 mg PO BID 07/25/21 07/25/21 History metoprolol succinate 25 mg 25 mg PO DAILY 07/25/21 07/25/21 History tablet,extended release 24 hr ondansetron 4 mg disintegrating 4 mg TRANSLINGUAL UD PRN 07/25/21 07/25/21 History tablet pioglitazone 45 mg tablet 45 mg PO DAILY 07/25/21 07/25/21 History Patient History Medical History (Updated 08/03/21 @ 18:08 by Kartik Fairbanks MD) Acute hypoxemic respiratory failure due to COVID-19 CAD (coronary artery disease) CKD (chronic kidney disease) stage 3, GFR 30-59 ml/min Diabetes mellitus Gout HLD (hyperlipidemia) HTN (hypertension) Surgical History (Updated 07/25/21 @ 15:57 by Linda Block PA-C) History of arthroscopy of left knee History of heart artery stent x3 Family History (Updated 07/25/21 @ 15:58 by Linda Block PA-C) Mother Cancer pancreatitc Other Coronary heart disease Diabetes Social History (Updated 07/25/21 @ 15:58 by Linda L. Zapsky, PA-C) Smoking Status: Former smoker packs per day: 1; Years Smoked: 27; Smoking End Date: 2001; Second Hand Exposure: No; Do You Dip or Chew Tobacco: No; Tobacco Cessation Education Requested by Patient: No Hx Alcohol Use: No Hx Substance Use: No Preferred Language: [place] Islander Communication Ability: Effective Magazine Filler Required: No Beliefs That Will Affect Care: None marital status: Current Living Situation: Spouse How many Children do You have: 3 Other Information That Helps Us Care for You: No Feels Safe at Home: Yes Safety Concerns: Feels Safe At This Time Assistive Devices: Oxygen - Continuous Review of Systems Review of Systems: All systems reviewed & are unremarkable except as noted in HPI & below Physical Exam Physical Exam: Constitutional: Patient appears older than stated age and lethargic. Eyes: Pupils are equal round and reactive to light. Conjunctivae are normal. Anicteric sclera. Ears nose, mouth and throat: No obvious facial deformity seen. Neck: Trachea is midline. Visual inspection is normal. Respiratory: Diminished lung sounds bilaterally. Mildly tachypneic. Cardiovascular: Regular rate and rhythm. No murmurs. No edema. Gastrointestinal: Normal bowel sounds, soft, nontender and nondistended. No hepatosplenomegaly noted. Musculoskeletal: No cyanosis. Patient is able to move all extremities. Strength is 5 out of 5 in the upper and lower extremities. Skin: No rashes, warm dry and intact. Neurologic: No obvious focal neurological deficits seen. Psychiatric: Alert and oriented x3 with a euthymic affect. Results & Data Results & Data ([facility]) Vital Signs (Past 12 Hours) Vital Signs Temp Pulse Pulse Pulse Resp BP BP 08/03/21 16:02 86 29 H 08/03/21 15:44 36.6 C 83 22 125/78 08/03/21 14:55 81 08/03/21 11:41 91 H 24 08/03/21 11:26 37.5 C 93 H 24 145/74 H 08/03/21 08:53 103 H 08/03/21 08:28 36.9 C 08/03/21 08:00 118 H 22 08/03/21 07:09 38.5 C H 114 H 29 H 154/100 H 08/03/21 07:00 Pulse Ox Pulse Ox 08/03/21 16:02 98 08/03/21 15:44 97 08/03/21 14:55 08/03/21 11:41 94 08/03/21 11:26 92 08/03/21 08:53 08/03/21 08:28 08/03/21 08:00 91 08/03/21 07:09 92 08/03/21 07:00 94 PG Care Time/CCT Total # of Minutes Spent Total Time Spent with Patient: Total time spent is greater than 50% in coordination of care (as documented) at patient's floor/unit and/or counseling patient: Coding Level of Care Code 55801 Inpt Consult Level 5 Diagnoses Acute hypoxemic respiratory failure due to COVID-19 U07.1; J96.01 CAD (coronary artery disease) I25.10 HLD (hyperlipidemia) E78.5 Diabetes mellitus E11.9
[2021-08-03] MEDS ORDERED: FUROSEMIDE INJ 20 MG/2 ML VIAL IV ONE (18:30)
[2021-08-03] MEDS ORDERED: dexAMETHasone 14 MG in DEXTROSE 5% 25 ML IV ONE (18:45)
--- NOTE | 2021-08-03 18:56 | XRay Report ---
XR chest 1V portable CLINICAL HISTORY: hypoxia TECHNIQUE: Single frontal radiograph of the chest was obtained. Comparison: Comparison is made to chest one view 08/01/2021 FINDINGS: No lines and tubes are seen. The cardiomediastinal silhouette is stable. Multifocal airspace opacitie s are seen. No evidence of pleural effusion or pneumothorax. IMPRESSION: Multifocal airspace opacities, somewhat improved from prior exam. ACT 112: Negative or not required by law. Electronically signed by: Torres Shi M.D. 08/03/2021 6:54 PM
[2021-08-03 19:33] LABS: D Dimer > 35200 ug/L FEU (0-500)
[2021-08-03] MEDS ORDERED: Heparin IV Adult Wt-Based Standard *NO* Bolus Protocol IV ONE (19:46)
[2021-08-03 20:51] LABS: INR 1.2 (0.9-1.1); Partial Thromboplastin Time 27.9 Seconds (21.0-31.0); Prothrombin Time 12.3 Seconds (9.0-12.0)
[2021-08-03 20:52] LABS: Hematocrit (blood only) 39.2 % (42-52); Hemoglobin 13.7 g/dL (14.0-18.0); Mean Corpuscular Hemoglobin 30.9 pg (25-34); Mean Corpuscular Volume 88.5 fL (80-100); Mean Platelet Volume 10.1 fL (7.4-10.4); Platelet Count 332 K/uL (130-400); RDW Coefficient of Variation 13.7 % (11.5-14.5); RDW Standard Deviation 44.5 fL (36.4-46.3); Red Blood Count 4.43 M/uL (4.7-6.1)
[2021-08-03 21:02] LABS: Mean Corpuscular Hgb Conc 34.9 g/dL (32-36)
[2021-08-03 21:44] LABS: Echinocytes 1+
[2021-08-03 21:51] LABS: ALC (manual) 0.35 K/uL (1.2-3.4); ANC (manual) 14.08 K/uL (1.4-6.5); Basophils # (manual) 0.18 K/uL (0-0.2); Basophils % (manual) 1.1 %; Lymphocytes # (manual) 0.35 K/uL (1.2-3.4); Lymphocytes % (manual) 2.2 %; Metamyelocytes # (manual) 1.04 K/uL (0-0); Metamyelocytes % (manual) 6.5 %; Myelocytes # (manual) 0.35 K/uL (0-0); Myelocytes % (manual) 2.2 %; Neutrophils # (manual) 14.08 K/uL (1.4-6.5)
[2021-08-03] MEDS ORDERED: OPTIRAY 320 125ml IV ONE (21:57)
[2021-08-03] MEDS: HEPARIN SODIUM/DEXTROSE 25,000 UNITS/500 ML BAG IV SCH (22:09)
[2021-08-04] MEDS ORDERED: ICU PROTOCOL FOR HYPERGLYCEMIA PRN (01:27)
[2021-08-04 05:01] LABS: Basophils # (auto) 0.01 K/uL (0-0.2); Basophils % (auto) 0.1 %; Hemoglobin 12.3 g/dL (14.0-18.0); Immature Granulocytes # (auto) 0.34 K/uL (0.00-0.02); Immature Granulocytes % (auto) 2.4 %; Lymphocytes # (auto) 0.48 K/uL (1.2-3.4); Lymphocytes % (auto) 3.4 %; Mean Corpuscular Hemoglobin 30.9 pg (25-34); Mean Corpuscular Hgb Conc 36.2 g/dL (32-36); Mean Corpuscular Volume 85.4 fL (80-100); Mean Platelet Volume 10.4 fL (7.4-10.4); Monocytes # (auto) 0.12 K/uL (0.11-0.59); Monocytes % (auto) 0.9 %; Neutrophils # (auto) 13.16 K/uL (1.4-6.5); Neutrophils % (auto) 93.2 %; Platelet Count 322 K/uL (130-400); RDW Coefficient of Variation 14.1 % (11.5-14.5); RDW Standard Deviation 42.9 fL (36.4-46.3); Red Blood Count 3.98 M/uL (4.7-6.1); White Blood Count 14.11 K/uL (4.8-10.8)
[2021-08-04 05:12] LABS: Appearance Urine Clear (Clear); Bacteria Urine Automated Negative (Negative); Bilirubin Urine Negative (Negative); Blood Urine Negative (Negative); Color Urine Yellow; Glucose Urine UA Negative (Negative); Ketones Urine Negative (Negative); Leukocyte Esterase Urine Negative (Negative); Nitrite Urine Negative (Negative); Protein Urine 1+ (Negative); RBC Urine Automated 0-4 /hpf (0-4); Specific Gravity Urine > 1.045 (1.000-1.030); Urobilinogen Urine Negative (Negative)
[2021-08-04 05:47] LABS: BUN Creatinine Ratio 31.4 (10-20); Calcium 8.8 mg/dl (8.5-10.1); Creatinine Clr Calc Pharmacy 86.2 ml/min; Est GFR (African American) 90.3 ml/min; Est GFR (Non-African American) 77.9 ml/min; Magnesium 1.7 mg/dl (1.7-2.4); Phosphorus 3.4 mg/dl (2.5-4.9); Potassium 4.5 mmol/L (3.5-5.1)
[2021-08-04 05:51] LABS: Partial Thromboplastin Ratio 3.2
[2021-08-04 05:54] LABS: Partial Thromboplastin Time 88.3 Seconds (21.0-31.0)
--- NOTE | 2021-08-04 08:09 | CT Scan Report ---
CHEST CTA for PULMONARY ARTERIES CT DOSE: 525.78 mGycm HISTORY: Shortness of breath. Covid positive. TECHNIQUE: Multiaxial CT images of the chest were performed following the intravenous administration of contrast to evaluate the pulmonary arteries. Maximal intensity projection images were also obtaine d. A dose lowering technique was utilized adhering to the principles of ALARA. COMPARISON STUDY: Chest CT 07/25/2021. FINDINGS: Limited views of the upper abdomen demonstrate normal liver, spleen, and adrenal glands. Sm all hiatus hernia. The thyroid gland enhances normally. No significant mediastinal or hilar lymphaden opathy. The heart is normal in size. No evidence for right-sided heart strain. No pleural or pericard ial effusions no fractures within the visualized osseous structures. Normal caliber thoracic aorta wi th no evidence for dissection. Linear filling defect seen within the segmental/subsegmental pulmonary arteries consistent with a pulmonary embolus. No pneumothorax. The central airways are patent. Near confluent groundglass airspace opacity seen throughout the lungs which have progressed in the interva l. This favors a progressive bilateral pneumonia. A few scattered subcentimeter pulmonary nodules maddie sure up to 4 mm remain unchanged. These are partially obscured by the airspace opacities. IMPRESSION: 1. Right lower lobe segmental/subsegmental pulmonary emboli. 2. Interval progression of the near confluent ground glass airspace opacities seen throughout the imani gs. This is consistent with a viral pneumonia. 3. A few scattered subcentimeter pulmonary nodules are again noted measuring up to 4 mm. ACT 112: Negative or not required by law. Electronically signed by: David Vick M.D. 08/04/2021 8:08 AM
[2021-08-04] MEDS: INSULIN ASPART PER UNIT SC SCH ×5 (08:38→23:59)
[2021-08-04] MEDS: allopurinoL 300 MG TAB PO SCH (08:39)
[2021-08-04] MEDS: ASPIRIN 81 MG ECTAB PO SCH (08:39)
[2021-08-04] MEDS: MAGNESIUM OXIDE 400 MG TAB PO SCH ×2 (08:41→21:27)
[2021-08-04] MEDS: dexAMETHasone 20 MG in DEXTROSE 5% 25 ML IV SCH (08:41)
[2021-08-04] MEDS: METOPROLOL SUCC 25MG EXT REL TAB PO SCH (08:42)
[2021-08-04] MEDS: INSULIN HUMAN NPH SC SCH (08:52)
--- NOTE | 2021-08-04 08:52 | XRay Report ---
XR chest 1V portable HISTORY: shortness of breath. Pneumonia. COMPARISON: Chest 08/03/2021. FINDINGS: Bilateral multifocal airspace opacities most pronounced within the left lower lobe persist. This is consistent with a viral pneumonia. No pneumothorax. No pleural effusions. The heart is top n ormal in size. IMPRESSION: No change in the multifocal bilateral airspace opacities consistent with a viral pneumonia. ACT 112: Negative or not required by law. Electronically signed by: David Vick M.D. 08/04/2021 8:50 AM
[2021-08-04] MEDS ORDERED: dexAMETHasone 20 MG in SYRINGE 0 ML IV SCH (09:00)
[2021-08-04] MEDS: ICU ELECTROLYTE REPLACEMENT PROTOCOL SCH ×2 (10:07→17:41)
[2021-08-04] MEDS: DOCUSATE SODIUM/SENNA 50/8.6MG TAB PO SCH (10:23)
[2021-08-04] MEDS: POLYETHYLENE (MIRALAX) 17 GM PACK PO SCH (10:23)
[2021-08-04] MEDS: PANTOprazole 40 MG in SYRINGE 0 ML IV SCH (10:23)
[2021-08-04] MEDS: MAGNESIUM SULFATE / D5W 1 GM/100 ML BAG IV SCH ×4 (10:24→15:30)
--- NOTE | 2021-08-04 11:53 | Hospitalist Progress Note ---
Date of Service August 04, 2021 Assessment & Plan (1) Acute respiratory failure with hypoxia: Plan: Acute respiratory failure 2/2 covid pneumonia c/b acute RLL PE Emphysema documented on CAT scan Was on daily 6mg IV dexamethasone, increased to 20mg IV on 08/03, completed 5 days of remdesivir. Acute PE found in RLL on CTA 08/03, heparin drip started Supportive care with as needed nebs, antitussives, antiemetics Incentive spirometry continues on hi flow oxygen supplementation, now requiring BIPAP more consistently transferred to ICU overnight on 08/03 new fever may have been related to acute VTE, he has remained afebrile overnight. (2) 2019 novel coronavirus-infected pneumonia (NCIP): Plan: Plan as above. (3) Acute pulmonary embolism: Plan: Acute RLL PE likely provoked by covid pneumonia. Cont heparin drip with transition to oral NOAC vs warfarin once more stable from a respiratory standpoint. Appreciate pulmonary involvement. (4) Hypomagnesemia: Plan: 1.7 this am, cont PO supplementation. (5) Acute worsening of stage 3 chronic kidney disease: Plan: 2/2 prerenal azotemia in setting of recent GI symptoms. Creatinine back to his baseline after IVF resuscitation. resolved (6) Diabetes mellitus: Plan: Glyburide and Actos held and he continues at goal now on insulin therapy. A1C is at goal. Cont current therapy in setting of steroids. BSG at goal--management per glycemic pharmacist. (7) CAD (coronary artery disease): Plan: h/o stents per records, stable. Denies chest pain. Cont medical management with ASA, Toprol. Not on statin. (8) HTN (hypertension): Plan: chronic, stable. Cont current medical therapy. (9) DVT prophylaxis: Plan: heparin drip Full Code Dispo-cont ICU care. I spoke with his regarding his reason for ICU transfer and how he is currently. We discussed that he may remain in the hospital for the next week. We discussed the new PE and medication changes. She verbalized understanding with intent to comply. Yola Mcdonough DO [facility] Hospitalist Admission and Anticipated Discharge Date Admission Date: July 25, 2021 Subjective 60 yo M with acute respiratory failure secondary to Covid pneumonia Continues on the hi flow oxygen supplementation continues to require BIPAP and more consistently more tired with breathing febrile this morning which is a new development. tolerating PO and otherwise reports feeling better. Review of Systems Review of Systems: All systems were reviewed and negative except as indicated in subjective above. Physical Exam Physical Exam: CONSTITUTIONAL: WNWD, vitals as above, NAD EYES: normal conjunctivae, no scleral icterus, ENT: external ear and nose normal, NECK: trachea midline, RESPIRATORY: Clear to auscultation throughout, no crackles wheezes or rales, normal respiratory effort CARDIOVASCULAR: regular rate and rhythm, S1 and 2 heard without murmurs, gallops or rubs, no JVD, no peripheral edema CHEST: inspection of chest was normal GASTROINTESTINAL: soft, nontender, ND, no guarding MUSCULOSKELETAL: strength 5/5 throughout, head is normocephalic and atraumatic, SKIN: warm and dry, no rashes NEUROLOGIC: CN 2-12 grossly intact, no sensory deficit, normal cognition, normal speech, no tremor PSYCHIATRIC: alert cooperative and oriented to person, place and time. Results & Data Results & Data ([facility]) Vital Signs (Past 12 Hours) Vital Signs Temp Pulse Pulse Pulse Resp BP BP 08/04/21 10:00 91 H 22 147/81 H 08/04/21 09:00 95 H 19 148/73 H 08/04/21 08:00 36.9 C 104 H 17 152/81 H 08/04/21 07:35 72 24 08/04/21 07:00 96 H 18 135/95 08/04/21 06:00 92 H 21 130/80 08/04/21 05:00 88 21 117/82 08/04/21 04:00 92 H 22 132/81 08/04/21 03:50 87 22 08/04/21 03:00 91 H 22 127/68 08/04/21 02:00 93 H 22 144/80 H 08/04/21 01:38 99 H 33 H 08/04/21 01:27 37.1 C 94 H 23 125/78 Pulse Ox Pulse Ox 08/04/21 10:00 95 08/04/21 09:00 97 08/04/21 08:00 98 08/04/21 07:35 94 08/04/21 07:00 94 08/04/21 06:00 96 08/04/21 05:00 96 08/04/21 04:00 96 08/04/21 03:50 95 08/04/21 03:00 96 08/04/21 02:00 98 08/04/21 01:38 93 08/04/21 01:27 97 Laboratory Results Short CBC 08/03/21 08/04/21 Range/Units 18:47 04:47 WBC 16.00 H 14.11 H (4.8-10.8) K/uL Hgb 13.7 L 12.3 L (14.0-18.0) g/dL Hct 39.2 L 34.0 L (42-52) % Plt Count 332 322 (130-400) K/uL BMP 08/04/21 08/04/21 04:47 05:16 Sodium Cancelled 132 L Potassium Cancelled 4.5 Chloride Cancelled 98 Carbon Dioxide Cancelled 24 BUN Cancelled 33 H Creatinine Cancelled 1.05 Glucose Cancelled 145 H Calcium Cancelled 8.8 Urine 08/04/21 Range/Units 04:45 Urine Color Yellow Urine Appearance Clear (Clear) Urine pH 5.0 (4.5-7.5) Ur Specific [place] > 1.045 H (1.000-1.030) Urine Protein 1+ H (Negative) Urine Glucose (UA) Negative (Negative) Diagnostic Findings Chest CTA 08/03/21 19:46 CHEST CTA for PULMONARY ARTERIES CT DOSE: 525.78 mGycm HISTORY: Shortness of breath. Covid positive. TECHNIQUE: Multiaxial CT images of the chest were performed following the intravenous administration of contrast to evaluate the pulmonary arteries. Maximal intensity projection images were also obtained. A dose lowering technique was utilized adhering to the principles of ALARA. COMPARISON STUDY: Chest CT 07/25/2021. FINDINGS: Limited views of the upper abdomen demonstrate normal liver, spleen, and adrenal glands. Small hiatus hernia. The thyroid gland enhances normally. No significant mediastinal or hilar lymphadenopathy. The heart is normal in size. No evidence for right-sided heart strain. No pleural or pericardial effusions no fractures within the visualized osseous structures. Normal caliber thoracic aorta with no evidence for dissection. Linear filling defect seen within the segmental/subsegmental pulmonary arteries consistent with a pulmonary embolus. No pneumothorax. The central airways are patent. Near confluent groundglass airspace opacity seen throughout the lungs which have progressed in the interval. This favors a progressive bilateral pneumonia. A few scattered subcentimeter pulmonary nodules measure up to 4 mm remain unchanged. These are partially obscured by the airspace opacities. IMPRESSION: 1. Right lower lobe segmental/subsegmental pulmonary emboli. 2. Interval progression of the near confluent ground glass airspace opacities seen throughout the lungs. This is consistent with a viral pneumonia. 3. A few scattered subcentimeter pulmonary nodules are again noted measuring up to 4 mm. ACT 112: Negative or not required by law. Electronically signed by: David Vick M.D. 08/04/2021 8:08 AM Chest X-Ray 08/04/21 07:00 XR chest 1V portable HISTORY: shortness of breath. Pneumonia. COMPARISON: Chest 08/03/2021. FINDINGS: Bilateral multifocal airspace opacities most pronounced within the left lower lobe persist. This is consistent with a viral pneumonia. No pneumothorax. No pleural effusions. The heart is top normal in size. IMPRESSION: No change in the multifocal bilateral airspace opacities consistent with a viral pneumonia. ACT 112: Negative or not required by law. Electronically signed by: David Vick M.D. 08/04/2021 8:50 AM Medications Administered Current Inpatient Medications Acetaminophen (Acetaminophen 325 Mg Tab) 650 mg PO Q4H PRN PRN Reason: Pain or Fever Stop: 08/24/21 18:01 Last Admin: 08/03/21 11:58 Dose: 650 mg Documented by: Al Hydrox/Mg Hydrox/Simethicone (Aluminum/Magnesium Susp 30 Ml Udc) 15 ml PO Q4H PRN PRN Reason: Dyspepsia Stop: 08/24/21 18:01 Allopurinol (Allopurinol 300 Mg Tab) 300 mg PO QAM ANSELMO Stop: 08/28/21 08:59 Last Admin: 08/04/21 08:39 Dose: 300 mg Documented by: Aspirin (Aspirin 81 Mg Ectab) 81 mg PO DAILY ANSELMO Stop: 08/25/21 08:59 Last Admin: 08/04/21 08:39 Dose: 81 mg Documented by: Benzonatate (Benzonatate 100 Mg Capsule) 100 mg PO TID PRN PRN Reason: cough Stop: 08/24/21 18:01 Dextrose (Dextrose 50% 50 Ml Syringe) 25 - 50 ml IV UD PRN; Protocol PRN Reason: Hypoglycemia Protocol Stop: 08/24/21 18:01 Last Admin: 08/01/21 04:51 Dose: 25 ml Documented by: Glucagon (Glucagon For Inj 1 Mg Vial) 1 mg SQ UD PRN; Protocol PRN Reason: Hypoglycemia Protocol Stop: 08/24/21 18:01 Glucose (Glucose 10 Tabs/Tube) 4 - 8 tabs PO UD PRN; Protocol PRN Reason: Hypoglycemia Protocol Stop: 08/24/21 18:01 Glucose (Glucose 40% Gel 15 Gm Tube) 15 - 30 gm PO UD PRN; Protocol PRN Reason: Hypoglycemia Protocol Stop: 08/24/21 18:01 Pantoprazole Sodium 40 mg/ (Syringe) 10 mls @ 5 mls/min IV DAILY@1100 [facility] Stop: 09/03/21 10:59 Last Admin: 08/04/21 10:23 Dose: 5 mls/min Documented by: Heparin Sodium/Dextrose (Heparin Sodium/Dextrose) 25,000 units in 500 mls @ 26 mls/hr IV .[id number] [facility]; Protocol Stop: 09/02/21 20:14 Last Titration: 08/04/21 07:12 Dose: 1,300 units/hr, 26 mls/hr Documented by: Dexamethasone 20 mg/ Dextrose 30 mls @ 0.833 mls/min IV QAM [facility] Stop: 08/07/21 10:00 Last Infusion: 08/04/21 09:18 Dose: Infused Documented by: Dexamethasone 10 mg/ Syringe 2.5 mls @ 1 mls/min IV DAILY [facility] Stop: 08/12/21 09:03 Magnesium Sulfate/Dextrose (Magnesium Sulfate / D5w) 1 gm in 100 mls @ 50 mls/hr IV Q2H [facility]; Protocol Stop: 08/04/21 18:14 Last Admin: 08/04/21 10:24 Dose: 50 mls/hr Documented by: Insulin Aspart (Insulin Aspart Per Unit) 0 units SC AC [facility] Stop: 09/01/21 16:29 Last Admin: 08/04/21 08:38 Dose: 20 units Documented by: Insulin Aspart (Insulin Aspart Per Unit) 0 units SC HS [facility] Stop: 09/01/21 20:59 Last Admin: 08/03/21 20:53 Dose: 5 units Documented by: Insulin Human NPH (Insulin Human Nph) 30 units SC DAILY [facility] Stop: 09/01/21 08:59 Last Admin: 08/04/21 08:52 Dose: 30 units Documented by: Ipratropium [place] (Ipratropium [place] Neb Soln 0.02% 2.5 Ml Vial) 0.5 mg INH Q4H PRN PRN Reason: SOB, WHEEZE Stop: 08/31/21 23:14 Levalbuterol HCl (Levalbuterol 1.25mg/0.5ml Neb) 1.25 mg INH Q4H PRN PRN Reason: SOB, WHEEZE Stop: 08/31/21 23:14 Magnesium Hydroxide (Magnesium Hydroxide Susp 30 Ml Udc) 30 ml PO Q12H PRN PRN Reason: Constipation Stop: 08/24/21 18:01 Magnesium Oxide (Magnesium Oxide 400 Mg Tab) 400 mg PO BID ANSELMO Stop: 08/27/21 20:59 Last Admin: 08/04/21 08:41 Dose: 400 mg Documented by: Melatonin (Melatonin 3 Mg Tab) 3 mg PO HS PRN PRN Reason: Sleep Stop: 08/31/21 23:09 Last Admin: 08/02/21 00:07 Dose: 3 mg Documented by: Metoprolol Succinate (Metoprolol Succ 25mg Ext Rel Tab) 25 mg PO DAILY ANSELMO Stop: 08/25/21 08:59 Last Admin: 08/04/21 08:42 Dose: 25 mg Documented by: Miscellaneous (Carbohydrates For Hypoglycemia ) 15 - 30 gm PO UD PRN PRN Reason: Hypoglycemia Protocol Stop: 08/24/21 18:01 Miscellaneous (Icu Electrolyte Replacement Protocol) 1 ea N/A BID@06,18 [facility]; Protocol Stop: 08/11/21 17:59 Last Admin: 08/04/21 10:07 Dose: 1 ea Documented by: Miscellaneous Information (Pharmacy Glycemic Mgmt Consult) 1 ea N/A UD PRN; Protocol PRN Reason: Consult Stop: 08/24/21 18:01 Ondansetron HCl (Ondansetron Inj 2 Mg/Ml 2 Ml Vial) 4 mg IV Q6H PRN PRN Reason: Nausea Stop: 08/24/21 18:01 Polyethylene Glycol (Polyethylene (Miralax) 17 Gm Pack) 17 gm PO DAILY PRN PRN Reason: Constipation Stop: 08/24/21 18:01 Polyethylene Glycol (Polyethylene (Miralax) 17 Gm Pack) 17 gm PO DAILY ANSELMO Stop: 09/03/21 09:44 Last Admin: 08/04/21 10:23 Dose: 17 gm Documented by: Senna/Docusate Sodium (Docusate Sodium/Senna 50/8.6mg Tab) 1 tab PO [facility] Stop: 09/03/21 09:44 Last Admin: 08/04/21 10:23 Dose: 1 tab Documented by:
[2021-08-04 13:18] LABS: Partial Thromboplastin Ratio 2.3
[2021-08-04 13:24] LABS: Partial Thromboplastin Time 63.8 Seconds (21.0-31.0)
--- NOTE | 2021-08-04 14:06 | Pharmacy Report ---
Pharmacy Glycemic Short Note 2 - Date of Service August 04, 2021 - Glycemic Short BSG Results (Last 24 hours): 08/03/21 08/03/21 08/04/21 16:17 19:52 04:47 Glucose Cancelled POC Glucose 271 H 247 H 08/04/21 08/04/21 08/04/21 05:16 07:19 11:46 Glucose 145 H POC Glucose 168 H 228 H OUTPATIENT ANTIDIABETIC REGIMEN: * Glyburide 5mg PO BID * Metformin 1000mg BID * Actos 45mg PO Daily * A1c 6.3% 07/26/21 ASSESSMENT: 08/04 * BSGs above goal the last 24hr ([phone]). Fasting 168mg/dL today. * Dexamethasone increased from 10mg daily to 20mg daily last evening. Continues with type 2 diet and heparin drip (in D5W). * NPH increased this AM ~ 20% to 30 units daily. Basal will need re-evaluated tomorrow given modification in steroid dose and steroid induced hyperglycemia. * Prandial Novolog tightened at lunch today given rising BSG this afternoon and larger carb intake the last 2 days. Overnight checks for tonight. 08/02/21 * Patient's BSGs yesterday were 57 (PRP) 107 (POC)- 141-294-157 mg/dL. Fasting today is 99 mg/dL. * Patient received 66 units of bolus insulin yesterday. * Restart NPH at 25 units. * Change Novolog at HS to loose CF and no CR to prevent overcorrection. 08/01/21 * Patient's BSGs yesterday were [phone] mg/dL. Fasting today was 52 mg/dL. * Patient received 140 units of insulin (50 units of basal and 90 units of bolus). * Hypoglycemic event most likely due to prolonged half-life of NPH. * Initially patient was NPO this morning; dexamethasone given at 0300. Held NPH due to this change. * Diet reordered at lunch. * Tightened Novolog since basal held. 07/30: * Pt received total 133 units of insulin yesterday; 50 units basal + 83 units bolus. * BSGs trended down to 138 mg/dl at dinner then went above 200 mg/dl at HS since CR was loosened at dinner yesterday. * Fasting BSG today = 96 mg/dl. Basal NPH dose continued at 50 units this AM. Patient is still on IV Dex 6 mg. * Novolog CR tightened back to 2.5 with breakfast. 07/29: * Patient's BSGs yesterday were [phone]. He received total 125 units of insulin yesterday; 50 units basal + 75 units bolus. * Fasting BSG today = 195 mg/dl. Pre-lunch BSG was elevated yesterday and again today but HS BSG trended down last night. To prevent hypoglycemia at HS, Novolog CR is loosened. 07/28 * Patient's BSGs yesterday were [phone] mg/dL. * Patient received 87 units of insulin yesterday (50 units of NPH plus 37 units of bolus). * Patient received dexamethasone 6 mg @ 0400 today. * Fasting BSG is a mixed picture. On PRP fasting was 95 mg/dL but at 0700 on POC BSG was 182 mg/dL. * Will continue to hold Lantus as believe PRP more accurately reflects fasting. POC influenced by earlier dexamethasone administration. * Continue NPH as increased significantly yesterday. * Tighten CR as BSGs trending upwards. PLAN FOR INPATIENT GLYCEMIC CONTROL: * Hold outpatient oral diabetes medications * Basal insulin * NPH 30 units SQ daily * Bolus insulin * NovoLog per scale ACHS or Q6hrs while NPO * Goal Range: Low 110 mg/dL - High 140 mg/dL * Correction Factor: 12 mg/dL/unit (AC), 25mg/dL/unit (HS) * Nutritional / Prandial insulin per carb ratio of 1 unit per 3 grams CHO consumed PLAN FOR DISCHARGE: * A1c 6.3%, no change in outpatient medications unless patient experiencing hypoglycemia, and no contraindications exist (SCr elevated on admission, likely d/t dehydration).
--- NOTE | 2021-08-04 14:41 | Critical Care Progress Note ---
Date of Service August 04, 2021 Assessment & Plan (1) Acute hypoxemic respiratory failure due to COVID-19: (2) CAD (coronary artery disease): (3) HLD (hyperlipidemia): (4) Diabetes mellitus: (5) Acute pulmonary embolism: Plan: 60-year-old male with a past medical history of CAD, hypertension, obesity and hyperlipidemia presenting with COVID-19 viral pneumonia. Neurologic: No significant issues Pulmonary: Day #2 of high-dose Decadron (20 mg) per the DEXA-ARDS protocol. Continues to require high amounts of oxygen support. Continue to alternate between BiPAP and high flow nasal cannula. At risk for needing intubation and mechanical ventilation. We will monitor closely in the ICU. CT chest with contrast from 08/03/2021 reviewed which revealed significant worsening of bilateral groundglass opacities and segmental right lower lobe pulmonary embolism. Continue heparin infusion. Continue aspirin given his history of coronary artery disease. Prior smoking history noted. Cardiovascular: Right lower lobe pulmonary realism as noted above. No hemodynamic compromise. No indication for systemic thrombolysis at this point. No significant hemodynamic issues. Gastrointestinal: Continue diet. Continue pantoprazole given the use of heparin and high-dose steroids. Renal: No significant issues. 4.6 L positive since admission, but appears euvolemic. Likely significant insensible losses given tachypnea. Replace electrolytes per protocol. Infectious disease: No evidence of bacterial superinfection. Hematologic: Monitor CBC daily. Continue PTT monitoring. Endocrine: ICU pharmacy team assisting with management of hyperglycemia while on high-dose steroids. VTE prophylaxis: Heparin infusion CODE STATUS: Full code Family at bedside: None available at bedside Disposition: Remain in ICU I have personally spent 39 minutes of critical care time in the direct management of this patient. This is a life/limb threatening event. This includes time spent evaluating patient, direct bedside care, chart review, placing orders, interpretation of diagnostic studies, discussion with consultants, patient, and family members, as well as other required patient management activities. This time is exclusive of all separately billable procedures, and teaching time and separate from and in addition to any other critical care service time. Thank you for allowing us to participate in the care of this patient. Admission and Anticipated Discharge Date Admission Date: July 25, 2021 Subjective Patient seen and examined this afternoon. He remains profoundly hypoxemic on high flow nasal cannula. Currently on 60 L of oxygen 90% FiO2. He desaturates to the low 80s with simply sitting up in bed. He does get winded with minimal activity such as moving towards the edge of the bed. Eating about 75% of his food. Denies abdominal pain, but has constipation. No fevers or chills today. Review of Systems Review of Systems: All systems reviewed & are unremarkable except as noted in HPI & below Physical Exam Physical Exam: Constitutional: Patient appears older than stated age and lethargic. Eyes: Pupils are equal round and reactive to light. Conjunctivae are normal. Anicteric sclera. Ears nose, mouth and throat: No obvious facial deformity seen. Neck: Trachea is midline. Visual inspection is normal. Respiratory: Diminished lung sounds bilaterally. Mildly tachypneic. Cardiovascular: Regular rate and rhythm. No murmurs. No edema. Gastrointestinal: Normal bowel sounds, soft, nontender and nondistended. No hepatosplenomegaly noted. Musculoskeletal: No cyanosis. Patient is able to move all extremities. Strength is 5 out of 5 in the upper and lower extremities. Skin: No rashes, warm dry and intact. Neurologic: No obvious focal neurological deficits seen. Psychiatric: Alert and oriented x3 with a euthymic affect. Results & Data Results & Data ([facility]) Vital Signs (Past 12 Hours) Vital Signs Temp Pulse Pulse Resp BP Pulse Ox Pulse Ox 08/04/21 14:00 90 21 144/68 H 94 08/04/21 13:00 102 H 23 128/68 92 08/04/21 12:00 97 H 21 144/80 H 95 08/04/21 11:00 95 H 22 125/80 96 08/04/21 10:00 91 H 22 147/81 H 95 08/04/21 09:00 95 H 19 148/73 H 97 08/04/21 08:00 36.9 C 104 H 17 152/81 H 98 08/04/21 07:35 72 24 94 08/04/21 07:00 96 H 18 135/95 94 08/04/21 06:00 92 H 21 130/80 96 08/04/21 05:00 88 21 117/82 96 08/04/21 04:00 92 H 22 132/81 96 08/04/21 03:50 87 22 95 08/04/21 03:00 91 H 22 127/68 96 Coding Level of Care Code Critical Care 1st 30-74 mins Diagnoses Acute hypoxemic respiratory failure due to COVID-19 U07.1; J96.01 CAD (coronary artery disease) I25.10 HLD (hyperlipidemia) E78.5 Diabetes mellitus E11.9 Acute pulmonary embolism I26.99 Time Spent (min) 39
[2021-08-04] MEDS: HEPARIN SODIUM/DEXTROSE 25,000 UNITS/500 ML BAG IV SCH (15:29)
[2021-08-04] MEDS: ACETAMINOPHEN 325 MG TAB PO PRN (21:31)
[2021-08-05] MEDS: INSULIN ASPART PER UNIT SC SCH ×5 (04:12→20:30)
[2021-08-05 06:52] LABS: Basophils # (auto) 0.03 K/uL (0-0.2); Basophils % (auto) 0.2 %; Hematocrit (blood only) 36.5 % (42-52); Hemoglobin 13.2 g/dL (14.0-18.0); Immature Granulocytes # (auto) 0.49 K/uL (0.00-0.02); Immature Granulocytes % (auto) 2.5 %; Lymphocytes # (auto) 0.66 K/uL (1.2-3.4); Lymphocytes % (auto) 3.3 %; Mean Corpuscular Hgb Conc 36.2 g/dL (32-36); Mean Corpuscular Volume 85.7 fL (80-100); Mean Platelet Volume 9.3 fL (7.4-10.4); Monocytes # (auto) 0.09 K/uL (0.11-0.59); Monocytes % (auto) 0.5 %; Neutrophils # (auto) 18.72 K/uL (1.4-6.5); Neutrophils % (auto) 93.5 %; Platelet Count 305 K/uL (130-400); RDW Coefficient of Variation 13.5 % (11.5-14.5); Red Blood Count 4.26 M/uL (4.7-6.1); White Blood Count 19.99 K/uL (4.8-10.8)
[2021-08-05 07:16] LABS: Calcium 8.1 mg/dl (8.5-10.1); Creatinine Clr Calc Pharmacy 77.9 ml/min; Est GFR (African American) 95.7 ml/min; Est GFR (Non-African American) 82.6 ml/min; Magnesium 2.3 mg/dl (1.7-2.4); Phosphorus 3.7 mg/dl (2.5-4.9); Potassium 4.3 mmol/L (3.5-5.1)
[2021-08-05] MEDS: ICU ELECTROLYTE REPLACEMENT PROTOCOL SCH ×2 (07:46→17:22)
[2021-08-05 07:47] LABS: Partial Thromboplastin Time 81.5 Seconds (21.0-31.0)
[2021-08-05] MEDS: METOPROLOL SUCC 25MG EXT REL TAB PO SCH (07:50)
[2021-08-05] MEDS: DOCUSATE SODIUM/SENNA 50/8.6MG TAB PO SCH (07:50)
[2021-08-05] MEDS: PANTOprazole 40 MG in SYRINGE 0 ML IV SCH (07:50)
[2021-08-05] MEDS: MAGNESIUM OXIDE 400 MG TAB PO SCH ×2 (07:50→20:36)
[2021-08-05] MEDS: ASPIRIN 81 MG ECTAB PO SCH (07:50)
[2021-08-05] MEDS: allopurinoL 300 MG TAB PO SCH (07:50)
[2021-08-05] MEDS: POLYETHYLENE (MIRALAX) 17 GM PACK PO SCH (07:51)
[2021-08-05] MEDS: dexAMETHasone 20 MG in DEXTROSE 5% 25 ML IV SCH (07:51)
--- NOTE | 2021-08-05 08:11 | XRay Report ---
XR chest 1V portable CLINICAL HISTORY: Hypoxia TECHNIQUE: Single frontal radiograph of the chest was obtained. Comparison: Comparison is made to chest one view 08/04/2021 FINDINGS: No lines and tubes are seen. The cardiomediastinal silhouette is stable. Multifocal airspace opacitie s are seen. No evidence of pleural effusion or pneumothorax. IMPRESSION: Stable multifocal airspace opacities. ACT 112: Negative or not required by law. Electronically signed by: Torres Shi M.D. 08/05/2021 8:09 AM
[2021-08-05] MEDS: INSULIN HUMAN NPH SC SCH (08:56)
[2021-08-05] MEDS: HEPARIN SODIUM/DEXTROSE 25,000 UNITS/500 ML BAG IV SCH ×2 (09:32→10:23)
[2021-08-05] MEDS ORDERED: METOPROLOL TARTRATE 1 MG/ML VIAL IV STA (10:55)
--- NOTE | 2021-08-05 11:20 | Critical Care Progress Note ---
Date of Service August 05, 2021 Assessment & Plan (1) Acute hypoxemic respiratory failure due to COVID-19: (2) CAD (coronary artery disease): (3) HLD (hyperlipidemia): (4) Diabetes mellitus: (5) Acute pulmonary embolism: (6) Sinus tachycardia: Plan: 60-year-old male with a past medical history of CAD, hypertension, obesity and hyperlipidemia presenting with COVID-19 viral pneumonia. Neurologic: No significant issues Pulmonary: Day #3 of high-dose Decadron (20 mg) per the DEXA-ARDS protocol. Continues to require high amounts of oxygen support. Continue to alternate between BiPAP and high flow nasal cannula. At risk for needing intubation and mechanical ventilation. We will monitor closely in the ICU. CT chest with contrast from 08/03/2021 reviewed which revealed significant worsening of bilateral groundglass opacities and segmental right lower lobe pulmonary embolism. Continue heparin infusion. Continue aspirin given his history of coronary artery disease. Prior smoking history noted. Patient understands that if he were to end up intubated, he may need to be trached given the possibility of long-term weaning. He is agreeable to tracheostomy if required. Cardiovascular: Right lower lobe pulmonary realism as noted above. Given 2.5 mg IV metoprolol with improvement of heart rate. Will start 12.5 mg metoprolol p.o. twice daily. Increasing sinus tachycardia today. Will obtain troponin. Echocardiogram to evaluate for RV failure given the PE. Check lactic acid to evaluate for early signs of hypoperfusion. Gastrointestinal: Continue diet. Continue pantoprazole given the use of heparin and high-dose steroids. Renal: No significant issues. Replace electrolytes per protocol. Infectious disease: Repeat procalcitonin. Repeat CRP. Check ferritin. Hematologic: Monitor CBC daily. Continue PTT monitoring. Endocrine: ICU pharmacy team assisting with management of hyperglycemia while on high-dose steroids. We will check TSH given tachycardia. VTE prophylaxis: Heparin infusion CODE STATUS: Full code Family at bedside: None available at bedside Disposition: Remain in ICU I have personally spent 44 minutes of critical care time in the direct management of this patient. This is a life/limb threatening event. This includes time spent evaluating patient, direct bedside care, chart review, placing orders, interpretation of diagnostic studies, discussion with consultants, patient, and family members, as well as other required patient management activities. This time is exclusive of all separately billable procedures, and teaching time and separate from and in addition to any other critical care service time. Thank you for allowing us to participate in the care of this patient. Admission and Anticipated Discharge Date Admission Date: July 25, 2021 Subjective Patient notes that he feels more tired today. He had trouble sleeping and had trouble tolerating the CPAP last night. No fevers today. He does have increasing sinus tachycardia. Denies chest pain. Shortness of breath with limited movement in the bed. Desaturates to the low 80s when moving around in the bed. Currently on 70% FiO2 and 50 L. Review of Systems Review of Systems: All systems reviewed & are unremarkable except as noted in HPI & below Physical Exam Physical Exam: Constitutional: Patient appears older than stated age and nghia rgic. Eyes: Pupils are equal round and reactive to light. Conjunctivae are normal. Anicteric sclera. Ears nose, mouth and throat: No obvious facial deformity seen. Neck: Trachea is midline. Visual inspection is normal. Respiratory: Diminished lung sounds bilaterally. Mildly tachypneic. Cardiovascular: Tachycardic. Regular rhythm. No murmurs. No edema. Gastrointestinal: Normal bowel sounds, soft, nontender and nondistended. No hepatosplenomegaly noted. Musculoskeletal: No cyanosis. Patient is able to move all extremities. Strength is 5 out of 5 in the upper and lower extremities. Skin: No rashes, warm dry and intact. Neurologic: No obvious focal neurological deficits seen. Psychiatric: Alert and oriented x3 with a euthymic affect. Results & Data Results & Data ([facility]) Vital Signs (Past 12 Hours) Vital Signs Temp Pulse Pulse Resp BP Pulse Ox 08/05/21 11:03 117 H 124/72 08/05/21 10:00 115 H 22 156/66 H 90 08/05/21 09:00 117 H 23 131/108 H 93 08/05/21 08:12 119 H 22 156/77 H 84 L 08/05/21 08:00 117 H 22 87 L 08/05/21 07:30 91 H 22 91 08/05/21 07:00 102 H 18 90 08/05/21 06:49 36.6 C 08/05/21 06:45 109 H 19 81 L 08/05/21 06:00 86 20 129/70 90 08/05/21 05:01 86 18 146/86 H 90 08/05/21 04:12 90 22 92 08/05/21 04:00 36.8 C 91 H 21 162/86 H 91 08/05/21 03:00 80 15 140/82 93 08/05/21 02:30 87 21 92 08/05/21 02:00 79 16 106/69 92 08/05/21 01:00 81 18 146/74 H 93 08/05/21 00:01 84 18 135/65 93 08/05/21 00:00 36.8 C 84 Coding Level of Care Code Critical Care 1st 30-74 mins Diagnoses Acute hypoxemic respiratory failure due to COVID-19 U07.1; J96.01 CAD (coronary artery disease) I25.10 HLD (hyperlipidemia) E78.5 Diabetes mellitus E11.9 Acute pulmonary embolism I26.99 Sinus tachycardia R00.0 Time Spent (min) 44
[2021-08-05 12:02] LABS: Troponin I < 0.03 ng/ml (0-0.04)
[2021-08-05 12:03] LABS: C Reactive Protein 13.63 mg/dl (0-0.5)
[2021-08-05] MEDS: METOPROLOL TARTRATE 25 MG TAB PO SCH ×2 (12:11→20:32)
[2021-08-05] MEDS ORDERED: NORMOSOL-R 500 ML IV ONE (13:06)
[2021-08-05] MEDS: cefTRIAXone SODIUM 1,000 MG in DEXTROSE 5% 50 ML IV SCH (13:35)
--- NOTE | 2021-08-05 13:41 | Pharmacy Report ---
Pharmacy Glycemic Short Note 2 - Date of Service August 05, 2021 - Glycemic Short BSG Results (Last 24 hours): 08/04/21 08/04/21 08/04/21 15:34 21:07 23:51 Glucose POC Glucose 323 H* 119 H 86 08/05/21 08/05/21 08/05/21 04:07 06:33 08:14 Glucose 134 H POC Glucose 100 H 165 H 08/05/21 08/05/21 11:43 11:45 Glucose POC Glucose 437 H* 436 H* OUTPATIENT ANTIDIABETIC REGIMEN: * Glyburide 5mg PO BID * Metformin 1000mg BID * Actos 45mg PO Daily * A1c 6.3% 07/26/21 ASSESSMENT: 08/05/21 * Patient's BSGs yesterday were [phone] mg/dL and overnight were 86-100 mg/dL. Fasting this morning was 160 mg/dL. * Continued NPH 30 units. Novolog tightened at lunch yesterday but BSGs continued to trend upwards. Tighten CR. * Lunch was 436 mg/dL but patient ate cheerios uncovered. Loosen CF to prevent overcorrection. 08/04 * BSGs above goal the last 24hr ([phone]). Fasting 168mg/dL today. * Dexamethasone increased from 10mg daily to 20mg daily last evening. Continues with type 2 diet and heparin drip (in D5W). * NPH increased this AM ~ 20% to 30 units daily. Basal will need re-evaluated tomorrow given modification in steroid dose and steroid induced hyperglycemia. * Prandial Novolog tightened at lunch today given rising BSG this afternoon and larger carb intake the last 2 days. Overnight checks for tonight. 08/02/21 * Patient's BSGs yesterday were 57 (PRP) 107 (POC)- 141-294-157 mg/dL. Fasting today is 99 mg/dL. * Patient received 66 units of bolus insulin yesterday. * Restart NPH at 25 units. * Change Novolog at HS to loose CF and no CR to prevent overcorrection. 08/01/21 * Patient's BSGs yesterday were [phone] mg/dL. Fasting today was 52 mg/dL. * Patient received 140 units of insulin (50 units of basal and 90 units of bolus). * Hypoglycemic event most likely due to prolonged half-life of NPH. * Initially patient was NPO this morning; dexamethasone given at 0300. Held NPH due to this change. * Diet reordered at lunch. * Tightened Novolog since basal held. 07/30: * Pt received total 133 units of insulin yesterday; 50 units basal + 83 units bolus. * BSGs trended down to 138 mg/dl at dinner then went above 200 mg/dl at HS since CR was loosened at dinner yesterday. * Fasting BSG today = 96 mg/dl. Basal NPH dose continued at 50 units this AM. Patient is still on IV Dex 6 mg. * Novolog CR tightened back to 2.5 with breakfast. 07/29: * Patient's BSGs yesterday were [phone]. He received total 125 units of insulin yesterday; 50 units basal + 75 units bolus. * Fasting BSG today = 195 mg/dl. Pre-lunch BSG was elevated yesterday and again today but HS BSG trended down last night. To prevent hypoglycemia at HS, Novolog CR is loosened. 07/28 * Patient's BSGs yesterday were [phone] mg/dL. * Patient received 87 units of insulin yesterday (50 units of NPH plus 37 units of bolus). * Patient received dexamethasone 6 mg @ 0400 today. * Fasting BSG is a mixed picture. On PRP fasting was 95 mg/dL but at 0700 on POC BSG was 182 mg/dL. * Will continue to hold Lantus as believe PRP more accurately reflects fasting. POC influenced by earlier dexamethasone administration. * Continue NPH as increased significantly yesterday. * Tighten CR as BSGs trending upwards. PLAN FOR INPATIENT GLYCEMIC CONTROL: * Hold outpatient oral diabetes medications * Basal insulin * NPH 30 units SQ daily * Bolus insulin * NovoLog per scale ACHS or Q6hrs while NPO * Goal Range: Low 110 mg/dL - High 140 mg/dL * Correction Factor: 12 mg/dL/unit (AC), 25mg/dL/unit (HS) * Nutritional / Prandial insulin per carb ratio of 1 unit per 2.5 grams CHO consumed PLAN FOR DISCHARGE: * A1c 6.3%, no change in outpatient medications unless patient experiencing hypoglycemia, and no contraindications exist (SCr elevated on admission, likely d/t dehydration).
--- NOTE | 2021-08-05 16:55 | Hospitalist Progress Note ---
Date of Service August 05, 2021 Assessment & Plan (1) Acute respiratory failure with hypoxia: (2) 2019 novel coronavirus-infected pneumonia (NCIP): (3) Acute pulmonary embolism: (4) Sinus tachycardia: (5) Hypomagnesemia: (6) Acute worsening of stage 3 chronic kidney disease: (7) Diabetes mellitus: (8) CAD (coronary artery disease): Plan: (9) HTN (hypertension): (10) DVT prophylaxis: Plan: Acute respiratory failure with hypoxia due to COVID 19 PNA and acute PE- Gets easily short of breath and desaturates with any activities. Transferred to ICU on 08/03. Currently On high flow alternating with BIPAP, wean down as tolerated. Machine [employer]er managing. Might need intubation if worsens. COVID 19 PNA- S/p remdesevir. Was on dexa 6 mg daily, now increased to 20 mg iv daily on 08/03. CT chest 08/03 showed interval progression of near confluent GGO, Ferritin significantly elevated, CRP coming down, procal mildly elevated. Repeat CXR with stable multifocal opacities. Supportive management. Incentive spirometer. Started on ceftriaxone today per sampler pickup. Acute pulmonary embolism (RLL segmental/subsegmental PE)- on CTA chest 08/03. on heparin drip since. Change to DOAC when stable. DM-2 with hyperglycemia, aggravated by steroids- Glycemic pharmacist managing, on insulin. Home actos and glyburide on hold. Sinus tachycardia- likely from PNA and PE. On metoprolol. Asymptomatic NATHANIEL- NATHANIEL resolved. Cr back to baseline of 1 Hypomagnesemia- Resolved. on supplementation Hyponatremia- sodium 129, recheck in am HTN- stable, on lopressor CAD- h/o stents. No chest pain. Continue ASA, metoprolol. DVT prophylaxis- heparin drip GI prophylaxis- Protonix Dispo- Remain in ICU Update- updated family over phone Admission and Anticipated Discharge Date Admission Date: July 25, 2021 Subjective Feels about the same. Gets more short of breath with any activities. No more fever. Normal appetite. Physical Exam Physical Exam: General: Lying in bed, on high flow oxygen, not in acute distress HEENT: EOMI, JULIANA, MMM Chest: Decreased breath sounds bilaterally CVS: Tachycardic, normal heart sounds, no murmur Abdomen: Soft, non tender, not distended, normal bowel sounds Neuro: Awake, alert, oriented, conversing, non focal Extremities: No cyanosis, clubbing or edema On brewster with luke urine Results & Data Results & Data ([facility]) Vital Signs (Past 12 Hours) Vital Signs Temp Pulse Pulse Resp BP Pulse Ox 08/05/21 15:10 104 H 22 90 08/05/21 15:00 36.5 C 105 H 29 H 84 L 08/05/21 14:00 104 H 24 114/59 L 89 L 08/05/21 13:00 114 H 26 H 100/82 82 L 08/05/21 12:00 118 H 24 135/61 89 L 08/05/21 11:45 119 H 22 90 08/05/21 11:03 117 H 124/72 08/05/21 11:00 116 H 22 124/72 08/05/21 10:00 115 H 22 156/66 H 90 08/05/21 09:00 117 H 23 131/108 H 93 08/05/21 08:12 119 H 22 156/77 H 84 L 08/05/21 08:00 117 H 22 87 L 08/05/21 07:30 91 H 22 91 08/05/21 07:00 102 H 18 90 08/05/21 06:49 36.6 C 08/05/21 06:45 109 H 19 81 L 08/05/21 06:00 86 20 129/70 90 08/05/21 05:01 86 18 146/86 H 90 Laboratory Results Short CBC 08/05/21 Range/Units 06:33 WBC 19.99 H (4.8-10.8) K/uL Hgb 13.2 L (14.0-18.0) g/dL Hct 36.5 L (42-52) % Plt Count 305 (130-400) K/uL BMP 08/05/21 06:33 Sodium 129 L Potassium 4.3 Chloride 95 L Carbon Dioxide 25 BUN 41 H Creatinine 1.00 Glucose 134 H Calcium 8.1 L Cardiac Enzymes 08/05/21 Range/Units 11:31 Troponin I < 0.03 (0-0.04) ng/ml Diagnostic Findings Chest X-Ray 08/05/21 07:00 XR chest 1V portable CLINICAL HISTORY: Hypoxia TECHNIQUE: Single frontal radiograph of the chest was obtained. Comparison: Comparison is made to chest one view 08/04/2021 FINDINGS: No lines and tubes are seen. The cardiomediastinal silhouette is stable. Multifocal airspace opacities are seen. No evidence of pleural effusion or pneumothorax. IMPRESSION: Stable multifocal airspace opacities. ACT 112: Negative or not required by law. Electronically signed by: Torres Shi M.D. 08/05/2021 8:09 AM Medications Administered Current Inpatient Medications Acetaminophen (Acetaminophen 325 Mg Tab) 650 mg PO Q4H PRN PRN Reason: Pain or Fever Stop: 08/24/21 18:01 Last Admin: 08/04/21 21:31 Dose: 650 mg Documented by: Al Hydrox/Mg Hydrox/Simethicone (Aluminum/Magnesium Susp 30 Ml Udc) 15 ml PO Q4H PRN PRN Reason: Dyspepsia Stop: 08/24/21 18:01 Allopurinol (Allopurinol 300 Mg Tab) 300 mg PO QAM ANSELMO Stop: 08/28/21 08:59 Last Admin: 08/05/21 07:50 Dose: 300 mg Documented by: Aspirin (Aspirin 81 Mg Ectab) 81 mg PO DAILY ANSELMO Stop: 08/25/21 08:59 Last Admin: 08/05/21 07:50 Dose: 81 mg Documented by: Benzonatate (Benzonatate 100 Mg Capsule) 100 mg PO TID PRN PRN Reason: cough Stop: 08/24/21 18:01 Dextrose (Dextrose 50% 50 Ml Syringe) 25 - 50 ml IV UD PRN; Protocol PRN Reason: Hypoglycemia Protocol Stop: 08/24/21 18:01 Last Admin: 08/01/21 04:51 Dose: 25 ml Documented by: Glucagon (Glucagon For Inj 1 Mg Vial) 1 mg SQ UD PRN; Protocol PRN Reason: Hypoglycemia Protocol Stop: 08/24/21 18:01 Glucose (Glucose 10 Tabs/Tube) 4 - 8 tabs PO UD PRN; Protocol PRN Reason: Hypoglycemia Protocol Stop: 08/24/21 18:01 Glucose (Glucose 40% Gel 15 Gm Tube) 15 - 30 gm PO UD PRN; Protocol PRN Reason: Hypoglycemia Protocol Stop: 08/24/21 18:01 Heparin Sodium (Beef Lung) (Heparin 10 Unit/Ml 5 Ml Flush) 5 ml FLUSH PRN PRN PRN Reason: Flush Stop: 09/04/21 16:31 Pantoprazole Sodium 40 mg/ (Syringe) 10 mls @ 5 mls/min IV DAILY@1100 [facility] Stop: 09/03/21 10:59 Last Admin: 08/05/21 07:50 Dose: 5 mls/min Documented by: Heparin Sodium/Dextrose (Heparin Sodium/Dextrose) 25,000 units in 500 mls @ 24 mls/hr IV .[id number] [facility]; Protocol Stop: 09/02/21 20:14 Last Admin: 08/05/21 10:23 Dose: Not Given Documented by: Dexamethasone 20 mg/ Dextrose 30 mls @ 0.833 mls/min IV QAM [facility] Stop: 08/07/21 10:00 Last Infusion: 08/05/21 08:55 Dose: Infused Documented by: Dexamethasone 10 mg/ Syringe 2.5 mls @ 1 mls/min IV DAILY [facility] Stop: 08/12/21 09:03 Ceftriaxone Sodium 1,000 mg/ (Dextrose) 50 mls @ 100 mls/hr IV Q24H [facility]; Protocol Stop: 08/12/21 13:59 Last Infusion: 08/05/21 14:23 Dose: Infused Documented by: Insulin Aspart (Insulin Aspart Per Unit) 0 units SC AC [facility] Stop: 09/01/21 16:29 Last Admin: 08/05/21 12:23 Dose: 31 units Documented by: Insulin Aspart (Insulin Aspart Per Unit) 0 units SC [facility] Stop: 09/01/21 20:59 Last Admin: 08/04/21 21:23 Dose: Not Given Documented by: Insulin Human NPH (Insulin Human Nph) 30 units SC DAILY [facility] Stop: 09/01/21 08:59 Last Admin: 08/05/21 08:56 Dose: 30 units Documented by: Ipratropium [place] (Ipratropium [place] Neb Soln 0.02% 2.5 Ml Vial) 0.5 mg INH Q4H PRN PRN Reason: SOB, WHEEZE Stop: 08/31/21 23:14 Levalbuterol HCl (Levalbuterol 1.25mg/0.5ml Neb) 1.25 mg INH Q4H PRN PRN Reason: SOB, WHEEZE Stop: 08/31/21 23:14 Magnesium Hydroxide (Magnesium Hydroxide Susp 30 Ml Udc) 30 ml PO Q12H PRN PRN Reason: Constipation Stop: 08/24/21 18:01 Magnesium Oxide (Magnesium Oxide 400 Mg Tab) 400 mg PO BID [facility] Stop: 08/27/21 20:59 Last Admin: 08/05/21 07:50 Dose: 400 mg Documented by: Melatonin (Melatonin 3 Mg Tab) 3 mg PO HS PRN PRN Reason: Sleep Stop: 08/31/21 23:09 Last Admin: 08/02/21 00:07 Dose: 3 mg Documented by: Metoprolol Succinate (Metoprolol Succ 25mg Ext Rel Tab) 25 mg PO DAILY [facility] Stop: 08/25/21 08:59 Last Admin: 08/05/21 07:50 Dose: 25 mg Documented by: Metoprolol Tartrate (Metoprolol Tartrate 25 Mg Tab) 12.5 mg PO BID [facility] Stop: 09/04/21 10:59 Last Admin: 08/05/21 12:11 Dose: 12.5 mg Documented by: Miscellaneous (Carbohydrates For Hypoglycemia ) 15 - 30 gm PO UD PRN PRN Reason: Hypoglycemia Protocol Stop: 08/24/21 18:01 Miscellaneous (Icu Electrolyte Replacement Protocol) 1 ea N/A BID@06,18 ANSELMO; Protocol Stop: 08/11/21 17:59 Last Admin: 08/05/21 07:46 Dose: 1 ea Documented by: Miscellaneous Information (Pharmacy Glycemic Mgmt Consult) 1 ea N/A UD PRN; Protocol PRN Reason: Consult Stop: 08/24/21 18:01 Ondansetron HCl (Ondansetron Inj 2 Mg/Ml 2 Ml Vial) 4 mg IV Q6H PRN PRN Reason: Nausea Stop: 08/24/21 18:01 Polyethylene Glycol (Polyethylene (Miralax) 17 Gm Pack) 17 gm PO DAILY PRN PRN Reason: Constipation Stop: 08/24/21 18:01 Polyethylene Glycol (Polyethylene (Miralax) 17 Gm Pack) 17 gm PO DAILY [facility] Stop: 09/03/21 09:44 Last Admin: 08/05/21 07:51 Dose: 17 gm Documented by: Senna/Docusate Sodium (Docusate Sodium/Senna 50/8.6mg Tab) 1 tab PO QAM [facility] Stop: 09/03/21 09:44 Last Admin: 08/05/21 07:50 Dose: 1 tab Documented by:
[2021-08-05 17:09] LABS: Partial Thromboplastin Ratio 3.1
[2021-08-05 17:14] LABS: Partial Thromboplastin Time 85.9 Seconds (21.0-31.0)
--- NOTE | 2021-08-05 18:09 | Ultrasound Report ---
US venous doppler UE LT CLINICAL HISTORY: swelling and pain PROCEDURE: Left upper extremity real-time compression venous ultrasound with Duplex and Color Doppler imaging. FINDINGS: Utilizing real-time ultrasonic imaging multiple real time high-resolution ultrasonic images of the de ep venous system were performed from the forearm through the subclavian vein including evaluation of the jugular vein. Compression real time ultrasonic imaging was performed in addition to color Dopple r imaging and duplex Doppler ultrasound with velocity spectral profile analysis. Superficial venous thrombus is seen in the cephalic vein, occlusive, measuring approximately 20 cm in length. No deep venous thrombus is seen. Soft tissue swelling is seen in the swollen biceps limiting evaluation of the axillary, brachial, and basilic veins. Impression: Superficial venous thrombus in the cephalic vein. No deep venous thrombus. Edematous biceps. ACT 112: Negative or not required by law. Electronically signed by: Torres Shi M.D. 08/05/2021 6:08 PM
--- NOTE | 2021-08-05 20:37 | XRay Report ---
XR chest 1V portable CLINICAL HISTORY: picc placement TECHNIQUE: Single frontal radiograph of the chest was obtained. Comparison: Comparison is made to chest one view 08/05/2021 FINDINGS: A right PICC is seen with the tip in the mid SVC. Cardiomegaly is noted. Multifocal airspace opacitie s are seen. No evidence of pleural effusion or pneumothorax. IMPRESSION: Satisfactory position of right PICC with the tip in the mid SVC. Stable multifocal airspace opacities . ACT 112: Negative or not required by law. Electronically signed by: Torres Shi M.D. 08/05/2021 8:35 PM
[2021-08-06 00:39] LABS: Partial Thromboplastin Ratio 2.7
[2021-08-06 00:43] LABS: Partial Thromboplastin Time 73.2 Seconds (21.0-31.0)
[2021-08-06] MEDS: HEPARIN SODIUM/DEXTROSE 25,000 UNITS/500 ML BAG IV SCH ×3 (05:18→22:04)
[2021-08-06] MEDS: DOCUSATE SODIUM/SENNA 50/8.6MG TAB PO SCH (07:38)
[2021-08-06] MEDS: METOPROLOL SUCC 25MG EXT REL TAB PO SCH (07:38)
[2021-08-06] MEDS: METOPROLOL TARTRATE 25 MG TAB PO SCH ×2 (07:38→20:10)
[2021-08-06] MEDS: ASPIRIN 81 MG ECTAB PO SCH (07:39)
[2021-08-06] MEDS: INSULIN HUMAN NPH SC SCH (07:39)
[2021-08-06] MEDS: POLYETHYLENE (MIRALAX) 17 GM PACK PO SCH (07:39)
[2021-08-06] MEDS: allopurinoL 300 MG TAB PO SCH (07:39)
[2021-08-06] MEDS: dexAMETHasone 20 MG in DEXTROSE 5% 25 ML IV SCH (07:41)
[2021-08-06] MEDS: MAGNESIUM OXIDE 400 MG TAB PO SCH ×2 (07:42→20:10)
[2021-08-06 07:44] LABS: Hematocrit (blood only) 29.2 % (42-52); Hemoglobin 10.2 g/dL (14.0-18.0); Mean Corpuscular Hemoglobin 30.1 pg (25-34); Mean Corpuscular Hgb Conc 34.9 g/dL (32-36); Mean Corpuscular Volume 86.1 fL (80-100); Mean Platelet Volume 9.7 fL (7.4-10.4); Platelet Count 317 K/uL (130-400); RDW Coefficient of Variation 13.8 % (11.5-14.5); Red Blood Count 3.39 M/uL (4.7-6.1)
[2021-08-06 07:55] LABS: Basophils # (auto) 0.05 K/uL (0-0.2); Basophils % (auto) 0.2 %; Immature Granulocytes # (auto) 0.51 K/uL (0.00-0.02); Immature Granulocytes % (auto) 2.2 %; Lymphocytes # (auto) 0.38 K/uL (1.2-3.4); Lymphocytes % (auto) 1.6 %; Monocytes # (auto) 0.51 K/uL (0.11-0.59); Monocytes % (auto) 2.2 %; Neutrophils # (auto) 21.95 K/uL (1.4-6.5); Neutrophils % (auto) 93.8 %
[2021-08-06 07:56] LABS: BUN Creatinine Ratio 44.8 (10-20); Calcium 7.7 mg/dl (8.5-10.1); Creatinine Clr Calc Pharmacy 62.3 ml/min; Est GFR (African American) 73.1 ml/min; Est GFR (Non-African American) 63.1 ml/min; Magnesium 2.4 mg/dl (1.7-2.4); Partial Thromboplastin Ratio 2.1; Phosphorus 4.2 mg/dl (2.5-4.9); Potassium 4.5 mmol/L (3.5-5.1)
[2021-08-06 07:57] LABS: Partial Thromboplastin Time 58.7 Seconds (21.0-31.0)
[2021-08-06] MEDS ORDERED: SODIUM CHLORIDE 0.9% 1000ML 500 ML IV ONE (08:18)
[2021-08-06] MEDS: ICU ELECTROLYTE REPLACEMENT PROTOCOL SCH ×2 (08:44→16:55)
[2021-08-06] MEDS: INSULIN ASPART PER UNIT SC SCH ×4 (08:54→20:58)
--- NOTE | 2021-08-06 09:00 | Pharmacy Report ---
Pharmacy Glycemic Short Note 2 - Date of Service August 06, 2021 - Glycemic Short BSG Results (Last 24 hours): 08/05/21 08/05/21 08/05/21 11:43 11:45 16:32 Glucose POC Glucose 437 H* 436 H* 373 H* 08/05/21 08/05/21 08/06/21 16:33 20:15 00:07 Glucose POC Glucose 376 H* 267 H 223 H 08/06/21 08/06/21 08/06/21 05:12 07:14 07:58 Glucose 199 H POC Glucose 174 H 248 H OUTPATIENT ANTIDIABETIC REGIMEN: * Glyburide 5mg PO BID * Metformin 1000mg BID * Actos 45mg PO Daily * A1c 6.3% 07/26/21 ASSESSMENT: 08/06/21 * Patient's BSGs yesterday were [phone] mg/dL and fasting this morning was 248 mg/dL. * Information was this prior admission showed that when on dexamethasone 6 mg IV daily, NPH 50 units was too aggressive. Patient had hypoglycemia in the morning. * Now, patient is on dexamethasone 20 mg IV daily and fastings have been trending upwards. Will add 15 units of NPH for dinnertime to lower fasting BSGs. Patient will be transitioning to 10 mg of dexamethasone in 2 days so this dose will need to be adjusted accordingly. * Tighten Novolog to provide more daily coverage. 08/05/21 * Patient's BSGs yesterday were [phone] mg/dL and overnight were 86-100 mg/dL. Fasting this morning was 160 mg/dL. * Continued NPH 30 units. Novolog tightened at lunch yesterday but BSGs continued to trend upwards. Tighten CR. * Lunch was 436 mg/dL but patient ate cheerios uncovered. Loosen CF to prevent overcorrection. 08/04 * BSGs above goal the last 24hr ([phone]). Fasting 168mg/dL today. * Dexamethasone increased from 10mg daily to 20mg daily last evening. Continues with type 2 diet and heparin drip (in D5W). * NPH increased this AM ~ 20% to 30 units daily. Basal will need re-evaluated tomorrow given modification in steroid dose and steroid induced hyperglycemia. * Prandial Novolog tightened at lunch today given rising BSG this afternoon and larger carb intake the last 2 days. Overnight checks for tonight. 08/02/21 * Patient's BSGs yesterday were 57 (PRP) 107 (POC)- 141-294-157 mg/dL. Fasting today is 99 mg/dL. * Patient received 66 units of bolus insulin yesterday. * Restart NPH at 25 units. * Change Novolog at HS to loose CF and no CR to prevent overcorrection. 08/01/21 * Patient's BSGs yesterday were [phone] mg/dL. Fasting today was 52 mg/dL. * Patient received 140 units of insulin (50 units of basal and 90 units of bolus). * Hypoglycemic event most likely due to prolonged half-life of NPH. * Initially patient was NPO this morning; dexamethasone given at 0300. Held NPH due to this change. * Diet reordered at lunch. * Tightened Novolog since basal held. 07/30: * Pt received total 133 units of insulin yesterday; 50 units basal + 83 units bolus. * BSGs trended down to 138 mg/dl at dinner then went above 200 mg/dl at HS since CR was loosened at dinner yesterday. * Fasting BSG today = 96 mg/dl. Basal NPH dose continued at 50 units this AM. Patient is still on IV Dex 6 mg. * Novolog CR tightened back to 2.5 with breakfast. 07/29: * Patient's BSGs yesterday were [phone]. He received total 125 units of insulin yesterday; 50 units basal + 75 units bolus. * Fasting BSG today = 195 mg/dl. Pre-lunch BSG was elevated yesterday and again today but HS BSG trended down last night. To prevent hypoglycemia at HS, Novolog CR is loosened. 07/28 * Patient's BSGs yesterday were [phone] mg/dL. * Patient received 87 units of insulin yesterday (50 units of NPH plus 37 units of bolus). * Patient received dexamethasone 6 mg @ 0400 today. * Fasting BSG is a mixed picture. On PRP fasting was 95 mg/dL but at 0700 on POC BSG was 182 mg/dL. * Will continue to hold Lantus as believe PRP more accurately reflects fasting. POC influenced by earlier dexamethasone administration. * Continue NPH as increased significantly yesterday. * Tighten CR as BSGs trending upwards. PLAN FOR INPATIENT GLYCEMIC CONTROL: * Hold outpatient oral diabetes medications * Basal insulin * NPH 30 units SQ daily * NPH 15 units with dinner * Bolus insulin * NovoLog per scale ACHS or Q6hrs while NPO * Goal Range: Low 110 mg/dL - High 140 mg/dL * Correction Factor: 10 mg/dL/unit (AC), 25mg/dL/unit (HS) * Nutritional / Prandial insulin per carb ratio of 1 unit per 2 grams CHO consumed PLAN FOR DISCHARGE: * A1c 6.3%, no change in outpatient medications unless patient experiencing hypoglycemia, and no contraindications exist (SCr elevated on admission, likely d/t dehydration).
[2021-08-06] MEDS: PANTOprazole 40 MG in SYRINGE 0 ML IV SCH (11:49)
[2021-08-06] MEDS: cefTRIAXone SODIUM 1,000 MG in DEXTROSE 5% 50 ML IV SCH (11:49)
[2021-08-06] MEDS ORDERED: SODIUM CHLORIDE 0.9% 1000ML 250 ML IV ONE (12:18)
[2021-08-06 13:17] LABS: Hematocrit (blood only) 26.3 % (42-52); Hemoglobin 9.4 g/dL (14.0-18.0); Mean Corpuscular Hemoglobin 30.9 pg (25-34); Mean Corpuscular Hgb Conc 35.7 g/dL (32-36); Mean Corpuscular Volume 86.5 fL (80-100); Mean Platelet Volume 9.2 fL (7.4-10.4); Nucleated RBC # (auto) 0.05 K/uL (0-0); Nucleated RBC % (auto) 0.2 %; Platelet Count 341 K/uL (130-400); RDW Coefficient of Variation 13.7 % (11.5-14.5); Red Blood Count 3.04 M/uL (4.7-6.1)
--- NOTE | 2021-08-06 13:19 | Critical Care Progress Note ---
Date of Service August 06, 2021 Assessment & Plan (1) Acute hypoxemic respiratory failure due to COVID-19: (2) CAD (coronary artery disease): (3) HLD (hyperlipidemia): (4) Diabetes mellitus: (5) Acute pulmonary embolism: (6) Sinus tachycardia: (7) Cephalic vein thrombosis, left: (8) Lactic acid acidosis: Plan: 60-year-old male with a past medical history of CAD, hypertension, obesity and hyperlipidemia presenting with COVID-19 viral pneumonia. Neurologic: No significant issues Pulmonary: Patient with COVID-19 viral pneumonia. Day #4 of high-dose Decadron (20 mg) per the DEXA-ARDS protocol. Continues to require high amounts of oxygen support, but improved Continue to alternate between BiPAP and high flow nasal cannula. At risk for needing intubation and mechanical ventilation. We will monitor closely in the ICU. CT chest with contrast from 08/03/2021 reviewed which revealed significant worsening of bilateral groundglass opacities and segmental right lower lobe pulmonary embolism. Continue heparin infusion. Prior smoking history noted. Patient understands that if he were to end up intubated, he may need to be trached given the possibility of long-term weaning. He is agreeable to tracheostomy if required. Cardiovascular: Right lower lobe pulmonary embolism as noted above. Continue 12.5 mg metoprolol p.o. twice daily. Echo 08/06 with evidence of a hyperdynamic LV. EF greater than 70%. No RV failure noted. Continue aspirin given his history of coronary artery disease. Troponin 08/05 less than 0.05. Gastrointestinal: Continue diet. Continue pantoprazole given the use of heparin and high-dose steroids. Renal: Sodium trending down. Recheck BMP. Given 500 mL normal saline bolus and an additional 250 mL's of normal saline bolus this afternoon. We will recheck sodium and if continues to be low, will obtain urine sodium, serum osmolality and urine osmolality. Possible poor solute intake given poor appetite. Other etiologies include SIADH from COVID-19 viral pneumonia. We will check a CK level given elevated lactate tense edema of the left upper extremity. Lactic acidosis possibly from increased respiratory rate and hypoxemia at the cellular tissue level. Infectious disease: CRP trending down, but remains severely elevated. Pro-Aly 0.5 to check 08/05. Rocephin initiated due to elevated pro-Aly and leukocytosis. Chest x-ray from 08/05 reviewed with stable multifocal airspace opacities. Hematologic: Monitor CBC daily. Continue PTT monitoring while on heparin infusion Left arm ultrasound with 20 cm cephalic vein clot. Right pulmonary embolism seen on CTA from 08/03. Hemoglobin has dropped this morning to 10.2. We will recheck CBC. Will obtain a CT of his left arm with contrast to evaluate for hematoma and/or ischemia given the lactic acidosis and drop in hemoglobin. Endocrine: ICU pharmacy team assisting with management of hyperglycemia while on high-dose steroids. TSH within normal limits. VTE prophylaxis: Heparin infusion CODE STATUS: Full code Family at bedside: None available at bedside Disposition: Remain in ICU. Right-sided PICC line 08/05 Dominguez catheter Discussed with bedside RN I have personally spent 51 minutes of critical care time in the direct management of this patient. This is a life/limb threatening event. This includes time spent evaluating patient, direct bedside care, chart review, placing orders, interpretation of diagnostic studies, discussion with consultants, patient, and family members, as well as other required patient management activities. This time is exclusive of all separately billable procedures, and teaching time and separate from and in addition to any other critical care service time. Thank you for allowing us to participate in the care of this patient. Admission and Anticipated Discharge Date Admission Date: July 25, 2021 Subjective Patient seen and examined. Planing of left upper extremity pain. Discovered to have a cephalic vein clot on ultrasound yesterday. Continues to have shortness of breath with minimal activity such as moving around in bed. No chest pain or fevers. Remains tachycardic, but denies palpitations. Poor appetite. He did have a bowel movement last night. Review of Systems Review of Systems: All systems reviewed & are unremarkable except as noted in Subjective Physical Exam Physical Exam: Constitutional: Patient appears older than stated age and lethargic. Eyes: Pupils are equal round and reactive to light. Conjunctivae are normal. Anicteric sclera. Ears nose, mouth and throat: No obvious facial deformity seen. Neck: Trachea is midline. Visual inspection is normal. Respiratory: Diminished lung sounds bilaterally. Mildly tachypneic. Cardiovascular: Tachycardic. Regular rhythm. No murmurs. No edema. Gastrointestinal: Normal bowel sounds, soft, nontender and nondistended. No hepatosplenomegaly noted. Musculoskeletal: Left biceps very tense and mildly cold to touch. Radial pulses palpated but diminished. Skin: No rashes, warm dry and intact. Neurologic: No obvious focal neurological deficits seen. Psychiatric: Alert and oriented x3 with a euthymic affect. Results & Data Results & Data ([facility]) Vital Signs (Past 12 Hours) Vital Signs Temp Pulse Pulse Pulse Resp BP Pulse Ox 08/06/21 12:00 113 H 29 H 117/71 83 L 08/06/21 11:50 104 H 20 91 08/06/21 11:00 100 H 24 104/63 91 08/06/21 10:00 94 H 23 128/67 88 L 08/06/21 09:00 93 H 26 H 119/59 L 92 08/06/21 08:00 119 H 26 H 129/76 86 L 08/06/21 07:45 100 H 20 91 08/06/21 07:00 111 H 21 130/74 93 08/06/21 06:45 112 H 23 91 08/06/21 06:00 103 H 25 H 99/71 L 94 08/06/21 05:00 110 H 25 H 114/69 88 L 08/06/21 04:00 101 H 23 104/68 93 08/06/21 03:27 103 H 19 93 08/06/21 03:01 108 H 20 112/76 91 08/06/21 02:00 37.0 C 107 H 18 119/78 98 Coding Level of Care Code Critical Care 1st 30-74 mins Diagnoses Acute hypoxemic respiratory failure due to COVID-19 U07.1; J96.01 CAD (coronary artery disease) I25.10 HLD (hyperlipidemia) E78.5 Diabetes mellitus E11.9 Acute pulmonary embolism I26.99 Sinus tachycardia R00.0 Cephalic vein thrombosis, left I82.612 Lactic acid acidosis E87.2 Time Spent (min) 51
[2021-08-06 13:22] LABS: BUN Creatinine Ratio 42.5 (10-20); Calcium 7.5 mg/dl (8.5-10.1); Creatinine Clr Calc Pharmacy 58.1 ml/min; Est GFR (African American) 67.2 ml/min; Potassium 4.5 mmol/L (3.5-5.1)
[2021-08-06] MEDS ORDERED: OPTIRAY 320 100ml IV ONE (14:31)
--- NOTE | 2021-08-06 14:59 | Hospitalist Progress Note ---
Date of Service August 06, 2021 Assessment & Plan (1) Hematoma: (2) Acute pulmonary embolism: (3) Acute respiratory failure with hypoxia: (4) 2019 novel coronavirus-infected pneumonia (NCIP): (5) Sinus tachycardia: (6) Hyponatremia: (7) Hypomagnesemia: (8) Acute worsening of stage 3 chronic kidney disease: (9) Diabetes mellitus: (10) CAD (coronary artery disease): Plan: (11) HTN (hypertension): (12) DVT prophylaxis: Plan: Acute RUE hematoma- Rt forearm tight tense, CT RUE shows heterogeneously enhancing contained fluid collection 13.3 x 5.3x 7 cm concerning for hematoma. Distal NV status intact, no evidence of compartment syndrome currently but at risk. Discussed with correspondence specialist- Ortho consulted, heparin stopped, ordered protamine sulfate. LE US pending. Consulted vascular surgery for IVC filter placement. Follow CBC, monitor hematoma. Acute pulmonary embolism (RLL segmental/subsegmental PE)- on CTA chest 08/03. on heparin drip since but now has RUE hematoma and will be held. Acute respiratory failure with hypoxia due to COVID 19 PNA and acute PE- Gets easily short of breath and desaturates with any activities. Transferred to ICU on 08/03. Currently On high flow alternating with BIPAP, wean down as tolerated. Flamer After Lasting managing. Might need intubation if worsens. COVID 19 PNA- S/p remdesevir. Was on dexa 6 mg daily, now increased to 20 mg iv daily on 08/03. CT chest 08/03 showed interval progression of near confluent GGO, Ferritin significantly elevated, CRP coming down, procal mildly elevated. Repeat CXR with stable multifocal opacities. Supportive management. Incentive spirometer. Started on ceftriaxone per correspondence specialist. DM-2 with hyperglycemia, aggravated by steroids- Glycemic pharmacist managing, on insulin. Home actos and glyburide on hold. Sinus tachycardia- likely from PNA and PE. On metoprolol. Asymptomatic NATHANIEL- NATHANIEL resolved. Cr back to baseline of 1 Hypomagnesemia- Resolved. on supplementation Hyponatremia- Overall stable. sodium 126 this am (corrects to 128 given hyperglycemia). He was given IVF and repeat Na upto 128, however when accounted for hyperglycemia, would correct to 131, recheck in am HTN- stable, on lopressor CAD- h/o stents. No chest pain. Continue ASA, metoprolol. DVT prophylaxis- heparin drip held due to RUE hematoma. Chemoprophylaxis C/I in setting of bleeding GI prophylaxis- Protonix Dispo- Remain in ICU Update- updated daughter over phone and answered her questions. Admission and Anticipated Discharge Date Admission Date: July 25, 2021 Subjective Overall same but feels slightly better. Just had CT LUE. States left upper extremity has been tight and painful for the past 2 days but distal neurovascular status intact. No fever, chills, chest pain. Still short of breath with minimal activities. Denies any hematochezia or hematuria. No new issues. Physical Exam Physical Exam: General: Lying in bed, on high flow oxygen, not in acute distress HEENT: EOMI, JULIANA, MMM Chest: Decreased breath sounds bilaterally CVS: Tachycardic, normal heart sounds, no murmur Abdomen: Soft, non tender, not distended, normal bowel sounds Neuro: Awake, alert, oriented, conversing, non focal Extremities: No cyanosis, clubbing or edema LUE: Left arm tight tense, distal neurovascular status intact On brewster with luke urine Results & Data Results & Data ([facility]) Vital Signs (Past 12 Hours) Vital Signs Pulse Pulse Pulse Resp BP Pulse Ox 08/06/21 14:41 106 H 21 118/55 L 88 L 08/06/21 14:00 102 H 23 128/59 L 90 08/06/21 13:00 112 H 26 H 127/63 86 L 08/06/21 12:00 113 H 29 H 117/71 83 L 08/06/21 11:50 104 H 20 91 08/06/21 11:00 100 H 24 104/63 91 08/06/21 10:00 94 H 23 128/67 88 L 08/06/21 09:00 93 H 26 H 119/59 L 92 08/06/21 08:00 119 H 26 H 129/76 86 L 08/06/21 07:45 100 H 20 91 08/06/21 07:00 111 H 21 130/74 93 08/06/21 06:45 112 H 23 91 08/06/21 06:00 103 H 25 H 99/71 L 94 08/06/21 05:00 110 H 25 H 114/69 88 L 08/06/21 04:00 101 H 23 104/68 93 08/06/21 03:27 103 H 19 93 08/06/21 03:01 108 H 20 112/76 91 Laboratory Results Short CBC 08/06/21 08/06/21 Range/Units 07:14 13:06 WBC 23.40 H 22.40 H (4.8-10.8) K/uL Hgb 10.2 L D 9.4 L (14.0-18.0) g/dL Hct 29.2 L 26.3 L (42-52) % Plt Count 317 341 (130-400) K/uL BMP 08/06/21 08/06/21 07:14 12:31 Sodium 126 L 128 L Potassium 4.5 4.5 Chloride 93 L 94 L Carbon Dioxide 24 22 BUN 56 H 57 H Creatinine 1.25 1.34 Glucose 199 H 267 H Calcium 7.7 L 7.5 L Cardiac Enzymes 08/06/21 Range/Units 13:06 Total Creatine Kinase 44 (30-223) U/L Medications Administered Current Inpatient Medications Acetaminophen (Acetaminophen 325 Mg Tab) 650 mg PO Q4H PRN PRN Reason: Pain or Fever Stop: 08/24/21 18:01 Last Admin: 08/04/21 21:31 Dose: 650 mg Documented by: Al Hydrox/Mg Hydrox/Simethicone (Aluminum/Magnesium Susp 30 Ml Udc) 15 ml PO Q4H PRN PRN Reason: Dyspepsia Stop: 08/24/21 18:01 Allopurinol (Allopurinol 300 Mg Tab) 300 mg PO QAM [facility] Stop: 08/28/21 08:59 Last Admin: 08/06/21 07:39 Dose: 300 mg Documented by: Aspirin (Aspirin 81 Mg Ectab) 81 mg PO DAILY [facility] Stop: 08/25/21 08:59 Last Admin: 08/06/21 07:39 Dose: 81 mg Documented by: Benzonatate (Benzonatate 100 Mg Capsule) 100 mg PO TID PRN PRN Reason: cough Stop: 08/24/21 18:01 Dextrose (Dextrose 50% 50 Ml Syringe) 25 - 50 ml IV UD PRN; Protocol PRN Reason: Hypoglycemia Protocol Stop: 08/24/21 18:01 Last Admin: 08/01/21 04:51 Dose: 25 ml Documented by: Glucagon (Glucagon For Inj 1 Mg Vial) 1 mg SQ UD PRN; Protocol PRN Reason: Hypoglycemia Protocol Stop: 08/24/21 18:01 Glucose (Glucose 10 Tabs/Tube) 4 - 8 tabs PO UD PRN; Protocol PRN Reason: Hypoglycemia Protocol Stop: 08/24/21 18:01 Glucose (Glucose 40% Gel 15 Gm Tube) 15 - 30 gm PO UD PRN; Protocol PRN Reason: Hypoglycemia Protocol Stop: 08/24/21 18:01 Heparin Sodium (Beef Lung) (Heparin 10 Unit/Ml 5 Ml Flush) 5 ml FLUSH PRN PRN PRN Reason: Flush Stop: 09/04/21 16:31 Pantoprazole Sodium 40 mg/ (Syringe) 10 mls @ 5 mls/min IV DAILY@1100 [facility] Stop: 09/03/21 10:59 Last Admin: 08/06/21 11:49 Dose: 5 mls/min Documented by: Heparin Sodium/Dextrose (Heparin Sodium/Dextrose) 25,000 units in 500 mls @ 19 mls/hr IV .Q24H ANSELMO; Protocol Stop: 09/02/21 20:14 Last Titration: 08/06/21 08:47 Dose: 950 units/hr, 19 mls/hr Documented by: Dexamethasone 20 mg/ Dextrose 30 mls @ 0.833 mls/min IV QAM [facility] Stop: 08/07/21 10:00 Last Infusion: 08/06/21 08:47 Dose: Infused Documented by: Dexamethasone 10 mg/ Syringe 2.5 mls @ 1 mls/min IV DAILY ANSELMO Stop: 08/12/21 09:03 Ceftriaxone Sodium 1,000 mg/ (Dextrose) 50 mls @ 100 mls/hr IV Q24H ANSELMO; Protocol Stop: 08/12/21 13:59 Last Infusion: 08/06/21 12:44 Dose: Infused Documented by: Insulin Aspart (Insulin Aspart Per Unit) 0 units SC AC [facility] Stop: 09/01/21 16:29 Last Admin: 08/06/21 12:39 Dose: 44 units Documented by: Insulin Aspart (Insulin Aspart Per Unit) 0 units SC HS [facility] Stop: 09/01/21 20:59 Last Admin: 08/05/21 20:30 Dose: 6 units Documented by: Insulin Human NPH (Insulin Human Nph) 30 units SC DAILY ANSELMO Stop: 09/01/21 08:59 Last Admin: 08/06/21 07:39 Dose: 30 units Documented by: Insulin Human NPH (Insulin Human Nph) 15 units SC QDD [facility] Stop: 09/05/21 16:29 Ipratropium Beaver (Ipratropium Beaver Neb Soln 0.02% 2.5 Ml Vial) 0.5 mg INH Q4H PRN PRN Reason: SOB, WHEEZE Stop: 08/31/21 23:14 Levalbuterol HCl (Levalbuterol 1.25mg/0.5ml Neb) 1.25 mg INH Q4H PRN PRN Reason: SOB, WHEEZE Stop: 08/31/21 23:14 Magnesium Hydroxide (Magnesium Hydroxide Susp 30 Ml Udc) 30 ml PO Q12H PRN PRN Reason: Constipation Stop: 08/24/21 18:01 Magnesium Oxide (Magnesium Oxide 400 Mg Tab) 400 mg PO BID [facility] Stop: 08/27/21 20:59 Last Admin: 08/06/21 07:42 Dose: 400 mg Documented by: Melatonin (Melatonin 3 Mg Tab) 3 mg PO HS PRN PRN Reason: Sleep Stop: 08/31/21 23:09 Last Admin: 08/02/21 00:07 Dose: 3 mg Documented by: Metoprolol Tartrate (Metoprolol Tartrate 25 Mg Tab) 12.5 mg PO BID [facility] Stop: 09/04/21 10:59 Last Admin: 08/06/21 07:38 Dose: 12.5 mg Documented by: Miscellaneous (Carbohydrates For Hypoglycemia ) 15 - 30 gm PO UD PRN PRN Reason: Hypoglycemia Protocol Stop: 08/24/21 18:01 Miscellaneous (Icu Electrolyte Replacement Protocol) 1 ea N/A BID@18 [facility]; Protocol Stop: 08/11/21 17:59 Last Admin: 08/06/21 08:44 Dose: 1 ea Documented by: Miscellaneous Information (Pharmacy Glycemic Mgmt Consult) 1 ea N/A UD PRN; Protocol PRN Reason: Consult Stop: 08/24/21 18:01 Ondansetron HCl (Ondansetron Inj 2 Mg/Ml 2 Ml Vial) 4 mg IV Q6H PRN PRN Reason: Nausea Stop: 08/24/21 18:01 Polyethylene Glycol (Polyethylene (Miralax) 17 Gm Pack) 17 gm PO DAILY PRN PRN Reason: Constipation Stop: 03/24/22 18:01 Polyethylene Glycol (Polyethylene (Miralax) 17 Gm Pack) 17 gm PO DAILY ANSELMO Stop: 09/03/21 09:44 Last Admin: 08/06/21 07:39 Dose: 17 gm Documented by: Senna/Docusate Sodium (Docusate Sodium/Senna 50/8.6mg Tab) 1 tab PO QAM ANSELMO Stop: 09/03/21 09:44 Last Admin: 08/06/21 07:38 Dose: 1 tab Documented by:
--- NOTE | 2021-08-06 15:11 | CT Scan Report ---
CT humerus/forearm LT wo/w con CLINICAL HISTORY: eval for ischemia/hematoma . Patient developed a hard and swollen lump over his lef t biceps. COMPARISON STUDY: No previous studies for comparison. CT DOSE: 779.47 mGy.cm TECHNIQUE: Standard CT of the left humerus and forearm is performed without and with 94 mL of Optiray 320 IV contrast. Multiplanar reconstruction is performed. A dose lowering technique was utilized ad timo to the principles of ALARA. FINDINGS: Bones: There is no evidence for an acute fracture or dislocation. There are no lytic or blastic lesio ns. Joints: The joint spaces are maintained. The bones are in anatomic alignment. Soft tissues: Within the biceps muscle, there is a heterogeneously enhancing contained fluid collecti on extending for a length of approximately 13.3 cm. AP diameter measures approximately 5.3 cm and tra nsverse diameter measures approximately 7.0 cm. This is most characteristic of a hematoma. The findin gs are marked on axial series 6 image 166, sagittal series 301 image 40 and coronal series 300 image 43. No other focal fluid collection or enhancing sites are identified. There is mild diffuse subcutaneous edema along the anterior aspect of the upper arm and extending dis tally into the forearm. This is characteristic of mild subcutaneous edema. The presence of mild cellu litis cannot be excluded. IMPRESSION: 1. CT confirms a heterogeneously enhancing, walled off fluid collection within the biceps muscle most characteristic of a hematoma. 2. Subcutaneous edema is seen along the anterior aspect of the upper arm and extending distally into the forearm. The presence of mild cellulitis cannot be excluded. 3. No acute osseous pathology. ACT 112: Negative or not required by law. Electronically signed by: Odin Hooks M.D. 08/06/2021 3:09 PM
[2021-08-06 16:06] LABS: INR 1.2 (0.9-1.1); Partial Thromboplastin Ratio 1.7; Prothrombin Time 12.2 Seconds (9.0-12.0)
[2021-08-06 16:10] LABS: Partial Thromboplastin Time 47.8 Seconds (21.0-31.0)
[2021-08-06] MEDS ORDERED: DEXTROSE 5% IV ONE (16:15)
[2021-08-06] MEDS ORDERED: PROTAMINE SULFATE IV ONE (16:15)
[2021-08-06] MEDS ORDERED: INSULIN HUMAN NPH SC SCH (16:30)
[2021-08-06] MEDS ORDERED: INSULIN PROTOCOL GOAL RANGE ONE (17:19)
[2021-08-06] MEDS ORDERED: STAT IV Infusion **Titration per Protocol STA (17:19)
--- NOTE | 2021-08-06 17:42 | Orthopedic Consultation ---
Date of Service August 06, 2021 Assessment & Plan (1) Hematoma: He has a large hematoma of his left upper arm. His heparin has been discontinued. He does not have any definitive signs of compartment syndrome at this point. There is no direct trauma to the arm, it was merely the pressure from the blood pressure cuff. I talked with the build technician personally. I think that we should hold the heparin until tomorrow morning to give a chance for any potential bleeding to stop. He can then resume the heparin tomorrow. The hematoma should resorb on its own. Will take couple weeks to resorb. However, if his symptoms worsen, such as neurologic deficits in his left forearm and hand or severe pain that out of proportion, we may consider an open evacuation of the hematoma. I will continue to follow him closely. History of Present Illness Reason for Consultation: Hematoma left arm. Requesting Physician: . Attending Physician: Glenn Killian MD Lon is a pleasant 60-year-old male whose Covid positive and has been admitted in the hospital for the past 2 weeks with an acute pulmonary embolism. He has been on heparin. He has been having his blood pressures taken from his left arm. Over the last couple days he began having swelling and pain of his left arm. They switched the blood pressure cuff to the other side. The swelling of his arm is becoming more concerning so an ultrasound was done which showed an embolus within the cephalic vein. He also had a CT scan done of his left arm which showed a large hematoma. His hemoglobin has dropped and his lactic acid has risen. Orthopedics was consulted to evaluate and treat. Allergies Allergy/AdvReac Type Severity Reaction Status Date / Time No Known Allergies Allergy Unverified 07/25/21 14:34 Home Medications Medication Instructions Recorded Confirmed Type allopurinol 300 mg tablet 300 mg PO DAILY 07/25/21 07/25/21 History aspirin 81 mg tablet,delayed 81 mg PO DAILY 07/25/21 07/25/21 History release glyburide 5 mg tablet 5 mg PO BID 07/25/21 07/25/21 History lisinopril 40 mg tablet 40 mg PO DAILY 07/25/21 07/25/21 History metformin 1,000 mg tablet 1,000 mg PO BID 07/25/21 07/25/21 History metoprolol succinate 25 mg 25 mg PO DAILY 07/25/21 07/25/21 History tablet,extended release 24 hr ondansetron 4 mg disintegrating 4 mg TRANSLINGUAL UD PRN 07/25/21 07/25/21 History tablet pioglitazone 45 mg tablet 45 mg PO DAILY 07/25/21 07/25/21 History Past Med/Surg History Medical History CAD (coronary artery disease) Cephalic vein thrombosis, left CKD (chronic kidney disease) stage 3, GFR 30-59 ml/min Diabetes mellitus Gout HLD (hyperlipidemia) HTN (hypertension) Lactic acid acidosis Surgical History History of arthroscopy of left knee History of heart artery stent x3 Family History Mother Cancer pancreatitc Other Coronary heart disease Diabetes Social History Smoking Status: Former smoker packs per day: 1; Years Smoked: 27; Smoking End Date: 2001; Second Hand Exposure: No; Do You Dip or Chew Tobacco: No; Tobacco Cessation Education Requested by Patient: No Hx Alcohol Use: No Hx Substance Use: No Preferred Language: Telugu Communication Ability: Effective Ornamenter Hand Required: No Beliefs That Will Affect Care: None marital status: Current Living Situation: Spouse How many Children do You have: 3 Other Information That Helps Us Care for You: No Feels Safe at Home: Yes Safety Concerns: Feels Safe At This Time Assistive Devices: Oxygen - Continuous Review of Systems All systems reviewed & are unremarkable except as noted in HPI & below. Physical Exam On physical examination of the left arm, he does have pain and tension in the upper arm. There is no blistering of the skin. I am able to squeeze his arm some without much pain. There is no ecchymosis. There are no abrasions, lesions, or lacerations of the skin. He does have some range of motion of his elbow but it is limited due to the pressure of his arm. He has full range of motion of his hand and wrist. He has no neurologic deficits distally. Constitutional WD/WN, vitals as above Eyes PERRL, conjunctivae normal, anicteric sclerae ENMT external ear and nose normal, oropharynx normal Neck trachea midline, no thyromegaly Respiratory normal respiratory effort Cardiovascular RRR, no murmur, no edema Gastrointestinal (Abdomen) normal bowel sounds, soft, nontender, no hepatosplenomegaly Psychiatric A+Ox3, euthymic affect Results & Data Results & Data Laboratory Results . Diagnostic Findings CT scan of the left upper arm shows a large hematoma collection in the area of the biceps. PG Care Time/CCT Total # of Minutes Spent Total Time Spent with Patient: Total time spent is greater than 50% in coordination of care (as documented) at patient's floor/unit and/or counseling patient: Coding Level of Care Code 68164 Inpt Consult Level 4 Diagnoses Hematoma T14.8XXA
[2021-08-06] MEDS ORDERED: NovoLIN-R BOLUS FROM BAG IV ONE (17:45)
[2021-08-06] MEDS: INSULIN REGULAR 250 UNITS in SODIUM CHLORIDE 0.9% 247.5 ML IV SCH (18:02)
--- NOTE | 2021-08-06 18:46 | Ultrasound Report ---
US venous doppler LE BI CLINICAL HISTORY: Bilateral lower extremity pain and swelling COMPARISON: None available at the time of this dictation. TECHNIQUE: Bilateral lower extremity real-time compression venous ultrasound with Color Doppler imagi ng. Utilizing real-time ultrasonic imaging multiple real time high-resolution ultrasonic images with comp ression and noncompression maneuvers of the deep venous system in addition to color doppler imaging w ere performed from the common femoral vein through the proximal calf veins. FINDINGS: Currently there is normal compressibility of the deep venous system from the common femoral vein thro ugh the superficial femoral and popliteal veins. However, there is evidence for occlusive thrombus seen within the posterior tibial vein and peroneal vein on the left and within the posterior tibial vein and peroneal vein on the right. Impression: 1. No evidence of deep venous thrombus within the vessels of the thigh. 2. However, occlusive thrombus is present within the calf veins bilaterally. ACT 112: Negative or not required by law. Electronically signed by: Odin Hooks M.D. 08/06/2021 6:45 PM
[2021-08-06 19:19] LABS: Hematocrit (blood only) 25.4 % (42-52); Hemoglobin 9.1 g/dL (14.0-18.0); Mean Corpuscular Hemoglobin 30.8 pg (25-34); Mean Corpuscular Hgb Conc 35.8 g/dL (32-36); Mean Corpuscular Volume 86.1 fL (80-100); Mean Platelet Volume 9.2 fL (7.4-10.4); Nucleated RBC # (auto) 0.05 K/uL (0-0); Nucleated RBC % (auto) 0.2 %; Platelet Count 351 K/uL (130-400); RDW Coefficient of Variation 13.8 % (11.5-14.5); Red Blood Count 2.95 M/uL (4.7-6.1); White Blood Count 20.96 K/uL (4.8-10.8)
[2021-08-06 21:11] LABS: INR 1.1 (0.9-1.1); Partial Thromboplastin Time 26.2 Seconds (21.0-31.0); Prothrombin Time 11.7 Seconds (9.0-12.0)
[2021-08-06] MEDS ORDERED: Heparin IV Adult Wt-Based Low-Dose *NO* Bolus Protocol IV SCH (21:37)
--- NOTE | 2021-08-06 21:38 | Communication Note ---
Date of Service: August 06, 2021 Events and findings throughout the day discussed with attending and sign out. Orders for repeat H&H pending at this time. This patient is certainly complex in that he is coagulopathic 2/2 Covid-19 diagnosis and has subsequently been found to have bilateral PEs. He had also developed significant swelling to the LUE and was found to have superficial thrombus of the cephalic vein. Additionally, today he was found to have occlusive thrombus to the LEFT posterior tibial vein and RIGHT peroneal veins. He has been appropriately anticoagulated on Heparin gtt for the last ~72 hours. Unfortunately, the swelling to the LUE was felt to be worse, and CT of the extremity was obtained which demonstrated large (13.3 cm) hematoma to the biceps muscle. Ortho was consulted and swelling was not felt to be c/w compartment syndrome at this time. As the patient did have a drop in his hemoglobin while on heparin gtt felt to be related to hematoma, patient had been appropriately treated with protamine. Patient was noted to have no significant change in H&H. Orders placed for repeat PTT. Per discussion with attending, I did have a conversation with patient at bedside regarding reinstituting Heparin gtt. We discussed risks and benefits. Patient was adamant that he would want to treat the clotting and would want to be restarted on Heparin. Orders were placed for Heparin gtt low dose NO bolus. We will trend his H&H and continue to reassess neurovascular status of the LUE. Patient has previously been type/screened. Blood consent on chart if needed. Patient actively participated in decision making and we will proceed with treatment course as outlined above. I have personally spent 35 minutes of critical care time in the direct management of this patient. This is a life/limb threatening event. This includes time spent evaluating patient, direct bedside care, chart review, placing orders, interpretation of diagnostic studies, discussion with consultants, patient, and family members, as well as other required patient management activities. This time is exclusive of all separately billable procedures, and teaching time and separate from and in addition to any other critical care service time. Coding Level of Care Code Critical Care mary brennan'l 30 min Time Spent (min) 35
[2021-08-06] MEDS: ACETAMINOPHEN 325 MG TAB PO PRN (22:34)
[2021-08-07 04:36] LABS: Basophils # (auto) 0.02 K/uL (0-0.2); Basophils % (auto) 0.1 %; Hemoglobin 8.5 g/dL (14.0-18.0); Immature Granulocytes # (auto) 0.65 K/uL (0.00-0.02); Immature Granulocytes % (auto) 3.6 %; Lymphocytes # (auto) 0.39 K/uL (1.2-3.4); Lymphocytes % (auto) 2.2 %; Mean Corpuscular Hemoglobin 30.6 pg (25-34); Mean Corpuscular Hgb Conc 35.4 g/dL (32-36); Mean Corpuscular Volume 86.3 fL (80-100); Mean Platelet Volume 9.2 fL (7.4-10.4); Monocytes # (auto) 0.36 K/uL (0.11-0.59); Neutrophils # (auto) 16.47 K/uL (1.4-6.5); Neutrophils % (auto) 92.1 %; Nucleated RBC # (auto) 0.12 K/uL (0-0); Nucleated RBC % (auto) 0.7 %; Platelet Count 311 K/uL (130-400); RDW Coefficient of Variation 13.8 % (11.5-14.5); RDW Standard Deviation 43.1 fL (36.4-46.3); Red Blood Count 2.78 M/uL (4.7-6.1); White Blood Count 17.89 K/uL (4.8-10.8)
[2021-08-07 04:49] LABS: Partial Thromboplastin Ratio 1.5; Partial Thromboplastin Time 40.6 Seconds (21.0-31.0)
[2021-08-07 04:56] LABS: BUN Creatinine Ratio 40.6 (10-20); Calcium 8.2 mg/dl (8.5-10.1); Creatinine Clr Calc Pharmacy 58.6 ml/min; Est GFR (African American) 67.8 ml/min; Est GFR (Non-African American) 58.5 ml/min; Magnesium 2.4 mg/dl (1.7-2.4); Phosphorus 3.9 mg/dl (2.5-4.9); Potassium 4.1 mmol/L (3.5-5.1)
[2021-08-07] MEDS: ICU ELECTROLYTE REPLACEMENT PROTOCOL SCH ×2 (06:15→18:25)
[2021-08-07] MEDS: allopurinoL 300 MG TAB PO SCH (07:42)
[2021-08-07] MEDS: METOPROLOL TARTRATE 25 MG TAB PO SCH ×2 (07:43→19:24)
[2021-08-07] MEDS: ASPIRIN 81 MG ECTAB PO SCH (07:43)
[2021-08-07] MEDS: DOCUSATE SODIUM/SENNA 50/8.6MG TAB PO SCH (07:43)
--- NOTE | 2021-08-07 07:43 | XRay Report ---
XR chest 1V portable HISTORY: Hypoxia. Follow-up. COMPARISON: Chest 08/05/2021. FINDINGS: A right PICC terminates at the expected location of the SVC. This remains unchanged. There are low lung volumes. No pneumothorax. No pleural effusions. The heart remains mildly enlarged. Stabl e multifocal hazy airspace opacities. IMPRESSION: 1. No change in the multifocal airspace opacities. 2. The right PICC terminates at the SVC. ACT 112: Negative or not required by law. Electronically signed by: David Vick M.D. 08/07/2021 7:42 AM
[2021-08-07] MEDS: POLYETHYLENE (MIRALAX) 17 GM PACK PO SCH (07:44)
[2021-08-07] MEDS: MAGNESIUM OXIDE 400 MG TAB PO SCH ×2 (07:51→19:24)
[2021-08-07] MEDS: dexAMETHasone 20 MG in DEXTROSE 5% 25 ML IV SCH (07:54)
[2021-08-07] MEDS: INSULIN ASPART PER UNIT SC SCH ×4 (08:07→19:23)
--- NOTE | 2021-08-07 08:33 | Critical Care Progress Note ---
Date of Service August 07, 2021 Assessment & Plan (1) Acute hypoxemic respiratory failure due to COVID-19: (2) CAD (coronary artery disease): (3) HLD (hyperlipidemia): (4) Diabetes mellitus: (5) Acute pulmonary embolism: (6) Sinus tachycardia: (7) Cephalic vein thrombosis, left: (8) Lactic acid acidosis: Plan: Impression: 60-year-old male with a past medical history of CAD, hypertension, obesity and hyperlipidemia presenting with COVID-19 viral pneumonia. Case was complicated by identification of PE and spontaneous left biceps hematoma formation while on anticoagulation. 24-hour events: Patient developed swelling of the left arm. CT scan showed hematoma in the biceps. Anticoagulation was held and reversed with protamine. Orthopedics consultation was obtained. No surgical intervention was recommend ed. They recommended restarting the heparin without bolus which has been initiated. He remains neurovascularly intact. His oxygen requirements about the same. He has had difficulty being compliant with BiPAP overnight due to leak issues. Recommendations Neurologic: No significant issues. Pain management as needed. Pulmonary: Patient with COVID-19 viral pneumonia. Day #5 of high-dose Decadron (20 mg) per the DEXA-ARDS protocol, can decrease to 10 mg daily for 5 days after today's dose. Continues to require high amounts of oxygen support, but stable. Continue to alternate between BiPAP and high flow nasal cannula. He appears stable for now with no indication for escalation of care or intubation. We will see if removing his facial hair resulted in improved seal with the BiPAP. Indications for intubation would be failure of noninvasive therapies to maintain appropriate oxygen saturation, increased work of breathing, etc. Cardiovascular: Right lower lobe pulmonary embolism as noted above. Continue 12.5 mg metoprolol p.o. twice daily. Echo 08/06 with evidence of a hyperdynamic LV. EF greater than 70%. No RV failure noted. Continue aspirin given his history of coronary artery disease. Recheck lactate. Check a BNP, procalcitonin, CRP. Diuresis as tolerated Gastrointestinal: Continue diet. Continue pantoprazole given the use of heparin and high-dose steroids. Renal: Hyponatremia, unclear etiology but improved today up to 131. We will continue to follow at this point time. If continues to decline, additional clinical evaluation might be warranted. ICU electrolyte replacement protocol. Infectious disease: CRP was elevated. Cultures negative to date. No fevers. Procalcitonin was elevated. Patient is day #3 Rocephin empirically for pneumonia. Repeat procalcitonin today. White count is decreasing. Hematologic: PE and spontaneous left bicep hematoma formation. Monitor CBC daily. Continue PTT monitoring while on heparin infusion given his ability to tolerate anticoagulation for now, will hold off on IVC filter. In addition the patient has basilic upper extremity veins which would not be treated by IVC mechanical interruption. Continue neurovascular monitoring of the left upper extremity. Try to keep elevated as much as possible. Endocrine: ICU pharmacy team assisting with management of hyperglycemia while on high-dose steroids. TSH within normal limits. VTE prophylaxis: Heparin infusion CODE STATUS: Full code Family at bedside: None available at bedside Disposition: Remain in ICU. Right-sided PICC line 3/5 Dominguez catheter Discussed with bedside RN I have personally spent 49 minutes of critical care time in the direct management of this patient. This is a life/limb threatening event. This includes time spent evaluating patient, direct bedside care, chart review, placing orders, interpretation of diagnostic studies, discussion with consultants, patient, and family members, as well as other required patient management activities. This time is exclusive of all separately billable procedures, and teaching time and separate from and in addition to any other critical care service time. Thank you for allowing us to participate in the care of this patient. Admission and Anticipated Discharge Date Admission Date: July 25, 2021 Subjective Patient seen and examined. EMR reviewed. Discussed with bedside critical care nurse and off going hr clerk. Patient feels stable. He is trying to eat breakfast this morning. He is feels his breathing is about the same. He is having difficulty tolerating BiPAP due to inability to maintain an appropriate seal. Unclear if this is related to his facial hair. He is not coughing or expectorating phlegm. He continues to complain of some pain in the left arm. He is neurologically intact. Review of Systems Review of Systems: All systems reviewed & are unremarkable except as noted in Subjective Physical Exam Constitutional: WD/WN, vitals as above Neck: trachea midline, no thyromegaly Respiratory: normal respiratory effort and + tachypneic Auscultation: + crackles; no wheezes Cardiovascular: RRR, no murmur, no edema Gastrointestinal (Abdomen): normal bowel sounds, soft, nontender, no hepatosplenomegaly Musculoskeletal: Left hand, forearm, and upper extremity swollen. Slightly tender to palpation. Able to move fingers. Appears neurovascularly intact. Skin: no rashes, warm and dry Neurologic: Nonfocal exam Lymphatic: no cervical lymphadenopathy Results & Data Results & Data ([facility]) Vital Signs (Past 12 Hours) Vital Signs Temp Pulse Pulse Pulse Resp BP Pulse Ox 08/07/21 07:31 99 H 22 93 08/07/21 06:00 91 H 18 115/68 98 08/07/21 05:00 94 H 19 118/65 98 08/07/21 04:00 36.9 C 94 H 19 108/69 96 08/07/21 03:00 99 H 19 136/71 92 08/07/21 02:20 110 H 18 98 08/07/21 02:00 101 H 19 117/67 94 08/07/21 01:00 100 H 22 121/68 96 08/07/21 00:00 97 H 19 104/68 95 08/06/21 23:50 102 H 20 94 08/06/21 23:00 36.9 C 104 H 20 121/58 L 95 08/06/21 22:40 101 H 22 94 08/06/21 22:00 101 H 24 114/67 98 08/06/21 21:00 102 H 21 116/69 97 Pulse Ox 08/07/21 07:31 08/07/21 06:00 08/07/21 05:00 08/07/21 04:00 08/07/21 03:00 08/07/21 02:20 08/07/21 02:00 08/07/21 01:00 08/07/21 00:00 08/06/21 23:50 08/06/21 23:00 08/06/21 22:40 08/06/21 22:00 91 08/06/21 21:00 Critical Care Results & Data Vital Signs (Past 12 Hours) Vital Signs Temp Pulse Pulse Pulse Resp BP Pulse Ox 08/07/21 07:31 99 H 22 93 08/07/21 06:00 91 H 18 115/68 98 08/07/21 05:00 94 H 19 118/65 98 08/07/21 04:00 36.9 C 94 H 19 108/69 96 08/07/21 03:00 99 H 19 136/71 92 08/07/21 02:20 110 H 18 98 08/07/21 02:00 101 H 19 117/67 94 08/07/21 01:00 100 H 22 121/68 96 08/07/21 00:00 97 H 19 104/68 95 08/06/21 23:50 102 H 20 94 08/06/21 23:00 36.9 C 104 H 20 121/58 L 95 08/06/21 22:40 101 H 22 94 08/06/21 22:00 101 H 24 114/67 98 08/06/21 21:00 102 H 21 116/69 97 Pulse Ox 08/07/21 07:31 08/07/21 06:00 08/07/21 05:00 08/07/21 04:00 08/07/21 03:00 08/07/21 02:20 08/07/21 02:00 08/07/21 01:00 08/07/21 00:00 08/06/21 23:50 08/06/21 23:00 08/06/21 22:40 08/06/21 22:00 91 08/06/21 21:00 Lab & Micro Results (Past 24 Hours) RBC 2.78 M/uL (4.7-6.1) L 08/07/21 WBC 17.89 K/uL (4.8-10.8) H 08/07/21 Hgb 8.5 g/dL (14.0-18.0) L 08/07/21 Hct 24.0 % (42-52) L 08/07/21 MCV 86.3 fL (80-100) 08/07/21 MCH 30.6 pg (25-34) 08/07/21 MCHC 35.4 g/dL (32-36) 08/07/21 RDW Standard Deviation 43.1 fL (36.4-46.3) 08/07/21 RDW Coefficient of Variation 13.8 % (11.5-14.5) 08/07/21 Plt Count 311 K/uL (130-400) 08/07/21 MPV 9.2 fL (7.4-10.4) 08/07/21 Nucleated Red Blood Cells % (auto) 0.7 % 08/07/21 Nucleated RBC Absolute Count (auto) 0.12 K/uL (0-0) H 08/07/21 Neutrophils (%) (Auto) 92.1 % 08/07/21 Lymphocytes (%) (Auto) 2.2 % 08/07/21 Monocytes # (Auto) 0.36 K/uL (0.11-0.59) 08/07/21 Eosinophils # (Auto) 0.00 K/uL (0-0.5) 08/07/21 Immature Granulocyte % (Auto) 3.6 % 08/07/21 Neutrophils # (Auto) 16.47 K/uL (1.4-6.5) H 08/07/21 Lymphocytes # (Auto) 0.39 K/uL (1.2-3.4) L 08/07/21 Monocytes # (Auto) 0.36 K/uL (0.11-0.59) 08/07/21 Eosinophils # (Auto) 0.00 K/uL (0-0.5) 08/07/21 Basophils # (Auto) 0.02 K/uL (0-0.2) 08/07/21 Immature Granulocyte # (Auto) 0.65 K/uL (0.00-0.02) H 08/07/21 Na 131 mmol/L (136-145) L 08/07/21 K 4.1 mmol/L (3.5-5.1) 08/07/21 Cl 98 mmol/L (98-107) 08/07/21 CO2 25 mmol/L (21-32) 08/07/21 Anion Gap 8 (3-11) 08/07/21 BUN 54 mg/dl (6-23) H 08/07/21 Creatinine 1.33 mg/dl (0.6-1.4) 08/07/21 Estimated GFR ( Amer) 67.8 ml/min 08/07/21 Estimated GFR (Non-Af Amer) 58.5 ml/min 08/07/21 BUN/Creatinine Ratio 40.6 (10-20) H 08/07/21 Glu 133 mg/dl (70-99(Fasting)) H 08/07/21 Ca 8.2 mg/dl (8.5-10.1) L 08/07/21 Phosphorus Level 3.9 mg/dl (2.5-4.9) 08/07/21 Mg 2.4 mg/dl (1.7-2.4) 08/07/21 04:20 08/07/21 Calcium Level 8.2 mg/dl (8.5-10.1) L 08/07/21 04:20 08/07/21 Prothromb Time International Ratio 1.1 (0.9-1.1) 08/06/21 20:54 08/06/21 Diagnostic Findings (Past 24 Hours) Humerus CT 08/06/21 12:57 CT humerus/forearm LT wo/w con CLINICAL HISTORY: eval for ischemia/hematoma . Patient developed a hard and swollen lump over his left biceps. COMPARISON STUDY: No previous studies for comparison. CT DOSE: 779.47 mGy.cm TECHNIQUE: Standard CT of the left humerus and forearm is performed without and with 94 mL of Optiray 320 IV contrast. Multiplanar reconstruction is performed. A dose lowering technique was utilized adhering to the principles of ALARA. FINDINGS: Bones: There is no evidence for an acute fracture or dislocation. There are no lytic or blastic lesions. Joints: The joint spaces are maintained. The bones are in anatomic alignment. Soft tissues: Within the biceps muscle, there is a heterogeneously enhancing c ontained fluid collection extending for a length of approximately 13.3 cm. AP diameter measures approximately 5.3 cm and transverse diameter measures approximately 7.0 cm. This is most characteristic of a hematoma. The findings are marked on axial series 6 image 166, sagittal series 301 image 40 and coronal series 300 image 43. No other focal fluid collection or enhancing sites are identified. There is mild diffuse subcutaneous edema along the anterior aspect of the upper arm and extending distally into the forearm. This is characteristic of mild subcutaneous edema. The presence of mild cellulitis cannot be excluded. IMPRESSION: 1. CT confirms a heterogeneously enhancing, walled off fluid collection within the biceps muscle most characteristic of a hematoma. 2. Subcutaneous edema is seen along the anterior aspect of the upper arm and extending distally into the forearm. The presence of mild cellulitis cannot be excluded. 3. No acute osseous pathology. ACT 112: Negative or not required by law. Electronically signed by: Odin Hooks M.D. 08/06/2021 3:[address] 08/06/21 13:00 CT humerus/forearm LT wo/w con CLINICAL HISTORY: eval for ischemia/hematoma . Patient developed a hard and swollen lump over his left biceps. COMPARISON STUDY: No previous studies for comparison. CT DOSE: 779.47 mGy.cm TECHNIQUE: Standard CT of the left humerus and forearm is performed without and with 94 mL of Optiray 320 IV contrast. Multiplanar reconstruction is performed. A dose lowering technique was utilized adhering to the principles of ALARA. FINDINGS: Bones: There is no evidence for an acute fracture or dislocation. There are no lytic or blastic lesions. Joints: The joint spaces are maintained. The bones are in anatomic alignment. Soft tissues: Within the biceps muscle, there is a heterogeneously enhancing contained fluid collection extending for a length of approximately 13.3 cm. AP diameter measures approximately 5.3 cm and transverse diameter measures approximately 7.0 cm. This is most characteristic of a hematoma. The findings are marked on axial series 6 image 166, sagittal series 301 image 40 and coronal series 300 image 43. No other focal fluid collection or enhancing sites are identified. There is mild diffuse subcutaneous edema along the anterior aspect of the upper arm and extending distally into the forearm. This is characteristic of mild subcutaneous edema. The presence of mild cellulitis cannot be excluded. IMPRESSION: 1. CT confirms a heterogeneously enhancing, walled off fluid collection within the biceps muscle most characteristic of a hematoma. 2. Subcutaneous edema is seen along the anterior aspect of the upper arm and extending distally into the forearm. The presence of mild cellulitis cannot be excluded. 3. No acute osseous pathology. ACT 112: Negative or not required by law. Electronically signed by: Odin Hooks M.D. 08/06/2021 3:09 PM Venous Doppler Study 08/06/21 15:36 US venous doppler LE CLINICAL HISTORY: Bilateral lower extremity pain and swelling COMPARISON: None available at the time of this dictation. TECHNIQUE: Bilateral lower extremity real-time compression venous ultrasound with Color Doppler imaging. Utilizing real-time ultrasonic imaging multiple real time high-resolution ultrasonic images with compression and noncompression maneuvers of the deep venous system in addition to color doppler imaging were performed from the common femoral vein through the proximal calf veins. FINDINGS: Currently there is normal compressibility of the deep venous system from the common femoral vein through the superficial femoral and popliteal veins. However, there is evidence for occlusive thrombus seen within the posterior tibial vein and peroneal vein on the left and within the posterior tibial vein and peroneal vein on the right. Impression: 1. No evidence of deep venous thrombus within the vessels of the thigh. 2. However, occlusive thrombus is present within the calf veins bilaterally. ACT 112: Negative or not required by law. Electronically signed by: Odin Hooks M.D. 08/06/2021 6:45 PM Chest X-Ray 08/07/21 07:00 XR chest 1V portable HISTORY: Hypoxia. Follow-up. COMPARISON: Chest 08/05/2021. FINDINGS: A right PICC terminates at the expected location of the SVC. This remains unchanged. There are low lung volumes. No pneumothorax. No pleural effusions. The heart remains mildly enlarged. Stable multifocal hazy airspace opacities. IMPRESSION: 1. No change in the multifocal airspace opacities. 2. The right PICC terminates at the SVC. ACT 112: Negative or not required by law. Electronically signed by: David Vick M.D. 08/07/2021 7:42 AM I & O Totals 24 Hours 08/06/21 08/07/21 08/08/21 06:59 06:59 06:59 Intake Total 1501.284 / 8757.514 8891.900 / 2223.900 30 Output Total 5 / 2054 1125 / 1125 Balance -553.716 / -292.889 1633.900 / 1098.900 Cumulative 07/25/21 11:19 thru 08/07/21 08:21 Intake Total 61344.268 Output Total 65554 Balance 4896.268 RT Ventilator Mngmt (Last Documented) Ventilator Ordered Settings Respiratory Rate 22 08/07/21 07:31 Fraction of Inspired Oxygen 75 08/07/21 07:31 Ventilator - PT Measurements Respiratory Rate 22 Coding Level of Care Code Critical Care 1st 30-74 mins Diagnoses Acute hypoxemic respiratory failure due to COVID-19 U07.1; J96.01 CAD (coronary artery disease) I25.10 HLD (hyperlipidemia) E78.5 Diabetes mellitus E11.9 Acute pulmonary embolism I26.99 Sinus tachycardia R00.0 Cephalic vein thrombosis, left I82.612 Lactic acid acidosis E87.2 Time Spent (min) 49
[2021-08-07] MEDS: FUROSEMIDE INJ 20 MG/2 ML VIAL IV SCH (09:22)
--- NOTE | 2021-08-07 11:21 | Pharmacy Report ---
Pharmacy Glycemic Short Note 2 - Date of Service August 07, 2021 - Glycemic Short BSG Results (Last 24 hours): 08/06/21 08/06/21 08/06/21 11:56 12:31 16:37 Glucose 267 H POC Glucose 282 H 310 H* 08/06/21 08/06/21 08/06/21 18:04 18:48 20:02 Glucose POC Glucose 290 H 289 H 283 H 08/06/21 08/06/21 08/06/21 20:54 22:11 22:52 Glucose POC Glucose 247 H 219 H 209 H 08/07/21 08/07/21 08/07/21 00:08 01:05 03:52 Glucose POC Glucose 186 H 177 H 153 H 08/07/21 08/07/21 08/07/21 04:20 05:49 07:49 Glucose 133 H POC Glucose 146 H 158 H OUTPATIENT ANTIDIABETIC REGIMEN: * Glyburide 5mg PO BID * Metformin 1000mg BID * Actos 45mg PO Daily * A1c 6.3% 07/26/21 ASSESSMENT: 08/07 * Insulin drip started yesterday evening for BSGs climbing into 300s despite SQ insulin regimen * BSGs have been well controlled with IV insulin drip. BSGs within goal with a relatively stable infusion rate of 3.8units/hr * IV steroids continued, today is last day of dexamethasone 20mg IV. Will step down to 10mg IV daily x 5 days with plan to taper slowly thereafter. * Heparin gtt resumed last evening, mixed in D5W - but running at relatively low infusion rate w/ near therapeutic PTT * Currently on HiFlow but tolerating ~50% of meals per RN. 08/06 * Patient's BSGs yesterday were [phone] mg/dL and fasting this morning was 248 mg/dL. * Information was this prior admission showed that when on dexamethasone 6 mg IV daily, NPH 50 units was too aggressive. Patient had hypoglycemia in the morning. * Now, patient is on dexamethasone 20 mg IV daily and fastings have been trending upwards. Will add 15 units of NPH for dinnertime to lower fasting BSGs. Patient will be transitioning to 10 mg of dexamethasone in 2 days so this dose will need to be adjusted accordingly. * Tighten Novolog to provide more daily coverage. 08/05 * Patient's BSGs yesterday were [phone] mg/dL and overnight were 86-100 mg/dL. Fasting this morning was 160 mg/dL. * Continued NPH 30 units. Novolog tightened at lunch yesterday but BSGs continued to trend upwards. Tighten CR. * Lunch was 436 mg/dL but patient ate cheerios uncovered. Loosen CF to prevent overcorrection. 3/4 * BSGs above goal the last 24hr ([phone]). Fasting 168mg/dL today. * Dexamethasone increased from 10mg daily to 20mg daily last evening. Continues with type 2 diet and heparin drip (in D5W). * NPH increased this AM ~ 20% to 30 units daily. Basal will need re-evaluated tomorrow given modification in steroid dose and steroid induced hyperglycemia. * Prandial Novolog tightened at lunch today given rising BSG this afternoon and larger carb intake the last 2 days. Overnight checks for tonight. PLAN FOR INPATIENT GLYCEMIC CONTROL: * Hold outpatient oral diabetes medications * Continue IV insulin drip, goal range 110-180mg/dL * Basal insulin * Hold * Bolus insulin * Novolog SQ to cover carbs in meals: * Nutritional / Prandial insulin per carb ratio of 1 unit per 2 grams CHO consumed
[2021-08-07] MEDS: PANTOprazole 40 MG in SYRINGE 0 ML IV SCH (11:24)
[2021-08-07 12:34] LABS: Partial Thromboplastin Ratio 1.4; Partial Thromboplastin Time 39.4 Seconds (21.0-31.0)
[2021-08-07] MEDS: cefTRIAXone SODIUM 1,000 MG in DEXTROSE 5% 50 ML IV SCH (13:52)
--- NOTE | 2021-08-07 15:52 | Orthopedic Progress Note ---
Date of Service August 07, 2021 Assessment & Plan (1) Hematoma: This hematoma will slowly resolve on its own with time. I advised the nurses to use blood pressure cuff on the contralateral arm. He has already resumed his anticoagulation. Right now this is nonsurgical. If his symptoms worsen please feel free to contact me personally cell phone at [phone] Fabiola Forrest was seen and examined at bedside today. Overall he is a little bit improved. He still has some fullness and swelling of his left upper arm but it is a little bit more supple today. He has no signs of compartment syndrome. His pain is well controlled. Review of Systems All systems reviewed & are unremarkable except as noted in HPI & below. Physical Exam On physical examination of his left arm, he has some tension in his upper arm. I am able to squeeze it with minimal pain. He has minimal range of motion of his elbow mostly secondary to pain. He is a little bit more swelling down his forearm today but it feels soft. He has full motion of his hand and wrist. Constitutional WD/WN, vitals as above Eyes PERRL, conjunctivae normal, anicteric sclerae ENMT external ear and nose normal, oropharynx normal Neck trachea midline, no thyromegaly Respiratory normal respiratory effort Cardiovascular RRR, no murmur, no edema Gastrointestinal (Abdomen) normal bowel sounds, soft, nontender, no hepatosplenomegaly Psychiatric A+Ox3, euthymic affect Results & Data Results & Data Laboratory Results . Diagnostic Findings . PG Care Time/CCT Total # of Minutes Spent Total Time Spent with Patient: Total time spent is greater than 50% in coordination of care (as documented) at patient's floor/unit and/or counseling patient: Coding Level of Care Code 31189 Subseq Hosp Care Lvl 2 Diagnoses Hematoma T14.8XXA
--- NOTE | 2021-08-07 16:21 | Hospitalist Progress Note ---
Date of Service August 07, 2021 Assessment & Plan (1) Hematoma: (2) Acute pulmonary embolism: (3) DVT of lower extremity, bilateral: (4) Acute respiratory failure with hypoxia: (5) 2019 novel coronavirus-infected pneumonia (NCIP): (6) Sinus tachycardia: (7) Hyponatremia: (8) Diabetes mellitus: (9) CAD (coronary artery disease): Plan: (10) HTN (hypertension): (11) DVT prophylaxis: Plan: 60 year old male who initially presented with COVID 19 PNA with hypoxic respiratory failure on high flow/BIPAP, now complicated by acute bilateral PE, bilateral DVT further complicated by spontaneous LUE hematoma while on heparin drip for PE. Acute LUE hematoma- CT LUE shows biceps hematoma 13.3 x 5.3x 7 cm. Distal NV status intact, no evidence of compartment syndrome. Seen by orthopedics- non alcantar rgical management as of now. Heparin drip has been resumed per mechanical systems design engineer. Trend H&H, monitor neurovascular status. Acute pulmonary embolism (RLL segmental/subsegmental PE)- on CTA chest 08/03. Heparin drip has been resumed DVT bilateral distal lower extremity- US 08/06 shows occlusive thrombus within bilateral calf veins but no proximal thrombus. Anticoagulation as above Acute respiratory failure with hypoxia due to COVID 19 PNA and acute PE- Transferred to ICU on 08/03. Currently On high flow alternating with BIPAP, wean down as tolerated. Criminal Justice Professor managing. Might need intubation if worsens. COVID 19 PNA- S/p remdesevir. Was on dexa 6 mg daily, now increased to 20 mg iv daily on 08/03. CT chest 08/03 showed interval progression of near confluent GGO, Ferritin significantly elevated, CRP coming down, procal mildly elevated. Repeat CXR with stable multifocal opacities. Supportive management. Incentive spirometer. Started on ceftriaxone 08/05. Leucocytosis, procal elevated, had fever which is now resolved. DM-2 with hyperglycemia, aggravated by steroids- Glycemic pharmacist managing, on insulin. Home actos and glyburide on hold. Sinus tachycardia- likely from PNA and PE. On metoprolol. Asymptomatic NATHANIEL- NATHANIEL resolved. Cr back to baseline of 1 Hyponatremia- improved to 131 HTN- stable, on lopressor CAD- h/o stents. No chest pain. Continue ASA, metoprolol. DVT prophylaxis- heparin drip GI prophylaxis- Protonix Dispo- Remain in ICU Admission and Anticipated Discharge Date Admission Date: July 25, 2021 Subjective He feels better today. Says his breathing seems improved. His left upper extremity feels less tight, still with some pain, no numbness, weakness, tingling. No fever, chills, chest pain. No BM for 2 days now. Physical Exam Physical Exam: General: Lying in bed, on high flow oxygen, not in acute distress HEENT: EOMI, JULIANA, MMM Chest: Decreased breath sounds anteriorly CVS: Tachycardic, normal heart sounds, no murmur Abdomen: Soft, non tender, not distended, normal bowel sounds Neuro: Awake, alert, oriented, conversing, non focal Extremities: No cyanosis, clubbing or edema LUE: Left upper extremity swollen compared to right- less tense than yesterday, distal neurovascular status intact On brewster with luke urine Results & Data Results & Data ([facility]) Vital Signs (Past 12 Hours) Vital Signs Temp Pulse Pulse Resp BP Pulse Ox Pulse Ox 08/07/21 15:00 74 22 94 08/07/21 13:00 95 H 21 114/54 L 96 08/07/21 12:00 36.9 C 107 H 24 08/07/21 11:00 91 H 23 116/72 08/07/21 10:02 82 20 89 L 08/07/21 10:00 87 18 106/64 98 08/07/21 09:00 83 20 118/59 L 97 08/07/21 08:00 37.1 C 97 H 20 124/61 94 97 08/07/21 07:48 103 H 26 H 131/66 89 L 08/07/21 07:31 99 H 22 93 08/07/21 07:00 97 H 21 128/73 93 08/07/21 06:00 91 H 18 115/68 98 08/07/21 05:00 94 H 19 118/65 98 Laboratory Results Short CBC 08/06/21 08/07/21 Range/Units 19:09 04:20 WBC 20.96 H 17.89 H (4.8-10.8) K/uL Hgb 9.1 L 8.5 L (14.0-18.0) g/dL Hct 25.4 L 24.0 L (42-52) % Plt Count 351 311 (130-400) K/uL BMP 08/07/21 04:20 Sodium 131 L Potassium 4.1 Chloride 98 Carbon Dioxide 25 BUN 54 H Creatinine 1.33 Glucose 133 H Calcium 8.2 L Diagnostic Findings Chest X-Ray 08/07/21 07:00 XR chest 1V portable HISTORY: Hypoxia. Follow-up. COMPARISON: Chest 08/05/2021. FINDINGS: A right PICC terminates at the expected location of the SVC. This remains unchanged. There are low lung volumes. No pneumothorax. No pleural effusions. The heart remains mildly enlarged. Stable multifocal hazy airspace opacities. IMPRESSION: 1. No change in the multifocal airspace opacities. 2. The right PICC terminates at the SVC. ACT 112: Negative or not required by law. Electronically signed by: David Vick M.D. 08/07/2021 7:42 AM Medications Administered Current Inpatient Medications Acetaminophen (Acetaminophen 325 Mg Tab) 650 mg PO Q4H PRN PRN Reason: Pain or Fever Stop: 08/24/21 18:01 Last Admin: 08/06/21 22:34 Dose: 650 mg Documented by: Al Hydrox/Mg Hydrox/Simethicone (Aluminum/Magnesium Susp 30 Ml Udc) 15 ml PO Q4H PRN PRN Reason: Dyspepsia Stop: 08/24/21 18:01 Allopurinol (Allopurinol 300 Mg Tab) 300 mg PO QAM ANSELMO Stop: 08/28/21 08:59 Last Admin: 08/07/21 07:42 Dose: 300 mg Documented by: Aspirin (Aspirin 81 Mg Ectab) 81 mg PO DAILY ANSELMO Stop: 08/25/21 08:59 Last Admin: 08/07/21 07:43 Dose: 81 mg Documented by: Benzonatate (Benzonatate 100 Mg Capsule) 100 mg PO TID PRN PRN Reason: cough Stop: 08/24/21 18:01 Dextrose (Dextrose 50% 50 Ml Syringe) 25 - 50 ml IV UD PRN; Protocol PRN Reason: Hypoglycemia Protocol Stop: 08/24/21 18:01 Last Admin: 08/01/21 04:51 Dose: 25 ml Documented by: Furosemide (Furosemide Inj 20 Mg/2 Ml Vial) 20 mg IV DAILY ANSELOM Stop: 09/06/21 09:14 Last Admin: 08/07/21 09:22 Dose: 20 mg Documented by: Glucagon (Glucagon For Inj 1 Mg Vial) 1 mg SQ UD PRN; Protocol PRN Reason: Hypoglycemia Protocol Stop: 08/24/21 18:01 Glucose (Glucose 10 Tabs/Tube) 4 - 8 tabs PO UD PRN; Protocol PRN Reason: Hypoglycemia Protocol Stop: 08/24/21 18:01 Glucose (Glucose 40% Gel 15 Gm Tube) 15 - 30 gm PO UD PRN; Protocol PRN Reason: Hypoglycemia Protocol Stop: 08/24/21 18:01 Heparin Sodium (Beef Lung) (Heparin 10 Unit/Ml 5 Ml Flush) 5 ml FLUSH PRN PRN PRN Reason: Flush Stop: 09/04/21 16:31 Dexamethasone 10 mg/ Syringe 2.5 mls @ 1 mls/min IV DAILY ANSELMO Stop: 08/12/21 09:03 Ceftriaxone Sodium 1,000 mg/ (Dextrose) 50 mls @ 100 mls/hr IV Q24H ANSELMO; Protocol Stop: 08/12/21 13:59 Last Infusion: 08/07/21 14:24 Dose: Infused Documented by: Insulin Human Regular 250 (units/ Sodium Chloride) 250 mls @ 10.4 mls/hr IV .Q24H ANSELMO; Protocol Stop: 09/05/21 17:29 Last Titration: 08/07/21 14:53 Dose: 10.4 unit/hr, 10.4 mls/hr Documented by: Heparin Sodium/Dextrose (Heparin Sodium/Dextrose) 25,000 units in 500 mls @ 19 mls/hr IV .Q24H ANSELMO; Protocol Stop: 09/05/21 21:44 Last Titration: 08/07/21 12:54 Dose: 950 units/hr, 19 mls/hr Documented by: Insulin Aspart (Insulin Aspart Per Unit) 0 units SC ACHS ANSELMO Stop: 09/05/21 20:59 Last Admin: 08/07/21 11:39 Dose: 28 units Documented by: Ipratropium Marana (Ipratropium Marana Neb Soln 0.02% 2.5 Ml Vial) 0.5 mg INH Q4H PRN PRN Reason: SOB, WHEEZE Stop: 08/31/21 23:14 Levalbuterol HCl (Levalbuterol 1.25mg/0.5ml Neb) 1.25 mg INH Q4H PRN PRN Reason: SOB, WHEEZE Stop: 08/31/21 23:14 Magnesium Hydroxide (Magnesium Hydroxide Susp 30 Ml Udc) 30 ml PO Q12H PRN PRN Reason: Constipation Stop: 08/24/21 18:01 Magnesium Oxide (Magnesium Oxide 400 Mg Tab) 400 mg PO BID ANSELMO Stop: 08/27/21 20:59 Last Admin: 08/07/21 07:51 Dose: 400 mg Documented by: Metoprolol Tartrate (Metoprolol Tartrate 25 Mg Tab) 12.5 mg PO BID ANSELMO Stop: 09/04/21 10:59 Last Admin: 08/07/21 07:43 Dose: 12.5 mg Documented by: Miscellaneous (Carbohydrates For Hypoglycemia ) 15 - 30 gm PO UD PRN PRN Reason: Hypoglycemia Protocol Stop: 08/24/21 18:01 Miscellaneous (Icu Electrolyte Replacement Protocol) 1 ea N/A BID@06,18 [facility]; Protocol Stop: 08/14/21 17:59 Miscellaneous Information (Pharmacy Glycemic Mgmt Consult) 1 ea N/A UD PRN; Protocol PRN Reason: Consult Stop: 08/24/21 18:01 Ondansetron HCl (Ondansetron Inj 2 Mg/Ml 2 Ml Vial) 4 mg IV Q6H PRN PRN Reason: Nausea Stop: 08/24/21 18:01 Pantoprazole Sodium (Pantoprazole 40 Mg Tab) 40 mg PO DAILY ANSELMO Stop: 09/07/21 08:59 Polyethylene Glycol (Polyethylene (Miralax) 17 Gm Pack) 17 gm PO DAILY PRN PRN Reason: Constipation Stop: 08/24/21 18:01 Polyethylene Glycol (Polyethylene (Miralax) 17 Gm Pack) 17 gm PO DAILY ANSELMO Stop: 09/03/21 09:44 Last Admin: 08/07/21 07:44 Dose: Not Given Documented by: Senna/Docusate Sodium (Docusate Sodium/Senna 50/8.6mg Tab) 1 tab PO QAM [facility] Stop: 09/03/21 09:44 Last Admin: 08/07/21 07:43 Dose: 1 tab Documented by:
[2021-08-07] MEDS: INSULIN REGULAR 250 UNITS in SODIUM CHLORIDE 0.9% 247.5 ML IV SCH (17:38)
[2021-08-07 19:45] LABS: Partial Thromboplastin Ratio 1.5; Partial Thromboplastin Time 42.3 Seconds (21.0-31.0)
[2021-08-07] MEDS: ACETAMINOPHEN 325 MG TAB PO PRN (20:37)
[2021-08-08] MEDS: HEPARIN SODIUM/DEXTROSE 25,000 UNITS/500 ML BAG IV SCH (01:18)
[2021-08-08] MEDS: ACETAMINOPHEN 325 MG TAB PO PRN ×3 (01:32→22:07)
[2021-08-08] MEDS: DEXTROSE 50% 50 ML SYRINGE IV PRN (01:47)
[2021-08-08 02:16] LABS: Hematocrit (blood only) 21.2 % (42-52); Hemoglobin 7.6 g/dL (14.0-18.0); Mean Corpuscular Hemoglobin 30.4 pg (25-34); Mean Corpuscular Hgb Conc 35.8 g/dL (32-36); Mean Corpuscular Volume 84.8 fL (80-100); Mean Platelet Volume 9.3 fL (7.4-10.4); Nucleated RBC # (auto) 0.28 K/uL (0-0); Nucleated RBC % (auto) 1.7 %; Platelet Count 287 K/uL (130-400); RDW Coefficient of Variation 13.8 % (11.5-14.5); RDW Standard Deviation 42.1 fL (36.4-46.3); White Blood Count 16.57 K/uL (4.8-10.8)
[2021-08-08 02:36] LABS: BUN Creatinine Ratio 42.6 (10-20); Calcium 6.9 mg/dl (8.5-10.1); Creatinine Clr Calc Pharmacy 63.9 ml/min; Est GFR (African American) 75.3 ml/min; Est GFR (Non-African American) 64.9 ml/min; Magnesium 2.3 mg/dl (1.7-2.4); Phosphorus 3.6 mg/dl (2.5-4.9)
[2021-08-08 02:48] LABS: Partial Thromboplastin Ratio > 5.1
[2021-08-08 03:00] LABS: Basophils # (auto) 0.04 K/uL (0-0.2); Basophils % (auto) 0.2 %; Immature Granulocytes # (auto) 0.94 K/uL (0.00-0.02); Immature Granulocytes % (auto) 5.7 %; Lymphocytes # (auto) 0.42 K/uL (1.2-3.4); Lymphocytes % (auto) 2.5 %; Monocytes # (auto) 0.56 K/uL (0.11-0.59); Monocytes % (auto) 3.4 %; Neutrophils # (auto) 14.61 K/uL (1.4-6.5); Neutrophils % (auto) 88.2 %; Partial Thromboplastin Time > 139.0 Seconds (21.0-31.0); Polychromasia 1+
[2021-08-08 04:00] LABS: Partial Thromboplastin Ratio 1.9
[2021-08-08 04:11] LABS: Partial Thromboplastin Time 52.7 Seconds (21.0-31.0)
[2021-08-08] MEDS: ICU ELECTROLYTE REPLACEMENT PROTOCOL SCH ×2 (05:13→18:04)
[2021-08-08 06:10] LABS: Hematocrit (blood only) 21.1 % (42-52); Hemoglobin 7.5 g/dL (14.0-18.0)
[2021-08-08] MEDS: INSULIN ASPART PER UNIT SC SCH ×4 (07:25→21:12)
--- NOTE | 2021-08-08 07:45 | Critical Care Progress Note ---
Date of Service August 08, 2021 Assessment & Plan (1) Acute hypoxemic respiratory failure due to COVID-19: (2) CAD (coronary artery disease): (3) HLD (hyperlipidemia): (4) Diabetes mellitus: (5) Acute pulmonary embolism: (6) Sinus tachycardia: (7) Cephalic vein thrombosis, left: (8) Lactic acid acidosis: Plan: Impression: 60-year-old male with a past medical history of CAD, hypertension, obesity and hyperlipidemia presenting with COVID-19 viral pneumonia. Case was complicated by identification of PE and spontaneous left biceps hematoma formation while on anticoagulation. 24-hour events: Patient's facial hair was removed. BiPAP sealed blane but the patient is having skin breakdown over the bridge of his nose. His laboratory values were reviewed. Diuresis was initiated. He is currently tolerating high flow. He continues to desaturate with any significant movement or physical activity. Recommendations Neurologic: No significant issues. Pain management as needed. Pulmonary: Patient with COVID-19 viral pneumonia. Day #6 of high-dose Decadron (10 mg) per the DEXA-ARDS protocol, for additional 5 days. His CRP is decreasing. Will likely need a slower prolonged taper given the duration of steroid administration. Continues to require high amounts of oxygen support, but stable. We will hold off on additional BiPAP given the skin breakdown over the bridge of his nose and follow that closely. He appears stable for now with no indication for escalation of care or intubation. Continue diuretics. Increase Lasix to 20 mg twice a day and follow serum creatinine and electrolytes. CXR in AM. Cardiovascular: Right lower lobe pulmonary embolism as noted above. Increase metoprolol to 12.5 mg p.o. every 6 hours. Echo 08/06 with evidence of a hyperdynamic LV. EF greater than 70%. No RV failure noted. Continue aspirin given his history of coronary artery disease. Lactate decreasing. Continue attempts at diuresis. Gastrointestinal: Continue diet. Continue pantoprazole given the use of heparin and high-dose steroids. Renal: Hyponatremia, unclear etiology back down to 128 today. We will continue to follow at this point time. Will see how he responds to diuresis. ICU electrolyte replacement protocol. Urine studies unlikely to be helpful given loop diuretics. Infectious disease: CRP was elevated but is decreasing. Cultures negative to date. No fevers. Procalcitonin was elevated and is climbing. WBC slowly decreasing. Patient is day #4 Rocephin empirically for pneumonia. Check resp culture - too high risk to consider bronchoscopy. At risk for resistant organisms. Expand abx if febrile or wBC increasing. Hematologic: PE and spontaneous left bicep hematoma formation. Slight decrease in hemoglobin and hematocrit this morning. Will recheck around noon. May require additional blood products. Appreciate orthopedics assistance. Continue neurovascular monitoring of the left upper extremity. Try to keep elevated as much as po ssible. Endocrine: ICU pharmacy team assisting with management of hyperglycemia while on high-dose steroids. TSH within normal limits. VTE prophylaxis: Heparin infusion CODE STATUS: Full code Disposition: Remain in ICU. Right-sided PICC line 3/5 Dominguez catheter Discussed with bedside RN I have personally spent 50 minutes of critical care time in the direct management of this patient. This is a life/limb threatening event. This includes time spent evaluating patient, direct bedside care, chart review, placing orders, interpretation of diagnostic studies, discussion with consultants, pat ient, and family members, as well as other required patient management activities. This time is exclusive of all separately billable procedures, and teaching time and separate from and in addition to any other critical care service time. Thank you for allowing us to participate in the care of this patient. Admission and Anticipated Discharge Date Admission Date: July 25, 2021 Subjective seen and examined. Patient tolerated bipap for a few hours last evening. We t rimmed his facial hair which resulted in improvement in the seal however he is having some skin breakdown and excoriation over the bridge of his nose which makes it painful to use the mask. Review of Systems Review of Systems: All systems reviewed & are unremarkable except as noted in Subjective Physical Exam Constitutional: WD/WN, vitals as above Neck: trachea midline, no thyromegaly Respiratory: normal respiratory effort and + tachypneic Auscultation: + crackles; no wheezes Cardiovascular: RRR, no murmur, no edema Gastrointestinal (Abdomen): normal bowel sounds, soft, nontender, no hepatosplenomegaly Skin: no rashes, warm and dry Lymphatic: no cervical lymphadenopathy Results & Data Results & Data ([facility]) Vital Signs (Past 12 Hours) Vital Signs Temp Pulse Pulse Resp BP Pulse Ox Pulse Ox 08/08/21 06:00 97 H 25 H 147/70 H 92 08/08/21 05:00 86 18 107/67 95 08/08/21 04:00 36.8 C 87 17 112/70 95 08/08/21 03:20 88 18 94 08/08/21 03:00 84 16 124/72 96 08/08/21 02:00 87 17 140/77 96 08/08/21 01:07 96 H 19 91 08/08/21 01:00 106 H 30 H 172/93 H 88 L 08/08/21 00:27 95 H 08/08/21 00:00 90 22 90 08/07/21 23:00 87 24 139/90 98 08/07/21 22:00 92 H 19 149/74 H 97 08/07/21 21:00 88 21 150/76 H 97 08/07/21 20:30 83 22 96 08/07/21 20:00 36.8 C 95 H 20 136/82 98 08/07/21 19:48 96 Laboratory Results Lactate 2.7 decreased from 3.8 CRP 6.9 decreased from 13.6 BNP 67 Procalcitonin 1.15 increased from 0.52 Critical Care Results & Data Vital Signs (Past 12 Hours) Vital Signs Temp Pulse Pulse Resp BP Pulse Ox Pulse Ox 08/08/21 06:00 97 H 25 H 147/70 H 92 08/08/21 05:00 86 18 107/67 95 08/08/21 04:00 36.8 C 87 17 112/70 95 08/08/21 03:20 88 18 94 08/08/21 03:00 84 16 124/72 96 08/08/21 02:00 87 17 140/77 96 08/08/21 01:07 96 H 19 91 08/08/21 01:00 106 H 30 H 172/93 H 88 L 08/08/21 00:27 95 H 08/08/21 00:00 90 22 90 08/07/21 23:00 87 24 139/90 98 08/07/21 22:00 92 H 19 149/74 H 97 08/07/21 21:00 88 21 150/76 H 97 08/07/21 20:30 83 22 96 08/07/21 20:00 36.8 C 95 H 20 136/82 98 08/07/21 19:48 96 Lab & Micro Results (Past 24 Hours) RBC 2.50 M/uL (4.7-6.1) L 08/08/21 WBC 16.57 K/uL (4.8-10.8) H 08/08/21 Hgb 7.5 g/dL (14.0-18.0) L 08/08/21 Hct 21.1 % (42-52) L 08/08/21 MCV 84.8 fL (80-100) 08/08/21 MCH 30.4 pg (25-34) 08/08/21 MCHC 35.8 g/dL (32-36) 08/08/21 RDW Standard Deviation 42.1 fL (36.4-46.3) 08/08/21 RDW Coefficient of Variation 13.8 % (11.5-14.5) 08/08/21 Plt Count 287 K/uL (130-400) 08/08/21 MPV 9.3 fL (7.4-10.4) 08/08/21 Nucleated Red Blood Cells % (auto) 1.7 % 08/08/21 Nucleated RBC Absolute Count (auto) 0.28 K/uL (0-0) H 08/08/21 Neutrophils (%) (Auto) 88.2 % 08/08/21 Lymphocytes (%) (Auto) 2.5 % 08/08/21 Monocytes # (Auto) 0.56 K/uL (0.11-0.59) 08/08/21 Eosinophils # (Auto) 0.00 K/uL (0-0.5) 08/08/21 Immature Granulocyte % (Auto) 5.7 % 08/08/21 Neutrophils # (Auto) 14.61 K/uL (1.4-6.5) H 08/08/21 Lymphocytes # (Auto) 0.42 K/uL (1.2-3.4) L 08/08/21 Monocytes # (Auto) 0.56 K/uL (0.11-0.59) 08/08/21 Eosinophils # (Auto) 0.00 K/uL (0-0.5) 08/08/21 Basophils # (Auto) 0.04 K/uL (0-0.2) 08/08/21 Immature Granulocyte # (Auto) 0.94 K/uL (0.00-0.02) H 08/08/21 Polychromasia 1+ 08/08/21 Na 128 mmol/L (136-145) L 08/08/21 K 4.0 mmol/L (3.5-5.1) 08/08/21 Cl 94 mmol/L (98-107) L 08/08/21 CO2 24 mmol/L (21-32) 08/08/21 Anion Gap 10 (3-11) 08/08/21 BUN 52 mg/dl (6-23) H 08/08/21 Creatinine 1.22 mg/dl (0.6-1.4) 08/08/21 Estimated GFR ( Amer) 75.3 ml/min 08/08/21 Estimated GFR (Non-Af Amer) 64.9 ml/min 08/08/21 BUN/Creatinine Ratio 42.6 (10-20) H 08/08/21 Glu 289 mg/dl (70-99(Fasting)) H 08/08/21 Ca 6.9 mg/dl (8.5-10.1) L 08/08/21 Phosphorus Level 3.6 mg/dl (2.5-4.9) 08/08/21 Mg 2.3 mg/dl (1.7-2.4) 08/08/21 02:00 08/08/21 Calcium Level 6.9 mg/dl (8.5-10.1) L 08/08/21 02:00 08/08/21 Diagnostic Findings (Past 24 Hours) Chest X-Ray 08/07/21 07:00 XR chest 1V portable HISTORY: Hypoxia. Follow-up. COMPARISON: Chest 08/05/2021. FINDINGS: A right PICC terminates at the expected location of the SVC. This remains unchanged. There are low lung volumes. No pneumothorax. No pleural effusions. The heart remains mildly enlarged. Stable multifocal hazy airspace opacities. IMPRESSION: 1. No change in the multifocal airspace opacities. 2. The right PICC terminates at the SVC. ACT 112: Negative or not required by law. Electronically signed by: David Vick M.D. 08/07/2021 7:42 AM I & O Totals 24 Hours 08/07/21 08/08/21 08/09/21 06:59 06:59 06:59 Intake Total 2223.900 / 2223.900 1627.508 / 1627.508 10.607 / 10.607 Output Total 1125 / 1125 1550 / 1550 Balance 1098.900 / 1098.900 77.508 / 77.508 10.607 / 10.607 Cumulative 07/25/21 11:19 thru 08/08/21 07:24 Intake Total 00969.383 Output Total 72184 Balance 4954.383 RT Ventilator Mngmt (Last Documented) Ventilator Ordered Settings Respiratory Rate 25 08/08/21 06:00 Fraction of Inspired Oxygen 60 08/08/21 03:20 Ventilator - PT Measurements Respiratory Rate 25 Coding Level of Care Code Critical Care 1st 30-74 mins Diagnoses Acute hypoxemic respiratory failure due to COVID-19 U07.1; J96.01 CAD (coronary artery disease) I25.10 HLD (hyperlipidemia) E78.5 Diabetes mellitus E11.9 Acute pulmonary embolism I26.99 Sinus tachycardia R00.0 Cephalic vein thrombosis, left I82.612 Lactic acid acidosis E87.2 Time Spent (min) 50
[2021-08-08] MEDS: FUROSEMIDE INJ 20 MG/2 ML VIAL IV SCH ×2 (07:51→18:03)
[2021-08-08] MEDS: METOPROLOL TARTRATE 25 MG TAB PO SCH ×3 (07:51→18:04)
[2021-08-08] MEDS: dexAMETHasone 10 MG in SYRINGE 0 ML IV SCH (07:51)
[2021-08-08] MEDS: DOCUSATE SODIUM/SENNA 50/8.6MG TAB PO SCH (07:51)
[2021-08-08] MEDS: allopurinoL 300 MG TAB PO SCH (07:52)
[2021-08-08] MEDS: ASPIRIN 81 MG ECTAB PO SCH (07:52)
[2021-08-08] MEDS: POLYETHYLENE (MIRALAX) 17 GM PACK PO SCH (07:53)
[2021-08-08] MEDS: MAGNESIUM OXIDE 400 MG TAB PO SCH ×2 (07:53→21:15)
[2021-08-08] MEDS: PANTOprazole 40 MG TAB PO SCH (07:53)
[2021-08-08] MEDS ORDERED: STAT IV STA (08:54)
[2021-08-08] MEDS ORDERED: CALCIUM GLUCONATE 10% 3,000 MG in DEXTROSE 5% 100 ML IV ONE (09:15)
[2021-08-08] MEDS ORDERED: INSULIN GLARGINE SOLOSTAR 100 UNITS/ML 3 ML PEN SC SCH (10:00)
[2021-08-08] MEDS: cefTRIAXone SODIUM 1,000 MG in DEXTROSE 5% 50 ML IV SCH (13:19)
[2021-08-08 13:44] LABS: Hematocrit (blood only) 20.9 % (42-52); Hemoglobin 7.6 g/dL (14.0-18.0); Mean Corpuscular Hemoglobin 31.1 pg (25-34); Mean Corpuscular Hgb Conc 36.4 g/dL (32-36); Mean Corpuscular Volume 85.7 fL (80-100); Mean Platelet Volume 9.2 fL (7.4-10.4); Nucleated RBC # (auto) 0.38 K/uL (0-0); Nucleated RBC % (auto) 1.7 %; Platelet Count 319 K/uL (130-400); RDW Standard Deviation 42.5 fL (36.4-46.3); Red Blood Count 2.44 M/uL (4.7-6.1); White Blood Count 21.83 K/uL (4.8-10.8)
[2021-08-08] MEDS ORDERED: SODIUM CHLORIDE 0.9% 250 ML IV PRN ×2 (14:02→14:23)
[2021-08-08] MEDS: INSULIN REGULAR 250 UNITS in SODIUM CHLORIDE 0.9% 247.5 ML IV SCH (14:15)
[2021-08-08 14:47] LABS: Basophils # (auto) 0.04 K/uL (0-0.2); Basophils % (auto) 0.2 %; Immature Granulocytes # (auto) 0.63 K/uL (0.00-0.02); Immature Granulocytes % (auto) 2.9 %; Lymphocytes # (auto) 0.29 K/uL (1.2-3.4); Lymphocytes % (auto) 1.3 %; Monocytes # (auto) 0.86 K/uL (0.11-0.59); Monocytes % (auto) 3.9 %; Neutrophils # (auto) 20.01 K/uL (1.4-6.5); Neutrophils % (auto) 91.7 %; Polychromasia 1+
--- NOTE | 2021-08-08 14:50 | Pharmacy Report ---
Pharmacy Glycemic Short Note 2 - Date of Service August 08, 2021 - Glycemic Short BSG Results (Last 24 hours): 08/07/21 08/07/21 08/07/21 14:50 15:50 16:36 Glucose POC Glucose 328 H* 308 H* 272 H 08/07/21 08/07/21 08/07/21 17:34 19:09 20:20 Glucose POC Glucose 276 H 241 H 175 H 08/07/21 08/07/21 08/07/21 20:56 22:10 23:27 Glucose POC Glucose 152 H 137 H 165 H 08/08/21 08/08/21 08/08/21 00:23 01:24 01:45 Glucose POC Glucose 130 H 104 H 95 08/08/21 08/08/21 08/08/21 02:00 02:05 03:06 Glucose 289 H POC Glucose 192 H 164 H 08/08/21 08/08/21 08/08/21 04:07 05:02 06:09 Glucose POC Glucose 198 H 216 H 249 H 08/08/21 08/08/21 08/08/21 07:12 08:01 08:41 Glucose POC Glucose 253 H 243 H 284 H 08/08/21 08/08/21 08/08/21 09:49 11:04 12:05 Glucose POC Glucose 229 H 167 H 220 H 08/08/21 08/08/21 13:10 14:11 Glucose POC Glucose 345 H* 255 H OUTPATIENT ANTIDIABETIC REGIMEN: * Glyburide 5mg PO BID * Metformin 1000mg BID * Actos 45mg PO Daily * A1c 6.3% 07/26/21 ASSESSMENT: 08/08: * Insulin drip rate continues to run at high rates (reaching ~20 units/hr last evening). Will initiate low dose lantus on top of the insulin infusion in an attempt to bring infusion rates down. Current rate ~11 units/hr. * Patient is tolerating a diet and a tighten and fixed CR is being used * Dexamethasone continues, dose decreased today to 10mg today, will likely be tapered off 08/07 * Insulin drip started yesterday evening for BSGs climbing into 300s despite SQ insulin regimen * BSGs have been well controlled with IV insulin drip. BSGs within goal with a relatively stable infusion rate of 3.8units/hr * IV steroids continued, today is last day of dexamethasone 20mg IV. Will step down to 10mg IV daily x 5 days with plan to taper slowly thereafter. * Heparin gtt resumed last evening, mixed in D5W - but running at relatively low infusion rate w/ near therapeutic PTT * Currently on HiFlow but tolerating ~50% of meals per RN. 08/06 * Patient's BSGs yesterday were [phone] mg/dL and fasting this morning was 248 mg/dL. * Information was this prior admission showed that when on dexamethasone 6 mg IV daily, NPH 50 units was too aggressive. Patient had hypoglycemia in the morning. * Now, patient is on dexamethasone 20 mg IV daily and fastings have been trending upwards. Will add 15 units of NPH for dinnertime to lower fasting BSGs. Patient will be transitioning to 10 mg of dexamethasone in 2 days so this dose will need to be adjusted accordingly. * Tighten Novolog to provide more daily coverage. 08/05 * Patient's BSGs yesterday were [phone] mg/dL and overnight were 86-100 mg/dL. Fasting this morning was 160 mg/dL. * Continued NPH 30 units. Novolog tightened at lunch yesterday but BSGs continued to trend upwards. Tighten CR. * Lunch was 436 mg/dL but patient ate cheerios uncovered. Loosen CF to prevent overcorrection. 08/04 * BSGs above goal the last 24hr ([phone]). Fasting 168mg/dL today. * Dexamethasone increased from 10mg daily to 20mg daily last evening. Continues with type 2 diet and heparin drip (in D5W). * NPH increased this AM ~ 20% to 30 units daily. Basal will need re-evaluated tomorrow given modification in steroid dose and steroid induced hyperglycemia. * Prandial Novolog tightened at lunch today given rising BSG this afternoon and larger carb intake the last 2 days. Overnight checks for tonight. PLAN FOR INPATIENT GLYCEMIC CONTROL: * Hold outpatient oral diabetes medications * Continue IV insulin drip, goal range 110-180mg/dL * Basal insulin * 20 units lantus qam * Bolus insulin * Novolog SQ to cover carbs in meals: * Nutritional / Prandial insulin per carb ratio of 1 unit per 2.5 grams CHO consumed
--- NOTE | 2021-08-08 18:36 | Hospitalist Progress Note ---
Date of Service August 08, 2021 Assessment & Plan (1) Hematoma: (2) Acute pulmonary embolism: (3) DVT of lower extremity, bilateral: (4) Acute respiratory failure with hypoxia: (5) 2019 novel coronavirus-infected pneumonia (NCIP): (6) Sinus tachycardia: (7) Hyponatremia: (8) Diabetes mellitus: (9) CAD (coronary artery disease): Plan: (10) HTN (hypertension): (11) DVT prophylaxis: Plan: 60 year old male who initially presented with COVID 19 PNA with hypoxic respiratory failure on high flow/BIPAP, now complicated by acute bilateral PE, bilateral DVT further complicated by spontaneous LUE hematoma while on heparin drip for PE. Acute LUE hematoma- CT LUE shows biceps hematoma 13.3 x 5.3x 7 cm. Distal NV status intact, no evidence of compartment syndrome. Seen by orthopedics- non alcantar rgical management as of now. Heparin drip has been resumed per high risk case manager. Trend H&H, monitor neurovascular status. Acute blood loss anemia due to above- Hb down to 7.6 from 13.7 on 08/03. S/p 1 U of PRBC today. Trending H&H, transfuse as indicated. Acute pulmonary embolism (RLL segmental/subsegmental PE)- on CTA chest 08/03. Heparin drip has been resumed DVT bilateral distal lower extremity- US 08/06 shows occlusive thrombus within bilateral calf veins but no proximal thrombus. Anticoagulation as above Acute respiratory failure with hypoxia due to COVID 19 PNA and acute PE- Transferred to ICU on 08/03. Currently On high flow alternating with BIPAP, wean down as tolerated. Zumba Instructor managing. Might need intubation if worsens. COVID 19 PNA- S/p remdesevir. Was on dexa 6 mg daily, now increased to 20 mg iv daily on 08/03. CT chest 08/03 showed interval progression of near confluent GGO, Ferritin significantly elevated, CRP coming down, procal mildly elevated. Repeat CXR with stable multifocal opacities. Supportive management. Incentive spirometer. Started on ceftriaxone 08/05. Leucocytosis, procal elevated, had fever which is now resolved. DM-2 with hyperglycemia, aggravated by steroids- Glycemic pharmacist managing, on insulin. Home actos and glyburide on hold. Sinus tachycardia- likely from PNA and PE. On metoprolol. Asymptomatic NATHANIEL- NATHANIEL resolved. Cr back to baseline of 1.2 Hyponatremia- relatively stable, 128 today, corrects to about yesterday with hyperglycemia. HTN- stable, on lopressor CAD- h/o stents. No chest pain. Continue ASA, metoprolol. DVT prophylaxis- heparin drip GI prophylaxis- Protonix Dispo- Remain in ICU Admission and Anticipated Discharge Date Admission Date: July 25, 2021 Subjective Feels the same as yesterday. No new changes. Still gets short of breath with minimal activities. Still painful and swollen left upper arm. No fever, chills, chest pain, nausea, vomiting. Physical Exam Physical Exam: General: Lying in bed, on high flow oxygen, not in acute distress HEENT: EOMI, JULIANA, MMM Chest: Decreased breath sounds anteriorly CVS: Tachycardic, normal heart sounds, no murmur Abdomen: Soft, non tender, not distended, normal bowel sounds Neuro: Awake, alert, oriented, conversing, non focal Extremities: No cyanosis, clubbing or edema LUE: Left upper extremity swollen compared to right- similar to yesterday, distal neurovascular status intact On brewster with luke urine Results & Data Results & Data ([facility]) Vital Signs (Past 12 Hours) Vital Signs Temp Pulse Pulse Resp BP Pulse Ox Pulse Ox 08/08/21 17:23 37.0 C 99 H 22 157/75 H 90 08/08/21 17:02 37.0 C 95 H 24 157/65 H 95 08/08/21 17:00 93 H 22 90 08/08/21 16:46 92 H 29 H 166/64 H 94 08/08/21 16:30 83 24 150/74 H 93 08/08/21 16:15 82 26 H 144/68 H 96 08/08/21 16:02 36.8 C 86 24 150/74 H 97 08/08/21 16:00 85 20 148/72 H 94 08/08/21 15:45 88 23 152/71 H 95 08/08/21 15:32 36.8 C 112 H 24 133/67 96 08/08/21 15:30 86 22 137/66 95 08/08/21 15:20 91 H 18 91 08/08/21 15:17 36.8 C 99 H 20 137/66 92 08/08/21 15:15 90 24 143/72 H 93 03/22 15:14 37.0 C 89 24 141/68 H 95 08/08/21 15:01 36.8 C 88 26 H 141/63 H 95 08/08/21 15:00 90 24 141/68 H 94 08/08/21 14:57 86 23 145/67 H 94 08/08/21 14:00 90 24 126/72 93 08/08/21 13:00 91 H 22 132/61 93 08/08/21 12:00 37.2 C 95 H 21 107/55 L 94 08/08/21 11:16 88 18 91 08/08/21 11:00 89 22 124/65 93 08/08/21 10:00 36.7 C 88 16 102/63 98 08/08/21 09:00 104 H 22 132/74 95 08/08/21 08:00 37.0 C 115 H 28 H 123/65 88 L 96 08/08/21 07:42 85 20 91 08/08/21 07:00 100 H 26 H 124/77 91 Laboratory Results Short CBC 08/08/21 08/08/21 08/08/21 Range/Units 02:00 05:52 12:53 WBC 16.57 H 21.83 H (4.8-10.8) K/uL Hgb 7.6 L 7.5 L 7.6 L (14.0-18.0) g/dL Hct 21.2 L 21.1 L 20.9 L* (42-52) % Plt Count 287 319 (130-400) K/uL BMP 08/08/21 02:00 Sodium 128 L Potassium 4.0 Chloride 94 L Carbon Dioxide 24 BUN 52 H Creatinine 1.22 Glucose 289 H Calcium 6.9 L Medications Administered Current Inpatient Medications Acetaminophen (Acetaminophen 325 Mg Tab) 650 mg PO Q4H PRN PRN Reason: Pain or Fever Stop: 08/24/21 18:01 Last Admin: 08/08/21 18:18 Dose: 650 mg Documented by: Al Hydrox/Mg Hydrox/Simethicone (Aluminum/Magnesium Susp 30 Ml Udc) 15 ml PO Q4H PRN PRN Reason: Dyspepsia Stop: 08/24/21 18:01 Allopurinol (Allopurinol 300 Mg Tab) 300 mg PO QAM [facility] Stop: 08/28/21 08:59 Last Admin: 08/08/21 07:52 Dose: 300 mg Documented by: Aspirin (Aspirin 81 Mg Ectab) 81 mg PO DAILY [facility] Stop: 08/25/21 08:59 Last Admin: 08/08/21 07:52 Dose: 81 mg Documented by: Benzonatate (Benzonatate 100 Mg Capsule) 100 mg PO TID PRN PRN Reason: cough Stop: 08/24/21 18:01 Dextrose (Dextrose 50% 50 Ml Syringe) 25 - 50 ml IV UD PRN; Protocol PRN Reason: Hypoglycemia Protocol Stop: 08/24/21 18:01 Last Admin: 08/08/21 01:47 Dose: 25 ml Documented by: Furosemide (Furosemide Inj 20 Mg/2 Ml Vial) 20 mg IV [id number] [facility] Stop: 09/07/21 16:59 Last Admin: 08/08/21 18:03 Dose: 20 mg Documented by: Glucagon (Glucagon For Inj 1 Mg Vial) 1 mg SQ UD PRN; Protocol PRN Reason: Hypoglycemia Protocol Stop: 08/24/21 18:01 Glucose (Glucose 10 Tabs/Tube) 4 - 8 tabs PO UD PRN; Protocol PRN Reason: Hypoglycemia Protocol Stop: 08/24/21 18:01 Glucose (Glucose 40% Gel 15 Gm Tube) 15 - 30 gm PO UD PRN; Protocol PRN Reason: Hypoglycemia Protocol Stop: 08/24/21 18:01 Heparin Sodium (Beef Lung) (Heparin 10 Unit/Ml 5 Ml Flush) 5 ml FLUSH PRN PRN PRN Reason: Flush Stop: 09/04/21 16:31 Dexamethasone 10 mg/ Syringe 2.5 mls @ 1 mls/min IV DAILY [facility] Stop: 08/12/21 09:03 Last Admin: 08/08/21 07:51 Dose: 1 mls/min Documented by: Ceftriaxone Sodium 1,000 mg/ (Dextrose) 50 mls @ 100 mls/hr IV Q24H [facility]; Protocol Stop: 08/12/21 13:59 Last Infusion: 08/08/21 14:00 Dose: Infused Documented by: Insulin Human Regular 250 (units/ Sodium Chloride) 250 mls @ 6.9 mls/hr IV .Q24H [facility]; Protocol Stop: 09/05/21 17:29 Last Titration: 08/08/21 18:03 Dose: 6.9 unit/hr, 6.9 mls/hr Documented by: Heparin Sodium/Dextrose (Heparin Sodium/Dextrose) 25,000 units in 500 mls @ 20 mls/hr IV .Q24H [facility]; Protocol Stop: 09/05/21 21:44 Last Titration: 08/08/21 04:17 Dose: 1,000 units/hr, 20 mls/hr Documented by: Sodium Chloride (Nss) 250 mls @ 15 mls/hr IV .[id number] PRN PRN Reason: For Transfusion Stop: 08/09/21 00:24 Insulin Aspart (Insulin Aspart Per Unit) 0 units SC ACHS [facility] Stop: 09/05/21 20:59 Last Admin: 08/08/21 16:38 Dose: 16 units Documented by: Insulin Glargine (Insulin Glargine Solostar 100 Units/Ml 3 Ml Pen) 20 units SC QAM [facility] Stop: 09/07/21 09:59 Last Admin: 08/08/21 09:54 Dose: 20 units Documented by: Ipratropium [place] (Ipratropium [place] Neb Soln 0.02% 2.5 Ml Vial) 0.5 mg INH Q4H PRN PRN Reason: SOB, WHEEZE Stop: 08/31/21 23:14 Levalbuterol HCl (Levalbuterol 1.25mg/0.5ml Neb) 1.25 mg INH Q4H PRN PRN Reason: SOB, WHEEZE Stop: 08/31/21 23:14 Magnesium Hydroxide (Magnesium Hydroxide Susp 30 Ml Udc) 30 ml PO Q12H PRN PRN Reason: Constipation Stop: 08/24/21 18:01 Magnesium Oxide (Magnesium Oxide 400 Mg Tab) 400 mg PO BID [facility] Stop: 08/27/21 20:59 Last Admin: 08/08/21 07:53 Dose: 400 mg Documented by: Metoprolol Tartrate (Metoprolol Tartrate 25 Mg Tab) 12.5 mg PO Q6 [facility] Stop: 09/07/21 11:59 Last Admin: 08/08/21 18:04 Dose: 12.5 mg Documented by: Miscellaneous (Carbohydrates For Hypoglycemia ) 15 - 30 gm PO UD PRN PRN Reason: Hypoglycemia Protocol Stop: 08/24/21 18:01 Miscellaneous (Icu Electrolyte Replacement Protocol) 1 ea N/A BID@ [facility]; Protocol Stop: 08/14/21 17:59 Last Admin: 08/08/21 18:04 Dose: Not Given Documented by: Miscellaneous Information (Pharmacy Glycemic Mgmt Consult) 1 ea N/A UD PRN; Protocol PRN Reason: Consult Stop: 08/24/21 18:01 Ondansetron HCl (Ondansetron Inj 2 Mg/Ml 2 Ml Vial) 4 mg IV Q6H PRN PRN Reason: Nausea Stop: 08/24/21 18:01 Pantoprazole Sodium (Pantoprazole 40 Mg Tab) 40 mg PO DAILY [facility] Stop: 09/07/21 08:59 Last Admin: 08/08/21 07:53 Dose: 40 mg Documented by: Polyethylene Glycol (Polyethylene (Miralax) 17 Gm Pack) 17 gm PO DAILY PRN PRN Reason: Constipation Stop: 08/24/21 18:01 Polyethylene Glycol (Polyethylene (Miralax) 17 Gm Pack) 17 gm PO DAILY [facility] Stop: 09/03/21 09:44 Last Admin: 08/08/21 07:53 Dose: Not Given Documented by: Senna/Docusate Sodium (Docusate Sodium/Senna 50/8.6mg Tab) 1 tab PO QAM [facility] Stop: 09/03/21 09:44 Last Admin: 08/08/21 07:51 Dose: 1 tab Documented by:
[2021-08-08 19:59] LABS: Hematocrit (blood only) 27.3 % (42-52); Hemoglobin 9.7 g/dL (14.0-18.0)
[2021-08-09] MEDS: METOPROLOL TARTRATE 25 MG TAB PO SCH ×4 (00:45→21:46)
[2021-08-09] MEDS: DEXTROSE 50% 50 ML SYRINGE IV PRN (02:42)
[2021-08-09] MEDS: HEPARIN SODIUM/DEXTROSE 25,000 UNITS/500 ML BAG IV SCH (03:40)
[2021-08-09 05:19] LABS: Mean Corpuscular Hgb Conc 36.1 g/dL (32-36); Mean Platelet Volume 9.2 fL (7.4-10.4); Nucleated RBC # (auto) 0.41 K/uL (0-0); Nucleated RBC % (auto) 1.7 %; Platelet Count 300 K/uL (130-400)
[2021-08-09 05:43] LABS: ALC (manual) 0.42 K/uL (1.2-3.4); Hematocrit (blood only) 26.3 % (42-52); Hemoglobin 9.5 g/dL (14.0-18.0); Lymphocytes # (manual) 0.42 K/uL (1.2-3.4); Lymphocytes % (manual) 1.7 %; Mean Corpuscular Hemoglobin 30.9 pg (25-34); Mean Corpuscular Volume 85.7 fL (80-100); Metamyelocytes # (manual) 1.29 K/uL (0-0); Metamyelocytes % (manual) 5.2 %; Monocytes # (manual) 0.64 K/uL (0.11-0.59); Monocytes % (manual) 2.6 %; Neutrophils % (manual) 90.5 %; Polychromasia 1+; RDW Coefficient of Variation 14.2 % (11.5-14.5); RDW Standard Deviation 42.5 fL (36.4-46.3); Red Blood Count 3.07 M/uL (4.7-6.1); White Blood Count 24.75 K/uL (4.8-10.8)
[2021-08-09 05:51] LABS: Partial Thromboplastin Ratio 2.4
[2021-08-09 05:52] LABS: Partial Thromboplastin Time 66.3 Seconds (21.0-31.0)
[2021-08-09 06:13] LABS: BUN Creatinine Ratio 49.1 (10-20); Calcium 8.5 mg/dl (8.5-10.1); Creatinine Clr Calc Pharmacy 73.5 ml/min; Est GFR (African American) 89.2 ml/min; Phosphorus 3.1 mg/dl (2.5-4.9); Potassium 4.4 mmol/L (3.5-5.1)
[2021-08-09] MEDS: ICU ELECTROLYTE REPLACEMENT PROTOCOL SCH ×2 (06:33→17:43)
[2021-08-09] MEDS ORDERED: MAGNESIUM SULFATE / D5W 1 GM/100 ML BAG IV ONE (06:33)
--- NOTE | 2021-08-09 07:03 | XRay Report ---
XR chest 1V portable HISTORY: 60 years-old Male resp failure acute respiratory failure COMPARISON: Chest radiograph 08/07/2021 TECHNIQUE: Portable AP view of the chest FINDINGS: A right-sided PICC is redemonstrated with distal tip in the expected location of the mid to inferior SVC. Subcutaneous emphysema of the right supraclavicular tissues and axilla is new/progressed from pr ior. Cardiac silhouette is enlarged. Questioned pneumomediastinum. Lungs are hypoinflated. No definit e pneumothorax or large pleural effusion. Interstitial coarsening with multifocal airspace opacities are redemonstrated and have mildly progressed. IMPRESSION: 1. Unchanged positioning of the right-sided PICC. Subcutaneous emphysema of the right supraclavicular tissues and axilla are new from prior. Equivocal pneumomediastinum is likely artifactual. Attention at follow-up recommended. 2. Extensive airspace opacities mildly progressed. 3. No pneumothorax identified. ACT 112: Negative or not required by law. The above report was generated using voice recognition software. It may contain grammatical, syntax o r spelling errors. Electronically signed by: Jewel Ribera M.D. 08/09/2021 7:02 AM
--- NOTE | 2021-08-09 08:24 | Critical Care Progress Note ---
Date of Service August 09, 2021 Assessment & Plan (1) Acute hypoxemic respiratory failure due to COVID-19: (2) CAD (coronary artery disease): (3) HLD (hyperlipidemia): (4) Diabetes mellitus: (5) Acute pulmonary embolism: (6) Sinus tachycardia: (7) Cephalic vein thrombosis, left: (8) Lactic acid acidosis: Plan: Impression: 60-year-old male with a past medical history of CAD, hypertension, obesity and hyperlipidemia presenting with COVID-19 viral pneumonia. Case was complicated by identification of PE and spontaneous left biceps hematoma formation while on anticoagulation. 24-hour events: Patient transfused 1 unit packed cells yesterday. His oxygenation remains about the same. He continued diuresis. His chest x-ray this morning demonstrates some subcutaneous emphysema but no clear pneumomediastinum or pneumothorax. Recommendations Neurologic: No significant issues. Pain management as needed. Pulmonary: Patient with COVID-19 viral pneumonia. Day #7 of high-dose Decadron (10 mg) per the DEXA-ARDS protocol, for additional 4 days. His CRP is decreasing. Will likely need a slower prolonged taper given the duration of steroid administration. Continues to require high amounts of oxygen support. Has now developed evidence of barotrauma with subcutaneous emphysema. Will discontinue positive airway pressure. Increase Lasix to 20 mg twice a day and follow serum creatinine and electrolytes. Continue to follow daily chest x-rays. Given that were about 4 weeks into this, the likelihood of significant rapid recovery is quite low. Cardiovascular: Right lower lobe pulmonary embolism as noted above. Increase metoprolol to 25 mg p.o. every 8 hours. Echo 08/06 with evidence of a hyperdynamic LV. EF greater than 70%. No RV failure noted. Continue aspirin given his history of coronary artery disease. Lactate decreasing. Continue attempts at diuresis, I/O still positive - 5 L positive since admission. Gastrointestinal: Continue diet. Continue pantoprazole given the use of heparin and high-dose steroids. Renal: Hyponatremia, stable. We will continue to follow at this point time. Will see how he responds to diuresis. ICU electrolyte replacement protocol. Urine studies unlikely to be helpful given loop diuretics. Infectious disease: CRP was elevated but is decreasing. Cultures negative to date but GMS from sputum culture showed many WBC, GPC and GNR. No fevers but climbing WBC and procal. Patient is day #5 Rocephin empirically for pneumonia. Too high risk to consider bronchoscopy and BAL as would likely result in intubation. We will dis continue Rocephin at this point time and place on ceftaroline which should provide gram-negative resistant coverage as well as some gram-positive coverage. Will check Fungitell, and LDH. Check PJP PCR. Trend white blood cell count and procalcitonin. Fever curve may be unreliable in this patient on high-dose steroids. Hematologic: PE and spontaneous left bicep hematoma formation. Status post 1 unit of packed cells yesterday. The arm appears better today. Appreciate orthopedics assistance. Continue neurovascular monitoring of the left upper extremity. Try to keep elevated as much as possible. Endocrine: ICU pharmacy team assisting with management of hyperglycemia while on high-dose steroids. TSH within normal limits. VTE prophylaxis: Heparin infusion CODE STATUS: Full code Disposition: Remain in ICU. Right-sided PICC line 3/5 Dominguez catheter Discussed with bedside RN I have personally spent 45 minutes of critical care time in the direct management of this patient. This is a life/limb threatening event. This includes time spent evaluating patient, direct bedside care, chart review, placing orders, interpretation of diagnostic studies, discussion with consultants, p atient, and family members, as well as other required patient management activities. This time is exclusive of all separately billable procedures, and teaching time and separate from and in addition to any other critical care service time. Thank you for allowing us to participate in the care of this patient. Admission and Anticipated Discharge Date Admission Date: July 25, 2021 Subjective Patient seen and examined. EMR reviewed. Patient is doing reasonably well. He continues to desaturate with any significant physical activity. He feels his arm is better. He is tolerating anticoagulation. No evidence of ongoing bleeding. Review of Systems Review of Systems: All systems reviewed & are unremarkable except as noted in Subjective Physical Exam Constitutional: WD/WN, vitals as above Neck: trachea midline, no thyromegaly Respiratory: normal respiratory effort and + tachypneic Auscultation: + crackles; no wheezes Cardiovascular: RRR, no murmur, no edema Gastrointestinal (Abdomen): normal bowel sounds, soft, nontender, no hepatosplenomegaly Skin: no rashes, warm and dry Lymphatic: no cervical lymphadenopathy Results & Data Results & Data ([facility]) Vital Signs (Past 12 Hours) Vital Signs Pulse Pulse Resp BP Pulse Ox 08/09/21 07:55 110 H 26 H 92 08/09/21 06:00 105 H 22 152/79 H 92 08/09/21 05:00 90 21 146/71 H 93 08/09/21 04:40 100 H 90 08/09/21 04:00 97 H 23 162/75 H 90 08/09/21 03:00 96 H 21 145/72 H 93 08/09/21 02:46 93 H 92 08/09/21 02:00 92 H 17 108/68 88 L 08/09/21 01:01 96 H 93 08/09/21 01:00 95 H 19 148/77 H 96 08/09/21 00:59 99 H 21 135/74 100 08/09/21 00:01 91 H 08/09/21 00:00 101 H 19 160/93 H 92 08/08/21 23:00 93 H 19 93 08/08/21 22:21 98 H 27 H 90 08/08/21 22:00 87 22 138/69 90 08/08/21 21:00 74 22 150/73 H 92 Critical Care Results & Data Vital Signs (Past 12 Hours) Vital Signs Pulse Pulse Resp BP Pulse Ox 08/09/21 07:55 110 H 26 H 92 08/09/21 06:00 105 H 22 152/79 H 92 08/09/21 05:00 90 21 146/71 H 93 08/09/21 04:40 100 H 90 08/09/21 04:00 97 H 23 162/75 H 90 08/09/21 03:00 96 H 21 145/72 H 93 08/09/21 02:46 93 H 92 08/09/21 02:00 92 H 17 108/68 88 L 08/09/21 01:01 96 H 93 08/09/21 01:00 95 H 19 148/77 H 96 08/09/21 00:59 99 H 21 135/74 100 08/09/21 00:01 91 H 08/09/21 00:00 101 H 19 160/93 H 92 08/08/21 23:00 93 H 19 93 08/08/21 22:21 98 H 27 H 90 08/08/21 22:00 87 22 138/69 90 08/08/21 21:00 74 22 150/73 H 92 Lab & Micro Results (Past 24 Hours) RBC 3.07 M/uL (4.7-6.1) L 08/09/21 WBC 24.75 K/uL (4.8-10.8) H 08/09/21 Hgb 9.5 g/dL (14.0-18.0) L 08/09/21 Hct 26.3 % (42-52) L 08/09/21 MCV 85.7 fL (80-100) 08/09/21 MCH 30.9 pg (25-34) 08/09/21 MCHC 36.1 g/dL (32-36) H 08/09/21 RDW Standard Deviation 42.5 fL (36.4-46.3) 08/09/21 RDW Coefficient of Variation 14.2 % (11.5-14.5) 08/09/21 Plt Count 300 K/uL (130-400) 08/09/21 MPV 9.2 fL (7.4-10.4) 08/09/21 Nucleated Red Blood Cells % (auto) 1.7 % 08/09/21 Nucleated RBC Absolute Count (auto) 0.41 K/uL (0-0) H 08/09/21 Neutrophils (%) (Auto) 91.7 % 08/08/21 Lymphocytes (%) (Auto) 1.3 % 08/08/21 Monocytes # (Auto) 0.86 K/uL (0.11-0.59) H 08/08/21 Eosinophils # (Auto) 0.00 K/uL (0-0.5) 08/08/21 Immature Granulocyte % (Auto) 2.9 % 08/08/21 Neutrophils # (Auto) 20.01 K/uL (1.4-6.5) H 08/08/21 Lymphocytes # (Auto) 0.29 K/uL (1.2-3.4) L 08/08/21 Monocytes # (Auto) 0.86 K/uL (0.11-0.59) H 08/08/21 Eosinophils # (Auto) 0.00 K/uL (0-0.5) 08/08/21 Basophils # (Auto) 0.04 K/uL (0-0.2) 08/08/21 Immature Granulocyte # (Auto) 0.63 K/uL (0.00-0.02) H 08/08/21 ANC 22.40 K/uL (1.4-6.5) H 08/09/21 ALC 0.42 K/uL (1.2-3.4) L 08/09/21 Neutrophils % (Manual) 90.5 % 08/09/21 Lymphocytes % (Manual) 1.7 % 08/09/21 Monocytes % (Manual) 2.6 % 08/09/21 Metamyelocytes % (manual) 5.2 % 08/09/21 Neutrophils # (Manual) 22.40 K/uL (1.4-6.5) H 08/09/21 Lymphocytes # (Manual) 0.42 K/uL (1.2-3.4) L 08/09/21 Monocytes # (Manual) 0.64 K/uL (0.11-0.59) H 08/09/21 Metamyelocytes # (Manual) 1.29 K/uL (0-0) H 08/09/21 Polychromasia 1+ 08/09/21 Na 130 mmol/L (136-145) L 08/09/21 K 4.4 mmol/L (3.5-5.1) 08/09/21 Cl 96 mmol/L (98-107) L 08/09/21 CO2 24 mmol/L (21-32) 08/09/21 Anion Gap 10 (3-11) 08/09/21 BUN 52 mg/dl (6-23) H 08/09/21 Creatinine 1.06 mg/dl (0.6-1.4) 08/09/21 Estimated GFR ( Amer) 89.2 ml/min 08/09/21 Estimated GFR (Non-Af Amer) 77.0 ml/min 08/09/21 BUN/Creatinine Ratio 49.1 (10-20) H 08/09/21 Glu 115 mg/dl (70-99(Fasting)) H 08/09/21 Ca 8.5 mg/dl (8.5-10.1) 08/09/21 Phosphorus Level 3.1 mg/dl (2.5-4.9) 08/09/21 Mg 2.0 mg/dl (1.7-2.4) 08/09/21 05:02 08/09/21 Calcium Level 8.5 mg/dl (8.5-10.1) 08/09/21 05:02 08/09/21 Microbiology 08/08/21 11:10 Gram Stain - Final Sputum, Expectorated Diagnostic Findings (Past 24 Hours) Chest X-Ray 08/09/21 07:00 XR chest 1V portable HISTORY: 60 years-old Male resp failure acute respiratory failure COMPARISON: Chest radiograph 08/07/2021 TECHNIQUE: Portable AP view of the chest FINDINGS: A right-sided PICC is redemonstrated with distal tip in the expected location of the mid to inferior SVC. Subcutaneous emphysema of the right supraclavicular tissues and axilla is new/progressed from prior. Cardiac silhouette is enlarged. Questioned pneumomediastinum. Lungs are hypoinflated. No definite pneumothorax or large pleural effusion. Interstitial coarsening with multifocal airspace opacities are redemonstrated and have mildly progressed. IMPRESSION: 1. Unchanged positioning of the right-sided PICC. Subcutaneous emphysema of the right supraclavicular tissues and axilla are new from prior. Equivocal pneumomediastinum is likely artifactual. Attention at follow-up recommended. 2. Extensive airspace opacities mildly progressed. 3. No pneumothorax identified. ACT 112: Negative or not required by law. The above report was generated using voice recognition software. It may contain grammatical, syntax or spelling errors. Electronically signed by: Jewel Ribera M.D. 08/09/2021 7:02 AM I & O Totals 24 Hours 08/08/21 08/09/21 08/10/21 06:59 06:59 06:59 Intake Total 1627.508 / 9904.059 9504.636 / 2279.636 Output Total 1550 / 1550 1850 / 1850 Balance 77.508 / 77.508 429.636 / 429.636 Cumulative 07/25/21 11:19 thru 08/09/21 06:25 Intake Total 60273.412 Output Total 47881 Balance 5373.412 RT Ventilator Mngmt (Last Documented) Ventilator Ordered Settings Respiratory Rate 26 08/09/21 07:55 Fraction of Inspired Oxygen 100 08/09/21 07:55 Ventilator - PT Measurements Respiratory Rate 26 Coding Level of Care Code Critical Care 1st 30-74 mins Diagnoses Acute hypoxemic respiratory failure due to COVID-19 U07.1; J96.01 CAD (coronary artery disease) I25.10 HLD (hyperlipidemia) E78.5 Diabetes mellitus E11.9 Acute pulmonary embolism I26.99 Sinus tachycardia R00.0 Cephalic vein thrombosis, left I82.612 Lactic acid acidosis E87.2 Time Spent (min) 45
[2021-08-09] MEDS: POLYETHYLENE (MIRALAX) 17 GM PACK PO SCH (08:36)
[2021-08-09] MEDS: FUROSEMIDE INJ 20 MG/2 ML VIAL IV SCH ×2 (08:36→17:42)
[2021-08-09] MEDS: MAGNESIUM OXIDE 400 MG TAB PO SCH ×2 (08:36→21:47)
[2021-08-09] MEDS: PANTOprazole 40 MG TAB PO SCH (08:37)
[2021-08-09] MEDS: dexAMETHasone 10 MG in SYRINGE 0 ML IV SCH (08:37)
[2021-08-09] MEDS: ASPIRIN 81 MG ECTAB PO SCH (08:37)
[2021-08-09] MEDS: allopurinoL 300 MG TAB PO SCH (08:37)
[2021-08-09] MEDS: DOCUSATE SODIUM/SENNA 50/8.6MG TAB PO SCH (08:37)
[2021-08-09] MEDS: INSULIN ASPART PER UNIT SC SCH ×4 (08:58→20:25)
[2021-08-09] MEDS ORDERED: INSULIN HUMAN NPH SC SCH (10:00)
[2021-08-09] MEDS: CEFTAROLINE FOSAMIL ACETATE 600 MG in SODIUM CHLORIDE 0.9% 250 ML IV SCH ×2 (11:59→23:30)
[2021-08-09] MEDS: INSULIN REGULAR 250 UNITS in SODIUM CHLORIDE 0.9% 247.5 ML IV SCH ×3 (12:49→14:54)
--- NOTE | 2021-08-09 14:25 | Pharmacy Report ---
Pharmacy Glycemic Short Note 2 - Date of Service August 09, 2021 - Glycemic Short BSG Results (Last 24 hours): 08/08/21 08/08/21 08/08/21 15:04 16:12 16:53 Glucose POC Glucose 227 H 169 H 150 H 08/08/21 08/08/21 08/08/21 17:50 19:19 21:05 Glucose POC Glucose 165 H 164 H 123 H 08/08/21 08/08/21 08/09/21 22:10 23:06 00:10 Glucose POC Glucose 147 H 125 H 100 H 08/09/21 08/09/21 08/09/21 00:29 00:48 01:26 Glucose POC Glucose 102 H 104 H 122 H 08/09/21 08/09/21 08/09/21 02:40 02:58 04:19 Glucose POC Glucose 93 169 H 113 H 08/09/21 08/09/21 08/09/21 05:02 07:34 09:02 Glucose 115 H POC Glucose 170 H 192 H 08/09/21 08/09/21 08/09/21 10:12 10:53 12:04 Glucose POC Glucose 221 H 274 H 277 H 08/09/21 08/09/21 13:08 14:03 Glucose POC Glucose 334 H* 401 H* OUTPATIENT ANTIDIABETIC REGIMEN: * Glyburide 5mg PO BID * Metformin 1000mg BID * Actos 45mg PO Daily * A1c 6.3% 07/26/21 ASSESSMENT: 08/09: * Insulin infusion rate down to 1.2 units/hr this morning. Thus transition off of the infusion was attempted utilizing NPH (given previous regimen and likelihood of prolonged steroid taper). Unfortunately, BSG and insulin infusion rates increased throughout the day despite the addition of NPH. Patient did not eat breakfast and per RN only consumed ~50% of an apple juice this morning. Pt did eat 23g CHO at lunchtime. He remains on Dexamethasone 10mg. * Will continue insulin infusion today and plan to attempt drip transition again tomorrow 08/08: * Insulin drip rate continues to run at high rates (reaching ~20 units/hr last evening). Will initiate low dose lantus on top of the insulin infusion in an attempt to bring infusion rates down. Current rate ~11 units/hr. * Patient is tolerating a diet and a tighten and fixed CR is being used * Dexamethasone continues, dose decreased today to 10mg today, will likely be tapered off 08/07 * Insulin drip started yesterday evening for BSGs climbing into 300s despite SQ insulin regimen * BSGs have been well controlled with IV insulin drip. BSGs within goal with a relatively stable infusion rate of 3.8units/hr * IV steroids continued, today is last day of dexamethasone 20mg IV. Will step down to 10mg IV daily x 5 days with plan to taper slowly thereafter. * Heparin gtt resumed last evening, mixed in D5W - but running at relatively low infusion rate w/ near therapeutic PTT * Currently on HiFlow but tolerating ~50% of meals per RN. 08/06 * Patient's BSGs yesterday were [phone] mg/dL and fasting this morning was 248 mg/dL. * Information was this prior admission showed that when on dexamethasone 6 mg IV daily, NPH 50 units was too aggressive. Patient had hypoglycemia in the [facility]. * Now, patient is on dexamethasone 20 mg IV daily and fastings have been trending upwards. Will add 15 units of NPH for dinnertime to lower fasting BSGs. Patient will be transitioning to 10 mg of dexamethasone in 2 days so this dose will need to be adjusted accordingly. * Tighten Novolog to provide more daily coverage. 08/05 * Patient's BSGs yesterday were [phone] mg/dL and overnight were 86-100 mg/dL. Fasting this morning was 160 mg/dL. * Continued NPH 30 units. Novolog tightened at lunch yesterday but BSGs continued to trend upwards. Tighten CR. * Lunch was 436 mg/dL but patient ate cheerios uncovered. Loosen CF to prevent overcorrection. 08/04 * BSGs above goal the last 24hr ([phone]). Fasting 168mg/dL today. * Dexamethasone increased from 10mg daily to 20mg daily last evening. Continues with type 2 diet and heparin drip (in D5W). * NPH increased this AM ~ 20% to 30 units daily. Basal will need re-evaluated tomorrow given modification in steroid dose and steroid induced hyperglycemia. * Prandial Novolog tightened at lunch today given rising BSG this afternoon and larger carb intake the last 2 days. Overnight checks for tonight. PLAN FOR INPATIENT GLYCEMIC CONTROL: * Hold outpatient oral diabetes medications * Continue IV insulin drip, goal range 110-180mg/dL * Basal insulin * NPH 35 units qam * Bolus insulin * Novolog SQ to cover carbs in meals: * Nutritional / Prandial insulin per carb ratio of 1 unit per 2.5 grams CHO consumed
--- NOTE | 2021-08-09 15:25 | Hospitalist Progress Note ---
Date of Service August 09, 2021 Assessment & Plan (1) Hematoma: Plan: left arm (2) Acute pulmonary embolism: (3) DVT of lower extremity, bilateral: (4) Acute respiratory failure with hypoxia: (5) 2019 novel coronavirus-infected pneumonia (NCIP): (6) Sinus tachycardia: (7) Hyponatremia: (8) Diabetes mellitus: (9) CAD (coronary artery disease): Plan: (10) HTN (hypertension): (11) DVT prophylaxis: Plan: 60 year old male who initially presented with COVID 19 PNA with hypoxic respiratory failure on high flow/BIPAP, now complicated by acute bilateral PE, bilateral DVT further complicated by spontaneous LUE hematoma while on heparin drip for PE. Acute LUE hematoma - CT LUE shows biceps hematoma 13.3 x 5.3x 7 cm. No evidence of compartment syndrome. -Seen by orthopedics- non surgical management as of now. Heparin drip has been resumed per nursing informatics clinical analyst. Trend H&H, monitor neurovascular status. Acute blood loss anemia due to above - Hb down to 7.6 from 13.7 on 08/03. S/p 1 U of PRBC 08/08. Trending H&H, transfuse PRN Acute pulmonary embolism (RLL segmental/subsegmental PE) - on CTA chest 08/03. Heparin drip has been resumed DVT bilateral distal lower extremity - US 08/06 shows occlusive thrombus within bilateral calf veins but no proximal thrombus. Anticoagulation as above Acute respiratory failure with hypoxia due to COVID 19 PNA and acute PE Subcutaneous emphysema - Transferred to ICU on 08/03. -now with barotrauma. no further BIPAP. continue High flow COVID 19 PNA - S/p remdesevir course -currently on decadron 10mg IV dialy DM-2 with steroid induced hyperglycemia -Glycemic pharmacist managing, on insulin. Home actos and glyburide on hold. Sinus tachycardia- likely from PNA and PE. On metoprolol. Asymptomatic NATHANIEL- NATHANIEL resolved. Cr back to baseline of 1.2 Hyponatremia- relatively stable HTN- stable, on lopressor CAD- h/o stents. No chest pain. Continue ASA, metoprolol. DVT prophylaxis- heparin drip GI prophylaxis- Protonix Dispo- Remain in ICU Admission and Anticipated Discharge Date Admission Date: July 25, 2021 Subjective Remains on high flow No new complaints currently Physical Exam Physical Exam: On high flow, no acute distress, pleasant Respiratory: no wheezing/rhonchi/rales Cardiovascular: regular rate and rhythm, no murmurs/rubs/gallops Gastrointestinal (Abdomen): soft, non tender Musculoskeletal: left arm swollen but not tense Skin: Neurologic: awake, alert Results & Data Results & Data ([facility]) Vital Signs (Past 12 Hours) Vital Signs Temp Pulse Pulse Resp BP Pulse Ox 08/09/21 14:00 95 H 26 H 126/91 97 08/09/21 13:00 116 H 25 H 102/58 L 91 08/09/21 12:00 36.5 C 109 H 27 H 130/70 91 08/09/21 11:15 109 H 27 H 94 08/09/21 11:00 106 H 22 127/75 92 08/09/21 10:00 104 H 26 H 121/70 89 L 08/09/21 09:00 99 H 27 H 151/73 H 93 08/09/21 08:00 36.6 C 109 H 27 H 144/75 H 95 08/09/21 07:55 110 H 26 H 92 08/09/21 07:00 106 H 25 H 131/73 90 08/09/21 06:00 105 H 22 152/79 H 92 08/09/21 05:00 90 21 146/71 H 93 08/09/21 04:40 100 H 90 08/09/21 04:00 97 H 23 162/75 H 90 Laboratory Results Short CBC 08/08/21 08/09/21 Range/Units 19:52 05:02 WBC 24.75 H (4.8-10.8) K/uL Hgb 9.7 L 9.5 L (14.0-18.0) g/dL Hct 27.3 L 26.3 L (42-52) % Plt Count 300 (130-400) K/uL BMP 08/09/21 05:02 Sodium 130 L Potassium 4.4 Chloride 96 L Carbon Dioxide 24 BUN 52 H Creatinine 1.06 Glucose 115 H Calcium 8.5 Medications Administered Current Inpatient Medications Acetaminophen (Acetaminophen 325 Mg Tab) 650 mg PO Q4H PRN PRN Reason: Pain or Fever Stop: 08/24/21 18:01 Last Admin: 08/08/21 22:07 Dose: 650 mg Documented by: Al Hydrox/Mg Hydrox/Simethicone (Aluminum/Magnesium Susp 30 Ml Udc) 15 ml PO Q4H PRN PRN Reason: Dyspepsia Stop: 08/24/21 18:01 Allopurinol (Allopurinol 300 Mg Tab) 300 mg PO QAM ANSELMO Stop: 08/28/21 08:59 Last Admin: 08/09/21 08:37 Dose: 300 mg Documented by: Aspirin (Aspirin 81 Mg Ectab) 81 mg PO DAILY ANSELMO Stop: 08/25/21 08:59 Last Admin: 08/09/21 08:37 Dose: 81 mg Documented by: Benzonatate (Benzonatate 100 Mg Capsule) 100 mg PO TID PRN PRN Reason: cough Stop: 08/24/21 18:01 Dextrose (Dextrose 50% 50 Ml Syringe) 25 - 50 ml IV UD PRN; Protocol PRN Reason: Hypoglycemia Protocol Stop: 08/24/21 18:01 Last Admin: 08/09/21 02:42 Dose: 25 ml Documented by: Furosemide (Furosemide Inj 20 Mg/2 Ml Vial) 40 mg IV [id number] ANSELMO Stop: 09/08/21 16:59 Glucagon (Glucagon For Inj 1 Mg Vial) 1 mg SQ UD PRN; Protocol PRN Reason: Hypoglycemia Protocol Stop: 08/24/21 18:01 Glucose (Glucose 10 Tabs/Tube) 4 - 8 tabs PO UD PRN; Protocol PRN Reason: Hypoglycemia Protocol Stop: 08/24/21 18:01 Glucose (Glucose 40% Gel 15 Gm Tube) 15 - 30 gm PO UD PRN; Protocol PRN Reason: Hypoglycemia Protocol Stop: 08/24/21 18:01 Heparin Sodium (Beef Lung) (Heparin 10 Unit/Ml 5 Ml Flush) 5 ml FLUSH PRN PRN PRN Reason: Flush Stop: 09/04/21 16:31 Dexamethasone 10 mg/ Syringe 2.5 mls @ 1 mls/min IV DAILY ANSELMO Stop: 08/12/21 09:03 Last Admin: 08/09/21 08:37 Dose: 1 mls/min Documented by: Insulin Human Regular 250 (units/ Sodium Chloride) 250 mls @ 5.8 mls/hr IV .Q24H ANSELMO; Protocol Stop: 08/16/21 23:59 Last Titration: 08/09/21 15:05 Dose: 5.8 unit/hr, 5.8 mls/hr Documented by: Heparin Sodium/Dextrose (Heparin Sodium/Dextrose) 25,000 units in 500 mls @ 20 mls/hr IV .Q24H [facility]; Protocol Stop: 09/05/21 21:44 Last Titration: 08/09/21 06:25 Dose: 1,000 units/hr, 20 mls/hr Documented by: Ceftaroline Fosamil 600 mg/ (Sodium Chloride) 270 mls @ 250 mls/hr IV Q12H [facility]; Protocol Stop: 08/16/21 10:29 Last Infusion: 08/09/21 13:34 Dose: Infused Documented by: Insulin Aspart (Insulin Aspart Per Unit) 0 units SC ACHS [facility] Stop: 09/05/21 20:59 Last Admin: 08/09/21 13:21 Dose: 9 units Documented by: Insulin Human NPH (Insulin Human Nph) 35 units SC DAILY [facility] Stop: 09/08/21 09:59 Last Admin: 08/09/21 10:46 Dose: 35 units Documented by: Ipratropium Goodyear (Ipratropium Goodyear Neb Soln 0.02% 2.5 Ml Vial) 0.5 mg INH Q4H PRN PRN Reason: SOB, WHEEZE Stop: 08/31/21 23:14 Levalbuterol HCl (Levalbuterol 1.25mg/0.5ml Neb) 1.25 mg INH Q4H PRN PRN Reason: SOB, WHEEZE Stop: 08/31/21 23:14 Magnesium Hydroxide (Magnesium Hydroxide Susp 30 Ml Udc) 30 ml PO Q12H PRN PRN Reason: Constipation Stop: 08/24/21 18:01 Magnesium Oxide (Magnesium Oxide 400 Mg Tab) 400 mg PO BID ANSELMO Stop: 08/27/21 20:59 Last Admin: 08/09/21 08:36 Dose: 400 mg Documented by: Metoprolol Tartrate (Metoprolol Tartrate 25 Mg Tab) 25 mg PO Q8 [facility] Stop: 09/08/21 13:59 Last Admin: 08/09/21 13:21 Dose: 25 mg Documented by: Miscellaneous (Carbohydrates For Hypoglycemia ) 15 - 30 gm PO UD PRN PRN Reason: Hypoglycemia Protocol Stop: 08/24/21 18:01 Miscellaneous (Icu Electrolyte Replacement Protocol) 1 ea N/A BID@ [facility]; Protocol Stop: 08/14/21 17:59 Last Admin: 08/09/21 06:33 Dose: Not Given Documented by: Miscellaneous Information (Pharmacy Glycemic Mgmt Consult) 1 ea N/A UD PRN; Protocol PRN Reason: Consult Stop: 08/24/21 18:01 Ondansetron HCl (Ondansetron Inj 2 Mg/Ml 2 Ml Vial) 4 mg IV Q6H PRN PRN Reason: Nausea Stop: 08/24/21 18:01 Pantoprazole Sodium (Pantoprazole 40 Mg Tab) 40 mg PO DAILY [facility] Stop: 09/07/21 08:59 Last Admin: 08/09/21 08:37 Dose: 40 mg Documented by: Polyethylene Glycol (Polyethylene (Miralax) 17 Gm Pack) 17 gm PO DAILY PRN PRN Reason: Constipation Stop: 08/24/21 18:01 Polyethylene Glycol (Polyethylene (Miralax) 17 Gm Pack) 17 gm PO DAILY [facility] Stop: 09/03/21 09:44 Last Admin: 08/09/21 08:36 Dose: 17 gm Documented by: Senna/Docusate Sodium (Docusate Sodium/Senna 50/8.6mg Tab) 1 tab PO QAM [facility] Stop: 09/03/21 09:44 Last Admin: 08/09/21 08:37 Dose: 1 tab Documented by:
[2021-08-10] MEDS: HEPARIN SODIUM/DEXTROSE 25,000 UNITS/500 ML BAG IV SCH (04:54)
[2021-08-10 05:31] LABS: Hematocrit (blood only) 28.1 % (42-52); Mean Corpuscular Hgb Conc 35.6 g/dL (32-36); Mean Platelet Volume 9.4 fL (7.4-10.4); Platelet Count 276 K/uL (130-400); RDW Coefficient of Variation 14.3 % (11.5-14.5); RDW Standard Deviation 43.1 fL (36.4-46.3); Red Blood Count 3.23 M/uL (4.7-6.1); White Blood Count 24.63 K/uL (4.8-10.8)
[2021-08-10 05:52] LABS: BUN Creatinine Ratio 45.2 (10-20); Calcium 7.7 mg/dl (8.5-10.1); Creatinine Clr Calc Pharmacy 74.9 ml/min; Est GFR (African American) 91.3 ml/min; Est GFR (Non-African American) 78.8 ml/min; Phosphorus 3.1 mg/dl (2.5-4.9); Potassium 4.6 mmol/L (3.5-5.1)
[2021-08-10 06:00] LABS: Partial Thromboplastin Ratio 2.2
[2021-08-10 06:20] LABS: Partial Thromboplastin Time 60.2 Seconds (21.0-31.0)
[2021-08-10] MEDS: METOPROLOL TARTRATE 25 MG TAB PO SCH ×3 (06:33→22:11)
[2021-08-10] MEDS: ICU ELECTROLYTE REPLACEMENT PROTOCOL SCH ×2 (06:41→17:21)
[2021-08-10 06:54] LABS: Basophils # (auto) 0.07 K/uL (0-0.2); Basophils % (auto) 0.3 %; Immature Granulocytes # (auto) 1.76 K/uL (0.00-0.02); Immature Granulocytes % (auto) 7.1 %; Lymphocytes # (auto) 0.86 K/uL (1.2-3.4); Lymphocytes % (auto) 3.5 %; Monocytes # (auto) 0.45 K/uL (0.11-0.59); Monocytes % (auto) 1.8 %; Neutrophils # (auto) 21.49 K/uL (1.4-6.5); Neutrophils % (auto) 87.3 %; Polychromasia 1+
[2021-08-10] MEDS: MAGNESIUM OXIDE 400 MG TAB PO SCH ×4 (07:48→22:11)
--- NOTE | 2021-08-10 07:49 | XRay Report ---
XR chest 1V portable HISTORY: 60 years-old Male resp failure acute respiratory failure COMPARISON: 08/09/2021 TECHNIQUE: Portable AP view of the chest FINDINGS: Cardiac silhouette is enlarged. Unchanged positioning of the right-sided PICC. Subcutaneous emphysema of the right chest wall and supraclavicular tissues is noted with mildly increased pneumomediastinum . There is a questioned tiny right apical pneumothorax. Pulmonary vascular congestion with multifocal bilateral airspace opacities appear similar to mildly improved. No large pleural effusion. Degenerat wesley changes of the shoulders and spine. IMPRESSION: 1. Cardiomegaly with interstitial coarsening and bilateral airspace opacities, stable to mildly impro alessandra. 2. Unchanged positioning of the right-sided PICC. 3. Subcutaneous emphysema of the right chest wall and supraclavicular tissues with mildly progressed pneumomediastinum. 4. Questioned tiny right apical pneumothorax. ACT 112: Negative or not required by law. The above report was generated using voice recognition software. It may contain grammatical, syntax o r spelling errors. Electronically signed by: Jewel Ribera M.D. 08/10/2021 7:48 AM
[2021-08-10] MEDS: ASPIRIN 81 MG ECTAB PO SCH (08:14)
[2021-08-10] MEDS: DOCUSATE SODIUM/SENNA 50/8.6MG TAB PO SCH (08:14)
[2021-08-10] MEDS: FUROSEMIDE INJ 20 MG/2 ML VIAL IV SCH ×2 (08:14→17:21)
[2021-08-10] MEDS: allopurinoL 300 MG TAB PO SCH (08:14)
[2021-08-10] MEDS: POLYETHYLENE (MIRALAX) 17 GM PACK PO SCH (08:15)
[2021-08-10] MEDS: PANTOprazole 40 MG TAB PO SCH (08:15)
[2021-08-10] MEDS: INSULIN HUMAN NPH SC SCH (08:19)
[2021-08-10] MEDS: dexAMETHasone 10 MG in SYRINGE 0 ML IV SCH (08:19)
[2021-08-10] MEDS: INSULIN ASPART PER UNIT SC SCH ×4 (08:32→21:09)
[2021-08-10] MEDS ORDERED: INSULIN GLARGINE SOLOSTAR 100 UNITS/ML 3 ML PEN SC SCH (09:00)
[2021-08-10] MEDS ORDERED: LACTULOSE SYRUP 30 GM/45 ML UDP PO ONE (09:45)
--- NOTE | 2021-08-10 10:31 | Critical Care Consultation ---
Date of Consultation August 10, 2021 Assessment & Plan (1) Acute hypoxemic respiratory failure due to COVID-19: (2) CAD (coronary artery disease): (3) HLD (hyperlipidemia): (4) Diabetes mellitus: (5) Acute pulmonary embolism: (6) Sinus tachycardia: (7) Cephalic vein thrombosis, left: (8) Lactic acid acidosis: Impression: 60-year-old male with a past medical history of CAD, hypertension, obesity and hyperlipidemia presenting with COVID-19 viral pneumonia. Case was complicated by identification of PE and spontaneous left biceps hematoma formation while on anticoagulation. 24-hour events: Oxygenation continues to be an issue. His FiO2 is been as high as 1.0 and as low as 0.8. He has not had any new complaints in the last 24 hours. No bowel movement Recommendations Neurologic: No significant issues. Pain management as needed. Pulmonary: Patient with COVID-19 viral pneumonia. Day #8 of high-dose Decadron (10 mg) per the DEXA-ARDS protocol, for additional 3 days. His CRP is decreasing. Will lik evelyn need a slower prolonged taper given the duration of steroid administration. Continues to require high amounts of oxygen support. Has now developed evidence of barotrauma with subcutaneous emphysema. Continue to avoid positive airway pressure if possible. Continue Lasix to 20 mg twice a day and follow serum creatinine and electrolytes. Continue to follow daily chest x-rays. Given that were about 4 weeks into this, the likelihood of significant rapid recovery is quite low. Ideally, would like to pursue bronchoscopy with lower respiratory specimens to evaluate for infection however the patient's tenuous respiratory status would likely result in him being intubated and he and I would like to avoid that if at all possible. Cardiovascular: Right lower lobe pulmonary embolism as noted above. Continue metoprolol to 25 mg p.o. every 8 hours. Echo 08/06 with evidence of a hyperdynamic LV. EF greater than 70%. No RV failure noted. Continue aspirin given his history of coronary artery disease. Lactate decreasing. Continue diuresis Gastrointestinal: Continue diet. Continue pantoprazole given the use of heparin and high-dose steroids. Renal: Hyponatremia, stable. We will continue to follow at this point time. Will see how he responds to diuresis. ICU electrolyte replacement protocol. Urine studies unlikely to be helpful given loop diuretics. Infectious disease: CRP was elevated but is decreasing. Cultures negative to date but GMS from sputum culture showed many WBC, GPC and GNR. No fevers but climbing WBC and procal. Patient completed 5 days of empiric Rocephin for pneumonia. Too high risk to consider bronchoscopy and BAL as would likely result in intubation. Day #2 ceftaroline which should provide gram-negative resistant coverage as well as some gram-positive coverage. Fungitell pending. LDH elevated but nonspecific. PJP PCR pending. White count stable at 24,000. We will recheck procalcitonin and CRP in the a.m. Hematologic: PE and spontaneous left bicep hematoma formation. Hemoglobin stable. The arm appears better today. Appreciate orthopedics assistance. Continue neurovascular monitoring of the left upper extremity. Try to keep elevated as much as possible. Endocrine: ICU pharmacy team assisting with management of hyperglycemia while on high-dose steroids. TSH within normal limits. VTE prophylaxis: Heparin infusion CODE STATUS: Full code Disposition: Remain in ICU. Right-sided PICC line 3/5 Dominguez catheter Discussed with bedside RN I have personally spent 42 minutes of critical care time in the direct management of this patient. This is a life/limb threatening event. This includes time spent evaluating patient, direct bedside care, chart review, placing orders, interpretation of diagnostic studies, discussion with consultants, patient, and family members, as well as other required patient management activities. This time is exclusive of all separately billable procedures, and teaching time and separate from and in addition to any other critical care service time. Thank you for allowing us to participate in the care of this patient. History of Present Illness Attending Physician: Yovanny Manning MD History of Present Illness Patient seen and examined. EMR reviewed. Discussed on multidisciplinary rounds. The patient thinks that he is doing okay. His left arm swelling has decreased and is having much less pain. He is occasionally coughing and expectorating some thin phlegm. No fevers overnight. He is complaining of some discomfort due to being in the bed. We were able to get his diuresis initiated yesterday. He has tolerated it well Allergies Allergy/AdvReac Type Severity Reaction Status Date / Time No Known Allergies Allergy Unverified 07/25/21 14:34 Home Medications Medication Instructions Recorded Confirmed Type allopurinol 300 mg tablet 300 mg PO DAILY 07/25/21 07/25/21 History aspirin 81 mg tablet,delayed 81 mg PO DAILY 07/25/21 07/25/21 History release glyburide 5 mg tablet 5 mg PO BID 07/25/21 07/25/21 History lisinopril 40 mg tablet 40 mg PO DAILY 07/25/21 07/25/21 History metformin 1,000 mg tablet 1,000 mg PO BID 07/25/21 07/25/21 History metoprolol succinate 25 mg 25 mg PO DAILY 07/25/21 07/25/21 History tablet,extended release 24 hr ondansetron 4 mg disintegrating 4 mg TRANSLINGUAL UD PRN 07/25/21 07/25/21 History tablet pioglitazone 45 mg tablet 45 mg PO DAILY 07/25/21 07/25/21 History Patient History Medical History CAD (coronary artery disease) Cephalic vein thrombosis, left CKD (chronic kidney disease) stage 3, GFR 30-59 ml/min Diabetes mellitus Gout HLD (hyperlipidemia) HTN (hypertension) Lactic acid acidosis Surgical History History of arthroscopy of left knee History of heart artery stent x3 Family History Mother Cancer pancreatitc Other Coronary heart disease Diabetes Social History Smoking Status: Former smoker packs per day: 1; Years Smoked: 27; Smoking End Date: 2001; Second Hand Exposure: No; Do You Dip or Chew Tobacco: No; Tobacco Cessation Education Requested by Patient: No Hx Alcohol Use: No Hx Substance Use: No Preferred Language: Armenian Communication Ability: Effective Food Preparation Kitchen Aide Required: No Beliefs That Will Affect Care: None marital status: Current Living Situation: Spouse How many Children do You have: 3 Other Information That Helps Us Care for You: No Feels Safe at Home: Yes Safety Concerns: Feels Safe At This Time Assistive Devices: Denture - Upper, Glasses and Oxygen - Continuous Review of Systems Review of Systems: All systems reviewed & are unremarkable except as noted in Subjective Physical Exam Constitutional: WD/WN, vitals as above Neck: trachea midline, no thyromegaly Minimal crepitus in the right neck Respiratory: normal respiratory effort and + tachypneic Auscultation: + crackles; no wheezes Cardiovascular: RRR, no murmur, no edema Gastrointestinal (Abdomen): normal bowel sounds, soft, nontender, no hepatosplenomegaly Skin: no rashes, warm and dry Lymphatic: no cervical lymphadenopathy Results & Data Results & Data ([facility]) Vital Signs (Past 12 Hours) Vital Signs Temp Pulse Pulse Resp BP Pulse Ox Pulse Ox 08/10/21 09:00 36.8 C 87 28 H 148/84 H 97 08/10/21 08:00 100 H 30 H 138/65 91 97 08/10/21 07:28 103 H 20 91 08/10/21 07:00 99 H 27 H 136/77 89 L 08/10/21 06:00 101 H 28 H 133/77 85 L 08/10/21 05:00 98 H 28 H 153/72 H 88 L 08/10/21 04:00 79 17 125/64 93 08/10/21 03:10 98 H 21 94 08/10/21 03:00 88 15 120/77 94 08/10/21 02:00 87 33 H 135/71 94 08/10/21 01:00 84 16 143/74 H 96 08/10/21 00:00 89 18 132/73 99 08/09/21 23:49 94 H 08/09/21 23:20 91 H 22 98 08/09/21 23:00 36.6 C 92 H 20 130/83 99 Critical Care Results & Data Vital Signs (Past 12 Hours) Vital Signs Temp Pulse Pulse Resp BP Pulse Ox Pulse Ox 08/10/21 09:00 36.8 C 87 28 H 148/84 H 97 08/10/21 08:00 100 H 30 H 138/65 91 97 08/10/21 07:28 103 H 20 91 08/10/21 07:00 99 H 27 H 136/77 89 L 08/10/21 06:00 101 H 28 H 133/77 85 L 08/10/21 05:00 98 H 28 H 153/72 H 88 L 08/10/21 04:00 79 17 125/64 93 08/10/21 03:10 98 H 21 94 08/10/21 03:00 88 15 120/77 94 08/10/21 02:00 87 33 H 135/71 94 03/10/22 01:00 84 16 143/74 H 96 08/10/21 00:00 89 18 132/73 99 08/09/21 23:49 94 H 08/09/21 23:20 91 H 22 98 08/09/21 23:00 36.6 C 92 H 20 130/83 99 Lab & Micro Results (Past 24 Hours) RBC 3.23 M/uL (4.7-6.1) L 08/10/21 WBC 24.63 K/uL (4.8-10.8) H 08/10/21 Hgb 10.0 g/dL (14.0-18.0) L 08/10/21 Hct 28.1 % (42-52) L 08/10/21 MCV 87.0 fL (80-100) 08/10/21 MCH 31.0 pg (25-34) 08/10/21 MCHC 35.6 g/dL (32-36) 08/10/21 RDW Standard Deviation 43.1 fL (36.4-46.3) 08/10/21 RDW Coefficient of Variation 14.3 % (11.5-14.5) 08/10/21 Plt Count 276 K/uL (130-400) 08/10/21 MPV 9.4 fL (7.4-10.4) 08/10/21 Nucleated Red Blood Cells % (auto) 2.0 % 08/10/21 Nucleated RBC Absolute Count (auto) 0.50 K/uL (0-0) H 08/10/21 Neutrophils (%) (Auto) 87.3 % 08/10/21 Lymphocytes (%) (Auto) 3.5 % 08/10/21 Monocytes # (Auto) 0.45 K/uL (0.11-0.59) 08/10/21 Eosinophils # (Auto) 0.00 K/uL (0-0.5) 08/10/21 Immature Granulocyte % (Auto) 7.1 % 08/10/21 Neutrophils # (Auto) 21.49 K/uL (1.4-6.5) H 08/10/21 Lymphocytes # (Auto) 0.86 K/uL (1.2-3.4) L 08/10/21 Monocytes # (Auto) 0.45 K/uL (0.11-0.59) 08/10/21 Eosinophils # (Auto) 0.00 K/uL (0-0.5) 08/10/21 Basophils # (Auto) 0.07 K/uL (0-0.2) 08/10/21 Immature Granulocyte # (Auto) 1.76 K/uL (0.00-0.02) H 08/10/21 Polychromasia 1+ 08/10/21 Na 129 mmol/L (136-145) L 08/10/21 K 4.6 mmol/L (3.5-5.1) 08/10/21 Cl 96 mmol/L (98-107) L 08/10/21 CO2 24 mmol/L (21-32) 08/10/21 Anion Gap 9 (3-11) 08/10/21 BUN 47 mg/dl (6-23) H 08/10/21 Creatinine 1.04 mg/dl (0.6-1.4) 08/10/21 Estimated GFR ( Amer) 91.3 ml/min 08/10/21 Estimated GFR (Non-Af Amer) 78.8 ml/min 08/10/21 BUN/Creatinine Ratio 45.2 (10-20) H 08/10/21 Glu 146 mg/dl (70-99(Fasting)) H 08/10/21 Ca 7.7 mg/dl (8.5-10.1) L 08/10/21 Phosphorus Level 3.1 mg/dl (2.5-4.9) 08/10/21 Mg 2.0 mg/dl (1.7-2.4) 08/10/21 05:14 08/10/21 Calcium Level 7.7 mg/dl (8.5-10.1) L 08/10/21 05:14 08/10/21 Microbiology 08/08/21 11:10 Gram Stain - Final Sputum, Expectorated Sputum Culture - Preliminary Heavy normal rodo present, Final report to follow. Diagnostic Findings (Past 24 Hours) Chest X-Ray 08/10/21 07:00 XR chest 1V portable HISTORY: 60 years-old Male resp failure acute respiratory failure COMPARISON: 08/09/2021 TECHNIQUE: Portable AP view of the chest FINDINGS: Cardiac silhouette is enlarged. Unchanged positioning of the right-sided PICC. Subcutaneous emphysema of the right chest wall and supraclavicular tissues is noted with mildly increased pneumomediastinum. There is a questioned tiny right apical pneumothorax. Pulmonary vascular congestion with multifocal bilateral airspace opacities appear similar to mildly improved. No large pleural effusion. Degenerative changes of the shoulders and spine. IMPRESSION: 1. Cardiomegaly with interstitial coarsening and bilateral airspace opacities, stable to mildly improved. 2. Unchanged positioning of the right-sided PICC. 3. Subcutaneous emphysema of the right chest wall and supraclavicular tissues with mildly progressed pneumomediastinum. 4. Questioned tiny right apical pneumothorax. ACT 112: Negative or not required by law. The above report was generated using voice recognition software. It may contain grammatical, syntax or spelling errors. Electronically signed by: Jewel Ribera M.D. 08/10/2021 7:48 AM I & O Totals 24 Hours 08/09/21 08/10/21 08/11/21 06:59 06:59 06:59 Intake Total 2279.636 / 2279.636 1735.438 / 1735.438 160 / 160 Output Total 1850 / 1850 3050 / 3050 175 / 175 Balance 429.636 / 429.636 -1314.562 / -1314.562 -15 / -15 Cumulative 07/25/21 11:19 thru 08/10/21 08:51 Intake Total 85573.850 Output Total 06639 Balance 4043.850 RT Ventilator Mngmt (Last Documented) Ventilator Ordered Settings Respiratory Rate 28 08/10/21 09:00 Fraction of Inspired Oxygen 90 08/10/21 09:00 Ventilator - PT Measurements Respiratory Rate 28 Coding Level of Care Code Critical Care 1st 30-74 mins Diagnoses Acute hypoxemic respiratory failure due to COVID-19 U07.1; J96.01 CAD (coronary artery disease) I25.10 HLD (hyperlipidemia) E78.5 Diabetes mellitus E11.9 Acute pulmonary embolism I26.99 Sinus tachycardia R00.0 Cephalic vein thrombosis, left I82.612 Lactic acid acidosis E87.2 Time Spent (min) 40
[2021-08-10] MEDS: CEFTAROLINE FOSAMIL ACETATE 600 MG in SODIUM CHLORIDE 0.9% 250 ML IV SCH ×2 (11:25→22:12)
--- NOTE | 2021-08-10 13:46 | Pharmacy Report ---
Pharmacy Glycemic Short Note 2 - Date of Service August 10, 2021 - Glycemic Short BSG Results (Last 24 hours): 08/09/21 08/09/21 08/09/21 14:03 15:01 16:15 Glucose POC Glucose 401 H* 356 H* 275 H 08/09/21 08/09/21 08/09/21 17:04 18:26 19:40 Glucose POC Glucose 246 H 264 H 242 H 08/09/21 08/09/21 08/09/21 20:22 21:42 23:42 Glucose POC Glucose 201 H 197 H 111 H 08/10/21 08/10/21 08/10/21 00:34 01:32 02:49 Glucose POC Glucose 116 H 130 H 101 H 08/10/21 08/10/21 08/10/21 03:44 04:36 05:14 Glucose 146 H POC Glucose 124 H 137 H 08/10/21 08/10/21 08/10/21 05:32 07:40 09:19 Glucose POC Glucose 157 H 122 H 125 H 08/10/21 08/10/21 11:34 12:46 Glucose POC Glucose 108 H 105 H OUTPATIENT ANTIDIABETIC REGIMEN: * Glyburide 5mg PO BID * Metformin 1000mg BID * Actos 45mg PO Daily * A1c 6.3% 07/26/21 ASSESSMENT: 08/10: * Drip transition attempted again today utilizing a combination of NPH and Lantus. * Insulin infusion rate downtrending nicely since Lantus and NPH administration and BSGs have remained in goal. Will plan to d/c drip this afternoon * Patient continues to tolerate a diet. 08/09: * Insulin infusion rate down to 1.2 units/hr this morning. Thus transition off of the infusion was attempted utilizing NPH (given previous regimen and likelihood of prolonged steroid taper). Unfortunately, BSG and insulin infusion rates increased throughout the day despite the addition of NPH. Patient did not eat breakfast and per RN only consumed ~50% of an apple juice this morning. Pt did eat 23g CHO at lunchtime. He remains on Dexamethasone 10mg. * Will continue insulin infusion today and plan to attempt drip transition again tomorrow 08/08: * Insulin drip rate continues to run at high rates (reaching ~20 units/hr last evening). Will initiate low dose lantus on top of the insulin infusion in an attempt to bring infusion rates down. Current rate ~11 units/hr. * Patient is tolerating a diet and a tighten and fixed CR is being used * Dexamethasone continues, dose decreased today to 10mg today, will likely be tapered off 08/07 * Insulin drip started yesterday evening for BSGs climbing into 300s despite SQ insulin regimen * BSGs have been well controlled with IV insulin drip. BSGs within goal with a relatively stable infusion rate of 3.8units/hr * IV steroids continued, today is last day of dexamethasone 20mg IV. Will step down to 10mg IV daily x 5 days with plan to taper slowly thereafter. * Heparin gtt resumed last evening, mixed in D5W - but running at relatively low infusion rate w/ near therapeutic PTT * Currently on HiFlow but tolerating ~50% of meals per RN. 08/06 * Patient's BSGs yesterday were [phone] mg/dL and fasting this morning was 248 mg/dL. * Information was this prior admission showed that when on dexamethasone 6 mg IV daily, NPH 50 units was too aggressive. Patient had hypoglycemia in the morning. * Now, patient is on dexamethasone 20 mg IV daily and fastings have been trending upwards. Will add 15 units of NPH for dinnertime to lower fasting BSGs. Patient will be transitioning to 10 mg of dexamethasone in 2 days so this dose will need to be adjusted accordingly. * Tighten Novolog to provide more daily coverage. 08/05 * Patient's BSGs yesterday were [phone] mg/dL and overnight were 86-100 mg/dL. Fasting this morning was 160 mg/dL. * Continued NPH 30 units. Novolog tightened at lunch yesterday but BSGs continued to trend upwards. Tighten CR. * Lunch was 436 mg/dL but patient ate cheerios uncovered. Loosen CF to prevent overcorrection. 08/04 * BSGs above goal the last 24hr ([phone]). Fasting 168mg/dL today. * Dexamethasone increased from 10mg daily to 20mg daily last evening. Continues with type 2 diet and heparin drip (in D5W). * NPH increased this AM ~ 20% to 30 units daily. Basal will need re-evaluated tomorrow given modification in steroid dose and steroid induced hyperglycemia. * Prandial Novolog tightened at lunch today given rising BSG this afternoon and larger carb intake the last 2 days. Overnight checks for tonight. PLAN FOR INPATIENT GLYCEMIC CONTROL: * Hold outpatient oral diabetes medications * Continue IV insulin drip, goal range 110-180mg/dL- plan to d/c early afternoon * Basal insulin * NPH 25 units qam * Lantus 20 units qam * Bolus insulin * Novolog SQ to cover carbs in meals: * Goal Range: Low 110 mg/dL - High 140 mg/dL * Correction Factor: 12 mg/dL/unit * Nutritional / Prandial insulin per carb ratio of 1 unit per 2.5 grams CHO consumed
--- NOTE | 2021-08-10 16:26 | Hospitalist Progress Note ---
Date of Service August 10, 2021 Assessment & Plan (1) Hematoma: Plan: left arm (2) Acute pulmonary embolism: (3) DVT of lower extremity, bilateral: (4) Acute respiratory failure with hypoxia: (5) 2019 novel coronavirus-infected pneumonia (NCIP): (6) Sinus tachycardia: (7) Hyponatremia: (8) Diabetes mellitus: (9) CAD (coronary artery disease): Plan: (10) HTN (hypertension): (11) DVT prophylaxis: Plan: 60 year old male who initially presented with COVID 19 PNA with hypoxic respiratory failure on high flow/BIPAP, now complicated by acute bilateral PE, bilateral DVT further complicated by spontaneous LUE hematoma while on heparin drip for PE. Acute LUE hematoma - CT LUE shows biceps hematoma 13.3 x 5.3x 7 cm. No evidence of compartment syndrome. -Seen by orthopedics- non surgical management as of now. Heparin drip has been resumed per diffusion operator. Trend H&H, monitor neurovascular status. Acute blood loss anemia due to above - Hb down to 7.6 from 13.7 on 08/03. S/p 1 U of PRBC 08/08. Has remained stable in past 48 hours Acute pulmonary embolism (RLL segmental/subsegmental PE) - on CTA chest 08/03. Heparin drip has been resumed DVT bilateral distal lower extremity - US 08/06 shows occlusive thrombus within bilateral calf veins but no proximal thrombus. Anticoagulation as above Acute respiratory failure with hypoxia due to COVID 19 PNA and acute PE Subcutaneous emphysema - Transferred to ICU on 08/03. -now with barotrauma. no further BIPAP. continue High flow COVID 19 PNA - S/p remdesevir course -currently on decadron 10mg IV daily DM-2 with steroid induced hyperglycemia -Glycemic pharmacist managing, on insulin. Home actos and glyburide on hold. Sinus tachycardia- likely from PNA and PE. On metoprolol. Asymptomatic NATHANILE- NATHANIEL resolved. Cr back to baseline of 1.2 Hyponatremia- relatively stable HTN- stable, on lopressor CAD- h/o stents. No chest pain. Continue ASA, metoprolol. DVT prophylaxis- heparin drip GI prophylaxis- Protonix Dispo- Remain in ICU Admission and Anticipated Discharge Date Admission Date: July 25, 2021 Subjective Remains on High Flow, Alternating between FIO2-90% and 100% Patient feels well. No new complaints Physical Exam Physical Exam: No acute distress, non toxic Respiratory: Breathing comfortably on high flow, diminished at bases, no wheezing/rhonchi Cardiovascular: regular rate and rhythm, no murmurs/rubs/gallops Gastrointestinal (Abdomen): soft, non tender Musculoskeletal: no edema Skin: skin breakdown on bridge of nose Neurologic: awake, alert, spontaneously moving extremities Results & Data Results & Data ([facility]) Vital Signs (Past 12 Hours) Vital Signs Temp Pulse Pulse Resp BP Pulse Ox Pulse Ox 08/10/21 15:42 89 20 95 08/10/21 15:00 87 16 111/74 97 08/10/21 14:00 100 H 29 H 116/74 95 08/10/21 13:00 108 H 29 H 120/76 96 08/10/21 12:00 37.0 C 109 H 24 132/92 98 08/10/21 11:00 96 H 16 118/81 98 08/10/21 10:00 105 H 24 131/77 86 L 08/10/21 09:00 36.8 C 87 28 H 148/84 H 97 08/10/21 08:00 100 H 30 H 138/65 91 97 08/10/21 07:28 103 H 20 91 08/10/21 07:00 99 H 27 H 136/77 89 L 08/10/21 06:00 101 H 28 H 133/77 85 L 08/10/21 05:00 98 H 28 H 153/72 H 88 L Laboratory Results Short CBC 08/10/21 Range/Units 05:14 WBC 24.63 H (4.8-10.8) K/uL Hgb 10.0 L (14.0-18.0) g/dL Hct 28.1 L (42-52) % Plt Count 276 (130-400) K/uL BMP 08/10/21 05:14 Sodium 129 L Potassium 4.6 Chloride 96 L Carbon Dioxide 24 BUN 47 H Creatinine 1.04 Glucose 146 H Calcium 7.7 L Medications Administered Current Inpatient Medications Acetaminophen (Acetaminophen 325 Mg Tab) 650 mg PO Q4H PRN PRN Reason: Pain or Fever Stop: 08/24/21 18:01 Last Admin: 08/08/21 22:07 Dose: 650 mg Documented by: Al Hydrox/Mg Hydrox/Simethicone (Aluminum/Magnesium Susp 30 Ml Udc) 15 ml PO Q4H PRN PRN Reason: Dyspepsia Stop: 08/24/21 18:01 Allopurinol (Allopurinol 300 Mg Tab) 300 mg PO QAM ANSELMO Stop: 08/28/21 08:59 Last Admin: 08/10/21 08:14 Dose: 300 mg Documented by: Aspirin (Aspirin 81 Mg Ectab) 81 mg PO DAILY ANSELMO Stop: 08/25/21 08:59 Last Admin: 08/10/21 08:14 Dose: 81 mg Documented by: Benzonatate (Benzonatate 100 Mg Capsule) 100 mg PO TID PRN PRN Reason: cough Stop: 08/24/21 18:01 Dextrose (Dextrose 50% 50 Ml Syringe) 25 - 50 ml IV UD PRN; Protocol PRN Reason: Hypoglycemia Protocol Stop: 08/24/21 18:01 Last Admin: 08/09/21 02:42 Dose: 25 ml Documented by: Furosemide (Furosemide Inj 20 Mg/2 Ml Vial) 40 mg IV BID17 ANSELMO Stop: 09/08/21 16:59 Last Admin: 08/10/21 08:14 Dose: 40 mg Documented by: Glucagon (Glucagon For Inj 1 Mg Vial) 1 mg SQ UD PRN; Protocol PRN Reason: Hypoglycemia Protocol Stop: 08/24/21 18:01 Glucose (Glucose 10 Tabs/Tube) 4 - 8 tabs PO UD PRN; Protocol PRN Reason: Hypoglycemia Protocol Stop: 08/24/21 18:01 Glucose (Glucose 40% Gel 15 Gm Tube) 15 - 30 gm PO UD PRN; Protocol PRN Reason: Hypoglycemia Protocol Stop: 08/24/21 18:01 Heparin Sodium (Beef Lung) (Heparin 10 Unit/Ml 5 Ml Flush) 5 ml FLUSH PRN PRN PRN Reason: Flush Stop: 09/04/21 16:31 Dexamethasone 10 mg/ Syringe 2.5 mls @ 1 mls/min IV DAILY ANSELMO Stop: 08/12/21 09:03 Last Admin: 08/10/21 08:19 Dose: 1 mls/min Documented by: Heparin Sodium/Dextrose (Heparin Sodium/Dextrose) 25,000 units in 500 mls @ 20 mls/hr IV .Q24H ANSELMO; Protocol Stop: 09/05/21 21:44 Last Titration: 08/10/21 06:50 Dose: 1,000 units/hr, 20 mls/hr Documented by: Ceftaroline Fosamil 600 mg/ (Sodium Chloride) 270 mls @ 250 mls/hr IV Q12H [facility]; Protocol Stop: 08/16/21 10:29 Last Infusion: 08/10/21 13:15 Dose: Infused Documented by: Insulin Aspart (Insulin Aspart Per Unit) 0 units SC ACHS [facility] Stop: 09/09/21 16:29 Insulin Aspart (Insulin Aspart Per Unit) 0 units SC TODAY@0000,0400 [facility] Stop: 08/11/21 04:01 Insulin Human NPH (Insulin Human Nph) 25 units SC DAILY [facility] Stop: 09/09/21 08:59 Last Admin: 08/10/21 08:19 Dose: 25 units Documented by: Ipratropium [place] (Ipratropium [place] Neb Soln 0.02% 2.5 Ml Vial) 0.5 mg INH Q4H PRN PRN Reason: SOB, WHEEZE Stop: 08/31/21 23:14 Levalbuterol HCl (Levalbuterol 1.25mg/0.5ml Neb) 1.25 mg INH Q4H PRN PRN Reason: SOB, WHEEZE Stop: 08/31/21 23:14 Magnesium Hydroxide (Magnesium Hydroxide Susp 30 Ml Udc) 30 ml PO Q12H PRN PRN Reason: Constipation Stop: 08/24/21 18:01 Magnesium Oxide (Magnesium Oxide 400 Mg Tab) 400 mg PO BID [facility] Stop: 08/27/21 20:59 Last Admin: 08/10/21 08:18 Dose: 400 mg Documented by: Metoprolol Tartrate (Metoprolol Tartrate 25 Mg Tab) 25 mg PO Q8 [facility] Stop: 09/08/21 13:59 Last Admin: 08/10/21 13:05 Dose: 25 mg Documented by: Miscellaneous (Carbohydrates For Hypoglycemia ) 15 - 30 gm PO UD PRN PRN Reason: Hypoglycemia Protocol Stop: 08/24/21 18:01 Miscellaneous (Icu Electrolyte Replacement Protocol) 1 ea N/A BID@06,18 [facility]; Protocol Stop: 08/14/21 17:59 Last Admin: 08/10/21 06:41 Dose: 1 ea Documented by: Miscellaneous Information (Pharmacy Glycemic Mgmt Consult) 1 ea N/A UD PRN; Protocol PRN Reason: Consult Stop: 08/24/21 18:01 Ondansetron HCl (Ondansetron Inj 2 Mg/Ml 2 Ml Vial) 4 mg IV Q6H PRN PRN Reason: Nausea Stop: 08/24/21 18:01 Pantoprazole Sodium (Pantoprazole 40 Mg Tab) 40 mg PO DAILY [facility] Stop: 09/07/21 08:59 Last Admin: 08/10/21 08:15 Dose: 40 mg Documented by: Polyethylene Glycol (Polyethylene (Miralax) 17 Gm Pack) 17 gm PO DAILY PRN PRN Reason: Constipation Stop: 08/24/21 18:01 Polyethylene Glycol (Polyethylene (Miralax) 17 Gm Pack) 17 gm PO DAILY ANSELMO Stop: 09/03/21 09:44 Last Admin: 08/10/21 08:15 Dose: 17 gm Documented by: Senna/Docusate Sodium (Docusate Sodium/Senna 50/8.6mg Tab) 2 tab PO QAM [facility] Stop: 09/10/21 08:59
[2021-08-11] MEDS: INSULIN ASPART PER UNIT SC SCH ×7 (00:23→23:58)
[2021-08-11] MEDS: HEPARIN SODIUM/DEXTROSE 25,000 UNITS/500 ML BAG IV SCH ×2 (03:07→22:15)
[2021-08-11] MEDS: METOPROLOL TARTRATE 25 MG TAB PO SCH ×3 (05:44→21:09)
[2021-08-11 06:04] LABS: Partial Thromboplastin Ratio 2.9
[2021-08-11 06:06] LABS: Partial Thromboplastin Time 80.2 Seconds (21.0-31.0)
[2021-08-11 06:45] LABS: BUN Creatinine Ratio 45.1 (10-20); C Reactive Protein 3.87 mg/dl (0-0.5); Calcium 8.6 mg/dl (8.5-10.1); Creatinine Clr Calc Pharmacy 76.4 ml/min; Est GFR (African American) 93.5 ml/min; Est GFR (Non-African American) 80.6 ml/min; Phosphorus 3.8 mg/dl (2.5-4.9); Potassium 4.6 mmol/L (3.5-5.1)
[2021-08-11 06:54] LABS: Hematocrit (blood only) 29.7 % (42-52); Hemoglobin 10.2 g/dL (14.0-18.0); Mean Corpuscular Hemoglobin 30.7 pg (25-34); Mean Corpuscular Hgb Conc 34.3 g/dL (32-36); Mean Corpuscular Volume 89.5 fL (80-100); Mean Platelet Volume 9.9 fL (7.4-10.4); Nucleated RBC # (auto) 0.24 K/uL (0-0); Platelet Count 275 K/uL (130-400); RDW Coefficient of Variation 14.8 % (11.5-14.5); RDW Standard Deviation 44.7 fL (36.4-46.3); Red Blood Count 3.32 M/uL (4.7-6.1); White Blood Count 23.57 K/uL (4.8-10.8)
[2021-08-11] MEDS: ICU ELECTROLYTE REPLACEMENT PROTOCOL SCH ×2 (06:56→17:12)
[2021-08-11] MEDS: MAGNESIUM SULFATE / D5W 1 GM/100 ML BAG IV SCH ×2 (07:26→09:18)
[2021-08-11 07:34] LABS: Basophils # (auto) 0.07 K/uL (0-0.2); Basophils % (auto) 0.3 %; Immature Granulocytes # (auto) 1.62 K/uL (0.00-0.02); Immature Granulocytes % (auto) 6.9 %; Lymphocytes # (auto) 0.73 K/uL (1.2-3.4); Lymphocytes % (auto) 3.1 %; Macrocytosis Present; Monocytes # (auto) 0.39 K/uL (0.11-0.59); Monocytes % (auto) 1.7 %; Neutrophils # (auto) 20.76 K/uL (1.4-6.5); Polychromasia 1+
[2021-08-11] MEDS: INSULIN HUMAN NPH SC SCH (08:44)
[2021-08-11] MEDS: dexAMETHasone 10 MG in SYRINGE 0 ML IV SCH (08:44)
[2021-08-11] MEDS: FUROSEMIDE INJ 20 MG/2 ML VIAL IV SCH ×2 (08:45→17:12)
[2021-08-11] MEDS: DOCUSATE SODIUM/SENNA 50/8.6MG TAB PO SCH (08:45)
[2021-08-11] MEDS: POLYETHYLENE (MIRALAX) 17 GM PACK PO SCH (08:46)
[2021-08-11] MEDS: PANTOprazole 40 MG TAB PO SCH (08:46)
[2021-08-11] MEDS: ASPIRIN 81 MG ECTAB PO SCH (08:46)
[2021-08-11] MEDS: allopurinoL 300 MG TAB PO SCH (08:46)
[2021-08-11] MEDS ORDERED: INSULIN GLARGINE SOLOSTAR 100 UNITS/ML 3 ML PEN SC SCH (09:00)
--- NOTE | 2021-08-11 09:05 | XRay Report ---
XR chest 1V portable CLINICAL HISTORY: resp failure TECHNIQUE: Single frontal radiograph of the chest was obtained. Comparison: Comparison is made to chest one view 08/10/2021 FINDINGS: Lines and tubes are stable. The cardiomediastinal silhouette is obscured. There is suggestion of prev iously noted pneumomediastinum. There is prominence and cephalization of the vasculature with Catherine B lines seen. No evidence of pleural effusion or pneumothorax. IMPRESSION: 1. Cardiomegaly with pulmonary edema, unchanged. 2. Unchanged positioning of right PICC. 3. Partial visualization of previously noted pneumomediastinum. 4. Previously noted pneumothorax is not seen at this time. ACT 112: Negative or not required by law. Electronically signed by: Torres Shi M.D. 08/11/2021 9:04 AM
[2021-08-11] MEDS: MAGNESIUM OXIDE 400 MG TAB PO SCH ×2 (09:18→21:08)
--- NOTE | 2021-08-11 10:11 | Critical Care Progress Note ---
Date of Service August 11, 2021 Assessment & Plan (1) Acute hypoxemic respiratory failure due to COVID-19: (2) CAD (coronary artery disease): (3) HLD (hyperlipidemia): (4) Diabetes mellitus: (5) Acute pulmonary embolism: (6) Sinus tachycardia: (7) Cephalic vein thrombosis, left: (8) Lactic acid acidosis: Plan: Impression: 60-year-old male with a past medical history of CAD, hypertension, obesity and hyperlipidemia presenting with COVID-19 viral pneumonia. Case was complicated by identification of PE and spontaneous left biceps hematoma formation while on anticoagulation. 24-hour events: Oxygenation continues to be an issue. No significant improvement in his overall oxygenation overnight. Recommendations Neurologic: No significant issues. Pain management as needed. Pulmonary: Patient with COVID-19 viral pneumonia. Tomorrow he will conclude his high-dose dexamethasone protocol. His CRP is decreasing. Will likely need a slower prolonged taper given the duration of steroid administration. Continues to require high amounts of oxygen support. Has now developed evidence of barotrauma with subcutaneous emphysema. Continue to avoid positive airway pressure if possible. Continue Lasix 40 mg twice a day and follow serum creatinine and electrolytes. We will add metolazone. Continue to follow daily chest x-rays. Given that were about 4 weeks into this, the likelihood of significant rapid recovery is quite low. Ideally, would like to pursue bronchoscopy with lower respiratory specimens to evaluate for infection however the patient's tenuous respiratory status would likely result in him being intubated and he and I would like to avoid that if at all possible. He would like to attempt positional therapy which I think is reasonable. We will see if he can tolerate a decubitus positioning first and consider proning. He felt like he did better previously with this. Continue anticoagulation. Continue high flow oxygen. We will try to put a nonrebreather facemask over the top of his high flow oxygen canister to see if we can give him a little bit more oxygen Cardiovascular: Right lower lobe pulmonary embolism as noted above. Continue metoprolol to 25 mg p.o. every 8 hours. Echo 08/06 with evidence of a hyperdynamic LV. EF greater than 70%. No RV failure noted. Continue aspirin given his history of coronary artery disease. Lactate decreasing. Continue diuresis Gastrointestinal: Continue diet. Continue pantoprazole given the use of heparin and high-dose steroids. Renal: Hyponatremia, stable. We will continue to follow at this point time. ICU electrolyte replacement protocol. Urine studies unlikely to be helpful given loop diuretics. Infectious disease: CRP was elevated but is decreasing. Cultures negative to date but GMS from s putum culture showed many WBC, GPC and GNR, cultures negative however procalcitonin did decrease significantly. Will complete 5 days of ceftaroline. Too high risk to consider bronchoscopy and BAL as would likely result in intubation. Fungitell pending. LDH elevated but nonspecific. PJP PCR pending. White count stable at 24. Hematologic: PE and spontaneous left bicep hematoma formation. Hemoglobin stable. The arm appears better today. Appreciate orthopedics assistance. Continue neurovascular monitoring of the left upper extremity. Try to keep elevated as much as possible. Endocrine: ICU pharmacy team assisting with management of hyperglycemia while on high-dose steroids. TSH within normal limits. VTE prophylaxis: Heparin infusion CODE STATUS: Full code Disposition: Remain in ICU. Right-sided PICC line 3/5 Dominguez catheter Discussed with bedside RN I have personally spent 45 minutes of critical care time in the direct management of this patient. This is a life/limb threatening event. This includes time spent evaluating patient, direct bedside care, chart review, placing orders, interpretation of diagnostic studies, discussion with consultants, patient, and family members, as well as other required patient management activities. This time is exclusive of all separately billable procedures, and teaching time and separate from and in addition to any other critical care service time. Thank you for allowing us to participate in the care of this patient. Admission and Anticipated Discharge Date Admission Date: July 25, 2021 Subjective Patient seen and examined. EMR reviewed. Images were independently reviewed. The patient feels that his breathing is worse. He feels like he is having some shortness of breath. He is not ready to consider intubation or mechanical ventilation. He would like to consider prone positioning. He is not been febrile. His heart rate and blood pressure better controlled. He continues to diurese. Review of Systems Review of Systems: All systems reviewed & are unremarkable except as noted in Subjective Physical Exam Constitutional: WD/WN, vitals as above Neck: trachea midline, no thyromegaly Respiratory: normal respiratory effort and + tachypneic Auscultation: + crackles; no wheezes Cardiovascular: RRR, no murmur, no edema Gastrointestinal (Abdomen): normal bowel sounds, soft, nontender, no hepatosplenomegaly Skin: no rashes, warm and dry Lymphatic: no cervical lymphadenopathy Results & Data Results & Data ([facility]) Vital Signs (Past 12 Hours) Vital Signs Temp Pulse Pulse Resp BP Pulse Ox 08/11/21 08:00 36.5 C 79 37 H 134/81 93 08/11/21 07:29 85 34 H 91 08/11/21 07:00 81 36 H 132/71 93 08/11/21 06:00 77 19 135/72 96 08/11/21 05:48 93 H 30 H 124/79 92 08/11/21 05:00 73 13 107/71 94 08/11/21 04:00 82 14 154/78 H 95 08/11/21 03:17 81 26 H 93 08/11/21 03:00 36.8 C 81 27 H 146/80 H 90 08/11/21 02:59 80 20 90 08/11/21 02:00 82 29 H 135/86 92 08/11/21 01:21 78 23 145/80 H 94 08/11/21 01:00 75 14 99/67 L 97 08/11/21 00:00 83 20 140/85 95 08/10/21 23:29 36.9 C 08/10/21 23:03 74 20 96 08/10/21 23:00 80 18 116/81 99 Laboratory Results C-reactive protein 3.8 down from 6.9 Procalcitonin 0.15 down from 1.15 Critical Care Results & Data Vital Signs (Past 12 Hours) Vital Signs Temp Pulse Pulse Resp BP Pulse Ox 08/11/21 08:00 36.5 C 79 37 H 134/81 93 08/11/21 07:29 85 34 H 91 08/11/21 07:00 81 36 H 132/71 93 08/11/21 06:00 77 19 135/72 96 08/11/21 05:48 93 H 30 H 124/79 92 08/11/21 05:00 73 13 107/71 94 08/11/21 04:00 82 14 154/78 H 95 08/11/21 03:17 81 26 H 93 08/11/21 03:00 36.8 C 81 27 H 146/80 H 90 08/11/21 02:59 80 20 90 08/11/21 02:00 82 29 H 135/86 92 08/11/21 01:21 78 23 145/80 H 94 08/11/21 01:00 75 14 99/67 L 97 08/11/21 00:00 83 20 140/85 95 08/10/21 23:29 36.9 C 08/10/21 23:03 74 20 96 08/10/21 23:00 80 18 116/81 99 Lab & Micro Results (Past 24 Hours) RBC 3.32 M/uL (4.7-6.1) L 08/11/21 WBC 23.57 K/uL (4.8-10.8) H 08/11/21 Hgb 10.2 g/dL (14.0-18.0) L 08/11/21 Hct 29.7 % (42-52) L 08/11/21 MCV 89.5 fL (80-100) 08/11/21 MCH 30.7 pg (25-34) 08/11/21 MCHC 34.3 g/dL (32-36) 08/11/21 RDW Standard Deviation 44.7 fL (36.4-46.3) 08/11/21 RDW Coefficient of Variation 14.8 % (11.5-14.5) H 08/11/21 Plt Count 275 K/uL (130-400) 08/11/21 MPV 9.9 fL (7.4-10.4) 08/11/21 Nucleated Red Blood Cells % (auto) 1.0 % 08/11/21 Nucleated RBC Absolute Count (auto) 0.24 K/uL (0-0) H 08/11/21 Neutrophils (%) (Auto) 88.0 % 08/11/21 Lymphocytes (%) (Auto) 3.1 % 08/11/21 Monocytes # (Auto) 0.39 K/uL (0.11-0.59) 08/11/21 Eosinophils # (Auto) 0.00 K/uL (0-0.5) 08/11/21 Immature Granulocyte % (Auto) 6.9 % 08/11/21 Neutrophils # (Auto) 20.76 K/uL (1.4-6.5) H 08/11/21 Lymphocytes # (Auto) 0.73 K/uL (1.2-3.4) L 08/11/21 Monocytes # (Auto) 0.39 K/uL (0.11-0.59) 08/11/21 Eosinophils # (Auto) 0.00 K/uL (0-0.5) 08/11/21 Basophils # (Auto) 0.07 K/uL (0-0.2) 08/11/21 Immature Granulocyte # (Auto) 1.62 K/uL (0.00-0.02) H 08/11/21 Polychromasia 1+ 08/11/21 Macrocytosis Present 08/11/21 Na 130 mmol/L (136-145) L 08/11/21 K 4.6 mmol/L (3.5-5.1) 08/11/21 Cl 94 mmol/L (98-107) L 08/11/21 CO2 28 mmol/L (21-32) 08/11/21 Anion Gap 8 (3-11) 08/11/21 BUN 46 mg/dl (6-23) H 08/11/21 Creatinine 1.02 mg/dl (0.6-1.4) 08/11/21 Estimated GFR ( Amer) 93.5 ml/min 08/11/21 Estimated GFR (Non-Af Amer) 80.6 ml/min 08/11/21 BUN/Creatinine Ratio 45.1 (10-20) H 08/11/21 Glu 156 mg/dl (70-99(Fasting)) H 08/11/21 Ca 8.6 mg/dl (8.5-10.1) 08/11/21 Phosphorus Level 3.8 mg/dl (2.5-4.9) 08/11/21 Mg 2.0 mg/dl (1.7-2.4) 08/11/21 05:07 08/11/21 Calcium Level 8.6 mg/dl (8.5-10.1) 08/11/21 05:07 08/11/21 Microbiology 08/08/21 11:10 Gram Stain - Final Sputum, Expectorated Sputum Culture - Final Heavy normal rodo. Diagnostic Findings (Past 24 Hours) Chest X-Ray 08/11/21 07:00 XR chest 1V portable CLINICAL HISTORY: resp failure TECHNIQUE: Single frontal radiograph of the chest was obtained. Comparison: Comparison is made to chest one view 08/10/2021 FINDINGS: Lines and tubes are stable. The cardiomediastinal silhouette is obscured. There is suggestion of previously noted pneumomediastinum. There is prominence and cephalization of the vasculature with Catherine B lines seen. No evidence of pleural effusion or pneumothorax. IMPRESSION: 1. Cardiomegaly with pulmonary edema, unchanged. 2. Unchanged positioning of right PICC. 3. Partial visualization of previously noted pneumomediastinum. 4. Previously noted pneumothorax is not seen at this time. ACT 112: Negative or not required by law. Electronically signed by: Torres Shi M.D. 08/11/2021 9:04 AM I & O Totals 24 Hours 08/10/21 08/11/21 08/12/21 06:59 06:59 06:59 Intake Total 1735.438 / 7266.494 1040.539 / 1693.539 113.916 / 113.916 Output Total 3050 / 3050 3013 / 3013 130 / 130 Balance -1314.562 / -1314.562 -1319.461 / -1319.461 -16.084 / -16.084 Cumulative 07/25/21 11:19 thru 08/11/21 09:18 Intake Total 84278.305 Output Total 75182 Balance 2723.305 RT Ventilator Mngmt (Last Documented) Ventilator Ordered Settings Respiratory Rate 37 08/11/21 08:00 Fraction of Inspired Oxygen 90 08/11/21 07:29 Ventilator - PT Measurements Respiratory Rate 37 Coding Level of Care Code Critical Care 1st 30-74 mins Diagnoses Acute hypoxemic respiratory failure due to COVID-19 U07.1; J96.01 CAD (coronary artery disease) I25.10 HLD (hyperlipidemia) E78.5 Diabetes mellitus E11.9 Acute pulmonary embolism I26.99 Sinus tachycardia R00.0 Cephalic vein thrombosis, left I82.612 Lactic acid acidosis E87.2 Time Spent (min) 45
[2021-08-11] MEDS: metOLazone 5 MG TABLET PO SCH (11:06)
[2021-08-11] MEDS: CEFTAROLINE FOSAMIL ACETATE 600 MG in SODIUM CHLORIDE 0.9% 250 ML IV SCH ×2 (11:06→22:13)
--- NOTE | 2021-08-11 12:08 | Pharmacy Report ---
Pharmacy Glycemic Short Note 2 - Date of Service August 11, 2021 - Glycemic Short BSG Results (Last 24 hours): 08/10/21 08/10/21 08/10/21 12:46 14:00 14:02 Glucose POC Glucose 105 H 330 H* 333 H* 08/10/21 08/10/21 08/10/21 16:39 21:06 23:24 Glucose POC Glucose 182 H 124 H 110 H 08/11/21 08/11/21 08/11/21 04:12 05:07 07:53 Glucose 156 H POC Glucose 165 H 173 H 08/11/21 11:47 Glucose POC Glucose 298 H OUTPATIENT ANTIDIABETIC REGIMEN: * Glyburide 5mg PO BID * Metformin 1000mg BID * Actos 45mg PO Daily * A1c 6.3% 07/26/21 ASSESSMENT: 08/11: * Insulin infusion discontinued yesterday afternoon. BSGs within goal yesterday afternoon into this AM. Fasting this AM - 173mg/dL. * Dexamethasone 10mg daily continues, and on type 2 diet. * Pt received 45 units of SQ basal yesterday (in addition to infusion). Basal increased ~ 10% today, 50 units, split between Lantus and NPH given elevated fasting. * Lunch BSG today 268mg/dL- prandial regimen tightened to 10/2.5 given persistent steroid induced hyperglycemia. * Re-assess basal insulin in AM 08/10: * Drip transition attempted again today utilizing a combination of NPH and Lantus. * Insulin infusion rate downtrending nicely since Lantus and NPH administration and BSGs have remained in goal. Will plan to d/c drip this afternoon * Patient continues to tolerate a diet. 08/09: * Insulin infusion rate down to 1.2 units/hr this morning. Thus transition off of the infusion was attempted utilizing NPH (given previous regimen and likelihood of prolonged steroid taper). Unfortunately, BSG and insulin infusion rates increased throughout the day despite the addition of NPH. Patient did not eat breakfast and per RN only consumed ~50% of an apple juice this morning. Pt did eat 23g CHO at lunchtime. He remains on Dexamethasone 10mg. * Will continue insulin infusion today and plan to attempt drip transition again tomorrow 08/08: * Insulin drip rate continues to run at high rates (reaching ~20 units/hr last evening). Will initiate low dose lantus on top of the insulin infusion in an attempt to bring infusion rates down. Current rate ~11 units/hr. * Patient is tolerating a diet and a tighten and fixed CR is being used * Dexamethasone continues, dose decreased today to 10mg today, will likely be tapered off 08/07 * Insulin drip started yesterday evening for BSGs climbing into 300s despite SQ insulin regimen * BSGs have been well controlled with IV insulin drip. BSGs within goal with a relatively stable infusion rate of 3.8units/hr * IV steroids continued, today is last day of dexamethasone 20mg IV. Will step down to 10mg IV daily x 5 days with plan to taper slowly thereafter. * Heparin gtt resumed last evening, mixed in D5W - but running at relatively low infusion rate w/ near therapeutic PTT * Currently on HiFlow but tolerating ~50% of meals per RN. 08/06 * Patient's BSGs yesterday were [phone] mg/dL and fasting this morning was 248 mg/dL. * Information was this prior admission showed that when on dexamethasone 6 mg IV daily, NPH 50 units was too aggressive. Patient had hypoglycemia in the morning. * Now, patient is on dexamethasone 20 mg IV daily and fastings have been trending upwards. Will add 15 units of NPH for dinnertime to lower fasting BSGs. Patient will be transitioning to 10 mg of dexamethasone in 2 days so this dose will need to be adjusted accordingly. * Tighten Novolog to provide more daily coverage. 08/05 * Patient's BSGs yesterday were [phone] mg/dL and overnight were 86-100 mg/dL. Fasting this morning was 160 mg/dL. * Continued NPH 30 units. Novolog tightened at lunch yesterday but BSGs continued to trend upwards. Tighten CR. * Lunch was 436 mg/dL but patient ate cheerios uncovered. Loosen CF to prevent overcorrection. PLAN FOR INPATIENT GLYCEMIC CONTROL: * Hold outpatient oral diabetes medications * Basal insulin * NPH 25 units qam * Lantus 25 units qam * Bolus insulin * Novolog SQ to cover carbs in meals: * Goal Range: Low 110 mg/dL - High 140 mg/dL * Correction Factor: 10 mg/dL/unit * Nutritional / Prandial insulin per carb ratio of 1 unit per 2.5 grams CHO consumed
[2021-08-11 12:37] LABS: Partial Thromboplastin Ratio 2.2
--- NOTE | 2021-08-11 15:08 | Hospitalist Progress Note ---
Date of Service August 11, 2021 Assessment & Plan (1) Hematoma: Plan: left arm (2) Acute pulmonary embolism: (3) DVT of lower extremity, bilateral: (4) Acute respiratory failure with hypoxia: (5) 2019 novel coronavirus-infected pneumonia (NCIP): (6) Sinus tachycardia: (7) Hyponatremia: (8) Diabetes mellitus: (9) CAD (coronary artery disease): Plan: (10) HTN (hypertension): (11) DVT prophylaxis: Plan: 60 year old male who initially presented with COVID 19 PNA with hypoxic respiratory failure on high flow, now complicated by acute bilateral PE, bilateral DVT further complicated by spontaneous LUE hematoma while on heparin drip for PE. Acute LUE hematoma - CT LUE shows biceps hematoma 13.3 x 5.3x 7 cm. No evidence of compartment syndrome. -Seen by orthopedics- non surgical management as of now. Heparin drip has been resumed per comsec manager. Trend H&H, monitor neurovascular status. Acute blood loss anemia due to above - Hb down to 7.6 from 13.7 on 08/03. S/p 1 U of PRBC 08/08. Has remained stable since Acute pulmonary embolism (RLL segmental/subsegmental PE) - on CTA chest 08/03. Currently on Heparin drip DVT bilateral distal lower extremity - US 08/06 shows occlusive thrombus within bilateral calf veins but no proximal thrombus. Anticoagulation as above Acute respiratory failure with hypoxia due to COVID 19 PNA and acute PE Subcutaneous emphysema - Transferred to ICU on 08/03. -now with barotrauma. no further BIPAP. continue High flow. Patient requesting to be intubated--will defer management to intensivest COVID 19 PNA - S/p remdesivir course -currently on decadron 10mg IV daily DM-2 with steroid induced hyperglycemia -Glycemic pharmacist managing, on insulin. Home actos and glyburide on hold. Sinus tachycardia- likely from PNA and PE. On metoprolol. Asymptomatic NATHANIEL- NATHANIEL resolved. Cr back to baseline of 1.2 Hyponatremia- relatively stable HTN- stable, on lopressor CAD- h/o stents. No chest pain. Continue ASA, metoprolol. DVT prophylaxis- heparin drip GI prophylaxis- Protonix Dispo- Remain in ICU Admission and Anticipated Discharge Date Admission Date: July 25, 2021 Subjective Feels more short of breath today, requesting to be intubated Physical Exam Physical Exam: Appears fatigued, sad, less upbeat than on previous days Respiratory: No accessory muscle use, shortness of breath with minimal exertion, poor airflow bilaterally Cardiovascular: tachycardic, no murmurs/rubs/gallops Gastrointestinal (Abdomen): soft, non tender Musculoskeletal: left arm swollen but not tense Results & Data Results & Data ([facility]) Vital Signs (Past 12 Hours) Vital Signs Temp Pulse Pulse Resp BP Pulse Ox 08/11/21 14:00 104 H 32 H 97 08/11/21 13:43 100 H 33 H 140/89 98 08/11/21 13:00 100 H 24 149/101 H 94 08/11/21 12:00 36.4 C L 96 H 139/89 98 08/11/21 11:00 96 H 37 H 141/77 H 94 08/11/21 10:18 93 H 29 H 95 08/11/21 10:00 36.4 C L 96 H 29 H 119/77 88 L 08/11/21 09:00 81 34 H 155/81 H 93 08/11/21 08:00 36.5 C 79 37 H 134/81 93 08/11/21 07:29 85 34 H 91 08/11/21 07:00 81 36 H 132/71 93 08/11/21 06:00 77 19 135/72 96 08/11/21 05:48 93 H 30 H 124/79 92 08/11/21 05:00 73 13 107/71 94 08/11/21 04:00 82 14 154/78 H 95 08/11/21 03:17 81 26 H 93 Laboratory Results Short CBC 08/11/21 Range/Units 05:19 WBC 23.57 H (4.8-10.8) K/uL Hgb 10.2 L (14.0-18.0) g/dL Hct 29.7 L (42-52) % Plt Count 275 (130-400) K/uL BMP 08/11/21 05:07 Sodium 130 L Potassium 4.6 Chloride 94 L Carbon Dioxide 28 BUN 46 H Creatinine 1.02 Glucose 156 H Calcium 8.6 Medications Administered Current Inpatient Medications Acetaminophen (Acetaminophen 325 Mg Tab) 650 mg PO Q4H PRN PRN Reason: Pain or Fever Stop: 08/24/21 18:01 Last Admin: 08/08/21 22:07 Dose: 650 mg Documented by: Al Hydrox/Mg Hydrox/Simethicone (Aluminum/Magnesium Susp 30 Ml Udc) 15 ml PO Q4H PRN PRN Reason: Dyspepsia Stop: 08/24/21 18:01 Allopurinol (Allopurinol 300 Mg Tab) 300 mg PO QAM [facility] Stop: 08/28/21 08:59 Last Admin: 08/11/21 08:46 Dose: 300 mg Documented by: Aspirin (Aspirin 81 Mg Ectab) 81 mg PO DAILY [facility] Stop: 08/25/21 08:59 Last Admin: 08/11/21 08:46 Dose: 81 mg Documented by: Benzonatate (Benzonatate 100 Mg Capsule) 100 mg PO TID PRN PRN Reason: cough Stop: 08/24/21 18:01 Dextrose (Dextrose 50% 50 Ml Syringe) 25 - 50 ml IV UD PRN; Protocol PRN Reason: Hypoglycemia Protocol Stop: 08/24/21 18:01 Last Admin: 08/09/21 02:42 Dose: 25 ml Documented by: Furosemide (Furosemide Inj 20 Mg/2 Ml Vial) 40 mg IV [id number] [facility] Stop: 09/08/21 16:59 Last Admin: 08/11/21 08:45 Dose: 40 mg Documented by: Glucagon (Glucagon For Inj 1 Mg Vial) 1 mg SQ UD PRN; Protocol PRN Reason: Hypoglycemia Protocol Stop: 08/24/21 18:01 Glucose (Glucose 10 Tabs/Tube) 4 - 8 tabs PO UD PRN; Protocol PRN Reason: Hypoglycemia Protocol Stop: 08/24/21 18:01 Glucose (Glucose 40% Gel 15 Gm Tube) 15 - 30 gm PO UD PRN; Protocol PRN Reason: Hypoglycemia Protocol Stop: 08/24/21 18:01 Heparin Sodium (Beef Lung) (Heparin 10 Unit/Ml 5 Ml Flush) 5 ml FLUSH PRN PRN PRN Reason: Flush Stop: 09/04/21 16:31 Dexamethasone 10 mg/ Syringe 2.5 mls @ 1 mls/min IV DAILY [facility] Stop: 08/12/21 09:03 Last Admin: 08/11/21 08:44 Dose: 1 mls/min Documented by: Heparin Sodium/Dextrose (Heparin Sodium/Dextrose) 25,000 units in 500 mls @ 19 mls/hr IV .Q24H [facility]; Protocol Stop: 09/05/21 21:44 Last Titration: 08/11/21 13:23 Dose: 950 units/hr, 19 mls/hr Documented by: Ceftaroline Fosamil 600 mg/ (Sodium Chloride) 270 mls @ 250 mls/hr IV Q12H [facility]; Protocol Stop: 08/13/21 23:59 Last Infusion: 08/11/21 12:25 Dose: Infused Documented by: Insulin Aspart (Insulin Aspart Per Unit) 0 units SC ACHS [facility] Stop: 09/09/21 16:29 Last Admin: 08/11/21 13:54 Dose: 27 units Documented by: Insulin Aspart (Insulin Aspart Per Unit) 0 units SC 0000,0400 [facility] Stop: 08/12/21 04:01 Insulin Glargine (Insulin Glargine Solostar 100 Units/Ml 3 Ml Pen) 25 units SC QAM [facility] Stop: 09/10/21 08:59 Last Admin: 08/11/21 09:18 Dose: 25 units Documented by: Insulin Human NPH (Insulin Human Nph) 25 units SC DAILY [facility] Stop: 09/09/21 08:59 Last Admin: 08/11/21 08:44 Dose: 25 units Documented by: Ipratropium [place] (Ipratropium [place] Neb Soln 0.02% 2.5 Ml Vial) 0.5 mg INH Q4H PRN PRN Reason: SOB, WHEEZE Stop: 08/31/21 23:14 Levalbuterol HCl (Levalbuterol 1.25mg/0.5ml Neb) 1.25 mg INH Q4H PRN PRN Reason: SOB, WHEEZE Stop: 08/31/21 23:14 Magnesium Hydroxide (Magnesium Hydroxide Susp 30 Ml Udc) 30 ml PO Q12H PRN PRN Reason: Constipation Stop: 08/24/21 18:01 Magnesium Oxide (Magnesium Oxide 400 Mg Tab) 400 mg PO BID [facility] Stop: 08/27/21 20:59 Last Admin: 08/11/21 09:18 Dose: 400 mg Documented by: Metolazone (Metolazone 5 Mg Tablet) 5 mg PO QAM [facility] Stop: 09/10/21 10:29 Last Admin: 08/11/21 11:06 Dose: 5 mg Documented by: Metoprolol Tartrate (Metoprolol Tartrate 25 Mg Tab) 25 mg PO Q8 [facility] Stop: 09/08/21 13:59 Last Admin: 08/11/21 13:51 Dose: 25 mg Documented by: Miscellaneous (Carbohydrates For Hypoglycemia ) 15 - 30 gm PO UD PRN PRN Reason: Hypoglycemia Protocol Stop: 08/24/21 18:01 Miscellaneous (Icu Electrolyte Replacement Protocol) 1 ea N/A BID@06,18 [facility]; Protocol Stop: 08/14/21 17:59 Last Admin: 08/11/21 06:56 Dose: 1 ea Documented by: Miscellaneous Information (Pharmacy Glycemic Mgmt Consult) 1 ea N/A UD PRN; Protocol PRN Reason: Consult Stop: 08/24/21 18:01 Ondansetron HCl (Ondansetron Inj 2 Mg/Ml 2 Ml Vial) 4 mg IV Q6H PRN PRN Reason: Nausea Stop: 08/24/21 18:01 Pantoprazole Sodium (Pantoprazole 40 Mg Tab) 40 mg PO DAILY [facility] Stop: 09/07/21 08:59 Last Admin: 08/11/21 08:46 Dose: 40 mg Documented by: Polyethylene Glycol (Polyethylene (Miralax) 17 Gm Pack) 17 gm PO DAILY PRN PRN Reason: Constipation Stop: 08/24/21 18:01 Polyethylene Glycol (Polyethylene (Miralax) 17 Gm Pack) 17 gm PO DAILY [facility] Stop: 09/03/21 09:44 Last Admin: 08/11/21 08:46 Dose: 17 gm Documented by: Senna/Docusate Sodium (Docusate Sodium/Senna 50/8.6mg Tab) 2 tab PO QAM [facility] Stop: 09/10/21 08:59 Last Admin: 08/11/21 08:45 Dose: 2 tab Documented by:
[2021-08-11] MEDS ORDERED: OPTIRAY 320 125ml IV ONE (15:42)
--- NOTE | 2021-08-11 16:18 | CT Scan Report ---
CT angio chest PE protocol CT DOSE: 629.64 mGycm HISTORY: 60 years-old Male with PE. Acute shortness of breath. COVID Positive. TECHNIQUE: Multiple CTA images of the chest were obtained after the intravenous administration of 120 ml Optiray. Coronal and sagittal MIPS were obtained from the axial data set and were submitted for review. All measurements were obtained according to NASCET criteria. A dose lowering technique was u tilized adhering to the principles of ALARA. COMPARISON: Chest radiograph of same day, CTA chest 08/03/2021 FINDINGS: CTA: Mild to moderate cardiomegaly. No pericardial effusion. Atherosclerosis of the thoracic aorta without aneurysm. Patency of the imaged great vessels. The segmental and subsegmental pulmonary arterial bra nches are suboptimally visualized secondary to respiratory motion artifact. A right-sided PICC distal tip projects over the mid SVC. CT CHEST: No thyroid nodule. Subcarinal lymph nodes measure within the upper limits of normal at 10 mm, likely reactive. No pleural effusion. Trace right apical pneumothorax redemonstrated with pleural separation of a few millimeters. Extensive pneumomediastinum with pneumopericardium with extension into the low er neck and right supraclavicular tissues. The central airways appear patent. No esophageal injury id entified. Confluent bilateral groundglass opacities with coalescing consolidation within the lung bases has pro gressed from prior. 5 mm nodule of the right upper lobe redemonstrated. A few additional scattered alcantar bcentimeter pulmonary nodules are better seen on the comparison study. No acute process of the imaged upper abdomen. Soft tissues are otherwise unremarkable. No acute fract ure. No destructive bone lesions. IMPRESSION: 1. Extensive subcutaneous emphysema with trace right apical pneumothorax redemonstrated. 2. Progressively worsened confluent groundglass and consolidative opacities of the lungs suggestive o f viral pneumonia. 3. No pulmonary emboli identified. 4. Low suspicion scattered bilateral solid pulmonary nodules measuring up to 4-5 mm are better seen o n the comparison study. ACT 112: Negative or not required by law. The above report was generated using voice recognition software. It may contain grammatical, syntax o r spelling errors. Electronically signed by: Jewel Ribera M.D. 08/11/2021 4:17 PM
[2021-08-11] MEDS: SULFAMETHOXAZOLE/TRIMETHOPRIM DS 800/160MG TAB PO SCH (17:12)
[2021-08-11] MEDS: ACETAMINOPHEN 325 MG TAB PO PRN (18:08)
[2021-08-11] MEDS ORDERED: LORazepam 2 MG/1 ML VIAL IV STA (20:56)
[2021-08-11 23:02] LABS: Fungitell (1-3)-B-D-Glucan 35 pg/mL
[2021-08-12] MEDS: INSULIN ASPART PER UNIT SC SCH ×5 (04:40→21:04)
[2021-08-12] MEDS: METOPROLOL TARTRATE 25 MG TAB PO SCH ×3 (05:45→22:06)
[2021-08-12 06:05] LABS: BUN Creatinine Ratio 40.7 (10-20); Calcium 9.4 mg/dl (8.5-10.1); Creatinine Clr Calc Pharmacy 63.3 ml/min; Est GFR (African American) 74.5 ml/min; Est GFR (Non-African American) 64.3 ml/min; Magnesium 2.5 mg/dl (1.7-2.4); Phosphorus 4.6 mg/dl (2.5-4.9); Potassium 4.5 mmol/L (3.5-5.1)
[2021-08-12 06:16] LABS: Partial Thromboplastin Ratio 2.5
[2021-08-12 06:38] LABS: Partial Thromboplastin Time 69.5 Seconds (21.0-31.0)
[2021-08-12] MEDS: ICU ELECTROLYTE REPLACEMENT PROTOCOL SCH ×2 (06:42→17:58)
[2021-08-12 07:12] LABS: Hematocrit (blood only) 34.9 % (42-52); Hemoglobin 12.1 g/dL (14.0-18.0); Mean Corpuscular Hemoglobin 31.3 pg (25-34); Mean Corpuscular Hgb Conc 34.7 g/dL (32-36); Mean Corpuscular Volume 90.2 fL (80-100); Mean Platelet Volume 9.7 fL (7.4-10.4); Nucleated RBC % (auto) 0.7 %; Platelet Count 285 K/uL (130-400); RDW Coefficient of Variation 16.4 % (11.5-14.5); RDW Standard Deviation 45.3 fL (36.4-46.3); Red Blood Count 3.87 M/uL (4.7-6.1); White Blood Count 29.64 K/uL (4.8-10.8)
[2021-08-12] MEDS: dexAMETHasone 10 MG in SYRINGE 0 ML IV SCH (08:01)
[2021-08-12] MEDS: ASPIRIN 81 MG ECTAB PO SCH (08:02)
[2021-08-12] MEDS: FUROSEMIDE INJ 20 MG/2 ML VIAL IV SCH ×2 (08:02→17:58)
[2021-08-12] MEDS: allopurinoL 300 MG TAB PO SCH (08:02)
[2021-08-12 08:03] LABS: ALC (manual) 0.77 K/uL (1.2-3.4); ANC (manual) 26.26 K/uL (1.4-6.5); Lymphocytes # (manual) 0.77 K/uL (1.2-3.4); Lymphocytes % (manual) 2.6 %; Metamyelocytes % (manual) 4.4 %; Monocytes # (manual) 0.53 K/uL (0.11-0.59); Monocytes % (manual) 1.8 %; Myelocytes # (manual) 0.77 K/uL (0-0); Myelocytes % (manual) 2.6 %; Neutrophils # (manual) 26.26 K/uL (1.4-6.5); Neutrophils % (manual) 88.6 %; Polychromasia 2+
[2021-08-12] MEDS: PANTOprazole 40 MG TAB PO SCH (08:03)
[2021-08-12] MEDS: INSULIN HUMAN NPH SC SCH (08:04)
[2021-08-12] MEDS: MAGNESIUM OXIDE 400 MG TAB PO SCH ×2 (08:10→19:33)
--- NOTE | 2021-08-12 08:13 | XRay Report ---
XR chest 1V portable HISTORY: Respiratory failure. COMPARISON: Chest 08/11/2021. FINDINGS: A right PICC terminates in the SVC. The patient's right pneumothorax is is not identified b y this modality. The heart remains enlarged. There is hazy bilateral airspace opacities likely repres enting a viral pneumonia. This remains unchanged. IMPRESSION: 1. The right PICC terminates at the SVC. 2. No change in the hazy bilateral airspace opacities likely representing a viral pneumonia. ACT 112: Negative or not required by law. Electronically signed by: David Vick M.D. 08/12/2021 8:11 AM
[2021-08-12] MEDS: DOCUSATE SODIUM/SENNA 50/8.6MG TAB PO SCH (08:16)
[2021-08-12] MEDS: POLYETHYLENE (MIRALAX) 17 GM PACK PO SCH (08:16)
[2021-08-12] MEDS: SULFAMETHOXAZOLE/TRIMETHOPRIM DS 800/160MG TAB PO SCH ×2 (08:16→19:33)
[2021-08-12] MEDS: metOLazone 5 MG TABLET PO SCH (08:20)
--- NOTE | 2021-08-12 08:25 | Critical Care Progress Note ---
Date of Service August 12, 2021 Assessment & Plan (1) Acute hypoxemic respiratory failure due to COVID-19: (2) CAD (coronary artery disease): (3) HLD (hyperlipidemia): (4) Diabetes mellitus: (5) Acute pulmonary embolism: (6) Sinus tachycardia: (7) Cephalic vein thrombosis, left: (8) Lactic acid acidosis: Plan: Impression: 60-year-old male with a past medical history of CAD, hypertension, obesity and hyperlipidemia presenting with COVID-19 viral pneumonia. Case was complicated by identification of PE and spontaneous left biceps hematoma formation while on anticoagulation. 24-hour events: Repeat CT angiogram showed no evidence of PE. Significant pneumomediastinum was noted without obvious pneumothorax. He tried positional therapy and improved with decubitus positioning. Recommendations Neurologic: No significant issues. Pain management as needed. Pulmonary: Patient with COVID-19 viral pneumonia. He is completed an extended course of steroids. Given risk of adrenal suppression, will slowly taper over the next week. Decrease down to 5 mg of dexamethasone today. Continues to require high amounts of oxygen support. Has now developed evidence of barotrauma with sub cutaneous emphysema, and pneumomediastinum confirmed on CT scan. Continue to avoid positive airway pressure if possible. Continue diuresis until BUN and creatinine increase. Continue to follow daily chest x-rays. Given that were about 4 weeks into this, the likelihood of significant rapid recovery is quite low. Ideally, would like to pursue bronchoscopy with lower respiratory specimens to evaluate for infection however the patient's tenuous respiratory status would likely result in him being intubated and he and I would like to avoid that if at all possible. We will see if he can tolerate prone positioning as decubitus positioning did result in improvement in his oxygenation yesterday. Continue anticoagulation, no evidence of continued PE on CT scan from 08/11/2021. Continue high flow oxygen. Supplement high flow heated oxygen with nonrebreather if needed Cardiovascular: Right lower lobe pulmonary embolism as noted above, no filling defect identified on follow-up CT scan. Continue metoprolol to 25 mg p.o. every 8 hours. Echo 08/06 with evidence of a hyperdynamic LV. EF greater than 70%. No RV failure noted. Continue aspirin given his history of coronary artery disease. Continue Lasix 40 twice daily IV and metolazone Gastrointestinal: Continue diet. Continue pantoprazole Renal: Hyponatremia, stable. We will continue to follow at this point time. ICU electrolyte replacement protocol. Urine studies unlikely to be helpful given loop diuretics. Infectious disease: CRP was elevated but is decreasing. Respiratory cultures negative however procalcitonin did decrease significantly with transitions to ceftaroline. Will complete 5 days of ceftaroline. Too high risk to consider bronchoscopy and BAL as would likely result in intubation. Fungitell negative. LDH elevated but nonspecific. PJP PCR pending. White blood cell count increased to 29,000 today. No fevers. Placed empirically on Bactrim 08/11/2021 for possible P LAURYN Hematologic: PE and spontaneous left bicep hematoma formation. Hemoglobin stable. The arm appears better today. Continue neurovascular monitoring of the left upper extremity. Try to keep elevated as much as possible. Endocrine: ICU pharmacy team assisting with management of hyperglycemia while on high-dose steroids. TSH within normal limits. VTE prophylaxis: Heparin infusion CODE STATUS: Full code Disposition: Remain in ICU. Right-sided PICC line 3/5 Dominguez catheter Discussed with bedside RN I have personally spent 45 minutes of critical care time in the direct management of this patient. This is a life/limb threatening event. This includes time spent evaluating patient, direct bedside care, chart review, placing orders, interpretation of diagnostic studies, discussion with consultants, patient, and family members, as well as other required patient management activities. This time is exclusive of all separately billable procedures, and teaching time and separate from and in addition to any other critical care service time. Thank you for allowing us to participate in the care of this patient. Admission and Anticipated Discharge Date Admission Date: July 25, 2021 Subjective Patient seen and examined. EMR reviewed. Images were independently reviewed. The patient received some Ativan last night. He states this was beneficial in helping him sleep. He overall feels slightly better today. He continues to require high flow oxygen and desaturates with any significant physical activity. Repeat CT of the chest was performed which showed no evidence of PE. There was significant pneumomediastinum noted and persistent bilateral groundglass opacities. He is not coughing or expectorating phlegm. No fevers chills or night sweats overnight Review of Systems Review of Systems: All systems reviewed & are unremarkable except as noted in Subjective Physical Exam Constitutional: WD/WN, vitals as above Neck: trachea midline, no thyromegaly Respiratory: normal respiratory effort and + tachypneic Auscultation: + crackles; no wheezes Cardiovascular: RRR, no murmur, no edema Gastrointestinal (Abdomen): normal bowel sounds, soft, nontender, no hepatosplenomegaly Skin: no rashes, warm and dry Lymphatic: no cervical lymphadenopathy Results & Data Results & Data ([facility]) Vital Signs (Past 12 Hours) Vital Signs Pulse Pulse Pulse Resp BP Pulse Ox 08/12/21 07:49 81 28 H 93 08/12/21 06:00 83 119/87 91 08/12/21 05:00 78 123/80 91 08/12/21 04:00 89 19 130/83 92 08/12/21 03:00 79 13 118/75 94 08/12/21 02:48 89 28 H 92 08/12/21 02:00 84 19 93 08/12/21 01:00 80 12 117/79 96 08/12/21 00:00 81 13 118/74 93 08/11/21 23:01 89 27 H 87/61 L 80 L 08/11/21 23:00 91 H 28 H 87 L 08/11/21 22:36 81 30 H 95 08/11/21 22:01 85 18 107/79 08/11/21 21:00 96 H 41 H 165/107 H 98 08/11/21 20:30 98 H 32 H 92 Critical Care Results & Data Vital Signs (Past 12 Hours) Vital Signs Pulse Pulse Pulse Resp BP Pulse Ox 08/12/21 07:49 81 28 H 93 08/12/21 06:00 83 119/87 91 08/12/21 05:00 78 123/80 91 08/12/21 04:00 89 19 130/83 92 08/12/21 03:00 79 13 118/75 94 08/12/21 02:48 89 28 H 92 08/12/21 02:00 84 19 93 08/12/21 01:00 80 12 117/79 96 08/12/21 00:00 81 13 118/74 93 08/11/21 23:01 89 27 H 87/61 L 80 L 08/11/21 23:00 91 H 28 H 87 L 08/11/21 22:36 81 30 H 95 08/11/21 22:01 85 18 107/79 08/11/21 21:00 96 H 41 H 165/107 H 98 08/11/21 20:30 98 H 32 H 92 Lab & Micro Results (Past 24 Hours) RBC 3.87 M/uL (4.7-6.1) L 08/12/21 WBC 29.64 K/uL (4.8-10.8) H 08/12/21 Hgb 12.1 g/dL (14.0-18.0) L 08/12/21 Hct 34.9 % (42-52) L 08/12/21 MCV 90.2 fL (80-100) 08/12/21 MCH 31.3 pg (25-34) 08/12/21 MCHC 34.7 g/dL (32-36) 08/12/21 RDW Standard Deviation 45.3 fL (36.4-46.3) 08/12/21 RDW Coefficient of Variation 16.4 % (11.5-14.5) H 08/12/21 Plt Count 285 K/uL (130-400) 08/12/21 MPV 9.7 fL (7.4-10.4) 08/12/21 Nucleated Red Blood Cells % (auto) 0.7 % 08/12/21 Nucleated RBC Absolute Count (auto) 0.20 K/uL (0-0) H 08/12/21 ANC 26.26 K/uL (1.4-6.5) H 08/12/21 ALC 0.77 K/uL (1.2-3.4) L 08/12/21 Neutrophils % (Manual) 88.6 % 08/12/21 Lymphocytes % (Manual) 2.6 % 08/12/21 Monocytes % (Manual) 1.8 % 08/12/21 Metamyelocytes % (manual) 4.4 % 08/12/21 Myelocytes % (Manual) 2.6 % 08/12/21 Neutrophils # (Manual) 26.26 K/uL (1.4-6.5) H 08/12/21 Lymphocytes # (Manual) 0.77 K/uL (1.2-3.4) L 08/12/21 Monocytes # (Manual) 0.53 K/uL (0.11-0.59) 08/12/21 Metamyelocytes # (Manual) 1.30 K/uL (0-0) H 08/12/21 Myelocytes # (Manual) 0.77 K/uL (0-0) H 08/12/21 Polychromasia 2+ 08/12/21 Na 129 mmol/L (136-145) L 08/12/21 K 4.5 mmol/L (3.5-5.1) 08/12/21 Cl 90 mmol/L (98-107) L 08/12/21 CO2 31 mmol/L (21-32) 08/12/21 Anion Gap 8 (3-11) 08/12/21 BUN 50 mg/dl (6-23) H 08/12/21 Creatinine 1.23 mg/dl (0.6-1.4) 08/12/21 Estimated GFR ( Amer) 74.5 ml/min 08/12/21 Estimated GFR (Non-Af Amer) 64.3 ml/min 08/12/21 BUN/Creatinine Ratio 40.7 (10-20) H 08/12/21 Glu 89 mg/dl (70-99(Fasting)) 08/12/21 Ca 9.4 mg/dl (8.5-10.1) 08/12/21 Phosphorus Level 4.6 mg/dl (2.5-4.9) 08/12/21 Mg 2.5 mg/dl (1.7-2.4) H 08/12/21 05:12 08/12/21 Calcium Level 9.4 mg/dl (8.5-10.1) 08/12/21 05:12 08/12/21 Diagnostic Findings (Past 24 Hours) Chest X-Ray 08/11/21 07:00 XR chest 1V portable CLINICAL HISTORY: resp failure TECHNIQUE: Single frontal radiograph of the chest was obtained. Comparison: Comparison is made to chest one view 08/10/2021 FINDINGS: Lines and tubes are stable. The cardiomediastinal silhouette is obscured. There is suggestion of previously noted pneumomediastinum. There is prominence and cephalization of the vasculature with Catherine B lines seen. No evidence of pleural effusion or pneumothorax. IMPRESSION: 1. Cardiomegaly with pulmonary edema, unchanged. 2. Unchanged positioning of right PICC. 3. Partial visualization of previously noted pneumomediastinum. 4. Previously noted pneumothorax is not seen at this time. ACT 112: Negative or not required by law. Electronically signed by: Torres Shi M.D. 08/11/2021 9:04 AM Chest CTA 08/11/21 14:50 CT angio chest PE protocol CT DOSE: 629.64 mGycm HISTORY: 60 years-old Male with PE. Acute shortness of breath. COVID Positive. TECHNIQUE: Multiple CTA images of the chest were obtained after the intravenous administration of 120 ml Optiray. Coronal and sagittal MIPS were obtained from the axial data set and were submitted for review. All measurements were obtained according to NASCET criteria. A dose lowering technique was utilized adhering to the principles of ALARA. COMPARISON: Chest radiograph of same day, CTA chest 08/03/2021 FINDINGS: CTA: Mild to moderate cardiomegaly. No pericardial effusion. Atherosclerosis of the thoracic aorta without aneurysm. Patency of the imaged great vessels. The segmental and subsegmental pulmonary arterial branches are suboptimally visualized secondary to respiratory motion artifact. A right-sided PICC distal tip projects over the mid SVC. CT CHEST: No thyroid nodule. Subcarinal lymph nodes measure within the upper limits of normal at 10 mm, likely reactive. No pleural effusion. Trace right apical pneumothorax redemonstrated with pleural separation of a few millimeters. Extensive pneumomediastinum with pneumopericardium with extension into the lower neck and right supraclavicular tissues. The central airways appear patent. No esophageal injury identified. Confluent bilateral groundglass opacities with coalescing consolidation within the lung bases has progressed from prior. 5 mm nodule of the right upper lobe redemonstrated. A few additional scattered subcentimeter pulmonary nodules are better seen on the comparison study. No acute process of the imaged upper abdomen. Soft tissues are otherwise unremarkable. No acute fracture. No destructive bone lesions. IMPRESSION: 1. Extensive subcutaneous emphysema with trace right apical pneumothorax redemonstrated. 2. Progressively worsened confluent groundglass and consolidative opacities of the lungs suggestive of viral pneumonia. 3. No pulmonary emboli identified. 4. Low suspicion scattered bilateral solid pulmonary nodules measuring up to 4-5 mm are better seen on the comparison study. ACT 112: Negative or not required by law. The above report was generated using voice recognition software. It may contain grammatical, syntax or spelling errors. Electronically signed by: Jewel Ribera M.D. 08/11/2021 4:17 PM Chest X-Ray 08/12/21 07:00 XR chest 1V portable HISTORY: Respiratory failure. COMPARISON: Chest 08/11/2021. FINDINGS: A right PICC terminates in the SVC. The patient's right pneumothorax is is not identified by this modality. The heart remains enlarged. There is hazy bilateral airspace opacities likely representing a viral pneumonia. This remains unchanged. IMPRESSION: 1. The right PICC terminates at the SVC. 2. No change in the hazy bilateral airspace opacities likely representing a viral pneumonia. ACT 112: Negative or not required by law. Electronically signed by: David Vick M.D. 08/12/2021 8:11 AM I & O Totals 24 Hours 08/11/21 08/12/21 08/13/21 06:59 06:59 07:59 Intake Total 1693.539 / 3505.517 8631.365 / 1321.365 Output Total 3013 / 3013 2880 / 2880 Balance -1319.461 / -1319.461 -1558.635 / -1558.635 Cumulative 07/25/21 11:19 thru 08/12/21 06:47 Intake Total 45520.754 Output Total 73388 Balance 1180.754 RT Ventilator Mngmt (Last Documented) Ventilator Ordered Settings Respiratory Rate 28 08/12/21 07:49 Fraction of Inspired Oxygen 90 08/12/21 07:49 Ventilator - PT Measurements Respiratory Rate 28 Coding Level of Care Code Critical Care 1st 30-74 mins Diagnoses Acute hypoxemic respiratory failure due to COVID-19 U07.1; J96.01 CAD (coronary artery disease) I25.10 HLD (hyperlipidemia) E78.5 Diabetes mellitus E11.9 Acute pulmonary embolism I26.99 Sinus tachycardia R00.0 Cephalic vein thrombosis, left I82.612 Lactic acid acidosis E87.2 Time Spent (min) 45
[2021-08-12] MEDS: ACETAMINOPHEN 325 MG TAB PO PRN (09:00)
[2021-08-12] MEDS: CEFTAROLINE FOSAMIL ACETATE 600 MG in SODIUM CHLORIDE 0.9% 250 ML IV SCH ×2 (10:18→22:06)
--- NOTE | 2021-08-12 13:00 | Pharmacy Report ---
Pharmacy Glycemic Short Note 2 - Date of Service August 12, 2021 - Glycemic Short BSG Results (Last 24 hours): 08/11/21 08/11/21 08/11/21 13:45 16:14 17:27 Glucose POC Glucose 245 H 248 H 201 H 08/11/21 08/12/21 08/12/21 23:25 04:24 05:12 Glucose 89 POC Glucose 101 H 95 08/12/21 08/12/21 07:29 11:50 Glucose POC Glucose 116 H 199 H OUTPATIENT ANTIDIABETIC REGIMEN: * Glyburide 5mg PO BID * Metformin 1000mg BID * Actos 45mg PO Daily * A1c 6.3% 07/26/21 ASSESSMENT: 08/12: * Fasting BSG 89mg/dl, move all basal coverage to NPH to prevent AM hypoglycemia * Dexamethasone 10mg today, decreasing to 4mg tomorrow * Tighten CR for better coverage 08/11: * Insulin infusion discontinued yesterday afternoon. BSGs within goal yesterday afternoon into this AM. Fasting this AM - 173mg/dL. * Dexamethasone 10mg daily continues, and on type 2 diet. * Pt received 45 units of SQ basal yesterday (in addition to infusion). Basal increased ~ 10% today, 50 units, split between Lantus and NPH given elevated fasting. * Lunch BSG today 268mg/dL- prandial regimen tightened to 10/2.5 given persistent steroid induced hyperglycemia. * Re-assess basal insulin in AM 08/10: * Drip transition attempted again today utilizing a combination of NPH and Lantus. * Insulin infusion rate downtrending nicely since Lantus and NPH administration and BSGs have remained in goal. Will plan to d/c drip this afternoon * Patient continues to tolerate a diet. 08/09: * Insulin infusion rate down to 1.2 units/hr this morning. Thus transition off of the infusion was attempted utilizing NPH (given previous regimen and likelihood of prolonged steroid taper). Unfortunately, BSG and insulin infusion rates increased throughout the day despite the addition of NPH. Patient did not eat breakfast and per RN only consumed ~50% of an apple juice this morning. Pt did eat 23g CHO at lunchtime. He remains on Dexamethasone 10mg. * Will continue insulin infusion today and plan to attempt drip transition again tomorrow 08/08: * Insulin drip rate continues to run at high rates (reaching ~20 units/hr last evening). Will initiate low dose lantus on top of the insulin infusion in an attempt to bring infusion rates down. Current rate ~11 units/hr. * Patient is tolerating a diet and a tighten and fixed CR is being used * Dexamethasone continues, dose decreased today to 10mg today, will likely be tapered off 08/07 * Insulin drip started yesterday evening for BSGs climbing into 300s despite SQ insulin regimen * BSGs have been well controlled with IV insulin drip. BSGs within goal with a relatively stable infusion rate of 3.8units/hr * IV steroids continued, today is last day of dexamethasone 20mg IV. Will step down to 10mg IV daily x 5 days with plan to taper slowly thereafter. * Heparin gtt resumed last evening, mixed in D5W - but running at relatively low infusion rate w/ near therapeutic PTT * Currently on HiFlow but tolerating ~50% of meals per RN. 08/06 * Patient's BSGs yesterday were [phone] mg/dL and fasting this morning was 248 mg/dL. * Information was this prior admission showed that when on dexamethasone 6 mg IV daily, NPH 50 units was too aggressive. Patient had hypoglycemia in the morning. * Now, patient is on dexamethasone 20 mg IV daily and fastings have been trending upwards. Will add 15 units of NPH for dinnertime to lower fasting BSGs. Patient will be transitioning to 10 mg of dexamethasone in 2 days so this dose will need to be adjusted accordingly. * Tighten Novolog to provide more daily coverage. 08/05 * Patient's BSGs yesterday were [phone] mg/dL and overnight were 86-100 mg/dL. Fasting this morning was 160 mg/dL. * Continued NPH 30 units. Novolog tightened at lunch yesterday but BSGs continued to trend upwards. Tighten CR. * Lunch was 436 mg/dL but patient ate cheerios uncovered. Loosen CF to prevent overcorrection. PLAN FOR INPATIENT GLYCEMIC CONTROL: * Hold outpatient oral diabetes medications * Basal insulin * NPH 40 units SQ AM * HOLD Lantus * Bolus insulin * Novolog SQ to cover carbs in meals: * Goal Range: Low 110 mg/dL - High 140 mg/dL * Correction Factor: 10 mg/dL/unit * Nutritional / Prandial insulin per carb ratio of 1 unit per 2 grams CHO consumed
[2021-08-12 13:41] LABS: Partial Thromboplastin Ratio 2.5
[2021-08-12 13:42] LABS: Partial Thromboplastin Time 65.9 Seconds (21.0-31.0)
--- NOTE | 2021-08-12 15:01 | Hospitalist Progress Note ---
Date of Service August 12, 2021 Assessment & Plan (1) Hematoma: Plan: left arm (2) Acute pulmonary embolism: (3) DVT of lower extremity, bilateral: (4) Acute respiratory failure with hypoxia: (5) 2019 novel coronavirus-infected pneumonia (NCIP): (6) Sinus tachycardia: (7) Hyponatremia: (8) Diabetes mellitus: (9) CAD (coronary artery disease): Plan: (10) HTN (hypertension): (11) DVT prophylaxis: Plan: 60 year old male who initially presented with COVID 19 PNA with hypoxic respiratory failure on high flow, now complicated by acute bilateral PE, bilateral DVT further complicated by spontaneous LUE hematoma while on heparin drip for PE. Acute LUE hematoma - CT LUE shows biceps hematoma 13.3 x 5.3x 7 cm. No evidence of compartment syndrome. -Seen by orthopedics- non surgical management as of now. Heparin drip has been resumed per drupal php developer. Trend H&H, monitor neurovascular status. Acute blood loss anemia due to above - Hb down to 7.6 from 13.7 on 08/03. S/p 1 U of PRBC 08/08. Has remained stable since Acute pulmonary embolism (RLL segmental/subsegmental PE) - on CTA chest 08/03. Currently on Heparin drip DVT bilateral distal lower extremity - US 08/06 shows occlusive thrombus within bilateral calf veins but no proximal thrombus. Anticoagulation as above Acute respiratory failure with hypoxia due to COVID 19 PNA and acute PE Subcutaneous emphysema - Transferred to ICU on 08/03. -now with barotrauma. no further BIPAP. continue High flow. Management per drupal php developer COVID 19 PNA - S/p remdesivir course -currently on decadron taper DM-2 with steroid induced hyperglycemia -Glycemic pharmacist managing, on insulin. Home actos and glyburide on hold. Sinus tachycardia- likely from PNA and PE. On metoprolol. Asymptomatic NATHANIEL- NATHANIEL resolved. Cr back to baseline of 1.2 Hyponatremia- stable HTN- stable, on lopressor CAD- h/o stents. No chest pain. Continue ASA, metoprolol. DVT prophylaxis- heparin drip GI prophylaxis- Protonix Dispo- Remain in ICU Admission and Anticipated Discharge Date Admission Date: July 25, 2021 Subjective Laid on his right side for several hours today, during that time FIO2 was reduced down to 75%. Now back in supine position FIO2 back up to 100% desaturates with the slightest movement Physical Exam Physical Exam: Flat affect, no acute distress, remains on high flow Respiratory: Poor airflow bilaterally, no accessory muscle use, no wheezing Cardiovascular: tachycardic but regular, no murmurs/rubs/gallops Gastrointestinal (Abdomen): soft, non tender Musculoskeletal: left arm swelling improved Neurologic: awake, alert, generalized weakness, appears very deconditioned Results & Data Results & Data ([facility]) Vital Signs (Past 12 Hours) Vital Signs Temp Pulse Pulse Resp BP Pulse Ox 08/12/21 13:00 101 H 90 08/12/21 12:00 36.6 C 87 123/78 91 08/12/21 11:08 95 H 26 H 89 L 08/12/21 11:00 85 102/64 08/12/21 10:00 91 H 119/84 08/12/21 09:00 90 86 L 08/12/21 08:00 36.7 C 85 126/84 90 08/12/21 07:49 81 28 H 93 08/12/21 07:00 92 H 108/91 87 L 08/12/21 06:00 83 119/87 91 08/12/21 05:00 78 123/80 91 08/12/21 04:00 89 19 130/83 92 08/12/21 03:00 79 13 118/75 94 Laboratory Results Short CBC 08/12/21 Range/Units 05:21 WBC 29.64 H (4.8-10.8) K/uL Hgb 12.1 L (14.0-18.0) g/dL Hct 34.9 L (42-52) % Plt Count 285 (130-400) K/uL BMP 08/12/21 05:12 Sodium 129 L Potassium 4.5 Chloride 90 L Carbon Dioxide 31 BUN 50 H Creatinine 1.23 Glucose 89 Calcium 9.4 Medications Administered Current Inpatient Medications Acetaminophen (Acetaminophen 325 Mg Tab) 650 mg PO Q4H PRN PRN Reason: Pain or Fever Stop: 08/24/21 18:01 Last Admin: 08/12/21 09:00 Dose: 650 mg Documented by: Al Hydrox/Mg Hydrox/Simethicone (Aluminum/Magnesium Susp 30 Ml Udc) 15 ml PO Q4H PRN PRN Reason: Dyspepsia Stop: 08/24/21 18:01 Allopurinol (Allopurinol 300 Mg Tab) 300 mg PO QAM ANSELMO Stop: 08/28/21 08:59 Last Admin: 08/12/21 08:02 Dose: 300 mg Documented by: Aspirin (Aspirin 81 Mg Ectab) 81 mg PO DAILY ANSELMO Stop: 08/25/21 08:59 Last Admin: 08/12/21 08:02 Dose: 81 mg Documented by: Benzonatate (Benzonatate 100 Mg Capsule) 100 mg PO TID PRN PRN Reason: cough Stop: 08/24/21 18:01 Dextrose (Dextrose 50% 50 Ml Syringe) 25 - 50 ml IV UD PRN; Protocol PRN Reason: Hypoglycemia Protocol Stop: 08/24/21 18:01 Last Admin: 08/09/21 02:42 Dose: 25 ml Documented by: Furosemide (Furosemide Inj 20 Mg/2 Ml Vial) 40 mg IV [id number] ANSELMO Stop: 09/08/21 16:59 Last Admin: 08/12/21 08:02 Dose: 40 mg Documented by: Glucagon (Glucagon For Inj 1 Mg Vial) 1 mg SQ UD PRN; Protocol PRN Reason: Hypoglycemia Protocol Stop: 08/24/21 18:01 Glucose (Glucose 10 Tabs/Tube) 4 - 8 tabs PO UD PRN; Protocol PRN Reason: Hypoglycemia Protocol Stop: 08/24/21 18:01 Glucose (Glucose 40% Gel 15 Gm Tube) 15 - 30 gm PO UD PRN; Protocol PRN Reason: Hypoglycemia Protocol Stop: 08/24/21 18:01 Heparin Sodium (Beef Lung) (Heparin 10 Unit/Ml 5 Ml Flush) 5 ml FLUSH PRN PRN PRN Reason: Flush Stop: 09/04/21 16:31 Heparin Sodium/Dextrose (Heparin Sodium/Dextrose) 25,000 units in 500 mls @ 18 mls/hr IV .Q24H ANSELMO; Protocol Stop: 09/05/21 21:44 Last Titration: 08/12/21 06:47 Dose: 900 units/hr, 18 mls/hr Documented by: Ceftaroline Fosamil 600 mg/ (Sodium Chloride) 270 mls @ 250 mls/hr IV Q12H ANSELMO; Protocol Stop: 08/13/21 23:59 Last Infusion: 08/12/21 11:57 Dose: Infused Documented by: Dexamethasone 4 mg/ Syringe 1 mls @ 1 mls/min IV Q24H [facility] Stop: 09/12/21 08:29 Insulin Aspart (Insulin Aspart Per Unit) 0 units SC ACHS [facility] Stop: 09/09/21 16:29 Last Admin: 08/12/21 12:34 Dose: 6 units Documented by: Insulin Glargine (Insulin Glargine Solostar 100 Units/Ml 3 Ml Pen) 25 units SC QAM [facility] Stop: 09/10/21 08:59 Last Admin: 08/11/21 09:18 Dose: 25 units Documented by: Insulin Human NPH (Insulin Human Nph) 40 units SC DAILY [facility] Stop: 09/11/21 08:59 Last Admin: 08/12/21 08:04 Dose: 40 units Documented by: Ipratropium [place] (Ipratropium [place] Neb Soln 0.02% 2.5 Ml Vial) 0.5 mg INH Q4H PRN PRN Reason: SOB, WHEEZE Stop: 08/31/21 23:14 Levalbuterol HCl (Levalbuterol 1.25mg/0.5ml Neb) 1.25 mg INH Q4H PRN PRN Reason: SOB, WHEEZE Stop: 08/31/21 23:14 Magnesium Hydroxide (Magnesium Hydroxide Susp 30 Ml Udc) 30 ml PO Q12H PRN PRN Reason: Constipation Stop: 08/24/21 18:01 Magnesium Oxide (Magnesium Oxide 400 Mg Tab) 400 mg PO BID [facility] Stop: 08/27/21 20:59 Last Admin: 08/12/21 08:10 Dose: 400 mg Documented by: Metolazone (Metolazone 5 Mg Tablet) 5 mg PO QAM [facility] Stop: 09/10/21 10:29 Last Admin: 08/12/21 08:20 Dose: 5 mg Documented by: Metoprolol Tartrate (Metoprolol Tartrate 25 Mg Tab) 25 mg PO Q8 [facility] Stop: 09/08/21 13:59 Last Admin: 08/12/21 14:04 Dose: 25 mg Documented by: Miscellaneous (Carbohydrates For Hypoglycemia ) 15 - 30 gm PO UD PRN PRN Reason: Hypoglycemia Protocol Stop: 08/24/21 18:01 Miscellaneous (Icu Electrolyte Replacement Protocol) 1 ea N/A BID@06,18 [facility]; Protocol Stop: 08/14/21 17:59 Last Admin: 08/12/21 06:42 Dose: 1 ea Documented by: Miscellaneous Information (Pharmacy Glycemic Mgmt Consult) 1 ea N/A UD PRN; Protocol PRN Reason: Consult Stop: 08/24/21 18:01 Ondansetron HCl (Ondansetron Inj 2 Mg/Ml 2 Ml Vial) 4 mg IV Q6H PRN PRN Reason: Nausea Stop: 08/24/21 18:01 Pantoprazole Sodium (Pantoprazole 40 Mg Tab) 40 mg PO DAILY [facility] Stop: 09/07/21 08:59 Last Admin: 08/12/21 08:03 Dose: 40 mg Documented by: Polyethylene Glycol (Polyethylene (Miralax) 17 Gm Pack) 17 gm PO DAILY PRN PRN Reason: Constipation Stop: 08/24/21 18:01 Polyethylene Glycol (Polyethylene (Miralax) 17 Gm Pack) 17 gm PO DAILY [facility] Stop: 09/03/21 09:44 Last Admin: 08/12/21 08:16 Dose: 17 gm Documented by: Senna/Docusate Sodium (Docusate Sodium/Senna 50/8.6mg Tab) 2 tab PO QAM [facility] Stop: 09/10/21 08:59 Last Admin: 08/12/21 08:16 Dose: 2 tab Documented by: Trimethoprim/Sulfamethoxazole (Sulfamethoxazole/Trimethoprim Ds 800/160mg Tab) 1 tab PO Q12 [facility] Stop: 08/18/21 16:59 Last Admin: 08/12/21 08:16 Dose: 1 tab Documented by:
[2021-08-12] MEDS: LEVALBUTEROL 1.25MG/0.5ML NEB INH PRN (15:22)
[2021-08-12] MEDS: IPRATROPIUM BROMIDE NEB SOLN 0.02% 2.5 ML VIAL INH PRN (15:22)
[2021-08-12] MEDS ORDERED: LORazepam 2 MG/1 ML VIAL IV STA (22:35)
[2021-08-12] MEDS: HEPARIN SODIUM/DEXTROSE 25,000 UNITS/500 ML BAG IV SCH (23:06)
[2021-08-13] MEDS: METOPROLOL TARTRATE 25 MG TAB PO SCH ×3 (05:16→22:46)
[2021-08-13 05:29] LABS: BUN Creatinine Ratio 39.4 (10-20); Calcium 9.5 mg/dl (8.5-10.1); Creatinine Clr Calc Pharmacy 47.2 ml/min; Est GFR (African American) 52.3 ml/min; Est GFR (Non-African American) 45.1 ml/min; Magnesium 2.7 mg/dl (1.7-2.4); Phosphorus 6.3 mg/dl (2.5-4.9); Potassium 4.4 mmol/L (3.5-5.1)
[2021-08-13 05:36] LABS: Partial Thromboplastin Ratio 2.7
[2021-08-13] MEDS: ICU ELECTROLYTE REPLACEMENT PROTOCOL SCH ×2 (05:41→18:05)
[2021-08-13 05:46] LABS: Partial Thromboplastin Time 74.9 Seconds (21.0-31.0)
[2021-08-13 06:03] LABS: Hematocrit (blood only) 35.9 % (42-52); Hemoglobin 12.6 g/dL (14.0-18.0); Mean Corpuscular Hemoglobin 31.9 pg (25-34); Mean Corpuscular Hgb Conc 35.1 g/dL (32-36); Mean Corpuscular Volume 90.9 fL (80-100); Mean Platelet Volume 9.8 fL (7.4-10.4); Nucleated RBC # (auto) 0.24 K/uL (0-0); Nucleated RBC % (auto) 0.9 %; Platelet Count 326 K/uL (130-400); RDW Coefficient of Variation 16.9 % (11.5-14.5); RDW Standard Deviation 47.5 fL (36.4-46.3); Red Blood Count 3.95 M/uL (4.7-6.1); White Blood Count 27.86 K/uL (4.8-10.8)
[2021-08-13 06:47] LABS: Basophils # (auto) 0.04 K/uL (0-0.2); Basophils % (auto) 0.1 %; Immature Granulocytes # (auto) 1.05 K/uL (0.00-0.02); Immature Granulocytes % (auto) 3.8 %; Lymphocytes # (auto) 0.64 K/uL (1.2-3.4); Lymphocytes % (auto) 2.3 %; Monocytes # (auto) 0.91 K/uL (0.11-0.59); Monocytes % (auto) 3.3 %; Neutrophils # (auto) 25.22 K/uL (1.4-6.5); Neutrophils % (auto) 90.5 %; Polychromasia 1+
[2021-08-13] MEDS: MAGNESIUM OXIDE 400 MG TAB PO SCH (08:13)
[2021-08-13] MEDS ORDERED: dexAMETHasone 4 MG in SYRINGE 0 ML IV SCH (08:30)
[2021-08-13] MEDS: POLYETHYLENE (MIRALAX) 17 GM PACK PO SCH (08:38)
[2021-08-13] MEDS: allopurinoL 300 MG TAB PO SCH (08:38)
[2021-08-13] MEDS: DOCUSATE SODIUM/SENNA 50/8.6MG TAB PO SCH (08:38)
[2021-08-13] MEDS: PANTOprazole 40 MG TAB PO SCH (08:38)
[2021-08-13] MEDS: ASPIRIN 81 MG ECTAB PO SCH (08:38)
[2021-08-13] MEDS: SULFAMETHOXAZOLE/TRIMETHOPRIM DS 800/160MG TAB PO SCH (08:38)
[2021-08-13] MEDS: INSULIN HUMAN NPH SC SCH (08:39)
[2021-08-13] MEDS: INSULIN ASPART PER UNIT SC SCH ×4 (09:06→20:37)
--- NOTE | 2021-08-13 09:28 | XRay Report ---
XR chest 1V portable HISTORY: 60 years-old Male resp failure acute respiratory failure COMPARISON: Chest radiograph 08/12/2021, CT chest 08/11/2021 TECHNIQUE: Portable AP view of the chest FINDINGS: Unchanged positioning of the right-sided PICC. Cardiomegaly. Pneumomediastinum redemonstrated. No def inite pneumothorax or large pleural effusion. Interstitial coarsening with ill-defined bilateral airs pace opacities. Bones appear grossly intact. IMPRESSION: 1. Unchanged positioning of the right-sided PICC with persistent pneumomediastinum. 2. Unchanged bilateral multifocal opacities suggestive of viral pneumonia. 3. No definite pneumothorax identified. ACT 112: Negative or not required by law. The above report was generated using voice recognition software. It may contain grammatical, syntax o r spelling errors. Electronically signed by: Jewel Ribera M.D. 08/13/2021 9:27 AM
--- NOTE | 2021-08-13 10:34 | Critical Care Progress Note ---
Date of Service August 13, 2021 Assessment & Plan (1) Acute hypoxemic respiratory failure due to COVID-19: (2) CAD (coronary artery disease): (3) HLD (hyperlipidemia): (4) Diabetes mellitus: (5) Acute pulmonary embolism: (6) Sinus tachycardia: (7) Cephalic vein thrombosis, left: (8) Lactic acid acidosis: Plan: Impression: 60-year-old male with a past medical history of CAD, hypertension, obesity and hyperlipidemia presenting with COVID-19 viral pneumonia. Case was complicated by identification of PE and spontaneous left biceps hematoma formation while on anticoagulation. 24-hour events: Tolerated trials of self proning. Oxygenation slightly improved but remains on high flow. Remains therapeutic on heparin. No evidence of bleeding. Recommendations Neurologic: No significant issues. Pain management as needed. Pulmonary: Patient with COVID-19 viral pneumonia. He is completed an extended course of steroids. Given risk of adrenal suppression, completing a slow taper over the next several days. Decrease down to 2 mg of dexamethasone today. Continues to require high amounts of oxygen support. Has now developed evidence of barotrauma with subcutaneous emphysema, and pneumomediastinum confirmed on CT scan. Continue to avoid positive airway pressure if possible. Hold additional diuretics given increasing BUN and creatinine. Continue to follow daily chest x-rays. Given that were about 4 weeks into this, the likelihood of significant rapid recovery is quite low. Ideally, would like to pursue bronchoscopy with lower respiratory specimens to evaluate for infection however the patient's tenuous respiratory status would likely result in him being intubated and he and I would like to avoid that if at all possible. Continue anticoagulation, no evidence of continued PE on CT scan from 08/11/2021. Continue high flow oxygen. Supplement high flow heated oxygen with nonrebreather if needed. Cardiovascular: Right lower lobe pulmonary embolism as noted above, no filling defect identified on follow-up CT scan. Continue metoprolol to 25 mg p.o. every 8 hours. Echo 08/06 with evidence of a hyperdynamic LV. EF greater than 70%. No RV failure noted. Continue aspirin given his history of coronary artery disease. Continue Lasix 40 twice daily IV and metolazone Gastrointestinal: Continue diet. Continue pantoprazole Renal: Hyponatremia, stable. We will continue to follow at this point time. ICU electrolyte replacement protocol. Urine studies unlikely to be helpful given loop diuretics. Infectious disease: CRP was elevated but is decreasing. Respiratory cultures negative however procalcitonin did decrease significantly with transitions to ceftaroline. Completed 5 days of ceftaroline. Too high risk to consider bronchoscopy and BAL as would likely result in intubation. Fungitell negative. LDH elevated but nonspecific. PJP PCR pending. White blood cell count down to 27,000 today. No fevers. Discontinue Bactrim given elevated creatinine and negative Fungitell Hematologic: PE and spontaneous left bicep hematoma formation. Hemoglobin stable. The arm appears better today. Continue neurovascular monitoring of the left upper e xtremity. Try to keep elevated as much as possible. Endocrine: ICU pharmacy team assisting with management of hyperglycemia while on high-dose steroids. TSH within normal limits. VTE prophylaxis: Heparin infusion CODE STATUS: Full code Disposition: Remain in ICU. Right-sided PICC line 3/5 Dominguez catheter Discussed with bedside RN I have personally spent 41 minutes of critical care time in the direct management of this patient. This is a life/limb threatening event. This includes time spent evaluating patient, direct bedside care, chart review, placing orders, interpretation of diagnostic studies, discussion with consultants, patient, and family members, as well as other required patient management activities. This time is exclusive of all separately billable procedures, and teaching time and separate from and in addition to any other critical care service time. Thank you for allowing us to participate in the care of this patient. Admission and Anticipated Discharge Date Admission Date: July 25, 2021 Subjective Patient seen and examined. EMR reviewed. The patient completed some self proning trials yesterday. His oxygenation did not really improve but he felt that his breathing was better. His creatinine is bumped slightly today. He overall feels that his breathing is better. He is using Ativan at night which he believes is helpful with regards to his sleep. He is not expectorating any phlegm. No chest pain or palpitations. No changes in voice or increased crepitus noted. His left arm feels better Review of Systems Review of Systems: All systems reviewed & are unremarkable except as noted in Subjective Physical Exam Constitutional: WD/WN, vitals as above Neck: trachea midline, no thyromegaly Respiratory: normal respiratory effort and + tachypneic Auscultation: + crackles; no wheezes Cardiovascular: RRR, no murmur, no edema Gastrointestinal (Abdomen): normal bowel sounds, soft, nontender, no hepatosplenomegaly Skin: no rashes, warm and dry Lymphatic: no cervical lymphadenopathy Results & Data Results & Data ([facility]) Vital Signs (Past 12 Hours) Vital Signs Temp Pulse Pulse Resp BP Pulse Ox 08/13/21 08:00 36.6 C 86 19 124/89 94 08/13/21 07:24 84 20 96 08/13/21 07:00 86 18 08/13/21 06:00 89 22 126/93 99 08/13/21 05:10 95 H 23 111/80 100 08/13/21 05:02 92 H 20 08/13/21 04:15 94 H 20 91 08/13/21 04:04 94 H 23 111/78 88 L 08/13/21 04:00 36.6 C 08/13/21 03:57 86 18 94 08/13/21 03:44 84 28 H 96 08/13/21 01:00 85 14 08/13/21 00:00 36.4 C L 83 15 104/70 94 08/12/21 23:29 85 08/12/21 23:00 85 16 93/69 L 92 08/12/21 22:58 95 H 15 93 08/12/21 22:00 98 H 18 104/67 90 Critical Care Results & Data Vital Signs (Past 12 Hours) Vital Signs Temp Pulse Pulse Resp BP Pulse Ox 08/13/21 08:00 36.6 C 86 19 124/89 94 08/13/21 07:24 84 20 96 08/13/21 07:00 86 18 08/13/21 06:00 89 22 126/93 99 08/13/21 05:10 95 H 23 111/80 100 08/13/21 05:02 92 H 20 08/13/21 04:15 94 H 20 91 08/13/21 04:04 94 H 23 111/78 88 L 08/13/21 04:00 36.6 C 08/13/21 03:57 86 18 94 08/13/21 03:44 84 28 H 96 08/13/21 01:00 85 14 08/13/21 00:00 36.4 C L 83 15 104/70 94 08/12/21 23:29 85 08/12/21 23:00 85 16 93/69 L 92 08/12/21 22:58 95 H 15 93 08/12/21 22:00 98 H 18 104/67 90 Lab & Micro Results (Past 24 Hours) RBC 3.95 M/uL (4.7-6.1) L 08/13/21 WBC 27.86 K/uL (4.8-10.8) H 08/13/21 Hgb 12.6 g/dL (14.0-18.0) L 08/13/21 Hct 35.9 % (42-52) L 08/13/21 MCV 90.9 fL (80-100) 08/13/21 MCH 31.9 pg (25-34) 08/13/21 MCHC 35.1 g/dL (32-36) 08/13/21 RDW Standard Deviation 47.5 fL (36.4-46.3) H 08/13/21 RDW Coefficient of Variation 16.9 % (11.5-14.5) H 08/13/21 Plt Count 326 K/uL (130-400) 08/13/21 MPV 9.8 fL (7.4-10.4) 08/13/21 Nucleated Red Blood Cells % (auto) 0.9 % 08/13/21 Nucleated RBC Absolute Count (auto) 0.24 K/uL (0-0) H 08/13/21 Neutrophils (%) (Auto) 90.5 % 08/13/21 Lymphocytes (%) (Auto) 2.3 % 08/13/21 Monocytes # (Auto) 0.91 K/uL (0.11-0.59) H 08/13/21 Eosinophils # (Auto) 0.00 K/uL (0-0.5) 08/13/21 Immature Granulocyte % (Auto) 3.8 % 08/13/21 Neutrophils # (Auto) 25.22 K/uL (1.4-6.5) H 08/13/21 Lymphocytes # (Auto) 0.64 K/uL (1.2-3.4) L 08/13/21 Monocytes # (Auto) 0.91 K/uL (0.11-0.59) H 08/13/21 Eosinophils # (Auto) 0.00 K/uL (0-0.5) 08/13/21 Basophils # (Auto) 0.04 K/uL (0-0.2) 08/13/21 Immature Granulocyte # (Auto) 1.05 K/uL (0.00-0.02) H 08/13/21 Polychromasia 1+ 08/13/21 Na 132 mmol/L (136-145) L 08/13/21 K 4.4 mmol/L (3.5-5.1) 08/13/21 Cl 88 mmol/L (98-107) L 08/13/21 CO2 31 mmol/L (21-32) 08/13/21 Anion Gap 13 (3-11) H 08/13/21 BUN 65 mg/dl (6-23) H 08/13/21 Creatinine 1.65 mg/dl (0.6-1.4) H 08/13/21 Estimated GFR ( Amer) 52.3 ml/min 08/13/21 Estimated GFR (Non-Af Amer) 45.1 ml/min 08/13/21 BUN/Creatinine Ratio 39.4 (10-20) H 08/13/21 Glu 79 mg/dl (70-99(Fasting)) 08/13/21 Ca 9.5 mg/dl (8.5-10.1) 08/13/21 Phosphorus Level 6.3 mg/dl (2.5-4.9) H 08/13/21 Mg 2.7 mg/dl (1.7-2.4) H 08/13/21 04:55 08/13/21 Calcium Level 9.5 mg/dl (8.5-10.1) 08/13/21 04:55 08/13/21 Diagnostic Findings (Past 24 Hours) Chest X-Ray 08/13/21 07:00 XR chest 1V portable HISTORY: 60 years-old Male resp failure acute respiratory failure COMPARISON: Chest radiograph 08/12/2021, CT chest 08/11/2021 TECHNIQUE: Portable AP view of the chest FINDINGS: Unchanged positioning of the right-sided PICC. Cardiomegaly. Pneumomediastinum redemonstrated. No definite pneumothorax or large pleural effusion. Interstitial coarsening with ill-defined bilateral airspace opacities. Bones appear grossly intact. IMPRESSION: 1. Unchanged positioning of the right-sided PICC with persistent pneumomediastinum. 2. Unchanged bilateral multifocal opacities suggestive of viral pneumonia. 3. No definite pneumothorax identified. ACT 112: Negative or not required by law. The above report was generated using voice recognition software. It may contain grammatical, syntax or spelling errors. Electronically signed by: Jewel Ribera M.D. 08/13/2021 9:27 AM I & O Totals 24 Hours 08/12/21 08/13/21 08/14/21 05:59 06:59 06:59 Intake Total Output Total Balance Cumulative 07/25/21 11:19 thru 08/13/21 06:55 Intake Total 58574.037 Output Total 73040 Balance 526.037 RT Ventilator Mngmt (Last Documented) Ventilator Ordered Settings Respiratory Rate 19 08/13/21 08:00 Fraction of Inspired Oxygen 85 08/13/21 08:00 Ventilator - PT Measurements Respiratory Rate 19 Coding Level of Care Code Critical Care 1st 30-74 mins Diagnoses Acute hypoxemic respiratory failure due to COVID-19 U07.1; J96.01 CAD (coronary artery disease) I25.10 HLD (hyperlipidemia) E78.5 Diabetes mellitus E11.9 Acute pulmonary embolism I26.99 Sinus tachycardia R00.0 Cephalic vein thrombosis, left I82.612 Lactic acid acidosis E87.2 Time Spent (min) 41
[2021-08-13] MEDS: CEFTAROLINE FOSAMIL ACETATE 600 MG in SODIUM CHLORIDE 0.9% 250 ML IV SCH ×2 (10:36→22:09)
[2021-08-13 11:46] LABS: Partial Thromboplastin Ratio 2.2
[2021-08-13 11:52] LABS: Partial Thromboplastin Time 59.7 Seconds (21.0-31.0)
[2021-08-13] MEDS ORDERED: COUGH DROP (SUGAR FREE) LOZ 24 LOZ/1 BOX BUCCAL ONE (14:04)
[2021-08-13] MEDS: ACETAMINOPHEN 325 MG TAB PO PRN (14:06)
--- NOTE | 2021-08-13 14:22 | Hospitalist Progress Note ---
Date of Service August 13, 2021 Assessment & Plan (1) Hematoma: Plan: left arm (2) Acute pulmonary embolism: (3) DVT of lower extremity, bilateral: (4) Acute respiratory failure with hypoxia: (5) 2019 novel coronavirus-infected pneumonia (NCIP): (6) Sinus tachycardia: (7) Hyponatremia: (8) Diabetes mellitus: (9) CAD (coronary artery disease): Plan: (10) HTN (hypertension): (11) DVT prophylaxis: Plan: 60 year old male who initially presented with COVID 19 PNA with hypoxic respiratory failure on high flow, now complicated by acute bilateral PE, bilateral DVT further complicated by spontaneous LUE hematoma while on heparin drip for PE. Acute LUE hematoma - CT LUE shows biceps hematoma 13.3 x 5.3x 7 cm. No evidence of compartment syndrome. -Seen by orthopedics- non surgical management as of now. Therapeutic on heparin drip -H/H has remained stable Acute blood loss anemia due to above - Hb down to 7.6 from 13.7 on 08/03. S/p 1 U of PRBC 08/08. -H/h has remained stable Acute pulmonary embolism (RLL segmental/subsegmental PE) - on CTA chest 08/03. Currently on Heparin drip -CTA chest 08/11 no PE noted DVT bilateral distal lower extremity - US 08/06 shows occlusive thrombus within bilateral calf veins but no proximal thrombus. Anticoagulation as above Acute respiratory failure with hypoxia due to COVID 19 PNA and acute PE Subcutaneous emphysema - Transferred to ICU on 08/03. -now with barotrauma. no further BIPAP. continue High flow +/- NRB. 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 Home actos and glyburide on hold. Sinus tachycardia- likely from PNA and PE. On metoprolol. Asymptomatic NATHANIEL- NATHANIEL resolved. Cr back to baseline of 1.2 now rising to 1.6 while on Bactrim. Hyponatremia- stable HTN- stable, on lopressor CAD- h/o stents. No chest pain. Continue ASA, metoprolol. DVT prophylaxis- heparin drip GI prophylaxis- Protonix Dispo- Remain in ICU Admission and Anticipated Discharge Date Admission Date: July 25, 2021 Subjective Yesterday tolerated several hours of proning. Prior to that also laid on the right side for several hours FIO weaned down to 75% currently No bleeding events Physical Exam Physical Exam: No acute distress, remains on high flow Respiratory: diminished diffusely, no wheezing, no accessory muscle use Cardiovascular: regular rate and rhythm, no murmurs/rubs/gallops Gastrointestinal (Abdomen): soft, non tender Musculoskeletal: left arm swelling is improved Neurologic: awake, alert Results & Data Results & Data ([facility]) Vital Signs (Past 12 Hours) Vital Signs Temp Pulse Pulse Resp BP Pulse Ox 08/13/21 13:57 89 20 89 L 08/13/21 11:07 88 20 121/86 92 08/13/21 11:00 86 21 91 08/13/21 10:47 85 20 90 08/13/21 10:01 88 20 90 08/13/21 10:00 115/80 08/13/21 09:59 90 22 90 08/13/21 09:00 88 24 08/13/21 08:00 36.6 C 86 19 124/89 94 08/13/21 07:24 84 20 96 08/13/21 07:00 86 18 08/13/21 06:00 89 22 126/93 99 08/13/21 05:10 95 H 23 111/80 100 08/13/21 05:02 92 H 20 08/13/21 04:15 94 H 20 91 08/13/21 04:04 94 H 23 111/78 88 L 08/13/21 04:00 36.6 C 08/13/21 03:57 86 18 94 08/13/21 03:44 84 28 H 96 Laboratory Results Short CBC 08/13/21 Range/Units 04:56 WBC 27.86 H (4.8-10.8) K/uL Hgb 12.6 L (14.0-18.0) g/dL Hct 35.9 L (42-52) % Plt Count 326 (130-400) K/uL BMP 08/13/21 04:55 Sodium 132 L Potassium 4.4 Chloride 88 L Carbon Dioxide 31 BUN 65 H Creatinine 1.65 H D Glucose 79 Calcium 9.5 Medications Administered Current Inpatient Medications Acetaminophen (Acetaminophen 325 Mg Tab) 650 mg PO Q4H PRN PRN Reason: Pain or Fever Stop: 08/24/21 18:01 Last Admin: 08/13/21 14:06 Dose: 650 mg Documented by: Al Hydrox/Mg Hydrox/Simethicone (Aluminum/Magnesium Susp 30 Ml Udc) 15 ml PO Q4H PRN PRN Reason: Dyspepsia Stop: 08/24/21 18:01 Allopurinol (Allopurinol 300 Mg Tab) 300 mg PO QAM ANSELMO Stop: 08/28/21 08:59 Last Admin: 08/13/21 08:38 Dose: 300 mg Documented by: Aspirin (Aspirin 81 Mg Ectab) 81 mg PO DAILY ANSELMO Stop: 08/25/21 08:59 Last Admin: 08/13/21 08:38 Dose: 81 mg Documented by: Benzonatate (Benzonatate 100 Mg Capsule) 100 mg PO TID PRN PRN Reason: cough Stop: 08/24/21 18:01 Dextrose (Dextrose 50% 50 Ml Syringe) 25 - 50 ml IV UD PRN; Protocol PRN Reason: Hypoglycemia Protocol Stop: 08/24/21 18:01 Last Admin: 08/09/21 02:42 Dose: 25 ml Documented by: Glucagon (Glucagon For Inj 1 Mg Vial) 1 mg SQ UD PRN; Protocol PRN Reason: Hypoglycemia Protocol Stop: 08/24/21 18:01 Glucose (Glucose 10 Tabs/Tube) 4 - 8 tabs PO UD PRN; Protocol PRN Reason: Hypoglycemia Protocol Stop: 08/24/21 18:01 Glucose (Glucose 40% Gel 15 Gm Tube) 15 - 30 gm PO UD PRN; Protocol PRN Reason: Hypoglycemia Protocol Stop: 08/24/21 18:01 Heparin Sodium (Beef Lung) (Heparin 10 Unit/Ml 5 Ml Flush) 5 ml FLUSH PRN PRN PRN Reason: Flush Stop: 09/04/21 16:31 Heparin Sodium/Dextrose (Heparin Sodium/Dextrose) 25,000 units in 500 mls @ 17 mls/hr IV .Q24H ANSELMO; Protocol Stop: 09/05/21 21:44 Last Titration: 08/13/21 06:55 Dose: 850 units/hr, 17 mls/hr Documented by: Ceftaroline Fosamil 600 mg/ (Sodium Chloride) 270 mls @ 250 mls/hr IV Q12H ANSELMO; Protocol Stop: 08/13/21 23:59 Last Infusion: 08/13/21 12:52 Dose: Infused Documented by: Dexamethasone 2 mg/ Syringe 0.5 mls @ 1 mls/min IV Q24H [facility] Stop: 09/13/21 08:59 Insulin Aspart (Insulin Aspart Per Unit) 0 units SC ACHS [facility] Stop: 09/09/21 16:29 Last Admin: 08/13/21 12:50 Dose: Not Given Documented by: Insulin Glargine (Insulin Glargine Solostar 100 Units/Ml 3 Ml Pen) 25 units SC QAM [facility] Stop: 09/10/21 08:59 Last Admin: 08/11/21 09:18 Dose: 25 units Documented by: Insulin Human NPH (Insulin Human Nph) 40 units SC DAILY [facility] Stop: 09/11/21 08:59 Last Admin: 08/13/21 08:39 Dose: 40 units Documented by: Ipratropium [place] (Ipratropium [place] Neb Soln 0.02% 2.5 Ml Vial) 0.5 mg INH Q4H PRN PRN Reason: SOB, WHEEZE Stop: 08/31/21 23:14 Last Admin: 08/12/21 15:22 Dose: 0.5 mg Documented by: Levalbuterol HCl (Levalbuterol 1.25mg/0.5ml Neb) 1.25 mg INH Q4H PRN PRN Reason: SOB, WHEEZE Stop: 08/31/21 23:14 Last Admin: 08/12/21 15:22 Dose: 1.25 mg Documented by: Magnesium Hydroxide (Magnesium Hydroxide Susp 30 Ml Udc) 30 ml PO Q12H PRN PRN Reason: Constipation Stop: 08/24/21 18:01 Metoprolol Tartrate (Metoprolol Tartrate 25 Mg Tab) 25 mg PO Q8 [facility] Stop: 09/08/21 13:59 Last Admin: 08/13/21 13:53 Dose: 25 mg Documented by: Miscellaneous (Carbohydrates For Hypoglycemia ) 15 - 30 gm PO UD PRN PRN Reason: Hypoglycemia Protocol Stop: 08/24/21 18:01 Miscellaneous (Icu Electrolyte Replacement Protocol) 1 ea N/A BID@06,18 [facility]; Protocol Stop: 08/14/21 17:59 Last Admin: 08/13/21 05:41 Dose: 1 ea Documented by: Miscellaneous Information (Pharmacy Glycemic Mgmt Consult) 1 ea N/A UD PRN; Protocol PRN Reason: Consult Stop: 08/24/21 18:01 Ondansetron HCl (Ondansetron Inj 2 Mg/Ml 2 Ml Vial) 4 mg IV Q6H PRN PRN Reason: Nausea Stop: 08/24/21 18:01 Pantoprazole Sodium (Pantoprazole 40 Mg Tab) 40 mg PO DAILY ANSELMO Stop: 09/07/21 08:59 Last Admin: 08/13/21 08:38 Dose: 40 mg Documented by: Polyethylene Glycol (Polyethylene (Miralax) 17 Gm Pack) 17 gm PO DAILY PRN PRN Reason: Constipation Stop: 08/24/21 18:01 Polyethylene Glycol (Polyethylene (Miralax) 17 Gm Pack) 17 gm PO DAILY ANSELMO Stop: 09/03/21 09:44 Last Admin: 08/13/21 08:38 Dose: 17 gm Documented by: Senna/Docusate Sodium (Docusate Sodium/Senna 50/8.6mg Tab) 2 tab PO QAM ANSELMO Stop: 09/10/21 08:59 Last Admin: 08/13/21 08:38 Dose: 2 tab Documented by:
--- NOTE | 2021-08-13 14:36 | Pharmacy Report ---
Pharmacy Glycemic Short Note 2 - Date of Service August 13, 2021 - Glycemic Short BSG Results (Last 24 hours): 08/12/21 08/12/21 08/13/21 16:43 20:51 04:55 Glucose 79 POC Glucose 241 H 223 H 08/13/21 08/13/21 07:41 11:55 Glucose POC Glucose 102 H 123 H OUTPATIENT ANTIDIABETIC REGIMEN: * Glyburide 5mg PO BID * Metformin 1000mg BID * Actos 45mg PO Daily * A1c 6.3% 07/26/21 ASSESSMENT: 08/13: * Fasting blood sugars at goal, continue NPH 40 units, consider decreasing tomorrow, Dexamethasone reduced to 4mg today, 2mg tomorrow * Tightened CR to 1.5 today at breakfast, blood sugars at goal 102 - 123mg/dl * Loosen CF/CR to prevent hypoglycemia as steroids taper 08/12: * Fasting BSG 89mg/dl, move all basal coverage to NPH to prevent AM hypoglycemia * Dexamethasone 10mg today, decreasing to 4mg tomorrow * Tighten CR for better coverage 08/11: * Insulin infusion discontinued yesterday afternoon. BSGs within goal yesterday afternoon into this AM. Fasting this AM - 173mg/dL. * Dexamethasone 10mg daily continues, and on type 2 diet. * Pt received 45 units of SQ basal yesterday (in addition to infusion). Basal increased ~ 10% today, 50 units, split between Lantus and NPH given elevated fasting. * Lunch BSG today 268mg/dL- prandial regimen tightened to 10/2.5 given persistent steroid induced hyperglycemia. * Re-assess basal insulin in AM 08/10: * Drip transition attempted again today utilizing a combination of NPH and Lantus. * Insulin infusion rate downtrending nicely since Lantus and NPH administration and BSGs have remained in goal. Will plan to d/c drip this afternoon * Patient continues to tolerate a diet. 08/09: * Insulin infusion rate down to 1.2 units/hr this morning. Thus transition off of the infusion was attempted utilizing NPH (given previous regimen and likelihood of prolonged steroid taper). Unfortunately, BSG and insulin infusion rates increased throughout the day despite the addition of NPH. Patient did not eat breakfast and per RN only consumed ~50% of an apple juice this morning. Pt did eat 23g CHO at lunchtime. He remains on Dexamethasone 10mg. * Will continue insulin infusion today and plan to attempt drip transition again tomorrow 08/08: * Insulin drip rate continues to run at high rates (reaching ~20 units/hr last evening). Will initiate low dose lantus on top of the insulin infusion in an attempt to bring infusion rates down. Current rate ~11 units/hr. * Patient is tolerating a diet and a tighten and fixed CR is being used * Dexamethasone continues, dose decreased today to 10mg today, will likely be tapered off 08/07 * Insulin drip started yesterday evening for BSGs climbing into 300s despite SQ insulin regimen * BSGs have been well controlled with IV insulin drip. BSGs within goal with a relatively stable infusion rate of 3.8units/hr * IV steroids continued, today is last day of dexamethasone 20mg IV. Will step down to 10mg IV daily x 5 days with plan to taper slowly thereafter. * Heparin gtt resumed last evening, mixed in D5W - but running at relatively low infusion rate w/ near therapeutic PTT * Currently on HiFlow but tolerating ~50% of meals per RN. 08/06 * Patient's BSGs yesterday were [phone] mg/dL and fasting this morning was 248 mg/dL. * Information was this prior admission showed that when on dexamethasone 6 mg IV daily, NPH 50 units was too aggressive. Patient had hypoglycemia in the morning. * Now, patient is on dexamethasone 20 mg IV daily and fastings have been trending upwards. Will add 15 units of NPH for dinnertime to lower fasting BSGs. Patient will be transitioning to 10 mg of dexamethasone in 2 days so this dose will need to be adjusted accordingly. * Tighten Novolog to provide more daily coverage. 08/05 * Patient's BSGs yesterday were [phone] mg/dL and overnight were 86-100 mg/dL. Fasting this morning was 160 mg/dL. * Continued NPH 30 units. Novolog tightened at lunch yesterday but BSGs continued to trend upwards. Tighten CR. * Lunch was 436 mg/dL but patient ate cheerios uncovered. Loosen CF to prevent overcorrection. PLAN FOR INPATIENT GLYCEMIC CONTROL: * Hold outpatient oral diabetes medications * Basal insulin * NPH 40 units SQ AM - hold after today's dose to evaluate dose tomorrow * HOLD Lantus * Bolus insulin * Novolog SQ to cover carbs in meals: * Goal Range: Low 110 mg/dL - High 140 mg/dL * Correction Factor: 12 mg/dL/unit * Nutritional / Prandial insulin per carb ratio of 1 unit per 4 grams CHO consumed
[2021-08-13] MEDS ORDERED: LORazepam 2 MG/1 ML VIAL IV STA (20:43)
[2021-08-13] MEDS: HEPARIN SODIUM/DEXTROSE 25,000 UNITS/500 ML BAG IV SCH (22:11)
[2021-08-14 05:15] LABS: Hematocrit (blood only) 35.5 % (42-52); Hemoglobin 12.2 g/dL (14.0-18.0); Mean Corpuscular Hemoglobin 31.4 pg (25-34); Mean Corpuscular Hgb Conc 34.4 g/dL (32-36); Mean Corpuscular Volume 91.5 fL (80-100); Mean Platelet Volume 9.6 fL (7.4-10.4); Nucleated RBC # (auto) 0.24 K/uL (0-0); Platelet Count 276 K/uL (130-400); RDW Coefficient of Variation 17.5 % (11.5-14.5); RDW Standard Deviation 51.2 fL (36.4-46.3); Red Blood Count 3.88 M/uL (4.7-6.1); White Blood Count 23.71 K/uL (4.8-10.8)
[2021-08-14 05:36] LABS: BUN Creatinine Ratio 43.9 (10-20); Calcium 9.2 mg/dl (8.5-10.1); Creatinine Clr Calc Pharmacy 43.2 ml/min; Est GFR (African American) 52.6 ml/min; Est GFR (Non-African American) 45.4 ml/min; Magnesium 2.8 mg/dl (1.7-2.4); Potassium 4.4 mmol/L (3.5-5.1)
[2021-08-14 05:39] LABS: Partial Thromboplastin Ratio 2.4
[2021-08-14 05:40] LABS: Partial Thromboplastin Time 66.1 Seconds (21.0-31.0)
[2021-08-14] MEDS: ACETAMINOPHEN 325 MG TAB PO PRN (05:41)
[2021-08-14] MEDS: METOPROLOL TARTRATE 25 MG TAB PO SCH ×2 (05:45→20:57)
[2021-08-14] MEDS: ICU ELECTROLYTE REPLACEMENT PROTOCOL SCH (05:59)
[2021-08-14 06:22] LABS: Basophils # (auto) 0.02 K/uL (0-0.2); Basophils % (auto) 0.1 %; Immature Granulocytes # (auto) 0.42 K/uL (0.00-0.02); Immature Granulocytes % (auto) 1.8 %; Lymphocytes # (auto) 1.24 K/uL (1.2-3.4); Lymphocytes % (auto) 5.2 %; Monocytes # (auto) 0.27 K/uL (0.11-0.59); Monocytes % (auto) 1.1 %; Neutrophils # (auto) 21.76 K/uL (1.4-6.5); Neutrophils % (auto) 91.8 %; Polychromasia 2+
--- NOTE | 2021-08-14 08:14 | XRay Report ---
XR chest 1V portable HISTORY: Respiratory failure. COMPARISON: Chest 08/13/2021. FINDINGS: The right-sided PICC terminates at the SVC. This remains unchanged. The heart remains mildl y enlarged. There are low lung volumes. Multifocal bilateral airspace opacities are also unchanged. P neumomediastinum persists. Tiny right pneumothorax. This remains unchanged. IMPRESSION: 1. No change in the pneumomediastinum and trace right pneumothorax. 2. Multifocal bilateral airspace opacities persist. ACT 112: Negative or not required by law. Electronically signed by: David Vick M.D. 08/14/2021 8:12 AM
[2021-08-14] MEDS ORDERED: INSULIN GLARGINE SOLOSTAR 100 UNITS/ML 3 ML PEN SC SCH (09:00)
--- NOTE | 2021-08-14 09:30 | Critical Care Progress Note ---
Date of Service August 14, 2021 Assessment & Plan (1) Acute hypoxemic respiratory failure due to COVID-19: (2) CAD (coronary artery disease): (3) HLD (hyperlipidemia): (4) Diabetes mellitus: (5) Acute pulmonary embolism: (6) Sinus tachycardia: (7) Cephalic vein thrombosis, left: (8) Lactic acid acidosis: Plan: Impression: 60-year-old male with a past medical history of CAD, hypertension, obesity and hyperlipidemia presenting with COVID-19 viral pneumonia. Case was complicated by identification of PE and spontaneous left biceps hematoma formation while on anticoagulation. 24-hour events: Tolerated trials of self proning. Oxygenation slightly improved but remains on high flow. Remains therapeutic on heparin. No evidence of bleeding. Recommendations Neurologic: No significant issues. Pain management as needed. Pulmonary: Patient with COVID-19 viral pneumonia. He is completed an extended course of steroids. Given risk of adrenal suppression, completing a slow taper over the next several days. Decrease down to 2 mg of dexamethasonex 4 days then 1mg x 4 days then stop. Continues to require high amounts of oxygen support. Has now developed evidence of barotrauma with subcutaneous emphysema, and pneumomediastinum confirmed on CT scan. Continue to avoid positive airway pressure if possible. Hold additional diuretics given increasing BUN and creatinine. Continue to follow daily chest x-rays. Given that were about 4 weeks into this, the likelihood of significant rapid recovery is quite low. Ideally, would like to pursue bronchoscopy with lower respiratory specimens to evaluate for infection however the patient's tenuous respiratory status would likely result in him being intubated and he and I would like to avoid that if at all possible. Continue anticoagulation, no evidence of continued PE on CT scan from 08/11/2021. Continue high flow oxygen. Supplement high flow heated oxygen with nonrebreather if needed. Cardiovascular: Right lower lobe pulmonary embolism as noted above, no filling defect identified on follow-up CT scan. Continue metoprolol to 25 mg p.o. every 12 hours. Echo 08/06 with evidence of a hyperdynamic LV. EF greater than 70%. No RV failure noted. Continue aspirin given his history of coronary artery disease. Continue Lasix 40 twice daily IV and metolazone Gastrointestinal: Constipation: on senna, colace, miralax, magnesium citrate today - Continue diet. Continue pantoprazole - encourage protein intake Renal: Hyponatremia, stable. We will continue to follow at this point time. ICU electrolyte replacement protocol. Likely approaching pre-renal azotemia Infectious disease: CRP was elevated but is decreasing. Respiratory cultures negative however procalcitonin did decrease significantly with transitions to ceftaroline. Completed 5 days of ceftaroline. Too high risk to consider bronchoscopy and BAL as would likely result in intubation. Fungitell negative. LDH elevated but nonspecific. PJP PCR pending. White blood cell count down to 27,000 today. No fevers. Discontinue Bactrim given elevated creatinine and negative Fungitell Hematologic: PE and spontaneous left bicep hematoma formation. Hemoglobin stable. The arm appears better today. Continue neurovascular monitoring of the left upper extremity. Try to keep elevated as much as possible. - Heparin infusion - Transition to warfarin, 5mg today Endocrine: ICU pharmacy team assisting with management of hyperglycemia while on high-dose steroids. TSH within normal limits. VTE prophylaxis: Heparin infusion until IRN theraputic CODE STATUS: Full code Disposition: Remain in ICU. Right-sided PICC line 3/5 Dominguez catheter Encouraged in bed exercises and physical therapy to increase tolerance. discontinue ICU precautions. Stable for downgrade from ICU. Admission and Anticipated Discharge Date Admission Date: July 25, 2021 Subjective Significant exertional dyspnea. No significant chest pain. Feels he is doing okay Physical Exam Physical Exam: General: Alert. nontoxic. Skin: Warm, dry, Head: Atraumatic Ears, nose, mouth and throat: airway patent Cardiovascular: Normal peripheral perfusion Respiratory: no respiratory distress Gastrointestinal: Non distended Musculoskeletal: Left upper extremity hematoma, compartment soft full range of motion Results & Data Results & Data ([facility]) Vital Signs (Past 12 Hours) Vital Signs Temp Pulse Pulse Resp BP Pulse Ox 08/14/21 07:30 72 18 97 08/14/21 06:07 74 13 110/77 98 08/14/21 06:00 79 16 98 08/14/21 05:00 79 78 18 121/82 93 08/14/21 04:25 36.8 C 08/14/21 04:02 77 31 H 90 08/14/21 04:00 78 30 H 116/82 88 L 08/14/21 03:00 80 21 140/78 88 L 08/14/21 02:00 75 22 110/86 03/14/22 01:00 74 26 H 113/81 92 08/14/21 00:00 36.9 C 74 26 H 109/86 91 08/13/21 23:00 84 28 H 117/83 90 08/13/21 22:09 84 23 91 08/13/21 22:00 82 20 110/84 90 Critical Care Results & Data Vital Signs (Past 12 Hours) Vital Signs Temp Pulse Pulse Resp BP Pulse Ox 08/14/21 07:30 72 18 97 08/14/21 06:07 74 13 110/77 98 08/14/21 06:00 79 16 98 08/14/21 05:00 79 78 18 121/82 93 08/14/21 04:25 36.8 C 08/14/21 04:02 77 31 H 90 08/14/21 04:00 78 30 H 116/82 88 L 08/14/21 03:00 80 21 140/78 88 L 08/14/21 02:00 75 22 110/86 08/14/21 01:00 74 26 H 113/81 92 08/14/21 00:00 36.9 C 74 26 H 109/86 91 08/13/21 23:00 84 28 H 117/83 90 08/13/21 22:09 84 23 91 08/13/21 22:00 82 20 110/84 90 Lab & Micro Results (Past 24 Hours) RBC 3.88 M/uL (4.7-6.1) L 08/14/21 WBC 23.71 K/uL (4.8-10.8) H 08/14/21 Hgb 12.2 g/dL (14.0-18.0) L 08/14/21 Hct 35.5 % (42-52) L 08/14/21 MCV 91.5 fL (80-100) 08/14/21 MCH 31.4 pg (25-34) 08/14/21 MCHC 34.4 g/dL (32-36) 08/14/21 RDW Standard Deviation 51.2 fL (36.4-46.3) H 08/14/21 RDW Coefficient of Variation 17.5 % (11.5-14.5) H 08/14/21 Plt Count 276 K/uL (130-400) 08/14/21 MPV 9.6 fL (7.4-10.4) 08/14/21 Nucleated Red Blood Cells % (auto) 1.0 % 08/14/21 Nucleated RBC Absolute Count (auto) 0.24 K/uL (0-0) H 08/14/21 Neutrophils (%) (Auto) 91.8 % 08/14/21 Lymphocytes (%) (Auto) 5.2 % 08/14/21 Monocytes # (Auto) 0.27 K/uL (0.11-0.59) 08/14/21 Eosinophils # (Auto) 0.00 K/uL (0-0.5) 08/14/21 Immature Granulocyte % (Auto) 1.8 % 08/14/21 Neutrophils # (Auto) 21.76 K/uL (1.4-6.5) H 08/14/21 Lymphocytes # (Auto) 1.24 K/uL (1.2-3.4) 08/14/21 Monocytes # (Auto) 0.27 K/uL (0.11-0.59) 08/14/21 Eosinophils # (Auto) 0.00 K/uL (0-0.5) 08/14/21 Basophils # (Auto) 0.02 K/uL (0-0.2) 08/14/21 Immature Granulocyte # (Auto) 0.42 K/uL (0.00-0.02) H 08/14/21 Polychromasia 2+ 08/14/21 Na 130 mmol/L (136-145) L 08/14/21 K 4.4 mmol/L (3.5-5.1) 08/14/21 Cl 90 mmol/L (98-107) L 08/14/21 CO2 29 mmol/L (21-32) 08/14/21 Anion Gap 11 (3-11) 08/14/21 BUN 72 mg/dl (6-23) H 08/14/21 Creatinine 1.64 mg/dl (0.6-1.4) H 08/14/21 Estimated GFR ( Amer) 52.6 ml/min 08/14/21 Estimated GFR (Non-Af Amer) 45.4 ml/min 08/14/21 BUN/Creatinine Ratio 43.9 (10-20) H 08/14/21 Glu 95 mg/dl (70-99(Fasting)) 08/14/21 Ca 9.2 mg/dl (8.5-10.1) 08/14/21 Phosphorus Level 6.0 mg/dl (2.5-4.9) H 08/14/21 Mg 2.8 mg/dl (1.7-2.4) H 08/14/21 05:00 08/14/21 Calcium Level 9.2 mg/dl (8.5-10.1) 08/14/21 05:00 08/14/21 Diagnostic Findings (Past 24 Hours) Chest X-Ray 08/14/21 07:00 XR chest 1V portable HISTORY: Respiratory failure. COMPARISON: Chest 08/13/2021. FINDINGS: The right-sided PICC terminates at the SVC. This remains unchanged. The heart remains mildly enlarged. There are low lung volumes. Multifocal bilateral airspace opacities are also unchanged. Pneumomediastinum persists. Tiny right pneumothorax. This remains unchanged. IMPRESSION: 1. No change in the pneumomediastinum and trace right pneumothorax. 2. Multifocal bilateral airspace opacities persist. ACT 112: Negative or not required by law. Electronically signed by: David Vick M.D. 08/14/2021 8:12 AM I & O Totals 24 Hours 08/13/21 08/14/21 08/15/21 06:59 06:59 06:59 Intake Total 1309.033 / 1309.033 120 / 120 Output Total 1375 / 1375 150 / 150 Balance -65.967 / -65.967 -30 / -30 Cumulative 07/25/21 11:19 thru 08/14/21 09:00 Intake Total 34903.070 Output Total 77517 Balance 430.070 RT Ventilator Mngmt (Last Documented) Ventilator Ordered Settings Respiratory Rate 18 08/14/21 07:30 Fraction of Inspired Oxygen 90 08/14/21 07:30 Ventilator - PT Measurements Respiratory Rate 18 Coding Level of Care Code 96107 Subseq Hosp Care Lvl 3 Diagnoses Acute hypoxemic respiratory failure due to COVID-19 U07.1; J96.01 CAD (coronary artery disease) I25.10 HLD (hyperlipidemia) E78.5 Diabetes mellitus E11.9 Acute pulmonary embolism I26.99 Sinus tachycardia R00.0 Cephalic vein thrombosis, left I82.612 Lactic acid acidosis E87.2
[2021-08-14] MEDS: INSULIN ASPART PER UNIT SC SCH ×4 (10:02→21:11)
[2021-08-14] MEDS: ASPIRIN 81 MG ECTAB PO SCH (10:03)
[2021-08-14] MEDS: POLYETHYLENE (MIRALAX) 17 GM PACK PO SCH (10:03)
[2021-08-14] MEDS: DOCUSATE SODIUM/SENNA 50/8.6MG TAB PO SCH (10:04)
[2021-08-14] MEDS: PANTOprazole 40 MG TAB PO SCH (10:04)
[2021-08-14] MEDS: dexAMETHasone 2 MG in SYRINGE 0 ML IV SCH (10:05)
--- NOTE | 2021-08-14 11:44 | Pharmacy Report ---
Pharmacy Glycemic Short Note 2 - Date of Service August 14, 2021 - Glycemic Short BSG Results (Last 24 hours): 08/13/21 08/13/21 08/13/21 11:55 16:35 18:14 Glucose POC Glucose 123 H 85 98 08/13/21 08/14/21 08/14/21 20:18 05:00 07:41 Glucose 95 POC Glucose 97 119 H OUTPATIENT ANTIDIABETIC REGIMEN: * Glyburide 5mg PO BID * Metformin 1000mg BID * Actos 45mg PO Daily * A1c 6.3% 07/26/21 ASSESSMENT: 08/14: * BSGs well controlled over last 24 hrs, however trending significantly lower than prior days, with multiple BSGs less than 100 * Steroid dose has been tapered today, NATHANIEL continues, PO intake poor per RN report. * Given changes that place patient at higher risk for hypoglycemia, will refrain from using NPH today. Will resume Lantus to avoid mid-day "peak" until it is established patient BSGs will remain above 100. Will continue "high" stress Novolog doses initially in light of reduction in basal dosing - follow post- prandial BSGs 08/13: * Fasting blood sugars at goal, continue NPH 40 units, consider decreasing tomorrow, Dexamethasone reduced to 4mg today, 2mg tomorrow * Tightened CR to 1.5 today at breakfast, blood sugars at goal 102 - 123mg/dl * Loosen CF/CR to prevent hypoglycemia as steroids taper 08/12: * Fasting BSG 89mg/dl, move all basal coverage to NPH to prevent AM hypoglycemia * Dexamethasone 10mg today, decreasing to 4mg tomorrow * Tighten CR for better coverage PLAN FOR INPATIENT GLYCEMIC CONTROL: * Hold outpatient oral diabetes medications * Basal insulin * NPH - hold * Lantus 15 units Q AM; then per scale this PM: 0 units if BSG less than 120, 5 units if BSG 120-200, 10 units if BSG > 200 * Bolus insulin * Novolog SQ to cover carbs in meals: * Goal Range: Low 110 mg/dL - High 140 mg/dL * Correction Factor: 12 mg/dL/unit * Nutritional / Prandial insulin per carb ratio of 1 unit per 4 grams CHO consumed
[2021-08-14] MEDS ORDERED: MAGNESIUM CITRATE 296 ML/BTL PO ONE (12:00)
[2021-08-14] MEDS: allopurinoL 300 MG TAB PO SCH (12:21)
[2021-08-14] MEDS: allopurinoL 100 MG TAB PO SCH (12:41)
--- NOTE | 2021-08-14 14:19 | Hospitalist Progress Note ---
Date of Service August 14, 2021 Assessment & Plan (1) Hematoma: Plan: left arm (2) Acute pulmonary embolism: (3) DVT of lower extremity, bilateral: (4) Acute respiratory failure with hypoxia: (5) 2019 novel coronavirus-infected pneumonia (NCIP): (6) Sinus tachycardia: (7) Hyponatremia: (8) Diabetes mellitus: (9) CAD (coronary artery disease): Plan: (10) HTN (hypertension): (11) DVT prophylaxis: Plan: 60 year old male who initially presented with COVID 19 PNA with hypoxic respiratory failure on high flow, now complicated by acute bilateral PE, bilateral DVT further complicated by spontaneous LUE hematoma while on heparin drip for PE. Acute LUE hematoma - CT LUE shows biceps hematoma 13.3 x 5.3x 7 cm. No evidence of compartment syndrome. -Seen by orthopedics- non surgical management as of now. Therapeutic on heparin drip. First dose of coumadin today -H/H has remained stable Acute blood loss anemia due to above - Hb down to 7.6 from 13.7 on 08/03. S/p 1 U of PRBC 08/08. -H/h has remained stable Acute pulmonary embolism (RLL segmental/subsegmental PE) - on CTA chest 08/03. Currently on Heparin drip -CTA chest 08/11 no PE noted DVT bilateral distal lower extremity - US 08/06 shows occlusive thrombus within bilateral calf veins but no proximal thrombus. Anticoagulation as above Acute respiratory failure with hypoxia due to COVID 19 PNA and acute PE Subcutaneous emphysema - Transferred to ICU on 08/03. -now with barotrauma. no further BIPAP. continue High flow +/- NRB. -Patient being downgraded out of ICU today, will ask for Pulmonology consult for ongoing follow up while in PCU COVID 19 PNA - S/p remdesivir course -currently on decadron taper DM-2 with steroid induced hyperglycemia -Glycemic pharmacist managing, on insulin. Home actos and glyburide on hold. Sinus tachycardia- likely from PNA and PE. On metoprolol. Asymptomatic NATHANIEL- NATHANIEL resolved. Cr back to baseline of 1.2 now rising to 1.6 while on Bactrim which has been discontinued Hyponatremia- stable HTN- stable, on lopressor CAD- h/o stents. No chest pain. Continue ASA, metoprolol. DVT prophylaxis- heparin drip GI prophylaxis- Protonix Dispo- Transferred out of ICU per loftsman/woman. Will move to PCU. Ongoing PT/OT evaluation Admission and Anticipated Discharge Date Admission Date: July 25, 2021 Subjective Worked with OT today FIO 2 at 80% and rate at 55L/min today Downgraded out of ICU today per loftsman/woman Physical Exam Physical Exam: No acute distress, appears debilitated, weak Respiratory: poor airflow bilaterally, no wheezing/rhonchi/rales Cardiovascular: regular rate and rhythm, no murmurs/rubs/gallops Gastrointestinal (Abdomen): soft, non tender, non distended Musculoskeletal: left arm swelling is improved Neurologic: awake, alert, spontaneously moving extremities Results & Data Results & Data ([facility]) Vital Signs (Past 12 Hours) Vital Signs Temp Pulse Pulse Resp BP Pulse Ox 08/14/21 14:00 85 19 113/84 88 L 08/14/21 13:00 91 H 28 H 108/79 89 L 08/14/21 12:00 78 17 120/86 08/14/21 11:00 79 22 121/80 08/14/21 10:56 82 24 92 08/14/21 10:00 81 26 H 131/86 90 08/14/21 09:01 82 29 H 110/69 91 08/14/21 09:00 82 24 93 08/14/21 08:00 36.7 C 76 25 H 127/77 08/14/21 07:30 72 18 97 08/14/21 07:00 74 20 124/84 94 08/14/21 06:07 74 13 110/77 98 08/14/21 06:00 79 16 98 08/14/21 05:00 79 78 18 121/82 93 08/14/21 04:25 36.8 C 08/14/21 04:02 77 31 H 90 08/14/21 04:00 78 30 H 116/82 88 L 08/14/21 03:00 80 21 140/78 88 L Laboratory Results Short CBC 08/14/21 Range/Units 05:00 WBC 23.71 H (4.8-10.8) K/uL Hgb 12.2 L (14.0-18.0) g/dL Hct 35.5 L (42-52) % Plt Count 276 (130-400) K/uL BMP 08/14/21 05:00 Sodium 130 L Potassium 4.4 Chloride 90 L Carbon Dioxide 29 BUN 72 H Creatinine 1.64 H Glucose 95 Calcium 9.2 Medications Administered Current Inpatient Medications Acetaminophen (Acetaminophen 325 Mg Tab) 650 mg PO Q4H PRN PRN Reason: Pain or Fever Stop: 08/24/21 18:01 Last Admin: 08/14/21 05:41 Dose: 650 mg Documented by: Al Hydrox/Mg Hydrox/Simethicone (Aluminum/Magnesium Susp 30 Ml Udc) 15 ml PO Q4H PRN PRN Reason: Dyspepsia Stop: 08/24/21 18:01 Allopurinol (Allopurinol 100 Mg Tab) 200 mg PO QAM ANSELMO Stop: 09/13/21 11:59 Last Admin: 08/14/21 12:41 Dose: 200 mg Documented by: Aspirin (Aspirin 81 Mg Ectab) 81 mg PO DAILY [facility] Stop: 08/25/21 08:59 Last Admin: 08/14/21 10:03 Dose: 81 mg Documented by: Dextrose (Dextrose 50% 50 Ml Syringe) 25 - 50 ml IV UD PRN; Protocol PRN Reason: Hypoglycemia Protocol Stop: 08/24/21 18:01 Last Admin: 08/09/21 02:42 Dose: 25 ml Documented by: Glucagon (Glucagon For Inj 1 Mg Vial) 1 mg SQ UD PRN; Protocol PRN Reason: Hypoglycemia Protocol Stop: 08/24/21 18:01 Glucose (Glucose 10 Tabs/Tube) 4 - 8 tabs PO UD PRN; Protocol PRN Reason: Hypoglycemia Protocol Stop: 08/24/21 18:01 Glucose (Glucose 40% Gel 15 Gm Tube) 15 - 30 gm PO UD PRN; Protocol PRN Reason: Hypoglycemia Protocol Stop: 08/24/21 18:01 Heparin Sodium (Beef Lung) (Heparin 10 Unit/Ml 5 Ml Flush) 5 ml FLUSH PRN PRN PRN Reason: Flush Stop: 09/04/21 16:31 Heparin Sodium/Dextrose (Heparin Sodium/Dextrose) 25,000 units in 500 mls @ 17 mls/hr IV .Q24H ANSELMO; Protocol Stop: 09/05/21 21:44 Last Titration: 08/14/21 06:41 Dose: 850 units/hr, 17 mls/hr Documented by: Dexamethasone 2 mg/ Syringe 0.5 mls @ 1 mls/min IV Q24H ANSELMO Stop: 08/17/21 09:01 Last Admin: 08/14/21 10:05 Dose: 1 mls/min Documented by: Dexamethasone 1 mg/ Syringe 0.25 mls @ 1 mls/min IV Q24H [facility] Stop: 08/21/21 09:01 Insulin Aspart (Insulin Aspart Per Unit) 0 units SC ACHS [facility] Stop: 09/09/21 16:29 Last Admin: 08/14/21 12:47 Dose: 3 units Documented by: Insulin Glargine (Insulin Glargine Solostar 100 Units/Ml 3 Ml Pen) 15 units SC QAM [facility] Stop: 09/13/21 08:59 Last Admin: 08/14/21 10:00 Dose: 15 units Documented by: Insulin Glargine (Insulin Glargine Solostar 100 Units/Ml 3 Ml Pen) 0 units SC HS [facility]; Protocol Stop: 09/13/21 20:59 Ipratropium [place] (Ipratropium [place] Neb Soln 0.02% 2.5 Ml Vial) 0.5 mg INH Q4H PRN PRN Reason: SOB, WHEEZE Stop: 08/31/21 23:14 Last Admin: 08/12/21 15:22 Dose: 0.5 mg Documented by: Levalbuterol HCl (Levalbuterol 1.25mg/0.5ml Neb) 1.25 mg INH Q4H PRN PRN Reason: SOB, WHEEZE Stop: 08/31/21 23:14 Last Admin: 08/12/21 15:22 Dose: 1.25 mg Documented by: Magnesium Hydroxide (Magnesium Hydroxide Susp 30 Ml Udc) 30 ml PO Q12H PRN PRN Reason: Constipation Stop: 08/24/21 18:01 Metoprolol Tartrate (Metoprolol Tartrate 25 Mg Tab) 25 mg PO Q12H ANSELMO Stop: 09/13/21 20:59 Miscellaneous (Carbohydrates For Hypoglycemia ) 15 - 30 gm PO UD PRN PRN Reason: Hypoglycemia Protocol Stop: 08/24/21 18:01 Miscellaneous Information (Pharmacy Glycemic Mgmt Consult) 1 ea N/A UD PRN; Protocol PRN Reason: Consult Stop: 08/24/21 18:01 Ondansetron HCl (Ondansetron Inj 2 Mg/Ml 2 Ml Vial) 4 mg IV Q6H PRN PRN Reason: Nausea Stop: 08/24/21 18:01 Pantoprazole Sodium (Pantoprazole 40 Mg Tab) 40 mg PO DAILY [facility] Stop: 09/07/21 08:59 Last Admin: 08/14/21 10:04 Dose: 40 mg Documented by: Polyethylene Glycol (Polyethylene (Miralax) 17 Gm Pack) 17 gm PO DAILY PRN PRN Reason: Constipation Stop: 08/24/21 18:01 Polyethylene Glycol (Polyethylene (Miralax) 17 Gm Pack) 17 gm PO DAILY [facility] Stop: 09/03/21 09:44 Last Admin: 08/14/21 10:03 Dose: 17 gm Documented by: Senna/Docusate Sodium (Docusate Sodium/Senna 50/8.6mg Tab) 2 tab PO QAM [facility] Stop: 09/10/21 08:59 Last Admin: 08/14/21 10:04 Dose: 2 tab Documented by: Warfarin Sodium (Warfarin Sod 5 Mg Tab) 5 mg PO TODAY@1600 ONE Stop: 08/14/21 16:01
[2021-08-14] MEDS ORDERED: WARFARIN SOD 5 MG TAB PO ONE (16:00)
[2021-08-14] MEDS ORDERED: XOPENEX/ATROVENT 1.25mg/0.5MG NEB COMBO NEB STA (20:15)
[2021-08-14] MEDS ORDERED: LEVALBUTEROL 1.25MG/0.5ML NEB INH ONE (20:20)
[2021-08-14] MEDS ORDERED: methylPREDNISolone 20 MG in SYRINGE 0 ML IV ONE (20:20)
[2021-08-14] MEDS ORDERED: IPRATROPIUM BROMIDE NEB SOLN 0.02% 2.5 ML VIAL INH ONE (20:20)
--- NOTE | 2021-08-14 21:11 | XRay Report ---
SINGLE VIEW CHEST CLINICAL HISTORY: Hypoxia. FINDINGS: 2 AP, portable, upright chest radiographs are compared to study performed earlier the same day 08/14/2021 and correlated with chest CT dated 08/11/2021. The examination is degraded by portable t echnique and patient rotation. A right PICC line is unchanged in position. Pneumomediastinum persists . The heart is top normal for projection. Multifocal bilateral airspace opacities are unchanged. No l arge pleural effusion is identified. There is trace right apical pneumothorax. The bony thorax is daniele ssly intact. IMPRESSION: 1. Multifocal bilateral airspace opacities are unchanged from today's earlier examination. 2. Pneumomediastinum and a trace right apical pneumothorax persists. ACT 112: Negative or not required by law. Electronically signed by: Jeremi Dodd M.D. 08/14/2021 9:09 PM
[2021-08-14] MEDS: INSULIN GLARGINE SOLOSTAR 100 UNITS/ML 3 ML PEN SC SCH (21:13)
[2021-08-14 21:20] LABS: Base Excess ABG 3.4 mEq/L (-9-1.8); HCO3 ABG 25 mmol/L (19-24); Oxygen Saturation ABG 95.8 % (90-95); PCO2 ABG 31 mmHg (35-46); PO2 ABG 73 mmHg (80-95)
[2021-08-14 21:21] LABS: Allen Test Pos (Pos)
[2021-08-14 21:22] LABS: pH ABG 7.53 (7.35-7.45)
[2021-08-15] MEDS: HEPARIN SODIUM/DEXTROSE 25,000 UNITS/500 ML BAG IV SCH (03:37)
[2021-08-15 05:57] LABS: Mean Corpuscular Hgb Conc 34.2 g/dL (32-36); Mean Platelet Volume 9.9 fL (7.4-10.4); Nucleated RBC # (auto) 0.37 K/uL (0-0); Nucleated RBC % (auto) 1.9 %; Platelet Count 243 K/uL (130-400)
[2021-08-15 06:14] LABS: INR 1.3 (0.9-1.1); Prothrombin Time 13.5 Seconds (9.0-12.0)
[2021-08-15 06:20] LABS: ANC (manual) 18.83 K/uL (1.4-6.5); BUN Creatinine Ratio 43.2 (10-20); Calcium 9.3 mg/dl (8.5-10.1); Creatinine Clr Calc Pharmacy 37.8 ml/min; Est GFR (Non-African American) 34.5 ml/min; Hematocrit (blood only) 36.8 % (42-52); Hemoglobin 12.6 g/dL (14.0-18.0); Mean Corpuscular Hemoglobin 31.7 pg (25-34); Mean Corpuscular Volume 92.5 fL (80-100); Monocytes # (manual) 0.51 K/uL (0.11-0.59); Monocytes % (manual) 2.6 %; Myelocytes # (manual) 0.18 K/uL (0-0); Myelocytes % (manual) 0.9 %; Neutrophils # (manual) 18.83 K/uL (1.4-6.5); Neutrophils % (manual) 96.5 %; Polychromasia 1+; RDW Coefficient of Variation 17.4 % (11.5-14.5); RDW Standard Deviation 53.1 fL (36.4-46.3); Red Blood Count 3.98 M/uL (4.7-6.1); White Blood Count 19.51 K/uL (4.8-10.8)
[2021-08-15 07:51] LABS: Partial Thromboplastin Ratio 2.4
[2021-08-15] MEDS: INSULIN ASPART PER UNIT SC SCH ×4 (08:33→21:21)
[2021-08-15] MEDS: dexAMETHasone 2 MG in SYRINGE 0 ML IV SCH (08:34)
[2021-08-15] MEDS: allopurinoL 100 MG TAB PO SCH (08:36)
[2021-08-15] MEDS: ASPIRIN 81 MG ECTAB PO SCH (08:36)
[2021-08-15] MEDS: POLYETHYLENE (MIRALAX) 17 GM PACK PO SCH (08:37)
[2021-08-15] MEDS: DOCUSATE SODIUM/SENNA 50/8.6MG TAB PO SCH (08:37)
[2021-08-15] MEDS: PANTOprazole 40 MG TAB PO SCH (08:38)
[2021-08-15 08:58] LABS: Partial Thromboplastin Time 64.8 Seconds (21.0-31.0)
--- NOTE | 2021-08-15 08:58 | Ultrasound Report ---
US renal/blad retro comp HISTORY: 60 years-old Male NATHANIEL acute kidney injury COMPARISON: CT abdomen pelvis 07/25/2021 TECHNIQUE: Multiple real-time sonographic images of the kidneys and urinary bladder were obtained ass essing grayscale appearance and color flow FINDINGS: The right kidney measures 8.8 x 5.5 x 4.9 cm and is unremarkable without renal calculi, hydronephrosi s or suspicious mass lesion. Mild cortical thinning redemonstrated. The left kidney measures 10.5 x 5.0 x 5.7 cm and is unremarkable without renal calculi, hydronephrosi s or suspicious mass lesion. Mild cortical thinning redemonstrated. Decompressed urinary bladder with Dominguez catheter. Study is limited secondary to patient condition, ob scuring bowel gas and portable study. IMPRESSION: 1. Mild cortical thinning of the kidneys. No renal calculi or hydronephrosis. 2. Decompressed urinary bladder with Dominguez catheter. ACT 112: Negative or not required by law. The above report was generated using voice recognition software. It may contain grammatical, syntax o r spelling errors. Electronically signed by: Jewel Ribera M.D. 08/15/2021 8:57 AM
[2021-08-15] MEDS ORDERED: INSULIN HUMAN NPH SC ONE (09:00)
[2021-08-15] MEDS: METOPROLOL TARTRATE 25 MG TAB PO SCH ×2 (09:16→21:14)
--- NOTE | 2021-08-15 09:24 | Pulmonary Consultation ---
Date of Consultation August 15, 2021 Assessment & Plan (1) 2019 novel coronavirus-infected pneumonia (NCIP): The patient has increasing oxygen requirements and appears more lethargic. His overall prognosis is quite poor. I suspect that he will likely need to be intubated and mechanically ventilated soon. He is agreeable to intubation if required. He has difficulties maintaining his saturations in the mid 90s when talking. He has been intolerant of BiPAP in the past and has breakdown of his nasal bridge due to the BiPAP mask. Ultimately if his weaning process is long off of the ventilator, then he is agreeable to tracheostomy if required. Discussed with bedside nurse. (2) Acute hypoxemic respiratory failure: See above. Try to maintain euvolemia although difficult given his acute renal failure. (3) Acute pulmonary embolism: Currently on a heparin drip. Primary team has chosen to transition him to a therapeutic INR with warfarin. (4) NATHANIEL (acute kidney injury): He has evidence of NATHANIEL likely secondary to poor p.o. intake and possibly from contrast load earlier in the hospitalization. Recommend consultation with nephrology especially in light of his CKD stage III. Renal ultrasound without evidence of obstruction. History of Present Illness Reason for Consultation: Transfer out of the ICU Attending Physician: Yovanny Manning MD History of Present Illness 60-year-old male with a prolonged hospital stay secondary to COVID-19 viral pneumonia. I seen the patient earlier this hospitalization. He was on high-dose DEXA ARDS dosing of steroids. During this hospital course he was found to have a large bicep hematoma on the left while on heparin infusion. He did receive blood transfusion. His hemoglobin has normalized. He remains on heparin infusion and is currently getting warfarin to bridge to a therapeutic INR. Over the last day he has had increasing oxygen requirements and is currently on 60 L of high flow nasal cannula and requiring 100% FiO2. He does endorse increasing lethargy shortness of breath even while at rest. He looks generally weaker than he did when I saw him 2 weeks ago. He denies any cough. No fevers or chills. Appetite has been poor. He was downgraded from ICU to PCU status yesterday. This latest CRP has shown a downward trend to 3.87 mg/dL on 08/11/2021. His white count has improved from yesterday of 23,700-19,500. Unfortunately, during this hospitalization he was found to have pneumomediastinum and trace apical pneumothorax. Chest x-ray reviewed from yesterday with multifocal airspace opacities seen. He had a follow-up chest CTA 08/11/2021 which demonstrated extensive subcu emphysema, right apical pneumothorax and progressively worsening groundglass opacities. Small subcentimeter pulmonary nodules noted bilaterally. Renal ultrasound completed today demonstrated mild cortical thinning of the kidneys. No hydronephrosis. It is notable that he has had worsening renal failure with rising creatinine. Allergies Allergy/AdvReac Type Severity Reaction Status Date / Time No Known Allergies Allergy Unverified 07/25/21 14:34 Home Medications Medication Instructions Recorded Confirmed Type allopurinol 300 mg tablet 300 mg PO DAILY 07/25/21 07/25/21 History aspirin 81 mg tablet,delayed 81 mg PO DAILY 07/25/21 07/25/21 History release glyburide 5 mg tablet 5 mg PO BID 07/25/21 07/25/21 History lisinopril 40 mg tablet 40 mg PO DAILY 07/25/21 07/25/21 History metformin 1,000 mg tablet 1,000 mg PO BID 07/25/21 07/25/21 History metoprolol succinate 25 mg 25 mg PO DAILY 07/25/21 07/25/21 History tablet,extended release 24 hr ondansetron 4 mg disintegrating 4 mg TRANSLINGUAL UD PRN 07/25/21 07/25/21 History tablet pioglitazone 45 mg tablet 45 mg PO DAILY 07/25/21 07/25/21 History Patient History Medical History (Updated 08/15/21 @ 09:20 by Kartik Fairbanks MD) Acute hypoxemic respiratory failure CAD (coronary artery disease) Cephalic vein thrombosis, left CKD (chronic kidney disease) stage 3, GFR 30-59 ml/min Diabetes mellitus Gout HLD (hyperlipidemia) HTN (hypertension) Lactic acid acidosis Surgical History History of arthroscopy of left knee History of heart artery stent x3 Family History Mother Cancer pancreatitc Other Coronary heart disease Diabetes Social History Smoking Status: Former smoker packs per day: 1; Years Smoked: 27; Second Hand Exposure: No; Hx Alcohol Use: No Hx Substance Use: No Preferred Language: Cymraes Communication Ability: Effective General Internal Medicine Physician Required: No Beliefs That Will Affect Care: None marital status: Current Living Situation: Spouse How many Children do You have: 3 Feels Safe at Home: Yes Assistive Devices: Denture - Upper and Oxygen - Continuous Review of Systems Review of Systems: All systems reviewed & are unremarkable except as noted in Subjective Physical Exam Physical Exam: Constitutional: Patient appears older than stated age and lethargic. Eyes: Pupils are equal round and reactive to light. Conjunctivae are normal. Anicteric sclera. Ears nose, mouth and throat: No obvious facial deformity seen. Neck: Trachea is midline. Visual inspection is normal. Respiratory: Diminished lung sounds bilaterally. Mildly tachypneic. Cardiovascular: Tachycardic. Regular rhythm. No murmurs. No edema. Swollen bicep. Brachial and radial pulses intact. Gastrointestinal: Normal bowel sounds, soft, nontender and nondistended. No hepatosplenomegaly noted. Musculoskeletal: Left biceps very tense and mildly cold to touch. Radial pulses palpated but diminished. Skin: No rashes, warm dry and intact. Neurologic: No obvious focal neurological deficits seen. Psychiatric: Alert and oriented x3 with a euthymic affect. Results & Data Results & Data ([facility]) Vital Signs (Past 12 Hours) Vital Signs Temp Pulse Pulse Pulse Resp BP Pulse Ox 08/15/21 08:02 83 22 92 08/15/21 07:01 81 15 117/94 98 08/15/21 07:00 80 32 H 08/15/21 06:00 78 14 113/97 94 08/15/21 05:01 78 12 134/92 98 08/15/21 05:00 78 11 L 08/15/21 04:36 36.9 C 08/15/21 04:00 79 16 123/89 97 08/15/21 03:01 79 21 109/92 98 08/15/21 03:00 78 14 92 08/15/21 02:10 78 24 97 08/15/21 02:00 78 19 109/89 97 08/15/21 01:00 76 21 113/81 99 08/15/21 00:06 36.7 C 08/15/21 00:00 77 26 H 115/85 97 03/14/22 23:00 77 15 114/83 93 08/14/21 22:10 106 H 26 H 94 08/14/21 22:00 90 25 H 127/88 92 PG Care Time/CCT Total # of Minutes Spent Total Time Spent with Patient: Total time spent is greater than 50% in coordination of care (as documented) at patient's floor/unit and/or counseling patient: CRITICAL CARE TIME - I have personally spent 37 minutes of critical care time in the direct management of this patient. This is a life/limb threatening event. This includes time spent evaluating patient, direct bedside care, chart review, placing orders, interpretation of diagnostic studies, discussion with consultants, patient, and family members, as well as other required patient management activities. This time is exclusive of all separately billable procedures, and teaching time and separate from and in addition to any other critical care service time. Coding Level of Care Code Critical Care 1st 30-74 mins Diagnoses 2019 novel coronavirus-infected pneumonia (NCIP) U07.1; J12.82 Acute hypoxemic respiratory failure J96.01 Acute pulmonary embolism I26.99 NATHANIEL (acute kidney injury) N17.9
[2021-08-15] MEDS ORDERED: WARFARIN SOD 5 MG TAB PO ONE (09:51)
--- NOTE | 2021-08-15 09:53 | Critical Care Progress Note ---
Date of Service August 15, 2021 Assessment & Plan (1) 2019 novel coronavirus-infected pneumonia (NCIP): Plan: The patient has increasing oxygen requirements and appears more lethargic. His overall prognosis is quite poor. Had extensive discussion of risks and benefits of intubation and mechanical ventilation, tracheostomy and percutaneous gastrostomy tube. Patient reports that he is agreeable with all as he is unable to have adequate p.o. intake and is exhibiting extreme fatigue. Discussed increased risk of bleeding given he is on heparin, percutaneous tracheostomy will be better than open tracheostomy slight increased propensity for bleeding but not statistically significant. Will defer to surgery/GI for PEG tube placement timing. I am in agreement with early tracheostomy as it is unlikely given his prolonged course that he would recover within a 2-week. We will minimize brain/neurologic complications from prolonged sedative analgesia use. (2) Acute hypoxemic respiratory failure: Plan: See above. Try to maintain euvolemia although difficult given his acute renal failure. (3) Acute pulmonary embolism: Plan: Currently on a heparin drip. Primary team has chosen to transition him to a therapeutic INR with warfarin. - 2.5 mg oral vitamin K in preparation for trachesostomy (4) NATHANIEL (acute kidney injury): Plan: He has evidence of NATHANIEL likely secondary to poor p.o. intake and possibly from contrast load earlier in the hospitalization. Renal ultrasound without evidence of obstruction. Plan: Discussed long-term goals, wishes in the event of cardiac arrest. Patient does not want heroic measures undertaken in event of cardiac arrest accordingly have made the patient DNR/DNI. He is comfortable with intubation, tracheostomy both for respiratory insufficiency and prolonged need for mechanical ventilation, bronchoscopy, PEG tube placement. Admission and Anticipated Discharge Date Admission Date: July 25, 2021 Supervising Physician Co-Signing Physician Notes I have personally spent 60 minutes of critical care time in the direct management of this patient. This is a life/limb threatening event. This includes time spent evaluating patient, direct bedside care, chart review, placing orders, interpretation of diagnostic studies, discussion with consultants, patient, and/or family members regarding treatment decisions, as well as other required patient management activities. This time is exclusive of all separately billable procedures, and teaching time and separate from and in addition to any other critical care service time. Subjective Feeling worse today unable to take in adequate nutrition per patient's report now requiring 100% oxygen minimal activity leads to extreme fatigue, bowel movement yesterday Review of Systems Review of Systems: Positive dyspnea Physical Exam Physical Exam: General: Alert. nontoxic. Skin: Warm, dry, Head: Atraumatic Ears, nose, mouth and throat: airway patent Cardiovascular: Normal peripheral perfusion Respiratory: no respiratory distress Gastrointestinal: Non distended Musculoskeletal: Left upper extremity hematoma, compartment soft full range of motion Results & Data Results & Data ([facility]) Vital Signs (Past 12 Hours) Vital Signs Temp Pulse Pulse Pulse Resp BP Pulse Ox 08/15/21 08:02 83 22 92 08/15/21 07:01 81 15 117/94 98 08/15/21 07:00 80 32 H 08/15/21 06:00 78 14 113/97 94 08/15/21 05:01 78 12 134/92 98 08/15/21 05:00 78 11 L 08/15/21 04:36 36.9 C 08/15/21 04:00 79 16 123/89 97 08/15/21 03:01 79 21 109/92 98 08/15/21 03:00 78 14 92 08/15/21 02:10 78 24 97 08/15/21 02:00 78 19 109/89 97 08/15/21 01:00 76 21 113/81 99 08/15/21 00:06 36.7 C 08/15/21 00:00 77 26 H 115/85 97 08/14/21 23:00 77 15 114/83 93 08/14/21 22:10 106 H 26 H 94 08/14/21 22:00 90 25 H 127/88 92 Coding Level of Care Code Critical Care 1st 30-74 mins Diagnoses 2019 novel coronavirus-infected pneumonia (NCIP) U07.1; J12.82 Acute hypoxemic respiratory failure J96.01 Acute pulmonary embolism I26.99 NATHANIEL (acute kidney injury) N17.9
[2021-08-15] MEDS ORDERED: PROPOFOL BOLUS FROM BAG IV PRN (12:24)
[2021-08-15] MEDS ORDERED: STAT IV Infusion **Titration per Protocol STA ×2 (12:24→23:33)
[2021-08-15] MEDS ORDERED: fentaNYL citrate 100 MCG/2 ML VIAL IV PRN ×2 (12:24)
[2021-08-15] MEDS ORDERED: PHYTONADIONE 5 MG TAB PO ONE (12:30)
[2021-08-15] MEDS ORDERED: ETOMIDATE 2 MG/ML 20 ML VIAL IV ONE (12:40)
[2021-08-15] MEDS ORDERED: fentaNYL citrate 100 MCG/2 ML VIAL IV STA (12:40)
[2021-08-15] MEDS ORDERED: SUCCINYLCHOLINE CHLORIDE 20 MG/ML 10 ML VIAL IV STA (12:40)
--- NOTE | 2021-08-15 12:48 | Pharmacy Report ---
Pharmacy Glycemic Short Note 2 - Date of Service August 15, 2021 - Glycemic Short BSG Results (Last 24 hours): 08/14/21 08/14/21 08/15/21 16:21 21:05 05:33 Glucose 167 H POC Glucose 195 H 183 H 08/15/21 08/15/21 08:20 12:20 Glucose POC Glucose 209 H 240 H OUTPATIENT ANTIDIABETIC REGIMEN: * Glyburide 5mg PO BID * Metformin 1000mg BID * Actos 45mg PO Daily * A1c 6.3% 07/26/21 ASSESSMENT: 08/15: * Patient was downgraded from ICU status yesterday, and NPH was resumed this AM due to post-prandial elevations yesterday (although minimal po intake 2nd fatigue) in addition to AM fasting elevation today. However, he later decompensated today and required intubation and is now again ICU status * Will give low-dose supplemental Lantus tonight based on BSG. Ongoing basal insulin to be assessed tomorrow AM * Will tighen Novolog correction factor given elevations yesterday with minimal po intake 08/14: * BSGs well controlled over last 24 hrs, however trending significantly lower than prior days, with multiple BSGs less than 100 * Steroid dose has been tapered today, NATHANIEL continues, PO intake poor per RN report. * Given changes that place patient at higher risk for hypoglycemia, will refrain from using NPH today. Will resume Lantus to avoid mid-day "peak" until it is established patient BSGs will remain above 100. Will continue "high" stress Novolog doses initially in light of reduction in basal dosing - follow post- prandial BSGs 08/13: * Fasting blood sugars at goal, continue NPH 40 units, consider decreasing tomorrow, Dexamethasone reduced to 4mg today, 2mg tomorrow * Tightened CR to 1.5 today at breakfast, blood sugars at goal 102 - 123mg/dl * Loosen CF/CR to prevent hypoglycemia as steroids taper 08/12: * Fasting BSG 89mg/dl, move all basal coverage to NPH to prevent AM hypoglycemia * Dexamethasone 10mg today, decreasing to 4mg tomorrow * Tighten CR for better coverage PLAN FOR INPATIENT GLYCEMIC CONTROL: * Hold outpatient oral diabetes medications * Basal insulin * NPH 20 units x1 this AM * Lantus 0-10 units HS depending on BSG * Bolus insulin * Novolog SQ to cover carbs in meals: * Goal Range: Low 110 mg/dL - High 140 mg/dL * Correction Factor: 10 mg/dL/unit * Nutritional / Prandial insulin per carb ratio of 1 unit per 4 grams CHO consumed
--- NOTE | 2021-08-15 13:29 | Hospitalist Progress Note ---
Date of Service August 15, 2021 Assessment & Plan (1) Hematoma: Plan: left arm (2) Acute pulmonary embolism: (3) DVT of lower extremity, bilateral: (4) Acute respiratory failure with hypoxia: (5) 2019 novel coronavirus-infected pneumonia (NCIP): (6) Sinus tachycardia: (7) Hyponatremia: (8) Diabetes mellitus: (9) CAD (coronary artery disease): Plan: (10) HTN (hypertension): (11) DVT prophylaxis: Plan: 60 year old male who initially presented with COVID 19 PNA with hypoxic respiratory failure on high flow, now complicated by acute bilateral PE, bilateral DVT further complicated by spontaneous LUE hematoma while on heparin drip for PE. Acute respiratory failure with hypoxia due to COVID 19 PNA and acute PE Subcutaneous emphysema - Transferred to ICU on 08/03. -now with barotrauma. no further BIPAP. continue High flow +/- NRB. -Patient being downgraded out of ICU 08/14, tenuous respiratory status. Worsening hypoxia overnight. Now transferred back to ICU. Plan for intubation per programmable logic controller assembler Acute LUE hematoma - CT LUE shows biceps hematoma 13.3 x 5.3x 7 cm. No evidence of compartment syndrome. -Seen by orthopedics- non surgical management as of now. Therapeutic on heparin drip. First dose of coumadin today -H/H has remained stable Acute blood loss anemia due to above - Hb down to 7.6 from 13.7 on 08/03. S/p 1 U of PRBC 08/08. -H/h has remained stable Acute pulmonary embolism (RLL segmental/subsegmental PE) - on CTA chest 08/03. Currently on Heparin drip. Received 1 dose coumadin yesterday, now plan for PEG and Trach. Ordered for vitamin K. Hold further doses of coumadin -CTA chest 08/11 no PE noted DVT bilateral distal lower extremity - US 08/06 shows occlusive thrombus within bilateral calf veins but no proximal thrombus. Anticoagulation as above COVID 19 PNA - S/p remdesivir course -currently on decadron taper DM-2 with steroid induced hyperglycemia -Glycemic pharmacist managing, on insulin. Home actos and glyburide on hold. Sinus tachycardia- from PNA and PE. On metoprolol. Asymptomatic NATHANIEL on CKD stage 3- Cr recovered to baseline of 1.2 but now with worsening renal function due to recent contrast exposure, diuresis and Bactrim. -renal u/s unremarkable -FeNA- 1.3% -will ask for Nephrology consultation Hyponatremia- stable HTN- stable, on lopressor CAD- h/o stents. No chest pain. Continue ASA, metoprolol. DVT prophylaxis- heparin drip GI prophylaxis- Protonix Dispo- Transferred out of ICU per programmable logic controller assembler. Will move to PCU. Ongoing PT/OT evaluation Admission and Anticipated Discharge Date Admission Date: July 25, 2021 Subjective Overnight had difficulty maintaining saturations and was again maxed out on high flow, also required addition of oxymizer Discussed with programmable logic controller assembler, will transfer him back to ICU level of care There are plans for mechanical ventilation due to patient with worsening dyspnea and fatigue poor oral intake Physical Exam Physical Exam: Appears fatigued, listless Respiratory: poor airflow diffusely, no wheezing/rhonchi Cardiovascular: regular rate and rhythm, no murmurs/rubs/gallops Gastrointestinal (Abdomen): soft, non tender Musculoskeletal: left arm swelling improved Neurologic: drowsy but awake, generalized weakness Results & Data Results & Data ([facility]) Vital Signs (Past 12 Hours) Vital Signs Temp Pulse Pulse Resp BP Pulse Ox 08/15/21 11:22 80 22 94 08/15/21 11:00 79 18 134/91 97 08/15/21 10:00 88 22 162/90 H 90 08/15/21 09:00 80 30 H 133/84 94 08/15/21 08:02 83 22 92 08/15/21 08:01 87 23 117/87 94 08/15/21 08:00 86 24 88 L 08/15/21 07:01 81 15 117/94 98 08/15/21 07:00 80 32 H 08/15/21 06:00 78 14 113/97 94 08/15/21 05:01 78 12 134/92 98 08/15/21 05:00 78 11 L 08/15/21 04:36 36.9 C 08/15/21 04:00 79 16 123/89 97 08/15/21 03:01 79 21 109/92 98 08/15/21 03:00 78 14 92 08/15/21 02:10 78 24 97 08/15/21 02:00 78 19 109/89 97 Laboratory Results Short CBC 08/15/21 Range/Units 05:33 WBC 19.51 H (4.8-10.8) K/uL Hgb 12.6 L (14.0-18.0) g/dL Hct 36.8 L (42-52) % Plt Count 243 (130-400) K/uL BMP 08/15/21 05:33 Sodium 128 L Potassium 5.0 Chloride 89 L Carbon Dioxide 27 BUN 89 H Creatinine 2.06 H D Glucose 167 H Calcium 9.3 Medications Administered Current Inpatient Medications Acetaminophen (Acetaminophen 325 Mg Tab) 650 mg PO Q4H PRN PRN Reason: Pain or Fever Stop: 08/24/21 18:01 Last Admin: 08/14/21 05:41 Dose: 650 mg Documented by: Al Hydrox/Mg Hydrox/Simethicone (Aluminum/Magnesium Susp 30 Ml Udc) 15 ml PO Q4H PRN PRN Reason: Dyspepsia Stop: 08/24/21 18:01 Allopurinol (Allopurinol 100 Mg Tab) 200 mg PO QAM [facility] Stop: 09/13/21 11:59 Last Admin: 08/15/21 08:36 Dose: 200 mg Documented by: Aspirin (Aspirin 81 Mg Ectab) 81 mg PO DAILY [facility] Stop: 08/25/21 08:59 Last Admin: 08/15/21 08:36 Dose: 81 mg Documented by: Dextrose (Dextrose 50% 50 Ml Syringe) 25 - 50 ml IV UD PRN; Protocol PRN Reason: Hypoglycemia Protocol Stop: 08/24/21 18:01 Last Admin: 08/09/21 02:42 Dose: 25 ml Documented by: Fentanyl Citrate (Fentanyl Citrate 100 Mcg/2 Ml Vial) 50 mcg IV Q2H PRN PRN Reason: Moderate Pain (4,5,6) on NRS Stop: 08/29/21 12:23 Fentanyl Citrate (Fentanyl Citrate 100 Mcg/2 Ml Vial) 100 mcg IV Q2H PRN PRN Reason: Severe Pain (7,8,9,10) on NRS Stop: 08/29/21 12:23 Glucagon (Glucagon For Inj 1 Mg Vial) 1 mg SQ UD PRN; Protocol PRN Reason: Hypoglycemia Protocol Stop: 08/24/21 18:01 Glucose (Glucose 10 Tabs/Tube) 4 - 8 tabs PO UD PRN; Protocol PRN Reason: Hypoglycemia Protocol Stop: 08/24/21 18:01 Glucose (Glucose 40% Gel 15 Gm Tube) 15 - 30 gm PO UD PRN; Protocol PRN Reason: Hypoglycemia Protocol Stop: 08/24/21 18:01 Heparin Sodium (Beef Lung) (Heparin 10 Unit/Ml 5 Ml Flush) 5 ml FLUSH PRN PRN PRN Reason: Flush Stop: 09/04/21 16:31 Heparin Sodium/Dextrose (Heparin Sodium/Dextrose) 25,000 units in 500 mls @ 17 mls/hr IV .Q24H ANSELMO; Protocol Stop: 09/05/21 21:44 Last Admin: 08/15/21 03:37 Dose: 850 units/hr, 17 mls/hr Documented by: Dexamethasone 2 mg/ Syringe 0.5 mls @ 1 mls/min IV Q24H ANSELMO Stop: 08/17/21 09:01 Last Admin: 08/15/21 08:34 Dose: 1 mls/min Documented by: Dexamethasone 1 mg/ Syringe 0.25 mls @ 1 mls/min IV Q24H ANSELMO Stop: 08/21/21 09:01 Propofol (Diprivan) 1,000 mg in 100 mls @ 8.28 mls/hr IV .Q12H5M ANSELMO; Protocol Stop: 08/18/21 12:29 Insulin Aspart (Insulin Aspart Per Unit) 0 units SC Q4 ANSELMO Stop: 09/14/21 15:59 Insulin Glargine (Insulin Glargine Solostar 100 Units/Ml 3 Ml Pen) 0 units SC HS ANSELMO; Protocol Stop: 09/13/21 20:59 Last Admin: 08/14/21 21:13 Dose: 5 units Documented by: Ipratropium Felda (Ipratropium Felda Neb Soln 0.02% 2.5 Ml Vial) 0.5 mg INH Q4H PRN PRN Reason: SOB, WHEEZE Stop: 08/31/21 23:14 Last Admin: 08/12/21 15:22 Dose: 0.5 mg Documented by: Levalbuterol HCl (Levalbuterol 1.25mg/0.5ml Neb) 1.25 mg INH Q4H PRN PRN Reason: SOB, WHEEZE Stop: 08/31/21 23:14 Last Admin: 08/12/21 15:22 Dose: 1.25 mg Documented by: Magnesium Hydroxide (Magnesium Hydroxide Susp 30 Ml Udc) 30 ml PO Q12H PRN PRN Reason: Constipation Stop: 08/24/21 18:01 Metoprolol Tartrate (Metoprolol Tartrate 25 Mg Tab) 25 mg PO Q12H ANSELMO Stop: 09/13/21 20:59 Last Admin: 08/15/21 09:16 Dose: 25 mg Documented by: Miscellaneous (Carbohydrates For Hypoglycemia ) 15 - 30 gm PO UD PRN PRN Reason: Hypoglycemia Protocol Stop: 08/24/21 18:01 Miscellaneous Information (Pharmacy Glycemic Mgmt Consult) 1 ea N/A UD PRN; Protocol PRN Reason: Consult Stop: 08/24/21 18:01 Ondansetron HCl (Ondansetron Inj 2 Mg/Ml 2 Ml Vial) 4 mg IV Q6H PRN PRN Reason: Nausea Stop: 08/24/21 18:01 Pantoprazole Sodium (Pantoprazole 40 Mg Tab) 40 mg PO DAILY ANSELMO Stop: 09/07/21 08:59 Last Admin: 08/15/21 08:38 Dose: 40 mg Documented by: Polyethylene Glycol (Polyethylene (Miralax) 17 Gm Pack) 17 gm PO DAILY PRN PRN Reason: Constipation Stop: 08/24/21 18:01 Polyethylene Glycol (Polyethylene (Miralax) 17 Gm Pack) 17 gm PO DAILY ANSELMO Stop: 09/03/21 09:44 Last Admin: 08/15/21 08:37 Dose: 17 gm Documented by: Propofol (Propofol Bolus From Bag) 20 mg IV Q5M PRN PRN Reason: Sedation Stop: 08/18/21 12:23 Senna/Docusate Sodium (Docusate Sodium/Senna 50/8.6mg Tab) 2 tab PO QAM ANSELMO Stop: 09/10/21 08:59 Last Admin: 08/15/21 08:37 Dose: 2 tab Documented by:
--- NOTE | 2021-08-15 14:52 | Gastrointestinal Consultation ---
Date of Consultation August 15, 2021 Assessment & Plan (1) 2019 novel coronavirus-infected pneumonia (NCIP): 60 year old male with admitted w/COVID 19 PNA, hypoxic respiratory failure, complicated by acute bilateral PE, bilateral DVT further complicated by spontaneous LUE hematoma while on heparin drip for PE, apical pneumothorax - GI asked to evaluate for PEG placement. Family in room who notes they wish to avoid PEG tube placement currently and trial enteral nutrition during admission. Please recall GI as needed if family wishes to proceed with PEG placements. Thank you for allowing us to participate in the care of this patient. Please call with any acute changes, questions or concerns. Please see addendum below with additional recommendation from my supervising physician. Supervising Physician Co-Signing Physician Notes 60 yo male admitted 07/25/21 with respiratory failure with covid s/p treatment and decadron and remdesivir, then with pe early 08/22 that appears to have resolved on ac, but now with dvt's while on ac complicated by lue hematoma, apical pneumothorax, now consult for tube placement. patietn seen with daughter and at bedside. PE - no abdominal scars noted, patient on his back, abd soft not distended, on nasal cannula Multiple notes reviewedduring this admission,recent pulmonary imaging also reviewed He received coumadin on 08/14 and 08/15, at the current time. Per discussion with his daughter who is an RN and also his , their preference would be to hold on a peg and to consider TPN and assess response to tpn. History of Present Illness Reason for Consultation: PEG Requesting Physician: Kerri Attending Physician: Yovanny Manning MD History of Present Illness 60 year old male with admitted w/COVID 19 PNA, hypoxic respiratory failure, com plicated by acute bilateral PE, bilateral DVT further complicated by spontaneous LUE hematoma while on heparin drip for PE, apical pneumothorax. GI asked to evaluate for PEG tube as he will likely require trach and ventilator use. Pt was seen and evaluated by attending, chart reviewed. Family present for time of consultation. Allergies Allergy/AdvReac Type Severity Reaction Status Date / Time No Known Allergies Allergy Unverified 07/25/21 14:34 Home Medications Medication Instructions Recorded Confirmed Type allopurinol 300 mg tablet 300 mg PO DAILY 07/25/21 07/25/21 History aspirin 81 mg tablet,delayed 81 mg PO DAILY 07/25/21 07/25/21 History release glyburide 5 mg tablet 5 mg PO BID 07/25/21 07/25/21 History lisinopril 40 mg tablet 40 mg PO DAILY 07/25/21 07/25/21 History metformin 1,000 mg tablet 1,000 mg PO BID 07/25/21 07/25/21 History metoprolol succinate 25 mg 25 mg PO DAILY 07/25/21 07/25/21 History tablet,extended release 24 hr ondansetron 4 mg disintegrating 4 mg TRANSLINGUAL UD PRN 07/25/21 07/25/21 History tablet pioglitazone 45 mg tablet 45 mg PO DAILY 07/25/21 07/25/21 History Patient History Medical History (Updated 08/15/21 @ 09:20 by Kartik Fairbanks MD) Acute hypoxemic respiratory failure CAD (coronary artery disease) Cephalic vein thrombosis, left CKD (chronic kidney disease) stage 3, GFR 30-59 ml/min Diabetes mellitus Gout HLD (hyperlipidemia) HTN (hypertension) Lactic acid acidosis Surgical History History of arthroscopy of left knee History of heart artery stent x3 Family History Mother Cancer pancreatitc Other Coronary heart disease Diabetes Social History Smoking Status: Former smoker packs per day: 1; Years Smoked: 27; Second Hand Exposure: No; Hx Alcohol Use: No Hx Substance Use: No Preferred Language: French Communication Ability: Effective 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 Feeder Required: No Beliefs That Will Affect Care: None marital status: Current Living Situation: Spouse How many Children do You have: 3 Feels Safe at Home: Yes Assistive Devices: Denture - Upper and Oxygen - Continuous Review of Systems Review of Systems: All systems reviewed & are unremarkable except as noted in HPI & below Physical Exam Constitutional: WD/WN, vitals as above nasal canula Respiratory: + cough; no labored breathing, no retractions, does not use accessory muscles and + not able to speak in complete sentence + respiration rate Cardiovascular: Rate/Rhythm: regular rate Gastrointestinal (Abdomen): normal bowel sounds, soft, nontender, no hepatosplenomegaly no scars noted on abd Results & Data ([facility]) Vital Signs (Past 12 Hours) Vital Signs Temp Pulse Pulse Resp BP Pulse Ox 08/15/21 11:22 80 22 94 08/15/21 11:00 79 18 134/91 97 08/15/21 10:00 88 22 162/90 H 90 08/15/21 09:00 80 30 H 133/84 94 08/15/21 08:02 83 22 92 08/15/21 08:01 87 23 117/87 94 08/15/21 08:00 86 24 88 L 08/15/21 07:01 81 15 117/94 98 08/15/21 07:00 80 32 H 08/15/21 06:00 78 14 113/97 94 08/15/21 05:01 78 12 134/92 98 08/15/21 05:00 78 11 L 08/15/21 04:36 36.9 C 08/15/21 04:00 79 16 123/89 97 08/15/21 03:01 79 21 109/92 98 08/15/21 03:00 78 14 92 Laboratory Results 08/15/21 08/15/21 08/15/21 Range/Units 12:20 09:39 09:39 WBC (4.8-10.8) K/uL RBC (4.7-6.1) M/uL Hgb (14.0-18.0) g/dL Hct (42-52) % MCV (80-100) fL MCH (25-34) pg MCHC (32-36) g/dL RDW Std Deviation (36.4-46.3) fL RDW Coeff of Huan (11.5-14.5) % Plt Count (130-400) K/uL MPV (7.4-10.4) fL Absolute Nucleated RBC (0-0) K/uL Nucleated RBC % (auto) % Neutrophils % (Manual) % Lymphocytes % (Manual) % Monocytes % (Manual) % Myelocytes % (Man) % Neutrophils # (Manual) (1.4-6.5) K/uL Total Absolute Neuts (1.4-6.5) K/uL Total Abs Lymphocytes (1.2-3.4) K/uL Monocytes # (Manual) (0.11-0.59) K/uL Myelocytes # (Manual) (0-0) K/uL Polychromasia PT (9.0-12.0) Seconds INR (0.9-1.1) APTT (21.0-31.0) Seconds PTT Ratio ABG pH (7.35-7.45) ABG pCO2 (35-46) mmHg ABG pO2 (80-95) mmHg ABG HCO3 (19-24) mmol/L ABG O2 Saturation (90-95) % ABG Base Excess (-9-1.8) mEq/L Renny Test (Pos) Barometric Pressure mm/Hg Oxygen Given Sodium (136-145) mmol/L Potassium (3.5-5.1) mmol/L Chloride (98-107) mmol/L Carbon Dioxide (21-32) mmol/L Anion Gap (3-11) BUN (6-23) mg/dl Creatinine (0.6-1.4) mg/dl Est Cr Clr Drug Dosing ml/min Est GFR ( Amer) ml/min Est GFR (Non-Af Amer) ml/min BUN/Creatinine Ratio (10-20) Glucose (70-99(Fasting)) mg/dl POC Glucose 240 H (70-99) mg/dl Calcium (8.5-10.1) mg/dl Ur Random Creatinine mg/dl Ur Random Sodium 56 mmol/L Ur Random Urea Nitrogn Pending 08/15/21 08/15/21 08/15/21 Range/Units 09:39 08:20 05:33 WBC (4.8-10.8) K/uL RBC (4.7-6.1) M/uL Hgb (14.0-18.0) g/dL Hct (42-52) % MCV (80-100) fL MCH (25-34) pg MCHC (32-36) g/dL RDW Std Deviation (36.4-46.3) fL RDW Coeff of Huan (11.5-14.5) % Plt Count (130-400) K/uL MPV (7.4-10.4) fL Absolute Nucleated RBC (0-0) K/uL Nucleated RBC % (auto) % Neutrophils % (Manual) % Lymphocytes % (Manual) % Monocytes % (Manual) % Myelocytes % (Man) % Neutrophils # (Manual) (1.4-6.5) K/uL Total Absolute Neuts (1.4-6.5) K/uL Total Abs Lymphocytes (1.2-3.4) K/uL Monocytes # (Manual) (0.11-0.59) K/uL Myelocytes # (Manual) (0-0) K/uL Polychromasia PT (9.0-12.0) Seconds INR (0.9-1.1) APTT 64.8 H* (21.0-31.0) Seconds PTT Ratio 2.4 ABG pH (7.35-7.45) ABG pCO2 (35-46) mmHg ABG pO2 (80-95) mmHg ABG HCO3 (19-24) mmol/L ABG O2 Saturation (90-95) % ABG Base Excess (-9-1.8) mEq/L Renny Test (Pos) Barometric Pressure mm/Hg Oxygen Given Sodium (136-145) mmol/L Potassium (3.5-5.1) mmol/L Chloride (98-107) mmol/L Carbon Dioxide (21-32) mmol/L Anion Gap (3-11) BUN (6-23) mg/dl Creatinine (0.6-1.4) mg/dl Est Cr Clr Drug Dosing ml/min Est GFR ( Amer) ml/min Est GFR (Non-Af Amer) ml/min BUN/Creatinine Ratio (10-20) Glucose (70-99(Fasting)) mg/dl POC Glucose 209 H (70-99) mg/dl Calcium (8.5-10.1) mg/dl Ur Random Creatinine 69.0 mg/dl Ur Random Sodium mmol/L Ur Random Urea Nitrogn 08/15/21 08/15/21 08/15/21 Range/Units 05:33 05:33 05:33 WBC 19.51 H (4.8-10.8) K/uL RBC 3.98 L (4.7-6.1) M/uL Hgb 12.6 L (14.0-18.0) g/dL Hct 36.8 L (42-52) % MCV 92.5 (80-100) fL MCH 31.7 (25-34) pg MCHC 34.2 (32-36) g/dL RDW Std Deviation 53.1 H (36.4-46.3) fL RDW Coeff of Uhan 17.4 H (11.5-14.5) % Plt Count 243 (130-400) K/uL MPV 9.9 (7.4-10.4) fL Absolute Nucleated RBC 0.37 H (0-0) K/uL Nucleated RBC % (auto) 1.9 % Neutrophils % (Manual) 96.5 % Lymphocytes % (Manual) 0.0 % Monocytes % (Manual) 2.6 % Myelocytes % (Man) 0.9 % Neutrophils # (Manual) 18.83 H (1.4-6.5) K/uL Total Absolute Neuts 18.83 H (1.4-6.5) K/uL Total Abs Lymphocytes 0.00 L (1.2-3.4) K/uL Monocytes # (Manual) 0.51 (0.11-0.59) K/uL Myelocytes # (Manual) 0.18 H (0-0) K/uL Polychromasia 1+ PT 13.5 H (9.0-12.0) Seconds INR 1.3 H (0.9-1.1) APTT (21.0-31.0) Seconds PTT Ratio ABG pH (7.35-7.45) ABG pCO2 (35-46) mmHg ABG pO2 (80-95) mmHg ABG HCO3 (19-24) mmol/L ABG O2 Saturation (90-95) % ABG Base Excess (-9-1.8) mEq/L Renny Test (Pos) Barometric Pressure mm/Hg Oxygen Given Sodium 128 L (136-145) mmol/L Potassium 5.0 (3.5-5.1) mmol/L Chloride 89 L (98-107) mmol/L Carbon Dioxide 27 (21-32) mmol/L Anion Gap 12 H (3-11) BUN 89 H (6-23) mg/dl Creatinine 2.06 H D (0.6-1.4) mg/dl Est Cr Clr Drug Dosing 37.8 ml/min Est GFR ( Amer) 40.0 ml/min Est GFR (Non-Af Amer) 34.5 ml/min BUN/Creatinine Ratio 43.2 H (10-20) Glucose 167 H (70-99(Fasting)) mg/dl POC Glucose (70-99) mg/dl Calcium 9.3 (8.5-10.1) mg/dl Ur Random Creatinine mg/dl Ur Random Sodium mmol/L Ur Random Urea Nitrogn 08/14/21 08/14/21 08/14/21 Range/Units 21:08 21:05 16:21 WBC (4.8-10.8) K/uL RBC (4.7-6.1) M/uL Hgb (14.0-18.0) g/dL Hct (42-52) % MCV (80-100) fL MCH (25-34) pg MCHC (32-36) g/dL RDW Std Deviation (36.4-46.3) fL RDW Coeff of Huan (11.5-14.5) % Plt Count (130-400) K/uL MPV (7.4-10.4) fL Absolute Nucleated RBC (0-0) K/uL Nucleated RBC % (auto) % Neutrophils % (Manual) % Lymphocytes % (Manual) % Monocytes % (Manual) % Myelocytes % (Man) % Neutrophils # (Manual) (1.4-6.5) K/uL Total Absolute Neuts (1.4-6.5) K/uL Total Abs Lymphocytes (1.2-3.4) K/uL Monocytes # (Manual) (0.11-0.59) K/uL Myelocytes # (Manual) (0-0) K/uL Polychromasia PT (9.0-12.0) Seconds INR (0.9-1.1) APTT (21.0-31.0) Seconds PTT Ratio ABG pH 7.53 H* (7.35-7.45) ABG pCO2 31 L (35-46) mmHg ABG pO2 73 L (80-95) mmHg ABG HCO3 25 H (19-24) mmol/L ABG O2 Saturation 95.8 H (90-95) % ABG Base Excess 3.4 H (-9-1.8) mEq/L Renny Test Pos (Pos) Barometric Pressure 738.1 mm/Hg Oxygen Given FIO2 100 Sodium (136-145) mmol/L Potassium (3.5-5.1) mmol/L Chloride (98-107) mmol/L Carbon Dioxide (21-32) mmol/L Anion Gap (3-11) BUN (6-23) mg/dl Creatinine (0.6-1.4) mg/dl Est Cr Clr Drug Dosing ml/min Est GFR ( Amer) ml/min Est GFR (Non-Af Amer) ml/min BUN/Creatinine Ratio (10-20) Glucose (70-99(Fasting)) mg/dl POC Glucose 183 H 195 H (70-99) mg/dl Calcium (8.5-10.1) mg/dl Ur Random Creatinine mg/dl Ur Random Sodium mmol/L Ur Random Urea Nitrogn
[2021-08-15] MEDS ORDERED: INSULIN ASPART PER UNIT SC SCH (16:30)
--- NOTE | 2021-08-15 17:18 | Nephrology Consultation ---
Date of Consultation August 15, 2021 Assessment & Plan (1) Acute worsening of stage 3 chronic kidney disease: Stage 1 nonoliguric NATHANIEL on CKD3 > likeliest ischemic ATN from contrast induced nephropathy in setting of obligate diuresis; prerenal also possible; no obstruction. Baseline creatinine during this hospital stay (in a relatively malnourished state) 1.1-1.3. As an outpatient his baseline creatinine is 1.3- 1.5. He had acute kidney injury on presentation which recovered within 48 hours to current inpatient baseline. Creatinine started to uptrend August 13 to peak today at 2.1. underwent diuresis w/ fluid balance becoming consistently negative august 10 through . He underwent obligate diuresis in this timeframe and also had IV contrast exposure for the follow-up CT scan. -Repeat urinalysis ordered -Daily basic metabolic panel -Continue to hold diuretics; if can give IV fluids, recommend D5W w/ 75 mEq/L sodium bicarb up to 500 mL total but only as pulmonary status permits -urine studies ordered (2) Electrolyte and fluid disorder: Hyponatremia and hypochloremia > suspect from profound volume depletion as well as (for hyponatremia) significant structural pulmonary disease; hyponatremia is mild/steady; I ordered work up studies but goal at this time is to monitor sodium not so much to correct it. >K is borderline high and if he starts tube feeds as may be considered > recommend lower potassium feedings History of Present Illness Reason for Consultation: Acute renal failure Requesting Physician: Dr. Manning Attending Physician: Yovanny Manning MD History of Present Illness 60-year-old male whom I am asked to evaluate for acute renal failure was admitted here July 25 with Covid pneumonia. Hospital course complicated by bilateral pulmonary emboli and DVTs, left bicep hematoma on heparin drip. He is currently in the intensive care unit on 100% high flow oxygen with (over the past day) worsening hypoxemic respiratory failure: Critical care team is planning intubation shortly. He has received high dose steroids and remdesivir; currently on steroid taper. Past medical history includes coronary artery disease, hypertension, Beatties, gout, CKD 3 with baseline creatinine as an outpatient 1.3-1.5 over the past year. August 11 CT angio chest for follow-up showed progressive round glass opacities, extensive subcutaneous emphysema, right apical pneumothorax. He has had extremely poor p.o. intake recently and was being considered for a PEG tube which he and his family ultimately declined. His creatinine has been running 1.1-1.3 since admission July 25 when creatinine was 2.7 with progressive improvement to baseline than 48 hours. he has been making 1 to 2 L of urine daily for the past 3 days. on 08/13 adn 14 renal function increased from baseline to 1.7. Today no function worsened to 2.1. Due to his tenuous respiratory status, he has been diuresed with careful monitoring of function till diuretics were held August 13: Had been getting Lasix 40 IV twice daily and metolazone 5 mg daily until then. Apart from some unsustained lability on August 11, blood pressures have been general been well maintained. Review of systems is limited by patient condition: He is exhausted even with simple sentences let alone exam maneuvers. Generalized weakness and personal dyspnea positive. Ongoing cough. He denies uncontrolled pain. Denies nausea. and one other family member at bedside. Allergies Allergy/AdvReac Type Severity Reaction Status Date / Time No Known Allergies Allergy Unverified 07/25/21 14:34 Home Medications Medication Instructions Recorded Confirmed Type allopurinol 300 mg tablet 300 mg PO DAILY 07/25/21 07/25/21 History aspirin 81 mg tablet,delayed 81 mg PO DAILY 07/25/21 07/25/21 History release glyburide 5 mg tablet 5 mg PO BID 07/25/21 07/25/21 History lisinopril 40 mg tablet 40 mg PO DAILY 07/25/21 07/25/21 History metformin 1,000 mg tablet 1,000 mg PO BID 07/25/21 07/25/21 History metoprolol succinate 25 mg 25 mg PO DAILY 07/25/21 07/25/21 History tablet,extended release 24 hr ondansetron 4 mg disintegrating 4 mg TRANSLINGUAL UD PRN 07/25/21 07/25/21 History tablet pioglitazone 45 mg tablet 45 mg PO DAILY 07/25/21 07/25/21 History Patient History Medical History Acute hypoxemic respiratory failure CAD (coronary artery disease) Cephalic vein thrombosis, left CKD (chronic kidney disease) stage 3, GFR 30-59 ml/min Diabetes mellitus Gout HLD (hyperlipidemia) HTN (hypertension) Lactic acid acidosis Surgical History History of arthroscopy of left knee History of heart artery stent x3 Family History Mother Cancer pancreatitc Other Coronary heart disease Diabetes Social History Smoking Status: Former smoker packs per day: 1; Years Smoked: 27; Second Hand Exposure: No; Hx Alcohol Use: No Hx Substance Use: No Preferred Language: Kyrgyz Communication Ability: Effective Director Of [employer] Required: No Beliefs That Will Affect Care: None marital status: Current Living Situation: Spouse How many Children do You have: 3 Feels Safe at Home: Yes Assistive Devices: Denture - Upper and Oxygen - Continuous Review of Systems Review of Systems: All systems reviewed & are unremarkable except as noted in HPI & below Physical Exam 2 Constitutional: well developed, average body habitus, + frail appearing and + lethargic; no acute distress Eyes: EOM intact bilaterally ENMT: Ears: no external ear abnormality Nose: + nare abnormality (Dried crusted blood bilateral); no external nose abnormality Mouth: + dry oral mucous membranes Neck: no nuchal rigidity Respiratory: normal respiratory effort Auscultation: + diminished lung sounds Cardiovascular: Rate/Rhythm: regular rate and regular rhythm Extremities: no edema Gastrointestinal (Abdomen): Inspection/Auscultation: normal bowel sounds Percussion/Palpation: abdomen soft; abdomen nontender Musculoskeletal: Extremities: + abnormal strength Skin: + turgor decreased and + ecchymosis Neurologic: gandara, fluent speech, no tremor Psychiatric: Orientation: oriented to person and oriented to place Genitourinary: Dominguez with ample barajas yellow urine Results & Data ([facility]) Vital Signs (Past 12 Hours) Vital Signs Pulse Pulse Resp BP Pulse Ox 08/15/21 11:22 80 22 94 08/15/21 11:00 79 18 134/91 97 08/15/21 10:00 88 22 162/90 H 90 08/15/21 09:00 80 30 H 133/84 94 08/15/21 08:02 83 22 92 08/15/21 08:01 87 23 117/87 94 08/15/21 08:00 86 24 88 L 08/15/21 07:01 81 15 117/94 98 08/15/21 07:00 80 32 H 08/15/21 06:00 78 14 113/97 94 08/15/21 05:01 78 12 134/92 98 Laboratory Results 08/15/21 05:33 08/15/21 05:33 Urinalyses July 25, 2019 and August 03 reviewed. Consistent dipstick proteinuria 1+. August 04 urine really concentrated at more than specific gravity of [address] angio chest August 11 HISTORY: 60 years-old Male with PE. Acute shortness of breath. COVID Positive. TECHNIQUE: Multiple CTA images of the chest were obtained after the intravenous administration of 120 ml Optiray. Coronal and sagittal MIPS were obtained from the axial data set and were submitted for review. All measurements were obtained according to NASCET criteria. A dose lowering technique was utilized adhering to the principles of ALARA. COMPARISON: Chest radiograph of same day, CTA chest 08/03/2021 FINDINGS: CTA: Mild to moderate cardiomegaly. No pericardial effusion. Atherosclerosis of the thoracic aorta without aneurysm. Patency of the imaged great vessels. The segmental and subsegmental pulmonary arterial branches are suboptimally visualized secondary to respiratory motion artifact. A right-sided PICC distal tip projects over the mid SVC. CT CHEST: No thyroid nodule. Subcarinal lymph nodes measure within the upper limits of normal at 10 mm, likely reactive. No pleural effusion. Trace right apical pneumothorax redemonstrated with pleural separation of a few millimeters. Extensive pneumomediastinum with pneumopericardium with extension into the lower neck and right supraclavicular tissues. The central airways appear patent. No esophageal injury identified. Confluent bilateral groundglass opacities with coalescing consolidation within the lung bases has progressed from prior. 5 mm nodule of the right upper lobe redemonstrated. A few additional scattered subcentimeter pulmonary nodules are better seen on the comparison study. No acute process of the imaged upper abdomen. Soft tissues are otherwise unremarkable. No acute fracture. No destructive bone lesions. IMPRESSION: 1. Extensive subcutaneous emphysema with trace right apical pneumothorax redemonstrated. 2. Progressively worsened confluent groundglass and consolidative opacities of the lungs suggestive of viral pneumonia. 3. No pulmonary emboli identified. 4. Low suspicion scattered bilateral solid pulmonary nodules measuring up to 4-5 mm are better seen on the comparison study. Renal ultrasound today FINDINGS: The right kidney measures 8.8 x 5.5 x 4.9 cm and is unremarkable without renal calculi, hydronephrosis or suspicious mass lesion. Mild cortical thinning redemonstrated. The left kidney measures 10.5 x 5.0 x 5.7 cm and is unremarkable without renal calculi, hydronephrosis or suspicious mass lesion. Mild cortical thinning redemonstrated. Decompressed urinary bladder with Dominguez catheter. Study is limited secondary to patient condition, obscuring bowel gas and portable study. IMPRESSION: 1. Mild cortical thinning of the kidneys. No renal calculi or hydronephrosis. 2. Decompressed urinary bladder with Dominguez catheter.
[2021-08-15 18:01] LABS: Appearance Urine Clear (Clear); Bilirubin Urine Negative (Negative); Blood Urine Negative (Negative); Color Urine Yellow; Glucose Urine UA Negative (Negative); Ketones Urine Negative (Negative); Leukocyte Esterase Urine Negative (Negative); Nitrite Urine Negative (Negative); Protein Urine Negative (Negative); Specific Gravity Urine 1.018 (1.000-1.030); Urobilinogen Urine Negative (Negative)
[2021-08-15] MEDS: propofoL 1,000 MG/100 ML VIAL IV SCH (18:27)
[2021-08-15 18:35] LABS: BUN Creatinine Ratio 44.9 (10-20); Calcium 9.2 mg/dl (8.5-10.1); Creatinine Clr Calc Pharmacy 39.3 ml/min; Est GFR (African American) 41.9 ml/min; Est GFR (Non-African American) 36.2 ml/min; Potassium 4.5 mmol/L (3.5-5.1); Uric Acid 8.8 mg/dl (2.6-7.2)
--- NOTE | 2021-08-15 18:42 | XRay Report ---
XR chest 1V portable HISTORY: intubation, feeding tube COMPARISON: Chest 08/14/2021. FINDINGS: The endotracheal tube terminates 2.8 cm from the arlene. The feeding tube terminates in the body of the stomach. Pneumomediastinum and a tiny right apical pneumothorax persist. The heart remai ns mildly enlarged. Hazy bilateral airspace opacities have slightly improved. No pleural effusions. A right PICC terminates in the distal SVC. IMPRESSION: 1. Satisfactory support line placement. 2. Bilateral hazy airspace opacities have slightly improved. 3. Pneumomediastinum and a tiny right apical pneumothorax remain unchanged. ACT 112: Negative or not required by law. Electronically signed by: David Vick M.D. 08/15/2021 6:40 PM
[2021-08-15] MEDS ORDERED: PEPTAMEN INTENSE VHP 1.0 CAL 1,000 ML BAG PO SCH (19:45)
[2021-08-15] MEDS: INSULIN GLARGINE SOLOSTAR 100 UNITS/ML 3 ML PEN SC SCH (21:15)
[2021-08-15 21:16] LABS: iSTAT Art Bld Gas pCO2 Correct 39 mmHg (35-46); iSTAT Art Bld Gas pH Corrected 7.475 (7.35-7.45); iSTAT Arterial Blood Gas HCO3 29 meg/L (19-24); iSTAT Arterial Blood Gas pCO2 39 mmHg (35-46); iSTAT Arterial Blood Gas pH 7.47 (7.35-7.45); iSTAT Arterial Blood Gas pO2 61 mmHg (80-95); iSTAT Arterial Blood Gas pO2 C 60; iSTAT Carbon Dioxide 30 mmol/L (24-31); iSTAT FiO2 60 %; iSTAT Hematocrit 34 % (42-52); iSTAT Hemoglobin 11.6 g/dl (14.0-18.0); iSTAT Potassium 4.8 mmol/L (3.3-5.0); iSTAT Site R Radial; iSTAT Sodium 125 mmol/L (135-144)
[2021-08-15] MEDS: NOREPINEPHRINE/D5W 8 MG/508 ML BAG IV SCH (23:45)
[2021-08-16] MEDS: propofoL 1,000 MG/100 ML VIAL IV SCH ×5 (00:40→22:15)
[2021-08-16] MEDS: INSULIN ASPART PER UNIT SC SCH ×6 (01:08→20:19)
[2021-08-16] MEDS ORDERED: STAT IV Infusion **Titration per Protocol STA ×3 (03:31→20:28)
[2021-08-16] MEDS: fentaNYL citrate 2,500 MCG/250 ML BAG IV SCH ×2 (03:41→22:25)
[2021-08-16 03:46] LABS: iSTAT Art Bld Gas pCO2 Correct 44 mmHg (35-46); iSTAT Art Bld Gas pH Corrected 7.417 (7.35-7.45); iSTAT Arterial Blood Gas HCO3 28 meg/L (19-24); iSTAT Arterial Blood Gas pCO2 44 mmHg (35-46); iSTAT Arterial Blood Gas pH 7.42 (7.35-7.45); iSTAT Arterial Blood Gas pO2 57 mmHg (80-95); iSTAT Arterial Blood Gas pO2 C 57; iSTAT Carbon Dioxide 30 mmol/L (24-31); iSTAT FiO2 65 %; iSTAT Hematocrit 35 % (42-52); iSTAT Hemoglobin 11.9 g/dl (14.0-18.0); iSTAT Potassium 4.6 mmol/L (3.3-5.0); iSTAT Site R Radial; iSTAT Sodium 124 mmol/L (135-144)
[2021-08-16 06:08] LABS: BUN Creatinine Ratio 44.9 (10-20); Creatinine Clr Calc Pharmacy 36.4 ml/min; Est GFR (African American) 38.2 ml/min; Est GFR (Non-African American) 32.9 ml/min; Magnesium 3.2 mg/dl (1.7-2.4); Phosphorus 6.4 mg/dl (2.5-4.9); Potassium 4.9 mmol/L (3.5-5.1)
[2021-08-16 06:36] LABS: Partial Thromboplastin Ratio 3.5
[2021-08-16 07:00] LABS: ANC (manual) 24.17 K/uL (1.4-6.5); Hematocrit (blood only) 37.1 % (42-52); Lymphocytes % (manual) 3.5 %; Mean Corpuscular Hemoglobin 32.7 pg (25-34); Mean Corpuscular Volume 93.2 fL (80-100); Mean Platelet Volume 10.2 fL (7.4-10.4); Metamyelocytes # (manual) 0.51 K/uL (0-0); Metamyelocytes % (manual) 1.8 %; Monocytes # (manual) 1.25 K/uL (0.11-0.59); Monocytes % (manual) 4.4 %; Myelocytes # (manual) 1.51 K/uL (0-0); Myelocytes % (manual) 5.3 %; Neutrophils # (manual) 24.17 K/uL (1.4-6.5); Nucleated RBC # (auto) 1.36 K/uL (0-0); Nucleated RBC % (auto) 4.8 %; Platelet Count 285 K/uL (130-400); Polychromasia 2+; RDW Coefficient of Variation 17.9 % (11.5-14.5); RDW Standard Deviation 56.2 fL (36.4-46.3); Red Blood Count 3.98 M/uL (4.7-6.1); White Blood Count 28.44 K/uL (4.8-10.8)
[2021-08-16 07:04] LABS: Partial Thromboplastin Time 95.4 Seconds (21.0-31.0)
--- NOTE | 2021-08-16 07:28 | XRay Report ---
SINGLE VIEW CHEST CLINICAL HISTORY: Respiratory failure. FINDINGS: An AP, portable, upright chest radiograph is compared to study dated 08/15/2021 and correlat ed with chest CT dated 08/11/2021. The examination is degraded by portable technique and patient rotat ion. An endotracheal tube, an enteric tube, and a right PICC line are unchanged in position. Trace pn eumomediastinum persists. The heart is top normal for projection. Multifocal bilateral airspace opaci ties are unchanged. No large pleural effusion is identified. There is likely trace residual right api valarie pneumothorax. The bony thorax is grossly intact. IMPRESSION: 1. Stable lines and tubes. 2. Multifocal bilateral airspace opacities have not significantly changed from yesterday. 3. Trace pneumomediastinum persistent is likely trace residual right apical pneumothorax. ACT 112: Negative or not required by law. Electronically signed by: Jeremi Dodd M.D. 08/16/2021 7:25 AM
[2021-08-16] MEDS: ASPIRIN 81 MG CHEW PO SCH (08:44)
[2021-08-16] MEDS: LANSOPRAZOLE 30 MG SOLTAB PO SCH (08:44)
[2021-08-16] MEDS: DOCUSATE SODIUM SYRUP 100 MG/10 ML UDC PO SCH (08:44)
[2021-08-16] MEDS: dexAMETHasone 2 MG in SYRINGE 0 ML IV SCH (08:44)
[2021-08-16] MEDS: SODIUM CHLORIDE 1 GM TABLET PO SCH ×2 (08:45→15:28)
[2021-08-16] MEDS: SENNOSIDES 8.8 MG/5 ML UDC PO SCH (08:52)
[2021-08-16] MEDS: METOPROLOL TARTRATE 25 MG TAB PO SCH ×2 (08:53→20:19)
[2021-08-16] MEDS ORDERED: INSULIN HUMAN NPH SC ONE (09:00)
[2021-08-16] MEDS ORDERED: INSULIN GLARGINE SOLOSTAR 100 UNITS/ML 3 ML PEN SC ONE (09:00)
--- NOTE | 2021-08-16 09:55 | Critical Care Progress Note ---
Date of Service August 16, 2021 Assessment & Plan (1) Acute respiratory failure with hypoxia: Plan: Reason Critically Ill: Acute hypoxic respiratory failure secondary to COVID-19 pneumonia PLAN: Neuro: Sedation -Propofol Analgesia -fentanyl -Wean both after tracheostomy Resp: Acute hypoxic respiratory failure secondary to COVID-19 pneumonia -Patient is finished prolonged steroid course -Bactrim discontinued secondary to acute kidney injury -Cannot exclude PJP however I consider this to be unlikely -Feel risks of Bactrim outweigh benefits given acute kidney injury and alternative treatment regimens have significant side effect profile as well -Consideration given to bronchoscopy however I feel this will lead to patient decompensation Pulmonary nodules -Outpatient follow-up with repeat imaging in 12 months Pneumomediastinum -Appears to have improved -Low PEEP as tolerated Pulmonary embolism -Heparin infusion CV: History of coronary artery disease -Continue antiplatelet: Aspirin -Continue Metformin succinate 25 mg by mouth daily -Hold lisinopril secondary to acute kidney injury Fluids/Renal: History gout -Holding allopurinol given acute kidney injury Acute kidney injury -Reviewed nephrology recommendations Chronic kidney disease stage III Hyponatremia Hypermagnesemia -Mild Hyperphosphatemia -Nepro tube feed ID: Completed 5 days ceftaroline -no fevers, Fungitell negative, sputum negative -PJP PCR pending GI/Nutrition: Nutritional support -To formulation transition from Peptamen to the Nepro Heme: Pulmonary embolism DVT prophylaxis: Heparin infusion Endocrine: ICU hyperglycemia protocol Type 2 diabetes mellitus Vascular access: PICC line right placed on 08/05 Code Status: DNR in event of cardiac arrest Disposition: ICU (2) 2019 novel coronavirus-infected pneumonia (NCIP): Plan: Overall prognosis is quite poor. Had extensive discussion of risks and benefits of intubation and mechanical ventilation, tracheostomy and percutaneous gastrostomy tube and desires to proceed. - Reported that he is unable to have adequate p.o. intake and is exhibiting extreme fatigue. POD #0 from percutaneous tracheostomy -Wean sedatives as tolerated (3) Acute hypoxemic respiratory failure: Plan: See above (4) Acute pulmonary embolism: Plan: Currently on a heparin drip. -Consider transition to warfarin likely after first trach change (5) NATHANIEL (acute kidney injury): Plan: Reviewed Nephrology Consult - Discontinued Salt tabs - Changed tube feeding formula to nepro given electrolyte disturbances - Small boluses of fluid given for relative hypotension with sedation. (6) Hyponatremia: Plan: Discussed long-term goals, wishes in the event of cardiac arrest. Patient does not want heroic measures undertaken in event of cardiac arrest accordingly have made the patient DNR/DNI. He is comfortable with intubation, tracheostomy both for respiratory insufficiency and prolonged need for mechanical ventilation, bronchoscopy, PEG tube placement. Admission and Anticipated Discharge Date Admission Date: July 25, 2021 Subjective Was able to decrease oxygen requirements to 80% overnight Review of Systems Review of Systems: Unobtainable due to endotracheal tube Physical Exam Physical Exam: General: Sedated. nontoxic. Skin: Warm, dry, Head: Atraumatic Ears, nose, mouth and throat: airway obscured by endotracheal tube Cardiovascular: Normal peripheral perfusion Respiratory: Ventilator settings reviewed Gastrointestinal: Non distended Musculoskeletal: No deformity Results & Data Results & Data ([facility]) Vital Signs (Past 12 Hours) Vital Signs Temp Pulse Resp BP Pulse Ox 08/16/21 07:36 36.8 C 08/16/21 07:22 84 21 99 08/16/21 05:33 88 18 100/73 08/16/21 05:30 88 21 85/73 L 96 08/16/21 05:15 87 37 H 95/79 L 94 08/16/21 05:00 87 17 104/70 96 08/16/21 04:45 86 16 102/78 96 08/16/21 04:30 85 18 103/81 96 08/16/21 04:15 85 20 94/75 L 96 08/16/21 04:03 86 20 98/78 L 96 08/16/21 04:01 87 19 65/37 L 96 08/16/21 04:00 88 17 96 08/16/21 03:45 91 H 15 143/102 H 92 08/16/21 03:35 91 H 26 H 92 08/16/21 03:30 90 13 112/83 91 08/16/21 03:17 87/70 L 08/16/21 03:00 88 15 114/82 89 L 08/16/21 02:45 86 17 99/82 L 90 08/16/21 02:30 85 15 97/72 L 91 08/16/21 02:15 84 17 100/83 92 08/16/21 02:00 84 17 99/76 L 91 08/16/21 01:45 81 17 115/75 93 08/16/21 01:41 70 16 149/92 H 93 08/16/21 01:30 87 17 94/79 L 92 08/16/21 01:15 85 15 101/85 92 08/16/21 01:00 78 15 129/93 92 08/16/21 00:45 75 15 137/95 93 08/16/21 00:31 74 18 145/96 H 08/16/21 00:15 103/83 08/15/21 23:48 83 08/15/21 23:10 27 H 94 Critical Care Results & Data Vital Signs (Past 12 Hours) Vital Signs Temp Pulse Resp BP Pulse Ox 08/16/21 12:10 105 H 21 105/85 90 08/16/21 12:05 105 H 23 104/74 86 L 08/16/21 12:00 103 H 18 125/80 85 L 08/16/21 11:55 107 H 21 115/83 08/16/21 11:50 102 H 20 107/79 08/16/21 11:45 101 H 22 115/99 87 L 08/16/21 11:40 101 H 18 108/83 85 L 08/16/21 11:35 100 H 18 114/79 87 L 08/16/21 11:30 99 H 19 120/95 87 L 08/16/21 11:25 98 H 19 106/78 86 L 08/16/21 11:20 99 H 18 118/87 88 L 08/16/21 11:15 98 H 18 120/82 88 L 08/16/21 11:10 97 H 15 112/85 88 L 08/16/21 11:05 98 H 20 103/79 08/16/21 11:00 97 H 127/98 91 08/16/21 10:55 97 H 21 120/79 08/16/21 10:50 99 H 22 134/93 91 08/16/21 10:45 100 H 19 116/75 91 08/16/21 10:40 100 H 26 H 116/73 90 08/16/21 10:35 107 H 19 122/77 90 08/16/21 10:30 98 H 18 108/86 92 08/16/21 10:25 98 H 17 136/109 H 92 08/16/21 10:20 98 H 18 127/91 92 08/16/21 10:15 97 H 16 114/86 92 08/16/21 10:10 97 H 103/83 91 08/16/21 10:05 96 H 22 101/84 93 08/16/21 10:00 95 H 17 101/84 93 08/16/21 09:55 97 H 19 107/81 93 08/16/21 09:50 94 H 18 101/82 93 08/16/21 09:45 95 H 18 116/96 93 08/16/21 09:40 96 H 17 116/69 93 08/16/21 09:35 95 H 19 102/86 93 08/16/21 09:30 94 H 19 93/80 L 93 08/16/21 09:25 94 H 16 127/91 91 08/16/21 09:20 95 H 15 109/79 91 08/16/21 09:15 97 H 15 96/67 L 91 08/16/21 09:10 100 H 15 93/55 L 99 08/16/21 09:05 92 H 15 105/76 99 08/16/21 09:03 92 H 15 98/80 L 08/16/21 09:00 92 H 19 84/69 L 98 08/16/21 08:46 92 H 17 92/69 L 08/16/21 08:30 92 H 17 121/71 98 08/16/21 08:15 92 H 19 104/72 98 08/16/21 07:36 36.8 C 08/16/21 07:22 84 21 99 08/16/21 05:33 88 18 100/73 08/16/21 05:30 88 21 85/73 L 96 08/16/21 05:15 87 37 H 95/79 L 94 08/16/21 05:00 87 17 104/70 96 08/16/21 04:45 86 16 102/78 96 08/16/21 04:30 85 18 103/81 96 08/16/21 04:15 85 20 94/75 L 96 08/16/21 04:03 86 20 98/78 L 96 08/16/21 04:01 87 19 65/37 L 96 08/16/21 04:00 88 17 96 08/16/21 03:45 91 H 15 143/102 H 92 08/16/21 03:35 91 H 26 H 92 08/16/21 03:30 90 13 112/83 91 08/16/21 03:17 87/70 L Lab & Micro Results (Past 24 Hours) RBC 3.98 M/uL (4.7-6.1) L 08/16/21 WBC 28.44 K/uL (4.8-10.8) H 08/16/21 Hgb 13.0 g/dL (14.0-18.0) L 08/16/21 Hct 37.1 % (42-52) L 08/16/21 MCV 93.2 fL (80-100) 08/16/21 MCH 32.7 pg (25-34) 08/16/21 MCHC 35.0 g/dL (32-36) 08/16/21 RDW Standard Deviation 56.2 fL (36.4-46.3) H 08/16/21 RDW Coefficient of Variation 17.9 % (11.5-14.5) H 08/16/21 Plt Count 285 K/uL (130-400) 08/16/21 MPV 10.2 fL (7.4-10.4) 08/16/21 Nucleated Red Blood Cells % (auto) 4.8 % 08/16/21 Nucleated RBC Absolute Count (auto) 1.36 K/uL (0-0) H 08/16/21 ANC 24.17 K/uL (1.4-6.5) H 08/16/21 ALC 1.00 K/uL (1.2-3.4) L 08/16/21 Neutrophils % (Manual) 85.0 % 08/16/21 Lymphocytes % (Manual) 3.5 % 08/16/21 Monocytes % (Manual) 4.4 % 08/16/21 Metamyelocytes % (manual) 1.8 % 08/16/21 Myelocytes % (Manual) 5.3 % 08/16/21 Neutrophils # (Manual) 24.17 K/uL (1.4-6.5) H 08/16/21 Lymphocytes # (Manual) 1.00 K/uL (1.2-3.4) L 08/16/21 Monocytes # (Manual) 1.25 K/uL (0.11-0.59) H 08/16/21 Metamyelocytes # (Manual) 0.51 K/uL (0-0) H 08/16/21 Myelocytes # (Manual) 1.51 K/uL (0-0) H 08/16/21 Polychromasia 2+ 08/16/21 Na 126 mmol/L (136-145) L 08/16/21 K 4.9 mmol/L (3.5-5.1) 08/16/21 Cl 86 mmol/L (98-107) L 08/16/21 CO2 27 mmol/L (21-32) 08/16/21 Anion Gap 13 (3-11) H 08/16/21 BUN 96 mg/dl (6-23) H 08/16/21 Creatinine 2.14 mg/dl (0.6-1.4) H 08/16/21 Estimated GFR ( Amer) 38.2 ml/min 08/16/21 Estimated GFR (Non-Af Amer) 32.9 ml/min 08/16/21 BUN/Creatinine Ratio 44.9 (10-20) H 08/16/21 Glu 221 mg/dl (70-99(Fasting)) H 08/16/21 Ca 9.0 mg/dl (8.5-10.1) 08/16/21 Phosphorus Level 6.4 mg/dl (2.5-4.9) H 08/16/21 Mg 3.2 mg/dl (1.7-2.4) H 08/16/21 05:06 08/16/21 Calcium Level 9.0 mg/dl (8.5-10.1) 08/16/21 05:06 08/16/21 Renny Test NA 08/16/21 03:27 08/16/21 Diagnostic Findings (Past 24 Hours) Chest X-Ray 08/15/21 18:17 XR chest 1V portable HISTORY: intubation, feeding tube COMPARISON: Chest 08/14/2021. FINDINGS: The endotracheal tube terminates 2.8 cm from the arlene. The feeding tube terminates in the body of the stomach. Pneumomediastinum and a tiny right apical pneumothorax persist. The heart remains mildly enlarged. Hazy bilateral airspace opacities have slightly improved. No pleural effusions. A right PICC terminates in the distal SVC. IMPRESSION: 1. Satisfactory support line placement. 2. Bilateral hazy airspace opacities have slightly improved. 3. Pneumomediastinum and a tiny right apical pneumothorax remain unchanged. ACT 112: Negative or not required by law. Electronically signed by: David Vick M.D. 08/15/2021 6:40 PM Chest X-Ray 08/16/21 01:52 SINGLE VIEW CHEST CLINICAL HISTORY: Respiratory failure. FINDINGS: An AP, portable, upright chest radiograph is compared to study dated and correlated with chest CT dated 08/11/2021. The examination is degraded by portable technique and patient rotation. An endotracheal tube, an enteric tube, and a right PICC line are unchanged in position. Trace pneumomediastinum persists. The heart is top normal for projection. Multifocal bilateral airspace opacities are unchanged. No large pleural effusion is identified. There is likely trace residual right apical pneumothorax. The bony thorax is grossly intact. IMPRESSION: 1. Stable lines and tubes. 2. Multifocal bilateral airspace opacities have not significantly changed from yesterday. 3. Trace pneumomediastinum persistent is likely trace residual right apical pneumothorax. ACT 112: Negative or not required by law. Electronically signed by: Jeremi Dodd M.D. 08/16/2021 7:25 AM I & O Totals 24 Hours 08/15/21 08/16/21 08/17/21 06:59 06:59 06:59 Intake Total 595.500 / 595.500 167.976 / 167.976 927.656 / 927.656 Output Total 1405 / 1405 1075 / 1075 440 / 440 Balance -809.500 / -809.500 -907.024 / -907.024 487.656 / 487.656 Cumulative 07/25/21 11:19 thru 08/16/21 13:40 Intake Total 62822.202 Output Total 00249 Balance -768.798 RT Ventilator Mngmt (Last Documented) Ventilator Ordered Settings Ventilator Support Mode Assist Control 08/16/21 10:30 Respiratory Rate 21 08/16/21 12:10 Ventilator Tidal Volume 400 08/16/21 10:30 Setting Minute Ventilation 6.2 08/16/21 10:30 Positive End Expiratory 3 08/16/21 10:30 Pressure Fraction of Inspired Oxygen 80 08/16/21 10:30 Machine Comment Increased patient to 100% pre 08/16/21 07:22 tracheostomy. Ventilator - PT Measurements Respiratory Rate 21 Exhaled Tidal Volume 414 Minute Ventilation 6.2 Peak Inspiratory Airway 27 Pressure Plateau Pressure 23 Respiratory Cycle Inspiratory: 1:2.3 Expiratory Ratio Inspiratory Phase Time 1.0 End-Tidal CO2 35 Static Lung Compliance 20.70 Dynamic Lung Compliance 17.25 Normal Static Lung Compliance 45.00 Patient Measurements Comment pt bucking vent, causing high PIPs. Pt breathing ~10 bpm over vent. BOTTOM BUFFER James aware. More sedation given. Coding Level of Care Code Critical Care 1st 30-74 mins Diagnoses 2019 novel coronavirus-infected pneumonia (NCIP) U07.1; J12.82 Acute hypoxemic respiratory failure J96.01 Acute pulmonary embolism I26.99 NATHANIEL (acute kidney injury) N17.9 Hyponatremia E87.1 Acute respiratory failure with hypoxia J96.01
[2021-08-16] MEDS: POLYETHYLENE (MIRALAX) 17 GM PACK PO SCH (10:07)
--- NOTE | 2021-08-16 10:11 | Nephrology Progress Note ---
Date of Service August 16, 2021 Assessment & Plan (1) Acute worsening of stage 3 chronic kidney disease: Plan: Stage 1 nonoliguric NATHANIEL on CKD3 > ischemic ATN from contrast induced nephropathy in setting of obligate diuresis; prerenal also possible; no obstruction. Lalo mathews creatinine during this hospital stay (in a relatively malnourished state) 1.1-1.3. As an outpatient his baseline creatinine is 1.3-1.5. He had acute kidney injury on presentation which recovered within 48 hours to current inpatient baseline. Creatinine started to uptrend August 13 to peak 08/15 at 2.1, where it has been plateau'd since 08/15. underwent obligate diuresis w/ fluid balance becoming consistently negative august 10 through . He also had IV contrast exposure for the follow-up CT scan. Urine sediment bland -Daily basic metabolic panel -Continue to hold diuretics; if can give IV fluids, recommend NS up to 500 mL total but only as pulmonary status permits -urine studies ordered (2) Electrolyte and fluid disorder: Plan: essentially unchanged Hyponatremia and hypochloremia > suspect from profound volume depletion as well as (for hyponatremia) significant structural pulmonary disease; serum sodium corrects for glucose to 128 today; note that his serum osmolality is high not low, so this is not typical, not as concerning hyponatremia -started on salt tabs by primary team today > favor stopping these as we do not have hypotonic hyponatremia here and continue to observe >K remains borderline high - to be borne in mind w/ rx for tube feedings Admission and Anticipated Discharge Date Admission Date: July 25, 2021 Subjective trach'd now; some sbp lower recently, often in 80-90s on levo0.09/ stable; for upcoming 500 mL NS bolus; t Review of Systems Review of Systems: Unobtainable due to endotracheal tube Physical Exam Constitutional: well developed, average body habitus, + frail appearing and + mechanically ventilated; no acute distress Eyes: EOM intact bilaterally ENMT: Ears: no external ear abnormality Nose: + nare abnormality (Dried crusted blood bilateral); no external nose abnormality Mouth: + dry oral mucous membranes Neck: no nuchal rigidity Respiratory: normal respiratory effort Auscultation: + diminished lung sounds Cardiovascular: Rate/Rhythm: regular rate and regular rhythm Extremities: no edema Gastrointestinal (Abdomen): Inspection/Auscultation: normal bowel sounds Percussion/Palpation: abdomen soft; abdomen nontender Musculoskeletal: Extremities: + abnormal strength Skin: + turgor decreased and + ecchymosis Neurologic: sedated Genitourinary: brewster w/ urine Results & Data ([facility]) Vital Signs (Past 12 Hours) Vital Signs Temp Pulse Resp BP Pulse Ox 08/16/21 07:36 36.8 C 08/16/21 07:22 84 21 99 08/16/21 05:33 88 18 100/73 08/16/21 05:30 88 21 85/73 L 96 08/16/21 05:15 87 37 H 95/79 L 94 08/16/21 05:00 87 17 104/70 96 08/16/21 04:45 86 16 102/78 96 08/16/21 04:30 85 18 103/81 96 08/16/21 04:15 85 20 94/75 L 96 08/16/21 04:03 86 20 98/78 L 96 08/16/21 04:01 87 19 65/37 L 96 08/16/21 04:00 88 17 96 08/16/21 03:45 91 H 15 143/102 H 92 08/16/21 03:35 91 H 26 H 92 08/16/21 03:30 90 13 112/83 91 08/16/21 03:17 87/70 L 08/16/21 03:00 88 15 114/82 89 L 08/16/21 02:45 86 17 99/82 L 90 08/16/21 02:30 85 15 97/72 L 91 08/16/21 02:15 84 17 100/83 92 08/16/21 02:00 84 17 99/76 L 91 08/16/21 01:45 81 17 115/75 93 08/16/21 01:41 70 16 149/92 H 93 08/16/21 01:30 87 17 94/79 L 92 08/16/21 01:15 85 15 101/85 92 08/16/21 01:00 78 15 129/93 92 08/16/21 00:45 75 15 137/95 93 08/16/21 00:31 74 18 145/96 H 08/16/21 00:15 103/83 08/15/21 23:48 83 08/15/21 23:10 27 H 94 Laboratory Results 08/16/21 05:06 08/16/21 05:06 uacm bland; sg 1018; u Osms 618 Diagnostic Findings cxr this am unchanged
[2021-08-16] MEDS ORDERED: NOVASOURCE RENAL 2.0 CAL 1000ML BAG NG SCH (11:00)
[2021-08-16] MEDS: HEPARIN SODIUM/DEXTROSE 25,000 UNITS/500 ML BAG IV SCH (11:54)
[2021-08-16] MEDS: TUBE FEEDING WATER FLUSH GT SCH ×4 (11:55→23:34)
[2021-08-16] MEDS ORDERED: INSULIN ASPART PER UNIT SC ONE (14:15)
[2021-08-16] MEDS ORDERED: VECURONIUM BROMIDE 10 MG VIAL IV ONE (14:16)
[2021-08-16] MEDS ORDERED: VECURONIUM BROMIDE 10 MG VIAL IV STA (14:16)
[2021-08-16] MEDS ORDERED: SEVERE STRESS LEVEL ONE (14:18)
[2021-08-16] MEDS ORDERED: INSULIN PROTOCOL GOAL RANGE ONE (14:18)
[2021-08-16] MEDS ORDERED: NovoLIN-R BOLUS FROM BAG IV ONE (14:30)
[2021-08-16] MEDS ORDERED: LIDOCAINE/EPINEPHRINE 1% 20 ML VIAL INFIL ONE (14:30)
--- NOTE | 2021-08-16 14:32 | Pharmacy Report ---
Pharmacy Glycemic Short Note 2 - Date of Service August 16, 2021 - Glycemic Short BSG Results (Last 24 hours): 08/15/21 08/15/21 08/15/21 16:28 17:44 20:18 Glucose 184 H POC Glucose 221 H 166 H 08/16/21 08/16/21 08/16/21 00:58 05:06 05:11 Glucose 221 H POC Glucose 222 H 230 H 08/16/21 08/16/21 08:18 12:04 Glucose POC Glucose 236 H 274 H OUTPATIENT ANTIDIABETIC REGIMEN: * Glyburide 5mg PO BID * Metformin 1000mg BID * Actos 45mg PO Daily * A1c 6.3% 07/26/21 ASSESSMENT: 08/16: * Glycemic control has worsened over last 24 hrs * New changes: intubated yesterday, now requiring pressors, NATHANIEL worsening, tube feeds changed to renal formula which is carb dense * BSGs have been > 220 thus far today despite SQ insulin changes. Question reliability of SQ absorption while on pressors. IV insulin drip may be considered if Skatesman agreeable. 08/15: * Patient was downgraded from ICU status yesterday, and NPH was resumed this AM due to post-prandial elevations yesterday (although minimal po intake 2nd fatigue) in addition to AM fasting elevation today. However, he later decompensated today and required intubation and is now again ICU status * Will give low-dose supplemental Lantus tonight based on BSG. Ongoing basal insulin to be assessed tomorrow AM * Will tighen Novolog correction factor given elevations yesterday with minimal po intake 08/14: * BSGs well controlled over last 24 hrs, however trending significantly lower than prior days, with multiple BSGs less than 100 * Steroid dose has been tapered today, NATHANIEL continues, PO intake poor per RN report. * Given changes that place patient at higher risk for hypoglycemia, will refrain from using NPH today. Will resume Lantus to avoid mid-day "peak" until it is established patient BSGs will remain above 100. Will continue "high" stress Novolog doses initially in light of reduction in basal dosing - follow post- prandial BSGs 08/13: * Fasting blood sugars at goal, continue NPH 40 units, consider decreasing t omorrow, Dexamethasone reduced to 4mg today, 2mg tomorrow * Tightened CR to 1.5 today at breakfast, blood sugars at goal 102 - 123mg/dl * Loosen CF/CR to prevent hypoglycemia as steroids taper 08/12: * Fasting BSG 89mg/dl, move all basal coverage to NPH to prevent AM hypoglycemia * Dexamethasone 10mg today, decreasing to 4mg tomorrow * Tighten CR for better coverage PLAN FOR INPATIENT GLYCEMIC CONTROL: * Hold outpatient oral diabetes medications * Basal insulin * NPH 30 units x1 this AM * Lantus 10 units x 1 this AM * Bolus insulin * Novolog SQ to cover carbs in tube feedings: * Goal Range: Low 110 mg/dL - High 140 mg/dL * Correction Factor: 8 mg/dL/unit * Nutritional / Prandial insulin per carb ratio of 1 unit per 4 grams CHO consumed * If BSGs remain > 220, begin IV insulin drip per severe stress protocol. Would continue Novolog Q 4 hrs to cover carbs in tube feeds using CR 4
[2021-08-16] MEDS ORDERED: SODIUM CHLORIDE 0.9% 1000ML 500 ML IV ONE ×2 (14:50→19:56)
--- NOTE | 2021-08-16 14:55 | Procedure Note ---
Procedure Note Date of Service August 16, 2021 Note Procedure Name: Fiberoptic bronchoscopy for placement of percutaneous tracheostomy tube Procedure time out: side/site verified, patient ID confirmed, correct procedure Consent obtained: written (The risks, benefits, indications, potential complications, and alternatives were explained to the family and informed consent obtained by Dr. Hicks.) Time of procedure: 14:27 Performed by: physician mop worker: Jeremi Good PA-C Indications: diagnostic, therapeutic Contraindications: Patient has slightly elevated APTT. This was discussed with the family. They approved to go forward with the procedure. Indication: Patient requiring percutaneous placement of tracheostomy tube. Fiberoptic bronchoscopy required for clearance of secretions prior to the procedure, visualization of cannulization, and verification of airways status post procedure. The bronchoscope was introduced into the endotracheal tube. There was no evidence of bleeding or significant bronchial trauma. There were no significant secretions noted. The right and main left bronchus as well as the segmental branches of the right middle and right lower lobe and left upper, lingula and left lower lobes were examined with no blood or other mucous plugging. There was no evidence of bronchial trauma or significant bleeding on the final examination with the fiberoptic scope. The cuff of the endotracheal tube was deflated and the endotracheal tube was withdrawn to the level of the vocal cords using video bronchoscopy. The cuff was lightly reinflated and the fiberoptic bronchoscope was advanced to the tip of the endotracheal tube. The needle entry site in the trachea midline was visualized as was the placement of the guidewire into the distal trachea. Photographs were taken to confirm placement of the guidewire. After placement of the tracheostomy tube, the bronchoscope was withdrawn from the endotracheal tube and introduced through the tracheostomy tube to confirm correct placement. The bronchoscope was then withdrawn to allow suturing of the tracheostomy tube into position. After confirmation of position and securement of the tracheostomy tube the endotracheal tube was removed. The patient experienced no desaturation or complication during the procedure. Dr. Myers was present for the entire procedure as he was performing the surgical portion of the percutaneous tracheostomy Complications: none Patient tolerated procedure: well Post-procedure vital signs: reviewed and stable Comments: The patient received sedation and neuromuscular blockade for the procedure with airway intact with endotracheal tube. This was ordered, administered, and monitored by Dr. Myers during my portion of the procedure. Coding CPT Codes Pulmonary/Thoracic - Pulmonary and Thoracic: 68188 Bronchoscopy, clear airways ([id number]) [facility] [place] Procedure Codes (Charges) Pulmonary/Thoracic Procedure 1: Pulmonary and Thoracic: 01995 Bronchoscopy, clear airways
[2021-08-16 15:00] LABS: Partial Thromboplastin Ratio 2.6
--- NOTE | 2021-08-16 15:10 | Procedure Note ---
Procedure Note Date of Service August 16, 2021 Note Procedure Date: Noted Above Procedure: Percutaneous Dilatational Tracheotomy with Bronchoscopic Guidance Pre-procedure Diagnosis & Indication: Chronic respiratory failure and need for ongoing mechanical ventilation Post-procedure Diagnosis: same as above Prior to Procedure: Informed Consent: The risks, benefits, indications, potential complications, and alternatives were explained to the patient's family and informed consent was obtained. Performed by: Lisa Myers DO [facility] [employer] Head: Irina Good Preprocedure: The identity of the patient was confirmed and a bedside time out was performed. Johnston protocol was followed for this procedure. Prior to the initiation of sedation or the procedure, a timeout was performed. The patients identity was verified by confirming the patients wrist band for name, date of , and medical record number. Everyone in the room was in agreement with the patient identify, the procedure to be performed, consent had been discussed verbally with patient and and daughters, matched the planned procedure, and the procedure site. The area was cleaned with a CHG scrub and draped with large sterile barrier. Hand hygiene was performed, and cap, mask, sterile gown, and sterile gloves were worn. The patient was covered by a large sterile drape. Sterile technique was maintained for the entire procedure. Anesthesia: The patient was intubated and sedated prior to the procedure. Additional midazolam and fentanyl was given for deep sedation. Please refer to the accompanying procedural sedation form for additional details. Once the patient was adequately sedated, vecuronium was administered for paralysis. Description of Procedure: The patient was placed in the supine position. The anterior neck was prepped and draped in usual sterile fashion. 1% lidocaine was administered approximately 2 fingerbreadths above the sternal notch for local anesthesia. The bronchoscope was introduced through the endotracheal tube and the trachea was properly visualized. The endotracheal tube was then gradually withdrawn within the trachea under direct bronchoscopic visualization. The area of the surgical site was initially transilluminated, and proper midline position was confirmed by bouncing the needle from the tracheostomy tray over the trachea with bronchoscopic examination. The needle was advanced into the trachea and proper positioning was confirmed with direct visualization. The needle was then removed leaving a white outer cannula in position. The wire from the tracheostomy tray was then advanced through the white outer cannula. The cannula was then removed. The initial small, blue dilator was then advanced over the wire into the trachea for initial dilation. The large, tapered dilator was then advanced over the wire into the trachea. The dilator was removed leaving the wire and white inner cannula in position. A number 8 percutaneous Shiley tracheostomy tube with appropriate inner cannula was then advanced over the wire and white inner cannula into the trachea. Proper positioning was confirmed with bronchoscopic visualization. The tracheostomy tube was then sutured in place with four nylon sutures. It was further secured with a tracheostomy tie. Estimated blood loss: Less than 5 mL. Complications: None immediate. Coding CPT Codes ENT - ENT: 28203 Incision of windpipe ([id number]) [facility] [place] Procedure Codes (Charges) ENT ENT: 60941 Incision of windpipe
--- NOTE | 2021-08-16 15:30 | XRay Report ---
SINGLE VIEW CHEST CLINICAL HISTORY: Tracheostomy placement. FINDINGS: An AP, portable, upright chest radiograph is compared to study performed earlier the same d ay 08/16/2021 and correlated with chest CT dated 08/11/2021. The examination is degraded by portable te chnique and patient rotation. An endotracheal tube has been removed and a tracheostomy has been place d. An enteric tube and A right PICC line are unchanged in position. Trace pneumomediastinum persists. The heart is top normal for projection. Multifocal bilateral airspace opacities are unchanged. No la rge pleural effusion is identified. There is likely trace residual right apical pneumothorax. The bon y thorax is grossly intact. IMPRESSION: 1. An endotracheal tube has been removed and a tracheostomy has been placed. 2. Multifocal bilateral airspace opacities have not significantly changed from today's earlier examin ation. 3. Trace pneumomediastinum persists and there is likely trace residual right apical pneumothorax. ACT 112: Negative or not required by law. Electronically signed by: Jeremi Dodd M.D. 08/16/2021 3:29 PM
[2021-08-16] MEDS: INSULIN REGULAR 250 UNITS in SODIUM CHLORIDE 0.9% 247.5 ML IV SCH (15:38)
[2021-08-16] MEDS ORDERED: INSULIN ASPART PER UNIT SC SCH (16:30)
[2021-08-16 16:42] LABS: Partial Thromboplastin Time 71.7 Seconds (21.0-31.0)
--- NOTE | 2021-08-16 18:18 | Hospitalist Progress Note ---
Date of Service August 16, 2021 Assessment & Plan (1) Unresponsiveness: (2) Acute respiratory failure with hypoxia: (3) Acute pulmonary embolism: (4) DVT of lower extremity, bilateral: (5) 2019 novel coronavirus-infected pneumonia (NCIP): (6) Hematoma: (7) Sinus tachycardia: (8) Hyponatremia: (9) Diabetes mellitus: (10) CAD (coronary artery disease): (11) HTN (hypertension): (12) DVT prophylaxis: Plan: 60 year old male who initially presented with COVID 19 PNA with hypoxic respiratory failure on high flow, now complicated by acute bilateral PE, bilateral DVT further complicated by spontaneous LUE hematoma while on heparin drip for PE. Unresponsiveness- despite weaning off sedatives. Plan for urgent CT head per ross furnace operator noted. Management per ross furnace operator Acute respiratory failure with hypoxia due to COVID 19 PNA and acute PE Subcutaneous emphysema - Transferred to ICU on 08/03. Now with barotrauma. no further BIPAP. continue High flow +/- NRB. -Patient being downgraded out of ICU 08/14, tenuous respiratory status. Worsening hypoxia overnight. Now transferred back to ICU. Had tracheostomy today. Management per ross furnace operator Acute pulmonary embolism (RLL segmental/subsegmental PE) - on CTA chest 08/03. Currently on Heparin drip. Received 1 dose coumadin yesterday, now plan for PEG and Trach. Ordered for vitamin K. Hold further doses of coumadin -CTA chest 08/11 no PE noted DVT bilateral distal lower extremity - US 08/06 shows occlusive thrombus within bilateral calf veins but no proximal thrombus. Anticoagulation as above COVID 19 PNA - S/p remdesivir course -currently on decadron taper Acute LUE hematoma - CT LUE shows biceps hematoma 13.3 x 5.3x 7 cm. No evidence of compartment syndrome. -Seen by orthopedics- non surgical management as of now. Therapeutic on heparin drip. First dose of coumadin today -H/H has remained stable Acute blood loss anemia due to above - Hb down to 7.6 from 13.7 on 08/03. S/p 1 U of PRBC 08/08. -H/h has remained stable DM-2 with steroid induced hyperglycemia -Glycemic pharmacist managing, on insulin. Home actos and glyburide on hold. Sinus tachycardia- from PNA and PE. On metoprolol. NATHANIEL on CKD stage 3- Cr recovered to baseline of 1.2 but now with worsening renal function due to recent contrast exposure, diuresis and Bactrim. -renal u/s unremarkable. FeNA- 1.3%. Nephro following HTN- currently hypotensive,on levophed, management per ross furnace operator CAD- h/o stents. No chest pain. Continue ASA, metoprolol. DVT prophylaxis- heparin drip GI prophylaxis- Protonix Nutrition- Tube feed Dispo- ICU Admission and Anticipated Discharge Date Admission Date: July 25, 2021 Subjective Patient seen and examined at bedside. Had tracheostomy earlier today. Patient has been unresponsive. Discussed with bedside RN. Plan for CT head per ross furnace operator was noted. Physical Exam Physical Exam: General: Lying in bed, unresponsive,s/p tracheostomy on vent HEENT: Pupil constricted- not responsive to light Chest: Fair breath sounds anteriorly CVS: Tachycardic, normal heart sounds Abdomen: Soft, not distended, bowel sounds present Neuro: Unresponsive. GCS 3T Extremities: No cyanosis, clubbing or edema LUE: Left upper extremity swollen Results & Data Results & Data ([facility]) Vital Signs (Past 12 Hours) Vital Signs Temp Pulse Resp BP Pulse Ox 08/16/21 15:35 97 H 19 95 08/16/21 12:10 105 H 21 105/85 90 08/16/21 12:05 105 H 23 104/74 86 L 08/16/21 12:00 103 H 18 125/80 85 L 08/16/21 11:55 107 H 21 115/83 08/16/21 11:50 102 H 20 107/79 08/16/21 11:45 101 H 22 115/99 87 L 08/16/21 11:40 101 H 18 108/83 85 L 08/16/21 11:35 100 H 18 114/79 87 L 08/16/21 11:30 99 H 19 120/95 87 L 08/16/21 11:25 98 H 19 106/78 86 L 08/16/21 11:20 99 H 18 118/87 88 L 08/16/21 11:15 98 H 18 120/82 88 L 08/16/21 11:10 97 H 15 112/85 88 L 08/16/21 11:05 98 H 20 103/79 08/16/21 11:00 97 H 127/98 91 03/16/22 10:55 97 H 21 120/79 08/16/21 10:50 99 H 22 134/93 91 08/16/21 10:45 100 H 19 116/75 91 08/16/21 10:40 100 H 26 H 116/73 90 08/16/21 10:35 107 H 19 122/77 90 08/16/21 10:30 98 H 18 108/86 92 08/16/21 10:25 98 H 17 136/109 H 92 08/16/21 10:20 98 H 18 127/91 92 08/16/21 10:15 97 H 16 114/86 92 08/16/21 10:10 97 H 103/83 91 08/16/21 10:05 96 H 22 101/84 93 08/16/21 10:00 95 H 17 101/84 93 08/16/21 09:55 97 H 19 107/81 93 08/16/21 09:50 94 H 18 101/82 93 08/16/21 09:45 95 H 18 116/96 93 08/16/21 09:40 96 H 17 116/69 93 08/16/21 09:35 95 H 19 102/86 93 08/16/21 09:30 94 H 19 93/80 L 93 08/16/21 09:25 94 H 16 127/91 91 08/16/21 09:20 95 H 15 109/79 91 08/16/21 09:15 97 H 15 96/67 L 91 08/16/21 09:10 100 H 15 93/55 L 99 08/16/21 09:05 92 H 15 105/76 99 08/16/21 09:03 92 H 15 98/80 L 08/16/21 09:00 92 H 19 84/69 L 98 08/16/21 08:46 92 H 17 92/69 L 08/16/21 08:30 92 H 17 121/71 98 08/16/21 08:15 92 H 19 104/72 98 08/16/21 07:36 36.8 C 08/16/21 07:22 84 21 99 Laboratory Results Short CBC 08/16/21 Range/Units 05:06 WBC 28.44 H (4.8-10.8) K/uL Hgb 13.0 L (14.0-18.0) g/dL Hct 37.1 L (42-52) % Plt Count 285 (130-400) K/uL BMP 08/16/21 05:06 Sodium 126 L Potassium 4.9 Chloride 86 L Carbon Dioxide 27 BUN 96 H Creatinine 2.14 H Glucose 221 H Calcium 9.0 Medications Administered Current Inpatient Medications Acetaminophen (Acetaminophen 325 Mg Tab) 650 mg PO Q4H PRN PRN Reason: Pain or Fever Stop: 08/24/21 18:01 Last Admin: 08/14/21 05:41 Dose: 650 mg Documented by: Al Hydrox/Mg Hydrox/Simethicone (Aluminum/Magnesium Susp 30 Ml Udc) 15 ml PO Q4H PRN PRN Reason: Dyspepsia Stop: 08/24/21 18:01 Aspirin (Aspirin 81 Mg Chew) 81 mg PO DAILY [facility] Stop: 09/15/21 08:59 Last Admin: 08/16/21 08:44 Dose: 81 mg Documented by: Dextrose (Dextrose 50% 50 Ml Syringe) 25 - 50 ml IV UD PRN; Protocol PRN Reason: Hypoglycemia Protocol Stop: 08/24/21 18:01 Last Admin: 08/09/21 02:42 Dose: 25 ml Documented by: Docusate Sodium (Docusate Sodium Syrup 100 Mg/10 Ml Udc) 100 mg PO QAM ANSELMO Stop: 09/15/21 08:59 Last Admin: 08/16/21 08:44 Dose: 100 mg Documented by: Enteral Nutritional Formula (Novasource Renal 2.0 Aly 1000ml Bag) 1,000 ml NG UD ANSELMO; Protocol Stop: 09/15/21 10:59 Last Admin: 08/16/21 16:01 Dose: 1,000 ml Documented by: Fentanyl Citrate (Fentanyl Bolus From Bag) 50 mcg IV Q60M PRN PRN Reason: Pain or Agitation Stop: 08/30/21 03:30 Last Admin: 08/16/21 14:38 Dose: 50 mcg Documented by: Glucagon (Glucagon For Inj 1 Mg Vial) 1 mg SQ UD PRN; Protocol PRN Reason: Hypoglycemia Protocol Stop: 08/24/21 18:01 Glucose (Glucose 10 Tabs/Tube) 4 - 8 tabs PO UD PRN; Protocol PRN Reason: Hypoglycemia Protocol Stop: 08/24/21 18:01 Glucose (Glucose 40% Gel 15 Gm Tube) 15 - 30 gm PO UD PRN; Protocol PRN Reason: Hypoglycemia Protocol Stop: 08/24/21 18:01 Heparin Sodium (Beef Lung) (Heparin 10 Unit/Ml 5 Ml Flush) 5 ml FLUSH PRN PRN PRN Reason: Flush Stop: 09/04/21 16:31 Heparin Sodium/Dextrose (Heparin Sodium/Dextrose) 25,000 units in 500 mls @ 13 mls/hr IV .Q24H ANSELMO; Protocol Stop: 09/05/21 21:44 Last Titration: 08/16/21 16:46 Dose: 650 units/hr, 13 mls/hr Documented by: Dexamethasone 2 mg/ Syringe 0.5 mls @ 1 mls/min IV Q24H ANSELMO Stop: 08/17/21 09:01 Last Admin: 08/16/21 08:44 Dose: 1 mls/min Documented by: Dexamethasone 1 mg/ Syringe 0.25 mls @ 1 mls/min IV Q24H ANSELMO Stop: 08/21/21 09:01 Propofol (Diprivan) 1,000 mg in 100 mls @ 0 mls/hr IV .Q0M ANSELMO; Protocol Stop: 08/18/21 12:29 Last Titration: 08/16/21 17:35 Dose: 0 mcg/kg/min, 0 mls/hr Documented by: Norepinephrine Bitartrate (Levophed/D5w) 8 mg in 508 mls @ 34.176 mls/hr IV .[id number] ANSELMO; Protocol Stop: 09/14/21 23:44 Last Titration: 08/16/21 18:38 Dose: 0.13 mcg/kg/min, 34.2 mls/hr Documented by: Fentanyl Citrate (Fentanyl Citrate) 2,500 mcg in 250 mls @ 0 mls/hr IV .Q0M ANSELMO; Protocol Stop: 08/30/21 03:44 Last Titration: 08/16/21 18:06 Dose: 0 mcg/hr, 0 mls/hr Documented by: Insulin Human Regular 250 (units/ Sodium Chloride) 250 mls @ 2.6 mls/hr IV .Q24H ANSELMO; Protocol Stop: 09/15/21 14:29 Last Titration: 08/16/21 18:02 Dose: 2.6 units/hr, 2.6 mls/hr Documented by: Insulin Aspart (Insulin Aspart Per Unit) 0 units SC Q4 ANSELMO Stop: 09/14/21 15:59 Last Admin: 08/16/21 15:58 Dose: 2 units Documented by: Ipratropium Medina (Ipratropium [place] Neb Soln 0.02% 2.5 Ml Vial) 0.5 mg INH Q4H PRN PRN Reason: SOB, WHEEZE Stop: 08/31/21 23:14 Last Admin: 08/12/21 15:22 Dose: 0.5 mg Documented by: Lansoprazole (Lansoprazole 30 Mg Soltab) 30 mg PO DAILY [facility]SLE[facility] Stop: 09/15/21 08:59 Last Admin: 08/16/21 08:44 Dose: 30 mg Documented by: Levalbuterol HCl (Levalbuterol 1.25mg/0.5ml Neb) 1.25 mg INH Q4H PRN PRN Reason: SOB, WHEEZE Stop: 08/31/21 23:14 Last Admin: 08/12/21 15:22 Dose: 1.25 mg Documented by: Magnesium Hydroxide (Magnesium Hydroxide Susp 30 Ml Udc) 30 ml PO Q12H PRN PRN Reason: Constipation Stop: 08/24/21 18:01 Metoprolol Tartrate (Metoprolol Tartrate 25 Mg Tab) 25 mg PO Q12H ANSELMO Stop: 09/13/21 20:59 Last Admin: 08/16/21 08:53 Dose: Not Given Documented by: Miscellaneous (Carbohydrates For Hypoglycemia ) 15 - 30 gm PO UD PRN PRN Reason: Hypoglycemia Protocol Stop: 08/24/21 18:01 Miscellaneous Information (Pharmacy Glycemic Mgmt Consult) 1 ea N/A UD PRN; Protocol PRN Reason: Consult Stop: 08/24/21 18:01 Ondansetron HCl (Ondansetron Inj 2 Mg/Ml 2 Ml Vial) 4 mg IV Q6H PRN PRN Reason: Nausea Stop: 08/24/21 18:01 Polyethylene Glycol (Polyethylene (Miralax) 17 Gm Pack) 17 gm PO DAILY PRN PRN Reason: Constipation Stop: 08/24/21 18:01 Polyethylene Glycol (Polyethylene (Miralax) 17 Gm Pack) 17 gm PO DAILY [facility] Stop: 09/03/21 09:44 Last Admin: 08/16/21 10:07 Dose: 17 gm Documented by: Propofol (Propofol Bolus From Bag) 20 mg IV Q5M PRN PRN Reason: Sedation Stop: 08/18/21 12:23 Sennosides (Sennosides 8.8 Mg/5 Ml Udc) 17.6 mg PO QAM [facility] Stop: 09/15/21 08:59 Last Admin: 08/16/21 08:52 Dose: 17.6 mg Documented by: Sterile Water (Tube Feeding Water Flush) 30 ml GT Q4H [facility] Stop: 09/15/21 10:59 Last Admin: 08/16/21 15:57 Dose: Not Given Documented by:
--- NOTE | 2021-08-16 18:35 | Communication Note ---
Date of Service: August 16, 2021 Informed after tracheostomy and sedation weaning patient has not had increasing mental status, not following commands: GCS 3T Will obtain urgent head CT Coding Level of Care Code None
--- NOTE | 2021-08-16 20:15 | XRay Report ---
XR chest 1V portable HISTORY: 60 years-old Male resp failure acute respiratory failure COMPARISON: Chest radiograph of same day at 2:38 PM TECHNIQUE: Portable AP view of the chest FINDINGS: Cardiac silhouette is enlarged. Unchanged positioning of the tracheostomy cannula, right-sided PICC a nd feeding tubes. No large pleural effusion. Trace right pneumothorax suspected. Persistent pneumomed iastinum. Interstitial coarsening with patchy bilateral airspace opacities appear stable from prior. Bones appear grossly intact. IMPRESSION: 1. Lines and tubes as above. 2. Stable mixed interstitial and alveolar opacities. 3. Pneumomediastinum with suspected trace right apical pneumothorax redemonstrated ACT 112: Negative or not required by law. The above report was generated using voice recognition software. It may contain grammatical, syntax o r spelling errors. Electronically signed by: Jewel Ribera M.D. 08/16/2021 8:13 PM
[2021-08-16] MEDS: NOREPINEPHRINE/D5W 8 MG/508 ML BAG IV SCH (20:21)
[2021-08-16 20:24] LABS: Hematocrit (blood only) 33.2 % (42-52); Mean Corpuscular Hemoglobin 31.8 pg (25-34); Mean Platelet Volume 9.8 fL (7.4-10.4); Nucleated RBC # (auto) 0.78 K/uL (0-0); Nucleated RBC % (auto) 3.8 %; Platelet Count 237 K/uL (130-400); RDW Standard Deviation 57.4 fL (36.4-46.3); Red Blood Count 3.46 M/uL (4.7-6.1); White Blood Count 20.68 K/uL (4.8-10.8)
[2021-08-16] MEDS: VASOPRESSIN 20 UNITS in 0.9 % SODIUM CHLORIDE 100 ML IV SCH (20:39)
[2021-08-16 20:42] LABS: BUN Creatinine Ratio 34.2 (10-20); Calcium 7.2 mg/dl (8.5-10.1); Creatinine Clr Calc Pharmacy 28.8 ml/min; Est GFR (African American) 28.9 ml/min; Potassium 4.3 mmol/L (3.5-5.1)
[2021-08-16 20:46] LABS: Mean Corpuscular Hgb Conc 33.1 g/dL (32-36)
[2021-08-16] MEDS: IPRATROPIUM BROMIDE NEB SOLN 0.02% 2.5 ML VIAL INH PRN (22:21)
[2021-08-16] MEDS: LEVALBUTEROL 1.25MG/0.5ML NEB INH PRN (22:21)
[2021-08-16 23:21] LABS: Hematocrit (blood only) 35.4 % (42-52); Hemoglobin 11.9 g/dL (14.0-18.0)
[2021-08-16 23:50] LABS: Partial Thromboplastin Ratio 4.1
[2021-08-17] MEDS: INSULIN ASPART PER UNIT SC SCH ×4 (00:04→11:54)
[2021-08-17 00:53] LABS: Partial Thromboplastin Time 111.9 Seconds (21.0-31.0)
[2021-08-17] MEDS: NOREPINEPHRINE/D5W 8 MG/508 ML BAG IV SCH ×3 (03:16→09:45)
[2021-08-17] MEDS: VASOPRESSIN 20 UNITS in 0.9 % SODIUM CHLORIDE 100 ML IV SCH ×2 (03:16→11:58)
[2021-08-17] MEDS: TUBE FEEDING WATER FLUSH GT SCH ×4 (03:45→15:05)
[2021-08-17 03:58] LABS: iSTAT Allen Test Pass; iSTAT Art Bld Gas pCO2 Correct 72 mmHg (35-46); iSTAT Art Bld Gas pH Corrected 7.188 (7.35-7.45); iSTAT Arterial Blood Gas HCO3 27 meg/L (19-24); iSTAT Arterial Blood Gas pCO2 68 mmHg (35-46); iSTAT Arterial Blood Gas pH 7.21 (7.35-7.45); iSTAT Arterial Blood Gas pO2 68 mmHg (80-95); iSTAT Arterial Blood Gas pO2 C 74; iSTAT Carbon Dioxide 29 mmol/L (24-31); iSTAT FiO2 100 %; iSTAT Hematocrit 37 % (42-52); iSTAT Hemoglobin 12.6 g/dl (14.0-18.0); iSTAT Site L Radial; iSTAT Sodium 125 mmol/L (135-144)
[2021-08-17 03:58] LABS: iSTAT Allen Test Pass; iSTAT Art Bld Gas pCO2 Correct 65 mmHg (35-46); iSTAT Art Bld Gas pH Corrected 7.272 (7.35-7.45); iSTAT Arterial Blood Gas HCO3 30 meg/L (19-24); iSTAT Arterial Blood Gas pCO2 62 mmHg (35-46); iSTAT Arterial Blood Gas pH 7.29 (7.35-7.45); iSTAT Arterial Blood Gas pO2 62 mmHg (80-95); iSTAT Arterial Blood Gas pO2 C 68; iSTAT Carbon Dioxide 32 mmol/L (24-31); iSTAT FiO2 100 %; iSTAT Hematocrit 34 % (42-52); iSTAT Hemoglobin 11.6 g/dl (14.0-18.0); iSTAT Potassium 5.4 mmol/L (3.3-5.0); iSTAT Site L Radial; iSTAT Sodium 123 mmol/L (135-144)
[2021-08-17] MEDS ORDERED: PIPERACILL/TAZOBAC CONSULT ACTIVE PRN (04:21)
[2021-08-17 04:23] LABS: Basophils # (auto) 0.01 K/uL (0-0.2); Basophils % (auto) 0.1 %; Hemoglobin 11.1 g/dL (14.0-18.0); Immature Granulocytes # (auto) 0.13 K/uL (0.00-0.02); Immature Granulocytes % (auto) 0.7 %; Lymphocytes # (auto) 0.41 K/uL (1.2-3.4); Lymphocytes % (auto) 2.3 %; Mean Corpuscular Hgb Conc 33.6 g/dL (32-36); Mean Corpuscular Volume 95.1 fL (80-100); Mean Platelet Volume 9.9 fL (7.4-10.4); Monocytes # (auto) 0.89 K/uL (0.11-0.59); Monocytes % (auto) 5.1 %; Neutrophils # (auto) 16.03 K/uL (1.4-6.5); Neutrophils % (auto) 91.8 %; Platelet Count 182 K/uL (130-400); RDW Coefficient of Variation 18.3 % (11.5-14.5); RDW Standard Deviation 57.6 fL (36.4-46.3); Red Blood Count 3.47 M/uL (4.7-6.1); White Blood Count 17.47 K/uL (4.8-10.8)
[2021-08-17] MEDS ORDERED: PIPERACILLIN/TAZOBACTAM 3.375 GM in DEXTROSE 5% 100 ML IV ONE (04:45)
[2021-08-17 04:47] LABS: Partial Thromboplastin Ratio 3.6; Polychromasia 1+
[2021-08-17 05:05] LABS: BUN Creatinine Ratio 38.8 (10-20); Calcium 8.1 mg/dl (8.5-10.1); Est GFR (African American) 32.9 ml/min; Est GFR (Non-African American) 28.4 ml/min; Phosphorus 5.4 mg/dl (2.5-4.9); Potassium 5.4 mmol/L (3.5-5.1)
[2021-08-17] MEDS: ACETAMINOPHEN 325 MG TAB PO PRN ×3 (05:12→15:03)
[2021-08-17 05:26] LABS: Partial Thromboplastin Time 100.3 Seconds (21.0-31.0)
[2021-08-17 05:43] LABS: Troponin I 0.24 ng/ml (0-0.04)
--- NOTE | 2021-08-17 07:18 | XRay Report ---
SINGLE VIEW CHEST CLINICAL HISTORY: Respiratory failure FINDINGS: An AP, portable, upright chest radiograph is compared to studies dated 08/16/2021 and correl ated with chest CT dated 08/11/2021. The examination is degraded by portable technique and patient rot ation. A tracheostomy, enteric tube, and A right PICC line are unchanged in position. Trace pneumomed iastinum persists. The heart is top normal for projection. Multifocal bilateral airspace opacities ar e unchanged. No large pleural effusion is identified. No residual pneumothorax is clearly seen. The b chris thorax is grossly intact. IMPRESSION: 1. Stable lines and tubes. 2. Multifocal bilateral airspace opacities have not significantly changed from yesterday's examinatio ns. 3. Trace pneumomediastinum persists. 4. The trace right apical pneumothorax seen previously is not clearly visualized. ACT 112: Negative or not required by law. Electronically signed by: Jeremi Dodd M.D. 08/17/2021 7:16 AM
--- NOTE | 2021-08-17 08:01 | Nephrology Progress Note ---
Date of Service August 17, 2021 Assessment & Plan (1) Acute worsening of stage 3 chronic kidney disease: Plan: worsening Stage 1 nonoliguric NATHANIEL on CKD3 > ischemic ATN from contrast induced nephropathy in setting of obligate diuresis initially and reinforced now with decreased renal perfusion/tachyarrhythmia; prerenal also possible; no obstruction. Baseline creatinine during this hospital stay (in a relatively malnourished state) 1.1-1.3. As an outpatient his baseline creatinine is 1.3- 1.5. He had acute kidney injury on presentation which recovered within 48 hours to current inpatient baseline. Creatinine started to uptrend August 13 to peak 08/15 at 2.1, where it plateau'd 48 hr; then w/ fever/lactate/tachyarrhythmia now up to 2.4. underwent obligate diuresis w/ fluid balance becoming consistently negative august 10 through . He also had IV contrast exposure for the follow-up CT scan. Urine sediment bland -bid for now basic metabolic panel >>to fully address his renal issues may soon need to consider dialysis, to intensify options of care; family may soon per staking technician be considering less invasive approach which is also reasonable; dialysis would not be needed today but high risk -continue pressor support, needs uptrending (2) Electrolyte and fluid disorder: Plan: worsening Hyponatremia > suspect from profound volume depletion as well as (for hyponatremia) significant structural pulmonary disease; also new hyperkalemia today w/ elevated lactate -if K worsens, could consider bicarb via GT Admission and Anticipated Discharge Date Admission Date: July 25, 2021 Subjective febrile t max 39.3; worsening Arrhythmias, on vaso now; labs worse > team working to stabilize but concerns for worse prx Review of Systems Review of Systems: Unobtainable due to endotracheal tube Physical Exam Constitutional: well developed, average body habitus, + frail appearing and + mechanically ventilated; no acute distress Eyes: EOM intact bilaterally ENMT: Ears: no external ear abnormality Nose: + nare abnormality (Dried crusted blood bilateral); no external nose abnormality Mouth: + dry oral mucous membranes Neck: trachea midline (tracheostomy present); no nuchal rigidity Respiratory: normal respiratory effort Auscultation: + diminished lung sounds Cardiovascular: Rate/Rhythm: + tachycardic Extremities: no edema Gastrointestinal (Abdomen): Inspection/Auscultation: normal bowel sounds Percussion/Palpation: abdomen soft; abdomen nontender Musculoskeletal: Extremities: + abnormal strength Skin: + turgor decreased and + ecchymosis Psychiatric: Orientation: oriented to person and oriented to place Genitourinary: brewster w/ ample urine Results & Data ([facility]) Vital Signs (Past 12 Hours) Vital Signs Temp Pulse Resp BP Pulse Ox 08/17/21 07:19 145 H 32 H 91 08/17/21 06:20 131 H 33 H 116/81 93 08/17/21 06:15 130 H 31 H 124/74 93 08/17/21 06:10 128 H 30 H 114/78 93 08/17/21 06:05 128 H 23 115/79 92 08/17/21 06:00 124 H 30 H 125/75 93 08/17/21 05:55 124 H 30 H 123/75 93 08/17/21 05:50 123 H 30 H 112/78 93 08/17/21 05:45 123 H 30 H 116/77 94 08/17/21 05:41 123 H 30 H 104/66 94 08/17/21 05:35 121 H 30 H 98/67 L 95 08/17/21 05:30 120 H 30 H 117/69 95 08/17/21 05:25 121 H 30 H 111/75 95 08/17/21 05:20 123 H 30 H 118/73 96 08/17/21 05:15 124 H 30 H 107/70 96 08/17/21 05:10 126 H 30 H 129/76 96 08/17/21 05:05 127 H 28 H 103/71 94 08/17/21 05:00 39.3 C H 124 H 31 H 93/65 L 93 08/17/21 04:55 123 H 30 H 80/61 L 92 08/17/21 04:50 123 H 30 H 96/46 L 92 08/17/21 04:45 132 H 31 H 117/76 91 08/17/21 04:40 131 H 30 H 90/68 L 93 08/17/21 04:35 130 H 31 H 100/67 91 08/17/21 04:30 130 H 31 H 113/84 92 08/17/21 04:25 126 H 30 H 88/65 L 92 08/17/21 04:20 125 H 30 H 98/64 L 92 08/17/21 03:40 129 H 32 H 90 08/17/21 03:10 125 H 26 H 106/78 90 08/17/21 03:05 125 H 30 H 86/67 L 90 08/17/21 03:00 125 H 30 H 95/69 L 90 08/17/21 02:55 126 H 26 H 98/75 L 89 L 08/17/21 02:50 128 H 33 H 105/81 88 L 08/17/21 02:45 125 H 30 H 112/65 90 08/17/21 02:40 125 H 26 H 103/69 90 08/17/21 02:35 124 H 30 H 100/66 90 08/17/21 02:30 126 H 30 H 90/69 L 90 08/17/21 02:25 124 H 26 H 103/64 90 08/17/21 02:20 91/71 L 08/17/21 02:15 125 H 30 H 98/73 L 89 L 08/17/21 02:10 125 H 26 H 101/71 90 08/17/21 02:05 125 H 30 H 100/74 90 08/17/21 02:00 124 H 30 H 108/74 90 08/17/21 01:55 124 H 26 H 97/70 L 89 L 08/17/21 01:50 126 H 30 H 93/70 L 89 L 08/17/21 01:45 125 H 31 H 85/60 L 89 L 08/17/21 01:40 127 H 26 H 107/60 89 L 08/17/21 01:35 126 H 30 H 101/65 90 08/17/21 01:30 127 H 28 H 103/73 87 L 08/17/21 01:25 128 H 25 H 110/76 88 L 08/17/21 01:20 127 H 30 H 112/69 88 L 08/17/21 01:15 126 H 30 H 96/67 L 89 L 08/17/21 01:10 124 H 26 H 108/67 89 L 08/17/21 01:05 124 H 30 H 103/71 89 L 08/17/21 01:00 124 H 31 H 94/70 L 89 L 08/17/21 00:55 124 H 26 H 100/73 89 L 08/17/21 00:50 124 H 30 H 103/64 90 08/17/21 00:45 124 H 30 H 101/69 90 08/17/21 00:40 124 H 26 H 111/62 90 08/17/21 00:35 124 H 30 H 95/72 L 89 L 08/17/21 00:30 38.4 C H 124 H 30 H 95/64 L 08/17/21 00:25 124 H 32 H 98/72 L 90 08/17/21 00:20 123 H 30 H 104/71 90 08/17/21 00:15 123 H 30 H 109/74 89 L 08/17/21 00:10 122 H 31 H 101/67 89 L 08/17/21 00:05 123 H 30 H 101/66 88 L 08/17/21 00:00 123 H 30 H 103/49 L 89 L 08/16/21 23:55 123 H 30 H 102/63 89 L 08/16/21 23:50 123 H 30 H 97/66 L 89 L 08/16/21 23:45 124 H 30 H 87/60 L 89 L 08/16/21 23:40 124 H 30 H 112/62 89 L 08/16/21 23:35 123 H 29 H 102/71 88 L 08/16/21 23:31 124 H 30 H 83/63 L 88 L 08/16/21 23:30 123 H 30 H 80/62 L 88 L 08/16/21 23:25 125 H 30 H 93/61 L 87 L 08/16/21 23:20 123 H 31 H 95/69 L 85 L 08/16/21 23:15 127 H 30 H 108/61 85 L 08/16/21 23:10 127 H 30 H 95/73 L 84 L 08/16/21 23:05 127 H 30 H 96/69 L 85 L 08/16/21 23:00 128 H 30 H 94/76 L 85 L 08/16/21 22:55 126 H 30 H 87/73 L 84 L 08/16/21 22:50 127 H 30 H 104/73 85 L 08/16/21 22:45 126 H 30 H 117/65 85 L 08/16/21 22:40 125 H 31 H 102/77 85 L 08/16/21 22:35 123 H 31 H 132/78 85 L 08/16/21 22:30 121 H 30 H 107/70 86 L 08/16/21 22:25 119 H 32 H 91/75 L 85 L 08/16/21 22:20 121 H 32 H 106/72 88 L 08/16/21 22:15 119 H 28 H 113/72 88 L 08/16/21 22:11 120 H 31 H 88 L 08/16/21 21:35 119 H 23 117/70 91 08/16/21 21:30 119 H 23 117/75 91 08/16/21 21:25 119 H 22 114/82 92 08/16/21 21:20 120 H 22 122/73 92 08/16/21 21:15 118 H 22 126/76 92 08/16/21 21:10 117 H 21 114/75 92 08/16/21 21:05 117 H 21 120/77 93 08/16/21 21:00 118 H 21 117/75 93 08/16/21 20:55 116 H 21 117/71 93 08/16/21 20:50 119 H 22 113/73 93 08/16/21 20:45 117 H 20 99/68 L 93 08/16/21 20:40 116 H 20 110/64 93 08/16/21 20:36 38.3 C H 08/16/21 20:35 117 H 19 99/64 L 94 08/16/21 20:30 117 H 19 87/60 L 94 08/16/21 20:25 114 H 21 103/63 93 08/16/21 20:20 114 H 20 110/62 92 08/16/21 20:15 114 H 20 86/68 L 92 08/16/21 20:10 117 H 22 97/64 L 91 08/16/21 20:05 22 109/64 90 08/16/21 20:00 117 H 21 105/71 90 08/16/21 19:55 117 H 21 91/65 L 88 L Laboratory Results 08/17/21 04:12 08/17/21 04:12 Diagnostic Findings cxr today no significant change
[2021-08-17] MEDS: SENNOSIDES 8.8 MG/5 ML UDC PO SCH (09:13)
[2021-08-17] MEDS: DOCUSATE SODIUM SYRUP 100 MG/10 ML UDC PO SCH (09:13)
[2021-08-17] MEDS: POLYETHYLENE (MIRALAX) 17 GM PACK PO SCH (09:14)
[2021-08-17] MEDS: METOPROLOL TARTRATE 25 MG TAB PO SCH (09:14)
[2021-08-17 09:15] LABS: Partial Thromboplastin Ratio 3.5
--- NOTE | 2021-08-17 09:16 | Critical Care Progress Note ---
Date of Service August 17, 2021 Assessment & Plan (1) Acute respiratory failure with hypoxia: Plan: Reason Critically Ill: Acute hypoxic respiratory failure secondary to COVID-19 pneumonia PLAN: Neuro: Sedation -Propofol: transition to versed Analgesia -fentanyl -Goal RASS -1 Resp: Acute hypoxic respiratory failure secondary to COVID-19 pneumonia -Patient is finished prolonged steroid course -Bactrim discontinued secondary to acute kidney injury -Cannot exclude PJP however I consider this to be unlikely -Feel risks of Bactrim outweigh benefits given acute kidney injury and alternative treatment regimens have significant side effect profile as well -Consideration given to bronchoscopy however I feel this alla l lead to patient decompensation - P/F ratio <100 Pulmonary nodules -Outpatient follow-up with repeat imaging in 12 months Pneumomediastinum -Appears to have improved -Low PEEP as tolerated Pulmonary embolism -Heparin infusion CV: History of coronary artery disease -Continue antiplatelet: Aspirin -Continue Metformin succinate 25 mg by mouth daily -Hold lisinopril secondary to acute kidney injury Fluids/Renal: History gout -Holding allopurinol given acute kidney injury Acute kidney injury Hyperkalemia Lactic Acid acidosis Chronic kidney disease stage III Hyponatremia Hypermagnesemia -Mild Hyperphosphatemia -Nepro tube feed ID: Completed 5 days ceftaroline -restart ceftaroline for fever GI/Nutrition: Nutritional support -Holding feeds secondary to vasoactive pressor requirements Heme: Pulmonary embolism DVT prophylaxis: Heparin infusion -Check INR and fibrinogen levels -Supratherapeutic INR, fibrinogen okay I believe the patient is moving towards DIC Endocrine: ICU hyperglycemia protocol Type 2 diabetes mellitus Vascular access: PICC line right placed on 08/05 -We will discuss with family if continuing care will place central line and discontinue PICC line and consider arterial line for frequent blood draws Code Status: DNR in event of cardiac arrest Disposition: ICU Had extensive discussion with family at bedside, I do believe the patient is worsening and is experiencing multisystem organ failure. I am very concerned of a grim prognosis. (2) 2019 novel coronavirus-infected pneumonia (NCIP): Plan: Overall prognosis is quite poor. Had extensive discussion of risks and benefits of intubation and mechanical ventilation, tracheostomy and percutaneous gastrostomy tube and desires to proceed. - Reported that he is unable to have adequate p.o. intake and is exhibiting extreme fatigue. POD #1 from percutaneous tracheostomy (3) Acute hypoxemic respiratory failure: Plan: See above (4) Acute pulmonary embolism: Plan: Currently on a heparin drip. -Consider transition to warfarin likely after first trach change (5) NATHANIEL (acute kidney injury): (6) Hyponatremia: Plan: Discussed long-term goals, wishes in the event of cardiac arrest. Patient does not want heroic measures undertaken in event of cardiac arrest accordingly have made the patient DNR/DNI. He is comfortable with intubation, tracheostomy both for respiratory insufficiency and prolonged need for mechanical ventilation, bronchoscopy, PEG tube placement. Admission and Anticipated Discharge Date Admission Date: July 25, 2021 Supervising Physician Co-Signing Physician Notes Patient was discussed multidisciplinary rounds I have personally spent 60 minutes of critical care time in the direct management of this patient. This is a life/limb threatening event. This includes time spent evaluating patient, direct bedside care, chart review, placing orders, interpretation of diagnostic studies, discussion with consultants, patient, and/or family members regarding treatment decisions, as well as other required patient management activities. This time is exclusive of all separately billable procedures, and teaching time and separate from and in addition to any other critical care service time. Subjective Febrile, worsening clinical condition overall, requiring vasoactive medications to maintain blood pressure. On maximum ventilatory support. Review of Systems Review of Systems: Unobtainable due to endotracheal tube Physical Exam Physical Exam: General: Sedated. nontoxic. Skin: Warm, dry, Head: Atraumatic Ears, nose, mouth and throat: airway obscured by endotracheal tube Cardiovascular: decreased peripheral perfusion Respiratory: Ventilator settings reviewed Gastrointestinal: Non distended Musculoskeletal: No deformity Results & Data Results & Data ([facility]) Vital Signs (Past 12 Hours) Vital Signs Temp Pulse Resp BP Pulse Ox 08/17/21 09:00 131 H 30 H 84 L 08/17/21 08:55 133 H 31 H 112/64 79 L 08/17/21 08:50 132 H 28 H 89/42 L 82 L 08/17/21 08:45 131 H 31 H 83/43 L 84 L 08/17/21 08:41 136 H 31 H 81/52 L 08/17/21 08:35 136 H 29 H 84 L 08/17/21 08:30 136 H 31 H 78/66 L 87 L 08/17/21 08:25 139 H 26 H 110/80 89 L 08/17/21 08:20 137 H 29 H 114/71 90 08/17/21 08:15 136 H 26 H 128/82 94 08/17/21 08:11 135 H 31 H 112/73 94 08/17/21 08:00 131 H 30 H 95 08/17/21 07:50 130 H 30 H 123/75 95 08/17/21 07:45 129 H 29 H 105/77 94 08/17/21 07:40 131 H 28 H 83/60 L 90 08/17/21 07:35 134 H 30 H 91/72 L 91 08/17/21 07:30 132 H 28 H 119/76 91 08/17/21 07:25 135 H 25 H 109/74 90 08/17/21 07:20 139 H 33 H 114/73 90 08/17/21 07:19 145 H 32 H 91 08/17/21 07:15 114/70 08/17/21 07:10 107/81 08/17/21 07:05 132 H 26 H 130/87 93 08/17/21 07:00 131 H 31 H 126/84 93 08/17/21 06:55 130 H 32 H 129/79 92 08/17/21 06:50 128 H 30 H 111/81 94 08/17/21 06:45 125 H 30 H 110/70 94 08/17/21 06:20 131 H 33 H 116/81 93 08/17/21 06:15 130 H 31 H 124/74 93 08/17/21 06:10 128 H 30 H 114/78 93 08/17/21 06:05 128 H 23 115/79 92 08/17/21 06:00 124 H 30 H 125/75 93 08/17/21 05:55 124 H 30 H 123/75 93 08/17/21 05:50 123 H 30 H 112/78 93 08/17/21 05:45 123 H 30 H 116/77 94 08/17/21 05:41 123 H 30 H 104/66 94 08/17/21 05:35 121 H 30 H 98/67 L 95 08/17/21 05:30 120 H 30 H 117/69 95 08/17/21 05:25 121 H 30 H 111/75 95 08/17/21 05:20 123 H 30 H 118/73 96 08/17/21 05:15 124 H 30 H 107/70 96 03/17/22 05:10 126 H 30 H 129/76 96 08/17/21 05:05 127 H 28 H 103/71 94 08/17/21 05:00 39.3 C H 124 H 31 H 93/65 L 93 08/17/21 04:55 123 H 30 H 80/61 L 92 08/17/21 04:50 123 H 30 H 96/46 L 92 08/17/21 04:45 132 H 31 H 117/76 91 08/17/21 04:40 131 H 30 H 90/68 L 93 08/17/21 04:35 130 H 31 H 100/67 91 08/17/21 04:30 130 H 31 H 113/84 92 08/17/21 04:25 126 H 30 H 88/65 L 92 08/17/21 04:20 125 H 30 H 98/64 L 92 08/17/21 03:40 129 H 32 H 90 08/17/21 03:10 125 H 26 H 106/78 90 08/17/21 03:05 125 H 30 H 86/67 L 90 08/17/21 03:00 125 H 30 H 95/69 L 90 08/17/21 02:55 126 H 26 H 98/75 L 89 L 08/17/21 02:50 128 H 33 H 105/81 88 L 08/17/21 02:45 125 H 30 H 112/65 90 08/17/21 02:40 125 H 26 H 103/69 90 08/17/21 02:35 124 H 30 H 100/66 90 08/17/21 02:30 126 H 30 H 90/69 L 90 08/17/21 02:25 124 H 26 H 103/64 90 08/17/21 02:20 91/71 L 08/17/21 02:15 125 H 30 H 98/73 L 89 L 08/17/21 02:10 125 H 26 H 101/71 90 08/17/21 02:05 125 H 30 H 100/74 90 08/17/21 02:00 124 H 30 H 108/74 90 08/17/21 01:55 124 H 26 H 97/70 L 89 L 08/17/21 01:50 126 H 30 H 93/70 L 89 L 08/17/21 01:45 125 H 31 H 85/60 L 89 L 08/17/21 01:40 127 H 26 H 107/60 89 L 08/17/21 01:35 126 H 30 H 101/65 90 08/17/21 01:30 127 H 28 H 103/73 87 L 08/17/21 01:25 128 H 25 H 110/76 88 L 08/17/21 01:20 127 H 30 H 112/69 88 L 08/17/21 01:15 126 H 30 H 96/67 L 89 L 08/17/21 01:10 124 H 26 H 108/67 89 L 08/17/21 01:05 124 H 30 H 103/71 89 L 08/17/21 01:00 124 H 31 H 94/70 L 89 L 08/17/21 00:55 124 H 26 H 100/73 89 L 08/17/21 00:50 124 H 30 H 103/64 90 08/17/21 00:45 124 H 30 H 101/69 90 08/17/21 00:40 124 H 26 H 111/62 90 08/17/21 00:35 124 H 30 H 95/72 L 89 L 08/17/21 00:30 38.4 C H 124 H 30 H 95/64 L 08/17/21 00:25 124 H 32 H 98/72 L 90 08/17/21 00:20 123 H 30 H 104/71 90 08/17/21 00:15 123 H 30 H 109/74 89 L 08/17/21 00:10 122 H 31 H 101/67 89 L 08/17/21 00:05 123 H 30 H 101/66 88 L 08/17/21 00:00 123 H 30 H 103/49 L 89 L 08/16/21 23:55 123 H 30 H 102/63 89 L 08/16/21 23:50 123 H 30 H 97/66 L 89 L 08/16/21 23:45 124 H 30 H 87/60 L 89 L 08/16/21 23:40 124 H 30 H 112/62 89 L 08/16/21 23:35 123 H 29 H 102/71 88 L 08/16/21 23:31 124 H 30 H 83/63 L 88 L 08/16/21 23:30 123 H 30 H 80/62 L 88 L 08/16/21 23:25 125 H 30 H 93/61 L 87 L 08/16/21 23:20 123 H 31 H 95/69 L 85 L 08/16/21 23:15 127 H 30 H 108/61 85 L 08/16/21 23:10 127 H 30 H 95/73 L 84 L 08/16/21 23:05 127 H 30 H 96/69 L 85 L 08/16/21 23:00 128 H 30 H 94/76 L 85 L 08/16/21 22:55 126 H 30 H 87/73 L 84 L 08/16/21 22:50 127 H 30 H 104/73 85 L 08/16/21 22:45 126 H 30 H 117/65 85 L 08/16/21 22:40 125 H 31 H 102/77 85 L 08/16/21 22:35 123 H 31 H 132/78 85 L 08/16/21 22:30 121 H 30 H 107/70 86 L 08/16/21 22:25 119 H 32 H 91/75 L 85 L 08/16/21 22:20 121 H 32 H 106/72 88 L 08/16/21 22:15 119 H 28 H 113/72 88 L 08/16/21 22:11 120 H 31 H 88 L 08/16/21 21:35 119 H 23 117/70 91 08/16/21 21:30 119 H 23 117/75 91 08/16/21 21:25 119 H 22 114/82 92 08/16/21 21:20 120 H 22 122/73 92 08/16/21 21:15 118 H 22 126/76 92 Critical Care Results & Data Vital Signs (Past 12 Hours) Vital Signs Temp Pulse Resp BP Pulse Ox 08/17/21 09:00 131 H 30 H 84 L 08/17/21 08:55 133 H 31 H 112/64 79 L 08/17/21 08:50 132 H 28 H 89/42 L 82 L 08/17/21 08:45 131 H 31 H 83/43 L 84 L 08/17/21 08:41 136 H 31 H 81/52 L 08/17/21 08:35 136 H 29 H 84 L 08/17/21 08:30 136 H 31 H 78/66 L 87 L 08/17/21 08:25 139 H 26 H 110/80 89 L 08/17/21 08:20 137 H 29 H 114/71 90 08/17/21 08:15 136 H 26 H 128/82 94 08/17/21 08:11 135 H 31 H 112/73 94 08/17/21 08:00 131 H 30 H 95 08/17/21 07:50 130 H 30 H 123/75 95 08/17/21 07:45 129 H 29 H 105/77 94 08/17/21 07:40 131 H 28 H 83/60 L 90 08/17/21 07:35 134 H 30 H 91/72 L 91 08/17/21 07:30 132 H 28 H 119/76 91 08/17/21 07:25 135 H 25 H 109/74 90 08/17/21 07:20 139 H 33 H 114/73 90 08/17/21 07:19 145 H 32 H 91 08/17/21 07:15 114/70 08/17/21 07:10 107/81 08/17/21 07:05 132 H 26 H 130/87 93 08/17/21 07:00 131 H 31 H 126/84 93 08/17/21 06:55 130 H 32 H 129/79 92 08/17/21 06:50 128 H 30 H 111/81 94 08/17/21 06:45 125 H 30 H 110/70 94 08/17/21 06:20 131 H 33 H 116/81 93 08/17/21 06:15 130 H 31 H 124/74 93 08/17/21 06:10 128 H 30 H 114/78 93 08/17/21 06:05 128 H 23 115/79 92 08/17/21 06:00 124 H 30 H 125/75 93 08/17/21 05:55 124 H 30 H 123/75 93 08/17/21 05:50 123 H 30 H 112/78 93 08/17/21 05:45 123 H 30 H 116/77 94 08/17/21 05:41 123 H 30 H 104/66 94 08/17/21 05:35 121 H 30 H 98/67 L 95 08/17/21 05:30 120 H 30 H 117/69 95 08/17/21 05:25 121 H 30 H 111/75 95 08/17/21 05:20 123 H 30 H 118/73 96 08/17/21 05:15 124 H 30 H 107/70 96 08/17/21 05:10 126 H 30 H 129/76 96 08/17/21 05:05 127 H 28 H 103/71 94 08/17/21 05:00 39.3 C H 124 H 31 H 93/65 L 93 08/17/21 04:55 123 H 30 H 80/61 L 92 08/17/21 04:50 123 H 30 H 96/46 L 92 08/17/21 04:45 132 H 31 H 117/76 91 08/17/21 04:40 131 H 30 H 90/68 L 93 08/17/21 04:35 130 H 31 H 100/67 91 08/17/21 04:30 130 H 31 H 113/84 92 08/17/21 04:25 126 H 30 H 88/65 L 92 08/17/21 04:20 125 H 30 H 98/64 L 92 08/17/21 03:40 129 H 32 H 90 08/17/21 03:10 125 H 26 H 106/78 90 08/17/21 03:05 125 H 30 H 86/67 L 90 08/17/21 03:00 125 H 30 H 95/69 L 90 08/17/21 02:55 126 H 26 H 98/75 L 89 L 08/17/21 02:50 128 H 33 H 105/81 88 L 08/17/21 02:45 125 H 30 H 112/65 90 08/17/21 02:40 125 H 26 H 103/69 90 08/17/21 02:35 124 H 30 H 100/66 90 08/17/21 02:30 126 H 30 H 90/69 L 90 08/17/21 02:25 124 H 26 H 103/64 90 08/17/21 02:20 91/71 L 08/17/21 02:15 125 H 30 H 98/73 L 89 L 08/17/21 02:10 125 H 26 H 101/71 90 08/17/21 02:05 125 H 30 H 100/74 90 08/17/21 02:00 124 H 30 H 108/74 90 08/17/21 01:55 124 H 26 H 97/70 L 89 L 08/17/21 01:50 126 H 30 H 93/70 L 89 L 08/17/21 01:45 125 H 31 H 85/60 L 89 L 08/17/21 01:40 127 H 26 H 107/60 89 L 08/17/21 01:35 126 H 30 H 101/65 90 08/17/21 01:30 127 H 28 H 103/73 87 L 08/17/21 01:25 128 H 25 H 110/76 88 L 08/17/21 01:20 127 H 30 H 112/69 88 L 08/17/21 01:15 126 H 30 H 96/67 L 89 L 08/17/21 01:10 124 H 26 H 108/67 89 L 08/17/21 01:05 124 H 30 H 103/71 89 L 08/17/21 01:00 124 H 31 H 94/70 L 89 L 08/17/21 00:55 124 H 26 H 100/73 89 L 08/17/21 00:50 124 H 30 H 103/64 90 08/17/21 00:45 124 H 30 H 101/69 90 08/17/21 00:40 124 H 26 H 111/62 90 08/17/21 00:35 124 H 30 H 95/72 L 89 L 08/17/21 00:30 38.4 C H 124 H 30 H 95/64 L 08/17/21 00:25 124 H 32 H 98/72 L 90 08/17/21 00:20 123 H 30 H 104/71 90 08/17/21 00:15 123 H 30 H 109/74 89 L 08/17/21 00:10 122 H 31 H 101/67 89 L 08/17/21 00:05 123 H 30 H 101/66 88 L 08/17/21 00:00 123 H 30 H 103/49 L 89 L 08/16/21 23:55 123 H 30 H 102/63 89 L 08/16/21 23:50 123 H 30 H 97/66 L 89 L 08/16/21 23:45 124 H 30 H 87/60 L 89 L 08/16/21 23:40 124 H 30 H 112/62 89 L 08/16/21 23:35 123 H 29 H 102/71 88 L 08/16/21 23:31 124 H 30 H 83/63 L 88 L 08/16/21 23:30 123 H 30 H 80/62 L 88 L 08/16/21 23:25 125 H 30 H 93/61 L 87 L 08/16/21 23:20 123 H 31 H 95/69 L 85 L 08/16/21 23:15 127 H 30 H 108/61 85 L 08/16/21 23:10 127 H 30 H 95/73 L 84 L 08/16/21 23:05 127 H 30 H 96/69 L 85 L 08/16/21 23:00 128 H 30 H 94/76 L 85 L 08/16/21 22:55 126 H 30 H 87/73 L 84 L 08/16/21 22:50 127 H 30 H 104/73 85 L 08/16/21 22:45 126 H 30 H 117/65 85 L 08/16/21 22:40 125 H 31 H 102/77 85 L 08/16/21 22:35 123 H 31 H 132/78 85 L 08/16/21 22:30 121 H 30 H 107/70 86 L 08/16/21 22:25 119 H 32 H 91/75 L 85 L 08/16/21 22:20 121 H 32 H 106/72 88 L 08/16/21 22:15 119 H 28 H 113/72 88 L 08/16/21 22:11 120 H 31 H 88 L 08/16/21 21:35 119 H 23 117/70 91 08/16/21 21:30 119 H 23 117/75 91 08/16/21 21:25 119 H 22 114/82 92 08/16/21 21:20 120 H 22 122/73 92 Lab & Micro Results (Past 24 Hours) RBC 3.47 M/uL (4.7-6.1) L 08/17/21 WBC 17.47 K/uL (4.8-10.8) H 08/17/21 Hgb 11.1 g/dL (14.0-18.0) L 08/17/21 Hct 33.0 % (42-52) L 08/17/21 MCV 95.1 fL (80-100) 08/17/21 MCH 32.0 pg (25-34) 08/17/21 MCHC 33.6 g/dL (32-36) 08/17/21 RDW Standard Deviation 57.6 fL (36.4-46.3) H 08/17/21 RDW Coefficient of Variation 18.3 % (11.5-14.5) H 08/17/21 Plt Count 182 K/uL (130-400) 08/17/21 MPV 9.9 fL (7.4-10.4) 08/17/21 Nucleated Red Blood Cells % (auto) 4.0 % 08/17/21 Nucleated RBC Absolute Count (auto) 0.70 K/uL (0-0) H 08/17/21 Neutrophils (%) (Auto) 91.8 % 08/17/21 Lymphocytes (%) (Auto) 2.3 % 08/17/21 Monocytes # (Auto) 0.89 K/uL (0.11-0.59) H 08/17/21 Eosinophils # (Auto) 0.00 K/uL (0-0.5) 08/17/21 Immature Granulocyte % (Auto) 0.7 % 08/17/21 Neutrophils # (Auto) 16.03 K/uL (1.4-6.5) H 08/17/21 Lymphocytes # (Auto) 0.41 K/uL (1.2-3.4) L 08/17/21 Monocytes # (Auto) 0.89 K/uL (0.11-0.59) H 08/17/21 Eosinophils # (Auto) 0.00 K/uL (0-0.5) 08/17/21 Basophils # (Auto) 0.01 K/uL (0-0.2) 08/17/21 Immature Granulocyte # (Auto) 0.13 K/uL (0.00-0.02) H 08/17/21 Polychromasia 1+ 08/17/21 Na 124 mmol/L (136-145) L 08/17/21 K 5.4 mmol/L (3.5-5.1) H 08/17/21 Cl 89 mmol/L (98-107) L 08/17/21 CO2 26 mmol/L (21-32) 08/17/21 Anion Gap 9 (3-11) 08/17/21 BUN 94 mg/dl (6-23) H 08/17/21 Creatinine 2.42 mg/dl (0.6-1.4) H 08/17/21 Estimated GFR ( Amer) 32.9 ml/min 08/17/21 Estimated GFR (Non-Af Amer) 28.4 ml/min 08/17/21 BUN/Creatinine Ratio 38.8 (10-20) H 08/17/21 Glu 123 mg/dl (70-99(Fasting)) H 08/17/21 Ca 8.1 mg/dl (8.5-10.1) L 08/17/21 Phosphorus Level 5.4 mg/dl (2.5-4.9) H 08/17/21 Mg 3.0 mg/dl (1.7-2.4) H 08/17/21 04:12 08/17/21 Calcium Level 8.1 mg/dl (8.5-10.1) L 08/17/21 04:12 08/17/21 Prothromb Time International Ratio 3.6 (0.9-1.1) H 08/17/21 08:36 08/17/21 Renny Test NA 08/17/21 15:13 08/17/21 Diagnostic Findings (Past 24 Hours) Chest X-Ray 08/16/21 14:50 SINGLE VIEW CHEST CLINICAL HISTORY: Tracheostomy placement. FINDINGS: An AP, portable, upright chest radiograph is compared to study performed earlier the same day 08/16/2021 and correlated with chest CT dated 08/11/2021. The examination is degraded by portable technique and patient rotation. An endotracheal tube has been removed and a tracheostomy has been placed. An enteric tube and A right PICC line are unchanged in position. Trace pneumomediastinum persists. The heart is top normal for projection. Multifocal bilateral airspace opacities are unchanged. No large pleural effusion is identified. There is likely trace residual right apical pneumothorax. The bony thorax is grossly intact. IMPRESSION: 1. An endotracheal tube has been removed and a tracheostomy has been placed. 2. Multifocal bilateral airspace opacities have not significantly changed from today's earlier examination. 3. Trace pneumomediastinum persists and there is likely trace residual right apical pneumothorax. ACT 112: Negative or not required by law. Electronically signed by: Jeremi Dodd M.D. 08/16/2021 3:29 PM Chest X-Ray 08/16/21 19:46 XR chest 1V portable HISTORY: 60 years-old Male resp failure acute respiratory failure COMPARISON: Chest radiograph of same day at 2:38 PM TECHNIQUE: Portable AP view of the chest FINDINGS: Cardiac silhouette is enlarged. Unchanged positioning of the tracheostomy cannula, right-sided PICC and feeding tubes. No large pleural effusion. Trace right pneumothorax suspected. Persistent pneumomediastinum. Interstitial coarsening with patchy bilateral airspace opacities appear stable from prior. Bones appear grossly intact. IMPRESSION: 1. Lines and tubes as above. 2. Stable mixed interstitial and alveolar opacities. 3. Pneumomediastinum with suspected trace right apical pneumothorax redemonstrated ACT 112: Negative or not required by law. The above report was generated using voice recognition software. It may contain grammatical, syntax or spelling errors. Electronically signed by: Jewel Ribera M.D. 08/16/2021 8:13 PM Chest X-Ray 08/17/21 07:00 SINGLE VIEW CHEST CLINICAL HISTORY: Respiratory failure FINDINGS: An AP, portable, upright chest radiograph is compared to studies dated 08/16/2021 and correlated with chest CT dated 08/11/2021. The examination is degraded by portable technique and patient rotation. A tracheostomy, enteric tube, and A right PICC line are unchanged in position. Trace pneumomediastinum persists. The heart is top normal for projection. Multifocal bilateral airspace opacities are unchanged. No large pleural effusion is identified. No residual pneumothorax is clearly seen. The bony thorax is grossly intact. IMPRESSION: 1. Stable lines and tubes. 2. Multifocal bilateral airspace opacities have not significantly changed from yesterday's examinations. 3. Trace pneumomediastinum persists. 4. The trace right apical pneumothorax seen previously is not clearly visualized. ACT 112: Negative or not required by law. Electronically signed by: Jeremi Dodd M.D. 08/17/2021 7:16 AM I & O Totals 24 Hours 08/16/21 08/17/21 08/18/21 06:59 06:59 06:59 Intake Total 167.976 / 403.228 8506.983 / 3384.983 555.225 / 555.225 Output Total 1075 / 1075 1055 / 1055 Balance -907.024 / -231.796 7030.983 / 2329.983 555.225 / 555.225 Cumulative 07/25/21 11:19 thru 08/17/21 08:55 Intake Total 56827.754 Output Total 00297 Balance 1628.754 RT Ventilator Mngmt (Last Documented) Ventilator Ordered Settings Ventilator Support Mode Assist Control 08/17/21 07:19 Respiratory Rate 30 08/17/21 09:00 Ventilator Tidal Volume 400 08/17/21 07:19 Setting Minute Ventilation 12.2 08/17/21 07:19 Positive End Expiratory 3 08/17/21 07:19 Pressure Fraction of Inspired Oxygen 100 08/17/21 07:19 Machine Comment PEEP decreased to +3 post ABG, 08/17/21 03:40 did not increase PaO2 & had inc. Plats Ventilator - PT Measurements Respiratory Rate 30 Exhaled Tidal Volume 380 Minute Ventilation 12.2 Peak Inspiratory Airway 27 Pressure Plateau Pressure 24 Respiratory Cycle Inspiratory: 1:1.5 Expiratory Ratio Inspiratory Phase Time 0.8 End-Tidal CO2 33 Static Lung Compliance 18.10 Dynamic Lung Compliance 15.83 Normal Static Lung Compliance 44.00 Patient Measurements Comment pt bucking vent, causing high PIPs. Pt breathing ~10 bpm over vent. [employer] James aware. More sedation given. Coding Level of Care Code Critical Care 1st 30-74 mins Diagnoses Acute respiratory failure with hypoxia J96.01 2019 novel coronavirus-infected pneumonia (NCIP) U07.1; J12.82 Acute hypoxemic respiratory failure J96.01 Acute pulmonary embolism I26.99 NATHANIEL (acute kidney injury) N17.9 Hyponatremia E87.1
[2021-08-17 09:20] LABS: Partial Thromboplastin Time 95.5 Seconds (21.0-31.0)
[2021-08-17] MEDS: HEPARIN SODIUM/DEXTROSE 25,000 UNITS/500 ML BAG IV SCH (09:21)
[2021-08-17] MEDS: dexAMETHasone 2 MG in SYRINGE 0 ML IV SCH (09:27)
[2021-08-17] MEDS: ASPIRIN 81 MG CHEW PO SCH (09:27)
[2021-08-17] MEDS: LANSOPRAZOLE 30 MG SOLTAB PO SCH (09:28)
[2021-08-17] MEDS ORDERED: MIDAZOLAM BOLUS FROM BAG IV PRN (09:46)
[2021-08-17] MEDS ORDERED: STAT IV Infusion **Titration per Protocol STA ×2 (09:46→13:34)
[2021-08-17] MEDS ORDERED: CEFTAROLINE FOSAMIL ACETATE 600 MG in SODIUM CHLORIDE 0.9% 250 ML IV STA (09:49)
[2021-08-17] MEDS ORDERED: MIDAZOLAM HCL 125 MG/250 ML BAG IV SCH (10:00)
[2021-08-17] MEDS ORDERED: PIPERACILLIN/TAZOBACTAM 3.375 GM in DEXTROSE 5% 100 ML IV SCH (10:00)
[2021-08-17 10:14] LABS: Fibrinogen 628 mg/dl (184-400); INR 3.6 (0.9-1.1); Prothrombin Time 35.5 Seconds (9.0-12.0)
[2021-08-17] MEDS ORDERED: PANTOprazole 40 MG in SYRINGE 0 ML IV SCH (11:00)
[2021-08-17 11:11] LABS: Urea Nitrogen, Random Urine 1191 mg/dL
[2021-08-17] MEDS ORDERED: MAX Conc 128mcg/mL; 32mg in 250mL IV SCH (11:15)
[2021-08-17] MEDS ORDERED: HYDROCORTISONE SOD 100 MG in SYRINGE 0 ML IV SCH (13:00)
[2021-08-17] MEDS: fentaNYL citrate 2,500 MCG/250 ML BAG IV SCH ×2 (13:14→15:50)
[2021-08-17] MEDS ORDERED: EPINEPHrine/NSS 4 MG/254 ML BAG IV SCH (13:45)
[2021-08-17] MEDS ORDERED: OPTIRAY 320 100ml IV ONE (14:50)
--- NOTE | 2021-08-17 15:03 | Procedure Note ---
Procedure Note Date of Service August 17, 2021 Note Procedure date: Noted above Procedure: Central venous access Pre-procedure indication: Need for vasoactive medication administration Post-procedure Diagnosis: same as above Prior to Procedure: Informed Consent: The risks, benefits, indications, potential complications, and alternatives were explained to the patient's family and informed consent obtained. Attending Staff: Lisa Myers DO Resident/APC: Not applicable Skin Prep: Chlorhexidine Anesthesia: 4 mL 1% lidocaine without epinephrine The identity of the patient was confirmed and a bedside time out was performed. Description of Procedure: After sterile prep and sterile drape utilizing standard sterile technique the superficial skin of the right internal jugular area was anesthetized. The target vessel was identified and entered with an 18- gauge needle. Dark venous blood return was noted. A guidewire was inserted through the needle and into the vessel. The needle was withdrawn and a skin quin was made. A tissue dilator was advanced via Seldinger technique and removed. A triple lumen catheter was inserted via Seldinger technique and the guidewire removed. All ports bryan and flushed easily. A Biopatch was placed, and the catheter was secured via commercial securement device. A sterile dressing was then applied. Complications: None Estimated blood loss: Trace Patient tolerated the procedure well. Procedure Date: Noted Above Procedure: Procedural Ultrasound Indication: Central venous access Attending: Lisa Myers DO Resident/Physician Scale Tester: Not applicable Artery visualized: Yes Vein visualized: Yes Compressible Vein: Yes Vein patent: Yes Guidewire or Short Catheter seen in vein prior to dilation: Yes Line confirmed in Vein with ultrasound: Yes Lung Sliding on side of attempt (if applicable): NA If no lung sliding or not obtained has CXR been ordered: Yes Impression: Successful central venous access placement Images obtained are saved for permanent record Coding CPT Codes Tubes, Drains, and Vasc Access - Tubes, Drains, and Vasc Access: [id number] Insert PICVAD cath 5 YRS> ([id number]) Tubes, Drains, and Vasc Access - Tubes, Drains, and Vasc Access: [id number] Ultrasound Guidance For Vascular ([id number]) [facility] [place] Procedure Codes (Charges) Tubes, Drains, and Vasc Access Procedure 1: Tubes, Drains, and Vasc Access: [id number] Insert PICVAD cath 5 YRS> Procedure 2: Tubes, Drains, and Vasc Access: [id number] Ultrasound Guidance For Vascular
--- NOTE | 2021-08-17 15:06 | Procedure Note ---
Procedure Note Date of Service August 17, 2021 Note Procedure date: Noted above Procedure: Radial artery cannulation Pre-procedure Diagnosis: Need for invasive monitoring, hypotension/frequent blood draws Post-procedure Diagnosis: same as above Prior to Procedure: Informed Consent: The risks, benefits, indications, potential complications, and alternatives were explained to the patient's family and informed consent obtained. Attending Staff: Lisa Myers DO Skin Prep: Chlorhexidine Anesthesia: 3 mL 1% lidocaine without epinephrine The identity of the patient was confirmed and a bedside time out was performed. Description of Procedure: After sterile prep and sterile drape utilizing standard sterile technique the superficial skin of the right radial artery was anesthetized. The target artery was identified via dynamic ultrasound guidance and entered with a 20-gauge arrow Angiocath. Pulsatile bright red blood return was noted. Via modified Seldinger technique the self-contained guidewire was advanced and the Angiocath advanced over the guidewire. The guidewire was removed and brisk arterial blood return was noted. The pressure monitor was connected, and the arterial line was secured via commercial securement device. A sterile dressing was then applied. Complications: None Estimated blood loss: Trace Patient tolerated the procedure well. Coding CPT Codes Tubes, Drains, and Vasc Access - Tubes, Drains, and Vasc Access: [id number] Insertion Catheter, Artery ([id number]) [facility] [place] Codes (Charges) Tubes, Drains, and Vasc Access Procedure 1: Tubes, Drains, and Vasc Access: [id number] Insertion Catheter, Artery
--- NOTE | 2021-08-17 15:23 | XRay Report ---
XR chest 1V portable CLINICAL HISTORY: R IJ CVC Placement Verification COMPARISON STUDY: Chest radiograph performed earlier today. FINDINGS: Tracheostomy tube is in place. Tip of feeding tube projects over the gastric antrum. Right PICC is in place. Tip of right internal jugular central line projects over the right atrium. Tip is s lightly obscured by overlying leads. No pneumothorax is identified. Cardiomediastinal silhouette is s table. Bilateral opacities and interstitial thickening are similar to prior exam. IMPRESSION: 1. No pneumothorax placement of a right internal jugular central line. Catheter tip projects over the right atrium. 2. No change in bilateral airspace opacities and interstitial thickening. ACT 112: Negative or not required by law. Electronically signed by: Benjamin Gamez M.D. 08/17/2021 3:22 PM
[2021-08-17] MEDS ORDERED: SODIUM BICARB 8.4% INJ 50 MEQ/50 ML SYR IV STA (15:45)
[2021-08-17 16:00] LABS: Partial Thromboplastin Time 82.7 Seconds (21.0-31.0)
[2021-08-17] MEDS: INSULIN REGULAR 250 UNITS in SODIUM CHLORIDE 0.9% 247.5 ML IV SCH (16:07)
[2021-08-17 16:23] LABS: iSTAT Arterial Blood Gas HCO3 24 meg/L (19-24); iSTAT Arterial Blood Gas pCO2 62 mmHg (35-46); iSTAT Arterial Blood Gas pO2 66 mmHg (80-95); iSTAT Carbon Dioxide 26 mmol/L (24-31); iSTAT FiO2 100 %; iSTAT Site Art Line
[2021-08-17] MEDS ORDERED: [UNRECOGNIZED DRUG - OTHER] IV SCH (17:00)
[2021-08-17] MEDS ORDERED: MAX IV SCH (17:00)
[2021-08-17] MEDS ORDERED: ONDANSETRON 4 MG OD TAB SL PRN (17:39)
[2021-08-17] MEDS ORDERED: ONDANSETRON INJ 2 MG/ML 2 ML VIAL IV PRN (17:39)
[2021-08-17] MEDS ORDERED: LORazepam 2 MG/1 ML VIAL IV PRN (17:39)
[2021-08-17] MEDS ORDERED: LORazepam 0.5 MG TAB PO PRN (17:39)
[2021-08-17] MEDS ORDERED: PIPERACILLIN/TAZOBACTAM 4.5 GM in 0.9 % SODIUM CHLORIDE 100 ML IV SCH (18:00)
[2021-08-17] MEDS ORDERED: CEFTAROLINE FOSAMIL ACETATE 400 MG in SODIUM CHLORIDE 0.9% 250 ML IV SCH (18:00)
--- NOTE | 2021-08-17 18:39 | Hospitalist Progress Note ---
Date of Service August 17, 2021 Assessment & Plan (1) Unresponsiveness: (2) Acute respiratory failure with hypoxia: (3) Acute pulmonary embolism: (4) DVT of lower extremity, bilateral: (5) 2019 novel coronavirus-infected pneumonia (NCIP): (6) Hematoma: (7) Sinus tachycardia: (8) Hyponatremia: (9) Diabetes mellitus: (10) CAD (coronary artery disease): (11) HTN (hypertension): (12) DVT prophylaxis: Plan: 60 year old male who initially presented with COVID 19 PNA with hypoxic respiratory failure on high flow, complicated by acute bilateral PE, bilateral DVT further complicated by spontaneous LUE hematoma while on heparin drip for PE/DV further complicated by barotrauma with subcutaneous emphysema and is s/p tracheostomy and mechanical ventilation, now unresponsive, hypotensive and febrile Comfort measure status- Patient has worsening hypotension and on 3 pressors. Also Tmax of 39.5. Unresponsive. Guarded prognosis. Family has opted for comfort measures status and discontinue life sustaining efforts. His other medical problems during the hospital stay are as below: Acute respiratory failure with hypoxia due to COVID 19 PNA and acute PE Subcutaneous emphysema - Transferred in and out of ICU multiple times. On high flow alternating with BIPAP, then had barotrauma. Had tracheostomy yesterday and on mechanical ventilation. Acute pulmonary embolism (RLL segmental/subsegmental PE) - on CTA chest 08/03, not noted in repeat CTA chest 08/11 - Patient was on heparin drip DVT bilateral distal lower extremity- US 08/06 shows occlusive thrombus within bilateral calf veins but no proximal thrombus. Anticoagulation as above COVID 19 PNA- S/p remdesivir course; s/p steroid course Acute LUE hematoma on heparin drip for PE/DVT- seen by ortho, improved with expectant management, no compartment syndrome. Acute blood loss anemia due to above. Received multiple PRBC transfusions DM-2 with steroid induced hyperglycemia- Insulin managed by Glycemic pharmacist NATHANIEL on CKD stage 3- Resolved then recurred. Was being managed by nephrology HTN- recently hypotensive and on multiple pressors H/o CAD with stents. On ASA, metoprolol. Dispo- Family opted for comfort measures status. Guarded prognosis Admission and Anticipated Discharge Date Admission Date: July 25, 2021 Subjective febrile with Tmax of 39.5, unresponsive, requiring 3 pressor support. I was updated by price checker that family has decided to proceed with comfort measures and discontinue life sustaining efforts. Family at bedside. Physical Exam Physical Exam: General: sedated,s/p tracheostomy on vent Chest: Fair breath sounds anteriorly CVS: Tachycardic, normal heart sounds Abdomen: Soft, not distended, bowel sounds present Neuro: sedated, unresponsive Extremities: No cyanosis, clubbing LUE: Left upper extremity swollen Results & Data Results & Data ([facility]) Vital Signs (Past 12 Hours) Vital Signs Temp Pulse Resp BP Pulse Ox 08/17/21 17:30 137 H 32 H 90 08/17/21 17:15 136 H 33 H 89 L 08/17/21 17:00 136 H 32 H 92 08/17/21 16:45 135 H 32 H 90 08/17/21 16:30 136 H 32 H 91 08/17/21 16:15 137 H 32 H 92 08/17/21 16:00 39.5 C H 137 H 32 H 91 08/17/21 15:45 137 H 32 H 91 08/17/21 15:38 32 H 08/17/21 15:30 138 H 34 H 90 08/17/21 15:15 138 H 30 H 88 L 08/17/21 15:00 137 H 30 H 86 L 08/17/21 14:48 137 H 31 H 91 08/17/21 14:45 140 H 30 H 87 L 08/17/21 14:30 140 H 33 H 92 08/17/21 14:15 134 H 31 H 91 08/17/21 14:05 135 H 30 H 111/70 92 08/17/21 14:03 135 H 30 H 107/69 92 08/17/21 14:00 135 H 31 H 99/75 L 91 08/17/21 13:58 133 H 30 H 106/72 92 08/17/21 13:55 134 H 30 H 55/41 L 91 08/17/21 13:52 132 H 33 H 90/60 L 91 08/17/21 13:50 131 H 30 H 53/30 L 91 08/17/21 13:45 130 H 30 H 87/51 L 93 08/17/21 13:40 132 H 31 H 95/55 L 91 08/17/21 13:35 132 H 30 H 97/57 L 91 08/17/21 13:30 132 H 30 H 75/50 L 91 08/17/21 13:25 132 H 31 H 90/58 L 91 08/17/21 13:20 132 H 30 H 101/61 91 08/17/21 13:15 131 H 30 H 87/65 L 90 08/17/21 13:10 131 H 30 H 87/63 L 90 08/17/21 13:05 39.6 C H 132 H 30 H 80/54 L 89 L 08/17/21 13:00 130 H 30 H 86/60 L 89 L 08/17/21 12:55 132 H 30 H 96/51 L 88 L 08/17/21 12:50 133 H 30 H 85/56 L 89 L 08/17/21 12:45 131 H 30 H 87/61 L 88 L 08/17/21 12:40 133 H 30 H 91/59 L 88 L 08/17/21 12:35 133 H 30 H 85/64 L 89 L 08/17/21 12:30 133 H 30 H 98/53 L 90 08/17/21 12:25 132 H 30 H 90 08/17/21 12:10 134 H 30 H 94/56 L 93 08/17/21 12:05 134 H 30 H 107/58 L 93 08/17/21 12:00 133 H 31 H 106/62 93 08/17/21 11:55 133 H 30 H 114/59 L 92 08/17/21 11:50 133 H 30 H 99/57 L 90 08/17/21 11:45 133 H 30 H 114/72 91 08/17/21 11:40 133 H 31 H 100/58 L 91 08/17/21 11:35 133 H 30 H 107/61 91 08/17/21 11:30 133 H 30 H 94/72 L 91 08/17/21 11:29 133 H 31 H 91 08/17/21 11:25 134 H 30 H 110/60 91 08/17/21 11:20 134 H 30 H 112/59 L 91 08/17/21 11:15 134 H 30 H 108/59 L 90 08/17/21 11:10 135 H 31 H 94/52 L 92 08/17/21 11:05 135 H 30 H 111/66 93 08/17/21 11:00 135 H 30 H 104/61 93 08/17/21 10:55 135 H 31 H 93/57 L 93 08/17/21 10:54 39.6 C H 08/17/21 10:50 135 H 30 H 105/44 L 93 08/17/21 10:45 135 H 30 H 107/59 L 95 08/17/21 10:40 134 H 30 H 97/59 L 96 08/17/21 10:35 134 H 30 H 101/64 96 08/17/21 10:30 135 H 30 H 88/60 L 93 08/17/21 10:25 133 H 30 H 91 08/17/21 10:20 134 H 31 H 77/54 L 90 08/17/21 10:19 132 H 31 H 87 L 08/17/21 10:15 133 H 31 H 88/54 L 89 L 08/17/21 10:00 132 H 30 H 78/56 L 86 L 08/17/21 09:56 132 H 30 H 73/46 L 83 L 08/17/21 09:50 132 H 30 H 83/42 L 72 L 08/17/21 09:45 132 H 30 H 68 L 08/17/21 09:44 131 H 30 H 71/39 L 72 L 08/17/21 09:42 135 H 31 H 62/38 L 74 L 08/17/21 09:40 143 H 30 H 62/44 L 78 L 08/17/21 09:30 134 H 31 H 96/53 L 84 L 08/17/21 09:20 134 H 34 H 92/63 L 88 L 08/17/21 09:15 132 H 32 H 88 L 08/17/21 09:10 132 H 34 H 109/60 88 L 08/17/21 09:00 131 H 30 H 84 L 08/17/21 08:55 133 H 31 H 112/64 79 L 08/17/21 08:50 132 H 28 H 89/42 L 82 L 08/17/21 08:45 131 H 31 H 83/43 L 84 L 08/17/21 08:41 136 H 31 H 81/52 L 08/17/21 08:35 136 H 29 H 84 L 08/17/21 08:30 136 H 31 H 78/66 L 87 L 08/17/21 08:25 139 H 26 H 110/80 89 L 08/17/21 08:20 137 H 29 H 114/71 90 08/17/21 08:15 136 H 26 H 128/82 94 08/17/21 08:11 135 H 31 H 112/73 94 08/17/21 08:00 131 H 30 H 95 08/17/21 07:50 130 H 30 H 123/75 95 08/17/21 07:45 129 H 29 H 105/77 94 08/17/21 07:40 131 H 28 H 83/60 L 90 08/17/21 07:35 134 H 30 H 91/72 L 91 08/17/21 07:30 132 H 28 H 119/76 91 08/17/21 07:25 135 H 25 H 109/74 90 08/17/21 07:20 139 H 33 H 114/73 90 08/17/21 07:19 145 H 32 H 91 08/17/21 07:15 114/70 08/17/21 07:10 107/81 08/17/21 07:05 132 H 26 H 130/87 93 08/17/21 07:00 131 H 31 H 126/84 93 08/17/21 06:55 130 H 32 H 129/79 92 08/17/21 06:50 128 H 30 H 111/81 94 08/17/21 06:45 125 H 30 H 110/70 94
--- NOTE | 2021-08-17 18:59 | Death Pronouncement Note ---
Date of Service August 17, 2021 Pronouncement Note Admission Date Admission Date: July 25, 2021 Date and Time of Date of : 08/17/21 Time of : 18:46 PCOD Preliminary cause of : Respiratory failure with hypoxia Contributing Factors (1) 2019 novel coronavirus-infected pneumonia (NCIP): (2) Acute pulmonary embolism: (3) Acute respiratory failure with hypoxia: (4) DVT of lower extremity, bilateral: (5) Hyponatremia: (6) Diabetes mellitus: (7) CAD (coronary artery disease): (8) HTN (hypertension): (9) Lactic acid acidosis: (10) Acute worsening of stage 3 chronic kidney disease: (11) CKD (chronic kidney disease) stage 3, GFR 30-59 ml/min: Hospital Course Hospital Course: Patient is a 60-year-old male with his past significant medical history of hypertension chronic kidney disease stage III hyperlipidemia and coronary artery disease. He was presented to the emergency department with increasing shortness of breath and was found to be COVID-19 positive. He had a protracted hospital course complicated by progressive worsening of COVID-19 pneumonia transitioning to acute hypoxic respiratory failure and acute respiratory distress syndrome. This eventually progressed to multisystem organ failure including acute kidney injury. Additional Data Confirmation of : no pulse, no respirations, no heart sounds, pupils fixed and dilated and other (no cardiac electrical activity) Family: at bedside Attending/PCP notified?: Yes Attending physician: Yovanny Manning MD Was code activated?: No Autopsy requested?: No Coding Level of Care Code None Diagnoses Acute respiratory failure with hypoxia J96.01 Acute pulmonary embolism I26.99 DVT of lower extremity, bilateral I82.403 2018 novel coronavirus-infected pneumonia (NCIP) U07.1; J12.82 Hyponatremia E87.1 Diabetes mellitus E11.9 CAD (coronary artery disease) I25.10 HTN (hypertension) I10 Lactic acid acidosis E87.2 Acute worsening of stage 3 chronic kidney disease N18.30 CKD (chronic kidney disease) stage 3, GFR 30-59 ml/min N18.30
[2021-08-18] MEDS ORDERED: dexAMETHasone 1 MG in SYRINGE 0 ML IV SCH (09:00)
--- NOTE | 2021-08-18 14:06 | Discharge Summary ---
Date of Service August 18, 2021 Admission Exam Per Admitting Provider JOSE HAHN in place (4L) Lungs: fair air entry b/l with b/l rales Cardiac: normal S1/S2, no murmur Abd: obese abd, soft, NT MSK: no LE edema Psych: AAOx3, normal affect Principal Diagnosis Acute respiratory failure with hypoxia, Covid 19 pneumonia, ARDS, Multiorgan failure Discharge Data Allergies Allergy/AdvReac Type Severity Reaction Status Date / Time No Known Allergies Allergy Unverified 07/25/21 14:34 Consultations 07/25/21 15:56 ED Decision to Admit Stat 08/03/21 14:51 Consult Air Quality Specialist Routine 08/06/21 15:32 Consult Orthopedic Surgery Stat 08/15/21 12:27 Consult Gastroenterology Routine 08/15/21 13:41 Consult Nephrology Routine 08/17/21 17:39 Consult Palliative Care Routine Ordered Studies 07/25/21 13:28 CT abd pelvis wo con Stat CT chest diagnostic wo con Stat 08/03/21 19:46 CT angio chest PE protocol Urgent 08/05/21 16:57 US venous doppler UE LT Stat 08/06/21 12:57 CT humerus LT wo/w con Urgent 08/06/21 13:00 CT forearm LT wo/w con Urgent 08/06/21 15:36 US venous doppler LE BI Urgent 08/11/21 14:50 CT angio chest PE protocol Routine 08/15/21 07:59 US renal/blad retro comp Routine 08/17/21 12:44 US point of care ultrasound Routine Hospital Course (1) Unresponsiveness: (2) Acute respiratory failure with hypoxia: (3) Acute pulmonary embolism: (4) DVT of lower extremity, bilateral: (5) 2019 novel coronavirus-infected pneumonia (NCIP): (6) Hematoma: (7) Sinus tachycardia: (8) Hyponatremia: (9) Diabetes mellitus: (10) CAD (coronary artery disease): (11) HTN (hypertension): 60 year old male who initially presented with increasing shortness of breath and found to have COVID 19 PNA. He had a protracted hospital course complicated by progressive worsening of covid 19 pneumonia with acute hypoxic respiratory failure and ARDS which progressed to MODS. Family opted for comfort measure status on 08/17/2021 and he shortly afterwards. pronounced by Dr Myers (checkman). Electronic certificate completed by me. Please see the progress note from 08/17/2021 for further details of the hospital course and complications. Total Time Total Time Spent Total Time Spent (In Minutes): 35 Discharge Plan Discharge Items Patient Disposition: Discharge Diagnosis: Acute hypoxic respiratory failure, ARDS, Multiorgan failure, Covid 19 Pneumonia Other Date/Time: 08/17/21 18:46
[2021-08-19 15:07] LABS: Uric Acid, Random Urine 32 mg/dL
== END 2021-08-17 20:24 | disposition expired | DRG 4 ==
LOC: ED 11:19 → EDINP 15:42 → SUATTDRO 15:42 → 2S 17:54 → 2N 07-26 18:09 → 2S 07-28 10:47 → 1E 08-04 01:35